=== PATIENT | male | born 1965 | race Hispanic/Latino ===

== ENCOUNTER 2017-02-22 17:46 | Inpatient (IN) | payer MEDICAID ==
[2017-02-22 17:50] VITALS: BMI 29.9
--- NOTE | 2017-02-22 18:35 | RAD ---
HISTORY: dvt right leg COMPARISON: 06/21/2016 FINDINGS: LUNGS: No active pulmonary disease. PLEURA: No significant pleural effusion identified, no pneumothorax apparent. CARDIOVASCULAR: Normal. OSSEOUS STRUCTURES: No significant abnormalities. VISUALIZED UPPER ABDOMEN: Normal. OTHER FINDINGS: None. IMPRESSION: No active disease.
[2017-02-22 18:43] LABS: BASO # 0.03 K/mm3 (0.0-2.0); BASO % 0.3 % (0.0-3.0); EOS # 0.2 (0.0-0.7); EOS % 2.4 % (1.5-5.0); GRAN # 6.37 (1.4-6.5); GRAN % 71.6 % (50.0-68.0); HEMATOCRIT 34.5 % (42.0-52.0); LYMPH # 1.7 (1.2-3.4); LYMPH % 19.3 % (22.0-35.0); MEAN CELL VOLUME 86.9 fl (80.0-105.0); MEAN CORPUSCULAR HEMOGLOBIN 28.5 pg (25.0-35.0); MEAN CORPUSCULAR HGB CONC 32.8 g/dl (31.0-37.0); MEAN PLATELET VOLUME 9.3 fl (7.0-11.0); MONO # 0.6 (0.1-0.6); MONO % 6.4 % (1.0-6.0); RED CELL DISTRIBUTION WIDTH 12.4 % (11.5-14.5); WHITE BLOOD COUNT 8.9 10^3/ul (4.5-11.0)
[2017-02-22 18:59] LABS: ALB/GLOB RATIO 1.3 (1.1-1.8); ALKALINE PHOSPHATASE 91 U/L (38-126); ALT/SGPT 36 U/L (7-56); AST/SGOT 28 U/L (17-59); BILIRUBIN,TOTAL 0.4 mg/dL (0.2-1.3); BLOOD UREA NITROGEN 14 mg/dL (7-21); CARBON DIOXIDE 28 mmol/L (21-33); CHLORIDE 104 mmol/L (98-107); GFR AFRICAN-AMERICAN > 60; GLUCOSE,RANDOM 97 mg/dL (70-110); POTASSIUM 4.1 mmol/L (3.6-5.0); SODIUM 142 mmol/L (132-148)
[2017-02-22 19:08] LABS: INR 1.06 (0.93-1.08); PARTIAL THROMBOPLASTIN TIME 26.7 Seconds (23.7-30.8)
--- NOTE | 2017-02-22 19:30 | ED PDOC ---
Arrival/HPI - General Chief Complaint: Lower Extremity Problem/Injury Time Seen by Provider: 02/22/17 17:52 Historian: Patient - History of Present Illness Narrative History of Present Illness (Text): 02/22/17 19:00 52-year-old male presents today sent in by his doctor for DVT in the right leg. Patient states 2 weeks ago he developed right leg pain and swelling. denies fever/chills. pt states he had right foot surgery on December 30. pt states he was sent to outpatient Ultrasound today and then sent to ER after positive test. pt refusing medications for pain. denies cp or sob. no vomiting/diarrhea. no other complaints. Time/Duration: Other (2 weeks) Symptom Onset: Gradual Symptom Course: Worsening Quality: Aching Past Medical History - Provider Review Nursing Documentation Reviewed: Yes - Travel History Have you recently traveled outside [place] w/in the past 3 mons?: No - Infectious Disease Hx of Infectious Diseases: None - Tetanus Immunization Tetanus Immunization: Unknown - Cardiac Hx Pacemaker: No - Neurological Hx Paralysis: No - Hematological/Oncological Hx Blood Transfusions: No Hx Blood Transfusion Reaction: No - Musculoskeletal/Rheumatological Hx Musculoskeletal Disorders: No - Psychiatric Hx Emotional Abuse: No Hx Physical Abuse: No Hx Substance Use: No - Surgical History Other/Comment: R foot surgery December 2016 - Anesthesia Hx Anesthesia Reactions: No Hx Malignant Hyperthermia: No - Suicidal Assessment Feels Threatened In Home Enviroment: No Family/Social History - Physician Review Nursing Documentation Reviewed: Yes Family/Social History: Unknown Family HX Smoking Status: Never Smoked Hx Alcohol Use: No Hx Substance Use: No Allergies/Home Meds Allergies/Adverse Reactions: Allergies No Known Allergies Allergy (Verified 06/21/16 10:13) Home Medications: Home Meds Medication Instructions Recorded Confirmed Ciprofloxacin [Cipro] 500 mg PO BID 06/29/16 06/29/16 Magnesium Hydroxide [Milk Of 30 ml PO DAILY PRN 06/29/16 06/29/16 Magnesia] oxyCODONE/Acetaminophen [Percocet 1 tab PO QID PRN 06/29/16 06/29/16 5/325 mg Tab] Review of Systems - Review of Systems Constitutional: absent: Fatigue, Fevers Respiratory: absent: SOB, Cough Cardiovascular: absent: Chest Pain, Palpitations Gastrointestinal: absent: Abdominal Pain, Constipation, Diarrhea, Nausea, Vomiting Genitourinary Male: absent: Dysuria, Frequency, Hematuria Musculoskeletal: Arthralgias Neurological: absent: Headache, Dizziness Psychiatric: absent: Anxiety, Depression Physical Exam Vital Signs Reviewed: Yes Vital Signs Temp Pulse Resp BP Pulse Ox 02/22/17 17:47 98.5 F 70 18 146/82 97 Temperature: Afebrile Blood Pressure: Normal Pulse: Regular Respiratory Rate: Normal Appearance: Positive for: Well-Appearing, Non-Toxic, Comfortable Pain Distress: None Mental Status: Positive for: Alert and Oriented X 3 - Systems Exam Head: Present: Atraumatic Mouth: Present: Moist Mucous Membranes Neck: Present: Normal Range of Motion Respiratory/Chest: Present: Clear to Auscultation, Good Air Exchange. No: Respiratory Distress, Accessory Muscle Use Cardiovascular: Present: Regular Rate and Rhythm, Normal S1, S2. No: Murmurs Abdomen: No: Tenderness Upper Extremity: Present: Normal Inspection Lower Extremity: Present: CALF TENDERNESS, Tenderness (right leg; + edema and erythema noted to right foot, lower leg and calf. medial incision noted to right foot;), Swelling, Erythema, Neurovascularly Intact Neurological: Present: GCS=15 Skin: Present: Warm, Dry Psychiatric: Present: Alert, Oriented x 3 Medical Decision Making ED Course and Treatment: 02/22/17 21:27 52yr old male sent in by PMD for DVT right leg. vitals stable; pt in no distress. cbc; wnl cmp; wnl pt/ptt duplex reviewed; pt with right popliteal dvt. lovenox started sq. case discussed with dr. williamson in depth; advised him that patient started on lovenox in er. accepts admission; pt to be admitted to med/surg case discussed with resident; binta. he will add vancomycin impression; dvt right leg admit to med/surg - Lab Interpretations Lab Results: 02/22/17 18:30 02/22/17 18:30 Lab Results 02/22/17 18:30: Iron 34 L, TIBC 275, % Saturation 12 L 02/22/17 18:30: Ferritin Pending, Triglycerides 102, Cholesterol 128 L, LDL Cholesterol Direct 60, HDL Cholesterol 40, Vitamin B12 Pending, Folate Pending 02/22/17 18:30: WBC 8.9 D, RBC 3.97, Hgb 11.3 L, Hct 34.5 L, MCV 86.9, MCH 28.5 , MCHC 32.8, RDW 12.4, Plt Count 385, MPV 9.3, Gran % 71.6 H, Lymph % (Auto) 19.3 L, [place] % (Auto) 6.4 H, Eos % (Auto) 2.4, Baso % (Auto) 0.3, Gran # 6.37, Lymph # 1.7, [place] # 0.6, Eos # 0.2, Baso # 0.03 02/22/17 18:30: Sodium 142, Potassium 4.1, Chloride 104, Carbon Dioxide 28, Anion Gap 14, BUN 14, Creatinine 0.8, Est GFR ( Amer) > 60, Est GFR (Non- Af Amer) > 60, Random Glucose 97, Calcium 9.0, Total Bilirubin 0.4, AST 28, ALT 36, Alkaline Phosphatase 91, Total Protein 7.0, Albumin 3.9, Globulin 3.1, Albumin/Globulin Ratio 1.3 02/22/17 18:30: PT 11.4, INR 1.06, APTT 26.7 - RAD Interpretation Radiology Orders: 02/22/17 18:03 CHEST PORTABLE [RAD] Stat - Medication Orders Current Medication Orders: Famotidine (Pepcid) 20 mg PO 1000,2200 GINNA Vancomycin HCl (Vancomycin 1gm) 1 gm in 250 mls @ 167 mls/hr IVPB DAILY GINNA PRN Reason: Protocol Heparin Sodium/Dextrose (Heparin 25,000 Units/250ml In D5w) 25,000 units in 250 mls @ 17.554 mls/hr IV .[id number] PRN; Protocol; 18 UNITS/KG/HR PRN Reason: ADJUST RATE PER PROTOCOL Discontinued Medications Enoxaparin Sodium (Lovenox) 100 mg SC STAT STA PRN Reason: Protocol Stop: 02/22/17 19:32 Last Admin: 02/22/17 19:46 Dose: 100 mg Subcutaneous Administrations Document 02/22/17 19:46 SS (Rec: 02/22/17 19:46 SS [id number]) Injection Site MAR Injection Site Left Abdomen Charges for Administration # of Subcutaneous Administrations 1 Disposition/Present on Arrival - Present on Arrival Any Indicators Present on Arrival: No History of DVT/PE: No History of Uncontrolled Diabetes: No Urinary Catheter: No History of Decub. Ulcer: No History Surgical Site Infection Following: Orthopedic Procedures, None - Disposition Have Diagnosis and Disposition been Completed?: Yes Diagnosis: DVT (deep venous thrombosis) Disposition: HOSPITALIZED Disposition Time: 20:03 Patient Plan: Admission Patient Problems: Current Active Problems Problem Status Onset DVT (deep venous thrombosis) Acute Condition: FAIR Referrals: Mariana Thorpe MD [Primary Care Provider] - Follow up with primary Forms: [employer] (Hebrew)
[2017-02-22] MEDS ORDERED: Enoxaparin 100 mg Syringe SC STA (19:31)
--- NOTE | 2017-02-22 21:00 | CP.PCM.HP ---
<Irving Covington - Last Filed: 02/22/17 21:15> History of Present Illness - History of Present Illness History of Present Illness: CC: R leg blood clot 52M with no significant pmh presents from his podiatry after an abnormal extremity US showing acute RLE DVT - of popliteal and tibial v. Two weeks ago he started getting pain in his R leg. When he followed up with his Podiatry today she sent him for an US of extremity. 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 pain is non radiating and 6/10 in severity. He denies any long periods of immobility. Denies any hx of clots. Pt also states that his leg started to get erythematous and "hot" which also started 2 weeks ago. No other complaints. 12 point ROS performed and negative otherwise stated above. 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, smoking, or drugs FH: grandfather with DM Present on Admission - Present on Admission Any Indicators Present on Admission: No Review of Systems - Review of Systems All systems: reviewed and no additional remarkable complaints except Past Patient History - Infectious Disease Hx of Infectious Diseases: None - Tetanus Immunizations Tetanus Immunization: Unknown - Past Social History Smoking Status: Never Smoked - CARDIAC Hx Pacemaker: No - NEUROLOGICAL Hx Paralysis: No - HEMATOLOGICAL/ONCOLOGICAL Hx Blood Transfusions: No Hx Blood Transfusion Reaction: No - MUSCULOSKELETAL/RHEUMATOLOGICAL Hx Musculoskeletal Disorders: No - PSYCHIATRIC Hx Emotional Abuse: No Hx Physical Abuse: No Hx Substance Use: No - SURGICAL HISTORY Other/Comment: R foot surgery December 2016 - ANESTHESIA Hx Anesthesia Reactions: No Hx Malignant Hyperthermia: No Meds Allergies/Adverse Reactions: Allergies Allergy/AdvReac Type Severity Reaction Status Date / Time No Known Allergies Allergy Verified 06/21/16 10:13 Physical Exam - Constitutional Appears: No Acute Distress - Head Exam Head Exam: ATRAUMATIC, NORMOCEPHALIC - Eye Exam Eye Exam: EOMI, PERRL - ENT Exam ENT Exam: Mucous Membranes Moist - Respiratory Exam Respiratory Exam: Clear to Auscultation Bilateral. absent: Rales, Rhonchi, Wheezes - Cardiovascular Exam Cardiovascular Exam: RRR, +S1, +S2 - GI/Abdominal Exam GI & Abdominal Exam: Normal Bowel Sounds, Soft - Extremities Exam Extremities exam: Positive for: calf tenderness, pedal edema Additional comments: RLE: erythema and warm to touch, calf tenderness; 2+ pitting edema, Splint placed by podiatry - Back Exam Back exam: absent: paraspinal tenderness, vertebral tenderness - Neurological Exam Neurological exam: Alert, CN II-XII Intact, Oriented x3 - Psychiatric Exam Psychiatric exam: Normal Affect, Normal Mood - Skin Skin Exam: Dry, Erythema, Intact, Warm Additional comments: RLE exam: refer to extermity portion of exam Results - Vital Signs Recent Vital Signs: Last Vital Signs Temp 98.5 F 02/22/17 17:47 Pulse 70 02/22/17 17:47 Resp 18 02/22/17 17:47 BP 146/82 02/22/17 17:47 Pulse Ox 97 02/22/17 17:47 - Labs Result Diagrams: 02/22/17 18:30 02/22/17 18:30 Labs: Laboratory Results - last 24 hr 02/22/17 02/22/17 02/22/17 18:30 18:30 18:30 WBC 8.9 D RBC 3.97 Hgb 11.3 L Hct 34.5 L MCV 86.9 MCH 28.5 MCHC 32.8 RDW 12.4 Plt Count 385 MPV 9.3 Gran % 71.6 H Lymph % (Auto) 19.3 L [place] % (Auto) 6.4 H Eos % (Auto) 2.4 Baso % (Auto) 0.3 Gran # 6.37 Lymph # 1.7 [place] # 0.6 Eos # 0.2 Baso # 0.03 PT 11.4 INR 1.06 APTT 26.7 Sodium 142 Potassium 4.1 Chloride 104 Carbon Dioxide 28 Anion Gap 14 BUN 14 Creatinine 0.8 Est GFR ( Amer) > 60 Est GFR (Non-Af Amer) > 60 Random Glucose 97 Calcium 9.0 Total Bilirubin 0.4 AST 28 ALT 36 Alkaline Phosphatase 91 Total Protein 7.0 Albumin 3.9 Globulin 3.1 Albumin/Globulin Ratio 1.3 Assessment & Plan - Assessment and Plan (Free Text) Assessment: 52M with no significant pmh 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 Pt also found to have cellulites of RLE and anemia to 11.3. 1. Acute DVT - Lovenox 100mg stat in the ED - Started heparin drip - Anticoagulation work up prior to heparin drip 2. Cellulites of RLE - Afebrile and no leukocytosis - Started on vancomycin - Podiatry consult for recs - Cont to monitor 3. Anemia - No active source of bleeding - Hb of 11.3 - f/u anemia work up 4. GI/DVT ppx - Pepcid and heparin Case an plan was reviewed and discussed in detail with Dr Morrow. <Bennie Morrow - Last Filed: 02/23/17 06:52> Results - Vital Signs Recent Vital Signs: Last Vital Signs Temp 98.5 F 02/22/17 17:47 Pulse 70 02/22/17 22:30 Resp 18 02/22/17 17:47 BP 122/84 02/22/17 22:30 Pulse Ox 99 02/22/17 22:30 - Labs Result Diagrams: 02/22/17 18:30 02/22/17 18:30 Attending/Attestation - Attestation I have personally seen and examined this patient.: Yes I have fully participated in the care of the patient.: Yes I have reviewed all pertinent clinical information: Yes Notes (Text): 02/23/17 01:46 Agree with history , physical examination, assessment and plan. Patient was seen when he was in bed # 573-57.
[2017-02-22 21:10] LABS: IRON 34 ug/dL (45-180)
[2017-02-22] MEDS ORDERED: Heparin 25,000units in D5W 25,000 UNITS/250 ML BAG IV PRN (21:14)
[2017-02-23 07:23] LABS: BASO # 0.04 K/mm3 (0.0-2.0); BASO % 0.5 % (0.0-3.0); EOS # 0.3 (0.0-0.7); EOS % 3.9 % (1.5-5.0); GRAN # 4.3 (1.4-6.5); GRAN % 58.6 % (50.0-68.0); HEMATOCRIT 32.9 % (42.0-52.0); LYMPH # 2.2 (1.2-3.4); LYMPH % 29.3 % (22.0-35.0); MEAN CELL VOLUME 86.1 fl (80.0-105.0); MEAN CORPUSCULAR HEMOGLOBIN 28.3 pg (25.0-35.0); MEAN CORPUSCULAR HGB CONC 32.8 g/dl (31.0-37.0); MEAN PLATELET VOLUME 9.4 fl (7.0-11.0); MONO # 0.6 (0.1-0.6); MONO % 7.7 % (1.0-6.0); RED CELL DISTRIBUTION WIDTH 12.6 % (11.5-14.5); WHITE BLOOD COUNT 7.4 10^3/ul (4.5-11.0)
[2017-02-23 07:50] LABS: ALB/GLOB RATIO 1.1 (1.1-1.8); ALKALINE PHOSPHATASE 96 U/L (38-126); ALT/SGPT 27 U/L (7-56); AST/SGOT 27 U/L (17-59); BILIRUBIN,TOTAL 0.5 mg/dL (0.2-1.3); BLOOD UREA NITROGEN 12 mg/dL (7-21); CALCIUM 8.9 mg/dL (8.4-10.5); CARBON DIOXIDE 29 mmol/L (21-33); CHLORIDE 105 mmol/L (98-107); GFR AFRICAN-AMERICAN > 60; GLUCOSE,RANDOM 102 mg/dL (70-110); POTASSIUM 3.9 mmol/L (3.6-5.0); SODIUM 143 mmol/L (132-148); TOTAL PROTEIN 6.6 g/dL (5.8-8.3)
--- NOTE | 2017-02-23 08:31 | CP.PCM.PN ---
<Saman Costello - Last Filed: 02/23/17 15:13> Subjective - Date & Time of Evaluation Date of Evaluation: 02/23/17 Time of Evaluation: 08:26 - Subjective Subjective: Pt seen and examined at bedside. Pt doing well overnight with no acute complaints. Pt states pain in his right leg is minimal at this time. Denies CP, SOB, N/V/D, fever, chills, palpitations. Objective - Vital Signs/Intake and Output Vital Signs (last 24 hours): Temp Pulse Resp BP Pulse Ox 97.5 F L 60 16 132/80 97 02/23/17 07:53 02/23/17 07:53 02/23/17 07:53 02/23/17 07:53 02/23/17 07:53 Intake and Output: 02/23/17 02/23/17 06:59 18:59 Intake Total 120 Balance 120 - Medications Medications: Current Medications Famotidine (Pepcid) 20 mg PO 1000,2200 [facility] Last Admin: 02/22/17 23:10 Dose: 20 mg Vancomycin HCl (Vancomycin 1gm) 1 gm in 250 mls @ 167 mls/hr IVPB DAILY GINNA PRN Reason: Protocol Heparin Sodium/Dextrose (Heparin 25,000 Units/250ml In D5w) 25,000 units in 250 mls @ 17.554 mls/hr IV .[id number] PRN; Protocol; 18 UNITS/KG/HR PRN Reason: ADJUST RATE PER PROTOCOL Last Admin: 02/23/17 00:35 Dose: 18 units/kg/hr, 17.554 mls/hr - Labs Labs: 02/23/17 07:10 02/23/17 07:10 PT 11.4 Seconds (9.9-11.8) 02/22/17 18:30 INR 1.06 (0.93-1.08) 02/22/17 18:30 APTT 54.6 Seconds (23.7-30.8) H 02/23/17 07:10 - Constitutional Appears: Non-toxic, No Acute Distress - Head Exam Head Exam: ATRAUMATIC, NORMAL INSPECTION, NORMOCEPHALIC - ENT Exam ENT Exam: Mucous Membranes Moist, Normal Exam - Respiratory Exam Respiratory Exam: Clear to Ausculation Bilateral, NORMAL BREATHING PATTERN. absent: Rales, Rhonchi, Wheezes - Cardiovascular Exam Cardiovascular Exam: RRR, +S1, +S2 - GI/Abdominal Exam GI & Abdominal Exam: Soft, Normal Bowel Sounds. absent: Tenderness - Extremities Exam Additional comments: RLE warm to touch, erythema improved from outlined marking. 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 Pt has been placed on a heparin drip and has Vancomycin for cellulitis. Will convert heparin drip to therapeutic Lovenox. Pt is also undergoing coagulopathy workup for DVT, however, DVT is likely secondary to immbolization after recent history of right foot surgery. 1. RLE DVT - Therapeutic Lovenox - Coagulopathy workup ordered 2. Cellulites of RLE - Afebrile and no leukocytosis - Continue vancomycin - Podiatry consulted 3. Normocytic Anemia - Hg stable - Consider outpatient workup 4. PPX - Heparin drip - Philip Costello, PGY-2 <Mitch Miller - Last Filed: 02/24/17 14:05> Objective - Vital Signs/Intake and Output Vital Signs (last 24 hours): Temp Pulse Resp BP Pulse Ox 97.7 F 60 18 133/87 97 02/24/17 08:00 02/24/17 08:00 02/24/17 08:00 02/24/17 08:00 02/24/17 08:00 Intake and Output: 02/24/17 02/24/17 06:59 18:59 Intake Total 840 Balance 840 - Medications Medications: Current Medications Enoxaparin Sodium (Lovenox) 100 mg SC Q12H GINNA PRN Reason: Protocol Last Admin: 02/24/17 05:40 Dose: 100 mg Famotidine (Pepcid) 20 mg PO 1000,2200 GINNA Last Admin: 02/24/17 10:52 Dose: 20 mg Vancomycin HCl (Vancomycin 1gm) 1 gm in 250 mls @ 167 mls/hr IVPB DAILY GINNA PRN Reason: Protocol Last Admin: 02/24/17 10:52 Dose: 167 mls/hr - Labs Labs: 02/24/17 06:00 02/24/17 06:00 PT 11.4 Seconds (9.9-11.8) 02/23/17 15:40 INR 1.06 (0.93-1.08) 02/23/17 15:40 APTT 29.1 Seconds (23.7-30.8) 02/24/17 06:00 Attending/Attestation - Attestation I have personally seen and examined this patient.: Yes I have fully participated in the care of the patient.: Yes I have reviewed all pertinent clinical information, including history, physical exam and plan: Yes Notes (Text): 02/24/17 14:05 Patient was seen and examined with ophthalmic medical technologist. Agreed with resident assessment and plan. Management plan was discussed in detail with patient Education was provided.
[2017-02-23] MEDS: Vancomycin 1gm in NS 250ml 1 GM/250 ML BAG IVPB SCH (10:15)
[2017-02-23 16:16] LABS: INR 1.06 (0.93-1.08); PARTIAL THROMBOPLASTIN TIME 48.5 Seconds (23.7-30.8)
[2017-02-23] MEDS: Enoxaparin 100 mg Syringe SC SCH (17:13)
[2017-02-24] MEDS: Enoxaparin 100 mg Syringe SC SCH ×2 (05:40→18:03)
[2017-02-24 06:14] LABS: HOMOCYSTEINE 13.9 umol/L (<11.4)
[2017-02-24 06:29] LABS: BASO # 0.03 K/mm3 (0.0-2.0); BASO % 0.5 % (0.0-3.0); EOS # 0.3 (0.0-0.7); EOS % 4.3 % (1.5-5.0); GRAN # 3.6 (1.4-6.5); GRAN % 57.2 % (50.0-68.0); HEMATOCRIT 33.1 % (42.0-52.0); LYMPH # 1.8 (1.2-3.4); LYMPH % 29.3 % (22.0-35.0); MEAN CELL VOLUME 86.2 fl (80.0-105.0); MEAN CORPUSCULAR HEMOGLOBIN 28.1 pg (25.0-35.0); MEAN CORPUSCULAR HGB CONC 32.6 g/dl (31.0-37.0); MEAN PLATELET VOLUME 9.1 fl (7.0-11.0); MONO # 0.6 (0.1-0.6); MONO % 8.7 % (1.0-6.0); RED CELL DISTRIBUTION WIDTH 12.7 % (11.5-14.5); WHITE BLOOD COUNT 6.3 10^3/ul (4.5-11.0)
[2017-02-24 07:02] LABS: ALB/GLOB RATIO 1.2 (1.1-1.8); ALKALINE PHOSPHATASE 87 U/L (38-126); ALT/SGPT 33 U/L (7-56); AST/SGOT 23 U/L (17-59); BILIRUBIN,TOTAL 0.4 mg/dL (0.2-1.3); BLOOD UREA NITROGEN 11 mg/dL (7-21); CALCIUM 8.8 mg/dL (8.4-10.5); CARBON DIOXIDE 28 mmol/L (21-33); CHLORIDE 104 mmol/L (98-107); GFR AFRICAN-AMERICAN > 60; GLUCOSE,RANDOM 114 mg/dL (70-110); POTASSIUM 3.6 mmol/L (3.6-5.0); SODIUM 142 mmol/L (132-148); TOTAL PROTEIN 6.7 g/dL (5.8-8.3)
--- NOTE | 2017-02-24 10:25 | CARD ---
APPROVED REPORT EKG Measurement Heart [id number] ME [id number] <Conclusion> Normal sinus rhythm Possible Left atrial enlargement Borderline ECG
[2017-02-24] MEDS: Vancomycin 1gm in NS 250ml 1 GM/250 ML BAG IVPB SCH (10:52)
--- NOTE | 2017-02-24 14:21 | CP.PCM.PN ---
<Main Acosta - Last Filed: 02/24/17 14:18> Subjective - Date & Time of Evaluation Date of Evaluation: 02/24/17 Time of Evaluation: 10:00 - Subjective Subjective: Medicine Progress Note Pt S&E at bedside this AM. No acute events overnight. Tolerating current diet. No current pain. Denies F/C CP/SOB N/V/D. Right foot dressing C/D/I. Objective - Vital Signs/Intake and Output Vital Signs (last 24 hours): Temp Pulse Resp BP Pulse Ox 97.7 F 60 18 133/87 97 02/24/17 08:00 02/24/17 08:00 02/24/17 08:00 02/24/17 08:00 02/24/17 08:00 Intake and Output: 02/24/17 02/24/17 06:59 18:59 Intake Total 840 800 Balance 840 800 - Medications Medications: Current Medications Enoxaparin Sodium (Lovenox) 100 mg SC Q12H GINNA PRN Reason: Protocol Last Admin: 02/24/17 05:40 Dose: 100 mg Famotidine (Pepcid) 20 mg PO 1000,2200 GINNA Last Admin: 02/24/17 10:52 Dose: 20 mg Vancomycin HCl (Vancomycin 1gm) 1 gm in 250 mls @ 167 mls/hr IVPB DAILY GINNA PRN Reason: Protocol Last Admin: 02/24/17 10:52 Dose: 167 mls/hr - Labs Labs: 02/24/17 06:00 02/24/17 06:00 PT 11.4 Seconds (9.9-11.8) 02/23/17 15:40 INR 1.06 (0.93-1.08) 02/23/17 15:40 APTT 29.1 Seconds (23.7-30.8) 02/24/17 06:00 - Constitutional Appears: Non-toxic, No Acute Distress - Eye Exam Eye Exam: EOMI. absent: Scleral icterus - ENT Exam ENT Exam: Mucous Membranes Moist - Respiratory Exam Respiratory Exam: NORMAL BREATHING PATTERN. absent: Accessory Muscle Use, Respiratory Distress - Cardiovascular Exam Cardiovascular Exam: +S1, +S2. absent: Bradycardia, Tachycardia - GI/Abdominal Exam GI & Abdominal Exam: Soft. absent: Distended, Firm, Rigid, Tenderness - Extremities Exam Extremities Exam: absent: Calf Tenderness Additional comments: Erythema demarcation decreasing. 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 Pt currently on Lovenox and Vancomyicn for DVT and Cellulitis respectively. DVT 2/2 immobilization after recent history of right foot surgery. RLE DVT Therapeutic Lovenox will telephone exchange operator to [place] upon discharge Cellulites of RLE Afebrile and no leukocytosis Continue vancomycin Plan to D/C on Augmentin Podiatry consulted, wound care per podiatry recs Normocytic Anemia Hg stable Consider outpatient workup PPX Philip Acosta PGY1 <Mitch Miller - Last Filed: 02/25/17 15:46> Objective - Vital Signs/Intake and Output Vital Signs (last 24 hours): Temp Pulse Resp BP Pulse Ox 98.3 F 57 L 18 132/82 96 02/25/17 08:00 02/25/17 08:00 02/25/17 08:00 02/25/17 08:00 02/25/17 08:00 Intake and Output: 02/25/17 02/25/17 06:59 18:59 Intake Total 960 Balance 960 - Labs Labs: 02/25/17 06:50 02/25/17 06:50 PT 11.4 Seconds (9.9-11.8) 02/23/17 15:40 INR 1.06 (0.93-1.08) 02/23/17 15:40 APTT 28.7 Seconds (23.7-30.8) 02/25/17 06:50 Attending/Attestation - Attestation I have personally seen and examined this patient.: Yes I have fully participated in the care of the patient.: Yes I have reviewed all pertinent clinical information, including history, physical exam and plan: Yes Notes (Text): 02/25/17 15:46 Patient was seen and examined with director medical writing. Agreed with resident assessment and plan. Management plan was discussed in detail with patient Education was provided.
[2017-02-24 18:05] VITALS: TEMP 98.3
[2017-02-24] MEDS ORDERED: Enoxaparin 100 mg Syringe SC SCH (20:29)
[2017-02-25 07:09] LABS: BASO # 0.04 K/mm3 (0.0-2.0); BASO % 0.6 % (0.0-3.0); EOS # 0.3 (0.0-0.7); EOS % 4.2 % (1.5-5.0); GRAN # 3.73 (1.4-6.5); GRAN % 56.3 % (50.0-68.0); HEMATOCRIT 33.7 % (42.0-52.0); LYMPH % 30.6 % (22.0-35.0); MEAN CELL VOLUME 86.9 fl (80.0-105.0); MEAN CORPUSCULAR HEMOGLOBIN 28.4 pg (25.0-35.0); MEAN CORPUSCULAR HGB CONC 32.6 g/dl (31.0-37.0); MEAN PLATELET VOLUME 9.4 fl (7.0-11.0); MONO # 0.6 (0.1-0.6); MONO % 8.3 % (1.0-6.0); RED CELL DISTRIBUTION WIDTH 12.9 % (11.5-14.5); WHITE BLOOD COUNT 6.6 10^3/ul (4.5-11.0)
[2017-02-25 07:22] LABS: ALB/GLOB RATIO 1.2 (1.1-1.8); ALKALINE PHOSPHATASE 87 U/L (38-126); ALT/SGPT 47 U/L (7-56); AST/SGOT 65 U/L (17-59); BILIRUBIN,TOTAL 0.4 mg/dL (0.2-1.3); BLOOD UREA NITROGEN 13 mg/dL (7-21); CARBON DIOXIDE 30 mmol/L (21-33); CHLORIDE 106 mmol/L (98-107); GFR AFRICAN-AMERICAN > 60; GLUCOSE,RANDOM 99 mg/dL (70-110); POTASSIUM 4.1 mmol/L (3.6-5.0); SODIUM 144 mmol/L (132-148); TOTAL PROTEIN 6.9 g/dL (5.8-8.3)
[2017-02-25 08:25] VITALS: BP 132/82; PULSE 57; RESP 18; O2SAT 96
[2017-02-25] MEDS: Vancomycin 1gm in NS 250ml 1 GM/250 ML BAG IVPB SCH (09:19)
--- NOTE | 2017-02-25 11:17 | CP.PCM.PN ---
<Nagi Wyatt - Last Filed: 02/25/17 11:03> Subjective - Date & Time of Evaluation Date of Evaluation: 02/25/17 Time of Evaluation: 11:03 - Subjective Subjective: 52 y.o male with R leg DVT consulted for podiatry for right foot cellulites. Patient is resting comfortably in bed, AAOx3, and in NAD with present at bedside. Patient states he recently had foot surgery by Dr. Mendoza on 12/2016 for removal of bone. He does not know the exact name of the procedure but reports the surgery was to relieve his right foot shooting pains. After surgery he was given antibiotic and pain medication. Reports being in a cast for 5 weeks R NWB with crutches and states 2 weeks ago, he transitioned into a CAM boot with WBAT to the right foot. Today he denies any pain, rating the pain 0/10 on the VAS scale. He reports feeling better and denies any calf pain today. He reports his right leg swelling and redness has gone down as well. He denies n/v/sob/cp or f. PSH: hernia surgery in 2016 and right foot surgery on 01/06 PMH: denies PMH SH: denies smoking, drinking, or elicited drug use FH: father with DM ALL: NKDA MEDS: does not recall names: pain medication and antibiotic s/p right foot surgery Objective - Vital Signs/Intake and Output Vital Signs (last 24 hours): Temp Pulse Resp BP Pulse Ox 98.3 F 57 L 18 132/82 96 02/25/17 08:00 02/25/17 08:00 02/25/17 08:00 02/25/17 08:00 02/25/17 08:00 Intake and Output: 02/25/17 02/25/17 06:59 18:59 Intake Total 960 Balance 960 - Medications Medications: Current Medications Enoxaparin Sodium (Lovenox) 100 mg SC 0600,1800 GINNA PRN Reason: Protocol Last Admin: 02/25/17 06:03 Dose: 100 mg Famotidine (Pepcid) 20 mg PO 1000,2200 GINNA Last Admin: 02/25/17 09:19 Dose: 20 mg Vancomycin HCl (Vancomycin 1gm) 1 gm in 250 mls @ 167 mls/hr IVPB DAILY GINNA PRN Reason: Protocol Last Admin: 02/25/17 09:19 Dose: 167 mls/hr - Labs Labs: 02/25/17 06:50 02/25/17 06:50 PT 11.4 Seconds (9.9-11.8) 02/23/17 15:40 INR 1.06 (0.93-1.08) 02/23/17 15:40 APTT 28.7 Seconds (23.7-30.8) 02/25/17 06:50 - Constitutional Appears: Well, Non-toxic, No Acute Distress - Extremities Exam Additional comments: Vasc: DP and PT 2/4 bilaterally, temperature WNL to the LEFT, RIGHT LE increase warmth compared to the LEFT, mild edema noted to the RIGHT LE, digit hair present, CFT < 3 seconds x10 digits Ortho: MM is 5/5 in dorsiflexion, plantarflexion, inversion, and eversion Neuro: protective and gross sensation intact bilaterally Derm: surgical incision noted to the medial aspect of the left foot measuring approximately 5 cm in length, distal and proximal surgical incision is completely healed with scarring noted. Wound dehiscence noted centrally measuring approximately .5 x .2, granular and fibrous in nature, mild serous drainage noted, mild erythema noted, no streaking noted, no increase warm to surgical site, no edema, no tunneling, undermining noted. Severe xerosis noted to the right lower extremity with hyperkeratotic lesions most prominent to plantar foot; there is no opening noted to the hyperkeratotic skin. - Neurological Exam Neurological Exam: Alert, Awake, Oriented x3 - Psychiatric Exam Psychiatric exam: Normal Affect, Normal Mood Assessment and Plan - Assessment and Plan (Free Text) Assessment: 52 y.o male with R leg DVT and right foot surgical site wound dehiscence Plan: Patient examined and evaluated. Discussed plan in detail with attending Dr. Infante Labs, charts, vitals reviewed (afebrile, absent leukocytosis WBC=6.6) Surgical site cleansed with saline, betadine and dressed with adaptic, 4x4, dsd , and kerlix Continue management of DVT treatment per primary team Will apply hydrin lotion with next dressing change. Will continue to follow while in house Thank you for the consult <Lasha Infante - Last Filed: 02/27/17 11:27> Objective - Vital Signs/Intake and Output Vital Signs (last 24 hours): Temp Pulse Resp BP Pulse Ox 98.3 F 57 L 18 132/82 96 02/25/17 08:00 02/25/17 08:00 02/25/17 08:00 02/25/17 08:00 02/25/17 08:00 - Labs Labs: 02/25/17 06:50 02/25/17 06:50 PT 11.4 Seconds (9.9-11.8) 02/23/17 15:40 INR 1.06 (0.93-1.08) 02/23/17 15:40 APTT 28.7 Seconds (23.7-30.8) 02/25/17 06:50 Attending/Attestation - Attestation I have personally seen and examined this patient.: Yes I have fully participated in the care of the patient.: Yes I have reviewed all pertinent clinical information, including history, physical exam and plan: Yes
--- NOTE | 2017-02-25 12:29 | CP.PCM.DIS ---
<Main Acosta - Last Filed: 02/25/17 12:30> Provider - Provider Date of Admission: 02/22/17 22:20 Attending physician: Mitch Miller MD Primary care physician: Mariana Thorpe MD Time Spent in preparation of Discharge (in minutes): 40 Hospital Course - Lab Results Lab Results: Most Recent Lab Values WBC 6.6 10^3/ul (4.5-11.0) 02/25/17 06:50 RBC 3.88 10^6/uL (3.5-6.1) 02/25/17 06:50 Hgb 11.0 g/dL (14.0-18.0) L 02/25/17 06:50 Hct 33.7 % (42.0-52.0) L 02/25/17 06:50 MCV 86.9 fl (80.0-105.0) 02/25/17 06:50 MCH 28.4 pg (25.0-35.0) 02/25/17 06:50 MCHC 32.6 g/dl (31.0-37.0) 02/25/17 06:50 RDW 12.9 % (11.5-14.5) 02/25/17 06:50 Plt Count 366 10^3/uL (120.0-450.0) 02/25/17 06:50 MPV 9.4 fl (7.0-11.0) 02/25/17 06:50 Gran % 56.3 % (50.0-68.0) 02/25/17 06:50 Lymph % (Auto) 30.6 % (22.0-35.0) 02/25/17 06:50 Catron % (Auto) 8.3 % (1.0-6.0) H 02/25/17 06:50 Eos % (Auto) 4.2 % (1.5-5.0) 02/25/17 06:50 Baso % (Auto) 0.6 % (0.0-3.0) 02/25/17 06:50 Gran # 3.73 (1.4-6.5) 02/25/17 06:50 Lymph # 2.0 (1.2-3.4) 02/25/17 06:50 Catron # 0.6 (0.1-0.6) 02/25/17 06:50 Eos # 0.3 (0.0-0.7) 02/25/17 06:50 Baso # 0.04 K/mm3 (0.0-2.0) 02/25/17 06:50 PT 11.4 Seconds (9.9-11.8) 02/23/17 15:40 INR 1.06 (0.93-1.08) 02/23/17 15:40 APTT 28.7 Seconds (23.7-30.8) 02/25/17 06:50 Sodium 144 mmol/L (132-148) 02/25/17 06:50 Potassium 4.1 mmol/L (3.6-5.0) 02/25/17 06:50 Chloride 106 mmol/L (98-107) 02/25/17 06:50 Carbon Dioxide 30 mmol/L (21-33) 02/25/17 06:50 Anion Gap 12 (10-20) 02/25/17 06:50 BUN 13 mg/dL (7-21) 02/25/17 06:50 Creatinine 1.0 mg/dL (0.8-1.5) 02/25/17 06:50 Est GFR ( Amer) > 60 02/25/17 06:50 Est GFR (Non-Af Amer) > 60 02/25/17 06:50 Random Glucose 99 mg/dL (70-110) 02/25/17 06:50 Hemoglobin A1c 6.0 % (4.2-6.5) 02/22/17 18:30 Calcium 9.0 mg/dL (8.4-10.5) 02/25/17 06:50 Iron 34 ug/dL (45-180) L 02/22/17 18:30 TIBC 275 ug/dL (261-462) 02/22/17 18:30 % Saturation 12 % (20-55) L 02/22/17 18:30 Transferrin 202.35 mg/dL (206-381) L 02/22/17 18:30 Ferritin 98.9 ng/mL 02/22/17 18:30 Total Bilirubin 0.4 mg/dL (0.2-1.3) 02/25/17 06:50 AST 65 U/L (17-59) H D 02/25/17 06:50 ALT 47 U/L (7-56) 02/25/17 06:50 Alkaline Phosphatase 87 U/L (38-126) 02/25/17 06:50 Total Protein 6.9 g/dL (5.8-8.3) 02/25/17 06:50 Albumin 3.7 g/dL (3.0-4.8) 02/25/17 06:50 Globulin 3.2 gm/dL 02/25/17 06:50 Albumin/Globulin Ratio 1.2 (1.1-1.8) 02/25/17 06:50 Triglycerides 102 mg/dL (35-160) 02/22/17 18:30 Cholesterol 128 mg/dL (130-200) L 02/22/17 18:30 LDL Cholesterol Direct 60 mg/dL (0-129) 02/22/17 18:30 HDL Cholesterol 40 mg/dL (29-60) 02/22/17 18:30 Vitamin B12 386 pg/mL (239-931) 02/22/17 18:30 Folate 14.0 ng/mL 02/22/17 18:30 Homocysteine 13.9 umol/L ( <11.4) H 02/22/17 22:35 Stool Occult Blood Negative (NEGATIVE) 02/24/17 08:50 - Hospital Course Hospital Course: 52M presented from his podiatry after an abdominal extremity US showing acute RLE DVT of popliteal and tibial vein. At the time he sees his own independent jeweler hand had surgery on his foot in December. Pain was located in his calf and lower extremity. Pt does not have an hx of clots. Podiatry saw the patient for the right leg, clean and redressed the foot hydrin lotion with next dressing change. Patient was started on therapeutic Lovenox and Vacomycin. Patient in good condition and will be discharged on Eliquis and Amoxicillin. Follow up with Podiatry and primary care doctor. Discharge Exam - Head Exam Head Exam: ATRAUMATIC, NORMAL INSPECTION, NORMOCEPHALIC - Eye Exam Eye Exam: EOMI. absent: Scleral icterus - ENT Exam ENT Exam: Mucous Membranes Moist - Respiratory Exam Respiratory Exam: NORMAL BREATHING PATTERN. absent: Accessory Muscle Use, Respiratory Distress - Cardiovascular Exam Cardiovascular Exam: +S1, +S2. absent: Bradycardia, Tachycardia - GI/Abdominal Exam GI & Abdominal Exam: Normal Bowel Sounds, Soft. absent: Distended, Firm, Rigid , Tenderness - Extremities Exam Extremities exam: calf tenderness - Neurological Exam Neurological exam: Alert, Oriented x3 - Skin Skin Exam: Normal Color, Warm Discharge Plan - Discharge Medications Prescriptions: Amoxicillin/Clavulanate [Augmentin 875 MG-125 MG] 1 tab PO BID 7 Days tab Apixaban [Eliquis] 10 mg PO BID 7 Days tablet Apixaban [Eliquis] 5 mg PO BID 90 Days tab - Follow Up Plan Condition: FAIR Disposition: HOME/ ROUTINE Instructions: Pulmonary Embolism (DC), Deep Venous Thrombosis (ED), Leg Edema ( ED) Additional Instructions: Take Eliquis 10mg BID for the first 7 days starting on 02/26/17 ending on . followed by Eliquis 5mg BID for the next 3 months start date 03/05/17. Follow up with your primary care doctor and independent jeweler (Foot doctor) within one to two weeks. We have started on an additional antibiotic Augmentin BID take that for the first 7 days. If symptoms worsen or new additional symptoms come up such and extreme shortness of breath or pain on breathing go to the Emergency Department. Referrals: Mariana Thorpe MD [Primary Care Provider] - <Mitch Miller - Last Filed: 02/26/17 10:16> Provider - Provider Date of Admission: 02/22/17 22:20 Attending physician: Mitch Miller MD Primary care physician: Mariana Thorpe MD Hospital Course - Lab Results Lab Results: Most Recent Lab Values WBC 6.6 10^3/ul (4.5-11.0) 02/25/17 06:50 RBC 3.88 10^6/uL (3.5-6.1) 02/25/17 06:50 Hgb 11.0 g/dL (14.0-18.0) L 02/25/17 06:50 Hct 33.7 % (42.0-52.0) L 02/25/17 06:50 MCV 86.9 fl (80.0-105.0) 02/25/17 06:50 MCH 28.4 pg (25.0-35.0) 02/25/17 06:50 MCHC 32.6 g/dl (31.0-37.0) 02/25/17 06:50 RDW 12.9 % (11.5-14.5) 02/25/17 06:50 Plt Count 366 10^3/uL (120.0-450.0) 02/25/17 06:50 MPV 9.4 fl (7.0-11.0) 02/25/17 06:50 Gran % 56.3 % (50.0-68.0) 02/25/17 06:50 Lymph % (Auto) 30.6 % (22.0-35.0) 02/25/17 06:50 Catron % (Auto) 8.3 % (1.0-6.0) H 02/25/17 06:50 Eos % (Auto) 4.2 % (1.5-5.0) 02/25/17 06:50 Baso % (Auto) 0.6 % (0.0-3.0) 02/25/17 06:50 Gran # 3.73 (1.4-6.5) 02/25/17 06:50 Lymph # 2.0 (1.2-3.4) 02/25/17 06:50 Catron # 0.6 (0.1-0.6) 02/25/17 06:50 Eos # 0.3 (0.0-0.7) 02/25/17 06:50 Baso # 0.04 K/mm3 (0.0-2.0) 02/25/17 06:50 PT 11.4 Seconds (9.9-11.8) 02/23/17 15:40 INR 1.06 (0.93-1.08) 02/23/17 15:40 APTT 28.7 Seconds (23.7-30.8) 02/25/17 06:50 Sodium 144 mmol/L (132-148) 02/25/17 06:50 Potassium 4.1 mmol/L (3.6-5.0) 02/25/17 06:50 Chloride 106 mmol/L (98-107) 02/25/17 06:50 Carbon Dioxide 30 mmol/L (21-33) 02/25/17 06:50 Anion Gap 12 (10-20) 02/25/17 06:50 BUN 13 mg/dL (7-21) 02/25/17 06:50 Creatinine 1.0 mg/dL (0.8-1.5) 02/25/17 06:50 Est GFR ( Amer) > 60 02/25/17 06:50 Est GFR (Non-Af Amer) > 60 02/25/17 06:50 Random Glucose 99 mg/dL (70-110) 02/25/17 06:50 Hemoglobin A1c 6.0 % (4.2-6.5) 02/22/17 18:30 Calcium 9.0 mg/dL (8.4-10.5) 02/25/17 06:50 Iron 34 ug/dL (45-180) L 02/22/17 18:30 TIBC 275 ug/dL (261-462) 02/22/17 18:30 % Saturation 12 % (20-55) L 02/22/17 18:30 Transferrin 202.35 mg/dL (206-381) L 02/22/17 18:30 Ferritin 98.9 ng/mL 02/22/17 18:30 Total Bilirubin 0.4 mg/dL (0.2-1.3) 02/25/17 06:50 AST 65 U/L (17-59) H D 02/25/17 06:50 ALT 47 U/L (7-56) 02/25/17 06:50 Alkaline Phosphatase 87 U/L (38-126) 02/25/17 06:50 Total Protein 6.9 g/dL (5.8-8.3) 02/25/17 06:50 Albumin 3.7 g/dL (3.0-4.8) 02/25/17 06:50 Globulin 3.2 gm/dL 02/25/17 06:50 Albumin/Globulin Ratio 1.2 (1.1-1.8) 02/25/17 06:50 Triglycerides 102 mg/dL (35-160) 02/22/17 18:30 Cholesterol 128 mg/dL (130-200) L 02/22/17 18:30 LDL Cholesterol Direct 60 mg/dL (0-129) 02/22/17 18:30 HDL Cholesterol 40 mg/dL (29-60) 02/22/17 18:30 Vitamin B12 386 pg/mL (239-931) 02/22/17 18:30 Folate 14.0 ng/mL 02/22/17 18:30 Homocysteine 13.9 umol/L ( <11.4) H 02/22/17 22:35 Stool Occult Blood Negative (NEGATIVE) 02/24/17 08:50 [id number] Ab <9 POLLO (<=20) 02/22/17 22:35 Beta-2 GPI IgG Ab <9 SGU (<=20) 02/22/17 22:35 Beta-2 GPI IgM Ab <9 SMU (<=20) 02/22/17 22:35 Anti-Cardiolipin IgG Ab <14 GPL (<=14) 02/22/17 22:35 Anti-Cardiolipin IgA Ab <11 APL (<=11) 02/22/17 22:35 Anti-Cardiolipin IgM Ab <12 MPL (<=12) 02/22/17 22:35 Attending/Attestation - Attestation I have personally seen and examined this patient.: Yes I have fully participated in the care of the patient.: Yes I have reviewed all pertinent clinical information, including history, physical exam and plan: Yes Notes (Text): 02/26/17 10:01 Patient was seen and examined with medical imaging specialist. Agreed with resident assessment and plan. 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 Management plan was discussed in detail with patient Education was provided.
[2017-02-26 00:44] LABS: B2 GLYCOPROTEIN I AB(IGA) <9 SAU (<=20); B2 GLYCOPROTEIN I AB(IGG) <9 SGU (<=20); B2 GLYCOPROTEIN I AB(IGM) <9 SMU (<=20); CARDIOLIPIN AB (IGA) <11 APL (<=11)
== END 2017-02-25 15:03 | disposition home or self-care (01) | DRG 543 ==
LOC: ED 17:46 → ERH 22:20 → 5RSO 02-23 00:14
PROVIDERS: ADMIT Internal Medicine; ATTEND Internal Medicine
DX: I82.431 Acute embolism and thrombosis of right popliteal vein (principal); I82.441 Acute embolism and thrombosis of right tibial vein; L03.115 Cellulitis of right lower limb; T81.31XA Disruption of external operation (surgical) wound, not elsewhere classified, initial encounter; D64.9 Anemia, unspecified; Y83.8 Other surgical procedures as the cause of abnormal reaction of the patient, or of later complication, without mention of misadventure at the time of the procedure

== ENCOUNTER 2017-03-05 13:51 | Inpatient (IN) | payer MEDICAID ==
[2017-03-05] MEDS ORDERED: Piperacillin/Tazobact 3.375 gm 100 ML IVPB STA (15:08)
--- NOTE | 2017-03-05 15:28 | ED PDOC ---
Arrival/HPI - General Chief Complaint: Lower Extremity Problem/Injury Time Seen by Provider: 03/05/17 14:05 Historian: Patient - History of Present Illness Narrative History of Present Illness (Text): 03/05/17 15:20 A 52 year old male whose past medical history includes a right leg/foot wound and was recently diagnosed with R leg DVT, presents to the emergency department for admission to hospital by residential manager because the right foot wound is not improving. The patient complains of persistent swelling and redness despite antibiotic use. The patient was recently admitted to hospital for IV antibiotics and was started on Eliquis for his DVT. The patient was discharged on Augmentin and has been continuing to take Ciprofloxacin and Bactrim. The patient states that he has been compliant also with Eliquis. The patient denies fevers, chills, headache, dizziness, sore throat, cough, chest pain, shortness of breath, dyspnea on exertion, abdominal pain, nausea, vomiting, diarrhea, neck pain, back pain, urinary/bowel changes, or any other complaints. The residential manager saw the patient yesterday and finds that the patient needs to be admitted for iv antibiotics. Time/Duration: Prior to Arrival Symptom Onset: Sudden Symptom Course: Unchanged Activities at Onset: Rest, Light Context: Other ([facility] Specialist's Office) Past Medical History - Provider Review Nursing Documentation Reviewed: Yes - Infectious Disease Hx of Infectious Diseases: None - Tetanus Immunization Tetanus Immunization: Unknown - Cardiac Hx Cardiac Disorders: No Hx Pacemaker: No - Pulmonary Hx Respiratory Disorders: No - Neurological Hx Neurological Disorder: No - HEENT Hx HEENT Disorder: No - Renal Hx Renal Disorder: No - Endocrine/Metabolic Hx Endocrine Disorders: No - Hematological/Oncological Hx Blood Disorders: No - Integumentary Hx Dermatological Disorder: No - Musculoskeletal/Rheumatological Hx Musculoskeletal Disorders: Yes Other/Comment: WOUND TO R FOOT, DVT - Gastrointestinal Hx Gastrointestinal Disorders: No - Genitourinary/Gynecological Hx Genitourinary Disorders: No - Psychiatric Hx Psychophysiologic Disorder: No Hx Emotional Abuse: No Hx Physical Abuse: No Hx Substance Use: No - Surgical History Other/Comment: R foot surgery December 2016 - Anesthesia Hx Anesthesia: Yes - Suicidal Assessment Feels Threatened In Home Enviroment: No Family/Social History - Physician Review Nursing Documentation Reviewed: Yes Family/Social History: No Known Family HX Smoking Status: Never Smoked Hx Alcohol Use: No Hx Substance Use: No Allergies/Home Meds Allergies/Adverse Reactions: Allergies No Known Allergies Allergy (Verified 03/05/17 14:01) Home Medications: Home Meds Medication Instructions Recorded Confirmed Ciprofloxacin [Cipro] 500 mg PO BID 06/29/16 03/05/17 Review of Systems - Physician Review All systems were reviewed & negative as marked: Yes - Review of Systems Constitutional: absent: Fevers, Night Sweats ENT: absent: Sore Throat Respiratory: absent: SOB, Cough Cardiovascular: absent: Chest Pain, BLAND Gastrointestinal: absent: Abdominal Pain, Stool Changes, Diarrhea, Nausea, Vomiting Genitourinary Male: absent: Urinary Output Changes Musculoskeletal: Other (Right leg/foot wound not healing properly.). absent: Back Pain, Neck Pain Neurological: absent: Headache, Dizziness Physical Exam Vital Signs Reviewed: Yes Vital Signs Temp Pulse Resp BP Pulse Ox 03/05/17 16:50 70 18 137/79 100 03/05/17 16:00 70 18 126/76 100 03/05/17 14:15 72 18 129/72 97 03/05/17 14:05 98.2 F 67 16 146/67 97 Temperature: Afebrile Blood Pressure: Normal Pulse: Regular Respiratory Rate: Normal Appearance: Positive for: Well-Appearing, Non-Toxic, Comfortable Pain Distress: None Mental Status: Positive for: Alert and Oriented X 3 - Systems Exam Head: Present: Atraumatic, Normocephalic Pupils: Present: PERRL Conjunctiva: Present: Normal Mouth: Present: Moist Mucous Membranes Pharnyx: Present: Normal. No: ERYTHEMA, EXUDATE Neck: Present: Normal Range of Motion Respiratory/Chest: Present: Clear to Auscultation, Good Air Exchange. No: Respiratory Distress, Accessory Muscle Use Cardiovascular: Present: Regular Rate and Rhythm, Normal S1, S2. No: Murmurs Abdomen: Present: Normal Bowel Sounds. No: Tenderness, Distention, Peritoneal Signs Back: Present: Normal Inspection Upper Extremity: Present: Normal Inspection. No: Cyanosis, Edema Lower Extremity: Present: NORMAL PULSES (dorsalis pedis pulses 2+ bilaterally.) , Swelling (distal to the ankle joint mild drainage with swelling.), Erythema ( Distal to the ankle joint, mild drainage with erythema and swelling.), Other ( non healing wound on the medial side of the r foot.) Neurological: Present: GCS=15, CN II-XII Intact, Speech Normal Skin: Present: Warm, Dry, Normal Color. No: Rashes Psychiatric: Present: Alert, Oriented x 3, Normal Insight, Normal Concentration Medical Decision Making ED Course and Treatment: 03/05/17 15:32 Impression: A 52 year old male presents to the emergency department after being advised by his Excellence Specialist for admission because of a non-healing right leg/foot wound, having failed outpatient antibiotic therapy. Plan: -- Urinalysis -- Blood/ Urine Culture -- Labs -- Right Lower Extremity Vein Ultrasound -- Right Foot X- Ray -- Vancomycin and Zosyn -- Reassess and disposition Prior Visits: Notes and results from previous visits were reviewed. On 02/22/2017, the patient was seen in the emergency department for further evaluation. The patient was sent in by his doctor for DVT in the right leg. The patient was hospitalized. Progress Notes: 03/05/17 17:07 Patient is already on eliquis for his DVT but has also failed outpatient oral antibiotic therapy for cellulitis as wound continues to be erythematous and swollen - will need iv antibiotics and evaluation and workup to r/o osteomyelitis. Case discussed with Dr. Delfina Cisneros for admission. - Lab Interpretations Lab Results: 03/05/17 15:20 03/05/17 15:20 Lab Results 03/05/17 15:20: Sodium 143, Potassium 4.6, Chloride 104, Carbon Dioxide 31, Anion Gap 13, BUN 12, Creatinine 0.8, Est GFR ( Amer) > 60, Est GFR (Non- Af Amer) > 60, Random Glucose 103, Calcium 9.2, Total Bilirubin 0.4, AST 35, ALT 53, Alkaline Phosphatase 90, Total Protein 7.5, Albumin 4.1, Globulin 3.4, Albumin/Globulin Ratio 1.2, Lipase 138 03/05/17 15:20: PT 11.2, INR 1.04, APTT 24.3 03/05/17 15:20: WBC 7.4, RBC 3.96, Hgb 11.3 L, Hct 34.6 L, MCV 87.4, MCH 28.5, MCHC 32.7, RDW 13.0, Plt Count 303, MPV 9.9, Gran % 70.2 H, Lymph % (Auto) 21.4 L, [place] % (Auto) 5.3, Eos % (Auto) 2.6, Baso % (Auto) 0.5, Gran # 5.16, Lymph # 1.6, [place] # 0.4, Eos # 0.2, Baso # 0.04, ESR 32 H I have reviewed the lab results: Yes - RAD Interpretation Radiology Orders: 03/05/17 15:13 FOOT RIGHT 3 VIEWS ROUTINE [RAD] Stat 03/05/17 15:15 DUPLEX LOWER EXTRM VEIN RIGHT [US] Stat - Medication Orders Current Medication Orders: Acetaminophen (Tylenol 325mg Tab) 650 mg PO Q4 PRN PRN Reason: Pain, moderate (4-7) Pantoprazole Sodium (Protonix Ec Tab) 40 mg PO 0600 GINNA Discontinued Medications Vancomycin HCl 1 gm/ Sodium (Chloride) 250 mls @ 133.333 mls/hr IV STAT STA PRN Reason: Protocol Stop: 03/05/17 16:59 Last Admin: 03/05/17 16:55 Dose: 133.333 mls/hr eMAR Start Stop Document 03/05/17 16:55 CNR (Rec: 03/05/17 16:55 CNR [id number]) Intravenous Solution Start Date 03/05/17 Start Time 16:55 Piperacillin Sod/Tazobactam Sod (Zosyn 3.375 In Ns 100ml) 100 mls @ 200 mls/hr IVPB STAT STA PRN Reason: Protocol Stop: 03/05/17 15:37 Last Admin: 03/05/17 15:32 Dose: 200 mls/hr eMAR Start Stop Document 03/05/17 15:32 CNR (Rec: 03/05/17 15:32 CNR [id number]) Intravenous Solution Start Date 03/05/17 Start Time 15:32 - Scribe Statement The provider has reviewed the documentation as recorded by the Aniyah Ayala Provider Scribe Attestation: All medical record entries made by the Scribe were at my direction and personally dictated by me. I have reviewed the chart and agree that the record accurately reflects my personal performance of the history, physical exam, medical decision making, and the department course for this patient. I have also personally directed, reviewed, and agree with the discharge instructions and disposition. Disposition/Present on Arrival - Present on Arrival Any Indicators Present on Arrival: Yes History of DVT/PE: Yes History of Uncontrolled Diabetes: No Urinary Catheter: No History of Decub. Ulcer: No History Surgical Site Infection Following: None - Disposition Have Diagnosis and Disposition been Completed?: Yes Diagnosis: DVT (deep venous thrombosis), Cellulitis, Non-healing wound Disposition: HOSPITALIZED Disposition Time: 16:00 Patient Plan: Admission Condition: FAIR
[2017-03-05 15:37] LABS: BASO # 0.04 K/mm3 (0.0-2.0); BASO % 0.5 % (0.0-3.0); EOS # 0.2 (0.0-0.7); EOS % 2.6 % (1.5-5.0); GRAN # 5.16 (1.4-6.5); GRAN % 70.2 % (50.0-68.0); HEMATOCRIT 34.6 % (42.0-52.0); LYMPH # 1.6 (1.2-3.4); LYMPH % 21.4 % (22.0-35.0); MEAN CELL VOLUME 87.4 fl (80.0-105.0); MEAN CORPUSCULAR HEMOGLOBIN 28.5 pg (25.0-35.0); MEAN CORPUSCULAR HGB CONC 32.7 g/dl (31.0-37.0); MEAN PLATELET VOLUME 9.9 fl (7.0-11.0); MONO # 0.4 (0.1-0.6); MONO % 5.3 % (1.0-6.0); WHITE BLOOD COUNT 7.4 10^3/ul (4.5-11.0)
[2017-03-05 15:45] LABS: ALB/GLOB RATIO 1.2 (1.1-1.8); ALKALINE PHOSPHATASE 90 U/L (38-126); ALT/SGPT 53 U/L (7-56); AST/SGOT 35 U/L (17-59); BILIRUBIN,TOTAL 0.4 mg/dL (0.2-1.3); BLOOD UREA NITROGEN 12 mg/dL (7-21); CALCIUM 9.2 mg/dL (8.4-10.5); CARBON DIOXIDE 31 mmol/L (21-33); CHLORIDE 104 mmol/L (98-107); GFR AFRICAN-AMERICAN > 60; GLUCOSE,RANDOM 103 mg/dL (70-110); LIPASE 138 U/L (23-300); POTASSIUM 4.6 mmol/L (3.6-5.0); SODIUM 143 mmol/L (132-148); TOTAL PROTEIN 7.5 g/dL (5.8-8.3)
[2017-03-05 15:47] LABS: INR 1.04 (0.93-1.08); PARTIAL THROMBOPLASTIN TIME 24.3 Seconds (23.7-30.8)
--- NOTE | 2017-03-05 16:34 | CP.PCM.HP ---
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 The patient states his right foot wound is chronic in nature. He now has swelling and redness tracking up the right lower extremity despite outpatient antibiotic use. The patient was recently discharged from the hospital with outpatient antibiotics ciprofloxacin and elquis for which he has been compliant. Denies pain in the right LE. The patient denies fevers, chills, chest pain, SOB, abdominal pain, N/V, diarrhea, constipation, and urinary symptoms. 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 No: Respiratory Distress, Accessory Muscle Use Cardiovascular: Present: Regular Rate and Rhythm, Normal S1, S2. No: Murmurs Abdomen: Present: Normal Bowel Sounds. No: Tenderness, Distention, Peritoneal Signs Back: Present: Normal Inspection Extremities: Edema present, NORMAL PULSES (dorsalis pedis pulses 2+ bilaterally.), Swelling (distal to the ankle joint mild drainage with swelling.) , Erythema (Distal to the ankle joint, mild drainage with erythema and swelling. ), Other ( non healing wound on the medial side of the r foot.) Neurological: awake, alert, orientated, responds to verbal stimuli, crosses extremities midline Psychiatric: Present: Alert, Oriented x 3, Normal Insight, Normal Concentration Assessment and Plan: Cellulitis; Right leg/foot wound - foot x-ray pending - duplex DVT right LE - right foot MRI w/ w/out contrast - podiatry consult- appreciate recs - infectious disease consult- appreciate recs - blood culture and urine culture - vancomycin and zosyn given in ED, starting patient on vancomycin and cefepime Recent Dx of DVT - continue home eliquis - PT INR in AM Anemia - Hgb 11.3- stable at baseline - monitor closely via CBC in AM Prophylaxis: - protonix - patient on eliquis Patient case discussed with and plan approved by attending physician, Dr. Cisneros. Present on Admission - Present on Admission Any Indicators Present on Admission: Yes History of DVT/PE: Yes Past Patient History - Infectious Disease Hx of Infectious Diseases: None - Tetanus Immunizations Tetanus Immunization: Unknown - Past Social History Smoking Status: Never Smoked - CARDIAC Hx Cardiac Disorders: No Hx Pacemaker: No - PULMONARY Hx Respiratory Disorders: No - NEUROLOGICAL Hx Neurological Disorder: No - HEENT Hx HEENT Problems: No - RENAL Hx Chronic Kidney Disease: No - ENDOCRINE/METABOLIC Hx Endocrine Disorders: No - HEMATOLOGICAL/ONCOLOGICAL Hx Blood Disorders: No - INTEGUMENTARY Hx Dermatological Problems: No - MUSCULOSKELETAL/RHEUMATOLOGICAL Hx Musculoskeletal Disorders: Yes Other/Comment: WOUND TO R FOOT, DVT - GASTROINTESTINAL Hx Gastrointestinal Disorders: No - GENITOURINARY/GYNECOLOGICAL Hx Genitourinary Disorders: No - PSYCHIATRIC Hx Psychophysiologic Disorder: No Hx Emotional Abuse: No Hx Physical Abuse: No Hx Substance Use: No - SURGICAL HISTORY Other/Comment: R foot surgery December 2016 - ANESTHESIA Hx Anesthesia: Yes Meds Allergies/Adverse Reactions: Allergies Allergy/AdvReac Type Severity Reaction Status Date / Time No Known Allergies Allergy Verified 03/05/17 20:13 Results - Vital Signs Recent Vital Signs: Last Vital Signs Temp 98.2 F 03/05/17 14:05 Pulse 70 03/05/17 16:00 Resp 18 03/05/17 16:00 BP 126/76 03/05/17 16:00 Pulse Ox 100 03/05/17 16:00 - Labs Result Diagrams: 03/05/17 15:20 03/05/17 15:20 Labs: Laboratory Results - last 24 hr 03/05/17 03/05/17 03/05/17 15:20 15:20 15:20 WBC 7.4 RBC 3.96 Hgb 11.3 L Hct 34.6 L MCV 87.4 MCH 28.5 MCHC 32.7 RDW 13.0 Plt Count 303 MPV 9.9 Gran % 70.2 H Lymph % (Auto) 21.4 L [place] % (Auto) 5.3 Eos % (Auto) 2.6 Baso % (Auto) 0.5 Gran # 5.16 Lymph # 1.6 [place] # 0.4 Eos # 0.2 Baso # 0.04 PT 11.2 INR 1.04 APTT 24.3 Sodium 143 Potassium 4.6 Chloride 104 Carbon Dioxide 31 Anion Gap 13 BUN 12 Creatinine 0.8 Est GFR ( Amer) > 60 Est GFR (Non-Af Amer) > 60 Random Glucose 103 Calcium 9.2 Total Bilirubin 0.4 AST 35 ALT 53 Alkaline Phosphatase 90 Total Protein 7.5 Albumin 4.1 Globulin 3.4 Albumin/Globulin Ratio 1.2 Lipase 138 <Delfina Cisneros B - Last Filed: 03/06/17 10:13> Results - Vital Signs Recent Vital Signs: Last Vital Signs Temp 97.9 F 03/06/17 07:18 Pulse 58 L 03/06/17 07:18 Resp 20 03/06/17 07:18 BP 112/66 03/06/17 07:18 Pulse Ox 98 03/06/17 07:18 - Labs Result Diagrams: 03/06/17 07:41 03/06/17 07:41 Labs: Laboratory Results - last 24 hr 03/06/17 03/06/17 03/06/17 07:41 07:41 07:41 WBC 5.8 D RBC 3.90 Hgb 10.9 L Hct 34.1 L MCV 87.4 MCH 27.9 MCHC 32.0 RDW 13.3 Plt Count 266 MPV 10.1 Gran % 65.2 Lymph % (Auto) 20.1 L [place] % (Auto) 8.9 H Eos % (Auto) 5.3 H Baso % (Auto) 0.5 Gran # 3.80 Lymph # 1.2 [place] # 0.5 Eos # 0.3 Baso # 0.03 PT 11.6 INR 1.07 Sodium 141 Potassium 4.2 Chloride 103 Carbon Dioxide 29 Anion Gap 13 BUN 12 Creatinine 0.9 Est GFR ( Amer) > 60 Est GFR (Non-Af Amer) > 60 Random Glucose 98 Calcium 8.8 Total Bilirubin 0.6 AST 35 ALT 44 Alkaline Phosphatase 75 Total Protein 6.4 Albumin 3.5 Globulin 2.8 Albumin/Globulin Ratio 1.3 Attending/Attestation - Attestation I have personally seen and examined this patient.: Yes I have fully participated in the care of the patient.: Yes I have reviewed all pertinent clinical information: Yes Notes (Text): I have seen and examined the patient at bedside. Agree with the above note with the following additions/ exception: Briefly this is 52 year old male with history of right foot surgery on 01/[address] Duran for removal of bone which was followed by cast and it was complicated by RLE DVT on eliquis and right foot cellulitis on cipro was sent by manifest clerk for non healing wound of right foot. Patient has mild redness however denies tenderness of right foot. Denies systemic signs of infection. Right foot Xray pending. ID and podiatry consult pending. MRI foot ordered. Will start vancomycin and cefepime. Upon discharge patient will follow up with PMD of choice and Dr Duran. Dr Delfina Cisneros
--- NOTE | 2017-03-05 16:57 | RAD ---
PROCEDURE: Right foot dated 03/05/2017. Three views right foot performed HISTORY: Right foot infection COMPARISON: No prior study available for comparison FINDINGS: BONES: The current study reveals localized demineralization changes along the adjacent lateral and medial margins of the head of the 2nd/3rd metatarsals respectively , the possibility of early cortical destructive changes -osteomyelitis not excluded. Patchy areas of demineralization seen throughout the remaining distal metatarsals and to a lesser degree bases of the proximal phalanges. Diffuse soft tissue swelling with infiltration consistent with cellulitis. No evidence of subcutaneous emphysema. Followup MRI could be performed for further evaluation. Small plantar and tiny posterior calcaneal enthesophytes are present. Mild hallux valgus deformity with overgrowth of the head of the 1st metatarsal and mild DJD 1st MTP joint. Degenerative changes also noted at the DIP joint great toe as well. ORIF hardware attached to the medial margins of the talus as well as 1st and 2nd cuneiforms and possibly the navicular. IMPRESSION: Diffuse soft tissue swelling consistent with cellulitis. . There are areas of localized demineralization involving the metatarsal particularly the heads of the 2nd and 3rd metatarsals which could be due to disuse however the possibility of early cortical destructive changes -osteomyelitis not excluded. Recommend followup MRI for further evaluation if necessary. See above discussion for additional details and findings
[2017-03-05 22:13] VITALS: BMI 31.2
[2017-03-05] MEDS ORDERED: Influenza Vaccine 60 mcg/0.5 mL SYR (4YR UP) IM ONE (22:13)
[2017-03-05] MEDS ORDERED: Pneumococcal 23-Valent Vaccine IM ONE (22:13)
[2017-03-06] MEDS: Vancomycin 1gm in NS 250ml 1 GM/250 ML BAG IVPB SCH ×2 (05:29→17:03)
[2017-03-06] MEDS: Pantoprazole 40 mg EC Tab PO SCH (05:36)
[2017-03-06] MEDS ORDERED: Cefepime IV 2 gm in NS 2 GM/100 ML BAG IVPB SCH (06:00)
[2017-03-06 07:49] LABS: BASO # 0.03 K/mm3 (0.0-2.0); BASO % 0.5 % (0.0-3.0); EOS # 0.3 (0.0-0.7); EOS % 5.3 % (1.5-5.0); GRAN # 3.8 (1.4-6.5); GRAN % 65.2 % (50.0-68.0); HEMATOCRIT 34.1 % (42.0-52.0); LYMPH # 1.2 (1.2-3.4); LYMPH % 20.1 % (22.0-35.0); MEAN CELL VOLUME 87.4 fl (80.0-105.0); MEAN CORPUSCULAR HEMOGLOBIN 27.9 pg (25.0-35.0); MEAN PLATELET VOLUME 10.1 fl (7.0-11.0); MONO # 0.5 (0.1-0.6); MONO % 8.9 % (1.0-6.0); RED CELL DISTRIBUTION WIDTH 13.3 % (11.5-14.5); WHITE BLOOD COUNT 5.8 10^3/ul (4.5-11.0)
[2017-03-06 07:58] LABS: INR 1.07 (0.93-1.08)
[2017-03-06 08:04] LABS: ALB/GLOB RATIO 1.3 (1.1-1.8); ALKALINE PHOSPHATASE 75 U/L (38-126); ALT/SGPT 44 U/L (7-56); AST/SGOT 35 U/L (17-59); BILIRUBIN,TOTAL 0.6 mg/dL (0.2-1.3); BLOOD UREA NITROGEN 12 mg/dL (7-21); CALCIUM 8.8 mg/dL (8.4-10.5); CARBON DIOXIDE 29 mmol/L (21-33); CHLORIDE 103 mmol/L (98-107); GFR AFRICAN-AMERICAN > 60; GLUCOSE,RANDOM 98 mg/dL (70-110); POTASSIUM 4.2 mmol/L (3.6-5.0); SODIUM 141 mmol/L (132-148); TOTAL PROTEIN 6.4 g/dL (5.8-8.3)
--- NOTE | 2017-03-06 11:40 | CP.PCM.PN ---
<Laith Laguerre - Last Filed: 03/06/17 11:37> Subjective - Date & Time of Evaluation Date of Evaluation: 03/06/17 Time of Evaluation: 08:35 - Subjective Subjective: Dr. Cisneros Service Pt was seen and examined at bedside. No acute complaints at this time. Territory Supervisor dressed rt foot ucler with optifoam dressing. Pt still notes swelling of RLE. No acute or adverse events overnight as per nursing staff. Pt is moving bowels and bladder regularly. Pt denied fever, chills, sob, chest pains, abdominal pains, n/v/d/c or urinary symptoms. Objective - Vital Signs/Intake and Output Vital Signs (last 24 hours): Temp Pulse Resp BP Pulse Ox 97.9 F 58 L 20 112/66 98 03/06/17 07:18 03/06/17 07:18 03/06/17 07:18 03/06/17 07:18 03/06/17 07:18 Intake and Output: 03/06/17 03/06/17 06:59 18:59 Intake Total 350 Output Total 0 Balance 350 - Medications Medications: Current Medications Acetaminophen (Tylenol 325mg Tab) 650 mg PO Q4 PRN PRN Reason: Pain, moderate (4-7) Apixaban (Eliquis) 10 mg PO BID [facility] PRN Reason: Protocol Last Admin: 03/06/17 09:12 Dose: 10 mg Vancomycin HCl (Vancomycin 1gm) 1 gm in 250 mls @ 167 mls/hr IVPB Q12H [facility] PRN Reason: Protocol Last Admin: 03/06/17 05:29 Dose: 167 mls/hr Cefepime HCl (Maxipime 1gm) 1 gm in 100 mls @ 100 mls/hr IVPB Q8 [facility] PRN Reason: Protocol Stop: 03/14/17 14:01 Pantoprazole Sodium (Protonix Ec Tab) 40 mg PO 0600 [facility] Last Admin: 03/06/17 05:36 Dose: 40 mg - Labs Labs: 03/06/17 07:41 03/06/17 07:41 PT 11.6 Seconds (9.9-11.8) 03/06/17 07:41 INR 1.07 (0.93-1.08) 03/06/17 07:41 APTT 24.3 Seconds (23.7-30.8) 03/05/17 15:20 - Constitutional Appears: No Acute Distress - Head Exam Head Exam: ATRAUMATIC, NORMAL INSPECTION, NORMOCEPHALIC - Eye Exam Eye Exam: EOMI, Normal appearance, PERRL Pupil Exam: NORMAL ACCOMODATION, PERRL - ENT Exam ENT Exam: Mucous Membranes Moist, Normal Exam - Neck Exam Neck Exam: Full ROM, Normal Inspection. absent: Lymphadenopathy - Respiratory Exam Respiratory Exam: Clear to Ausculation Bilateral, NORMAL BREATHING PATTERN - Cardiovascular Exam Cardiovascular Exam: REGULAR RHYTHM, +S1, +S2. 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 The patient states his right foot wound is chronic in nature. He now has swelling and redness tracking up the right lower extremity despite outpatient antibiotic use. Cellulitis; Right leg/foot wound - foot x-ray: Diffuse soft tissue swelling consistent with cellulitis, OM not excluded, fu MRI - duplex DVT right LE - right foot MRI w/ w/out contrast - podiatry consult- appreciate recs - infectious disease consult- appreciate recs - blood culture and urine culture - IV vancomycin and cefepime Recent Dx of DVT - continue home eliquis Anemia - Hgb stable at baseline, no acitve signs of bleeding - monitor closely Prophylaxis: - protonix - patient on eliquis Seen reviewed and discussed with attending <Delfina Cisneros - Last Filed: 03/06/17 15:38> Objective - Vital Signs/Intake and Output Vital Signs (last 24 hours): Temp Pulse Resp BP Pulse Ox 97.9 F 58 L 20 112/66 98 03/06/17 07:18 03/06/17 07:18 03/06/17 07:18 03/06/17 07:18 03/06/17 07:18 Intake and Output: 03/06/17 03/06/17 06:59 18:59 Intake Total 350 480 Output Total 0 Balance 350 480 - Medications Medications: Current Medications Acetaminophen (Tylenol 325mg Tab) 650 mg PO Q4 PRN PRN Reason: Pain, moderate (4-7) Apixaban (Eliquis) [address] [facility] PRN Reason: Protocol Last Admin: 03/06/17 09:12 Dose: 10 mg Vancomycin HCl (Vancomycin 1gm) 1 gm in 250 mls @ 167 mls/hr IVPB Q12H [facility] PRN Reason: Protocol Last Admin: 03/06/17 05:29 Dose: 167 mls/hr Cefepime HCl (Maxipime 1gm) 1 gm in 100 mls @ 100 mls/hr IVPB Q8 [facility] PRN Reason: Protocol Stop: 03/14/17 14:01 Pantoprazole Sodium (Protonix Ec Tab) [address] [facility] Last Admin: 03/06/17 05:36 Dose: 40 mg - Labs Labs: 03/06/17 07:41 03/06/17 07:41 PT 11.6 Seconds (9.9-11.8) 03/06/17 07:41 INR 1.07 (0.93-1.08) 03/06/17 07:41 APTT 24.3 Seconds (23.7-30.8) 03/05/17 15:20 Attending/Attestation - Attestation I have personally seen and examined this patient.: Yes I have fully participated in the care of the patient.: Yes I have reviewed all pertinent clinical information, including history, physical exam and plan: Yes Notes (Text): I have seen and examined the patient at bedside. Agree with the above note with the following additions/ exception: Briefly this is 52 year old male with history of right foot surgery on 01/[address] Duran for removal of bone which was followed by cast and it was complicated by recently diagnosed RLE DVT on eliquis and right foot cellulitis on cipro was sent by corporate development analyst yesterday for non healing wound of right foot. Patient has mild redness however denies tenderness of right foot. Denies systemic signs of infection. Right foot Xray noted. Podiatry consult appreciated. ID consult pending. MRI foot ordered. Will continue vancomycin and cefepime. Upon discharge patient will follow up with PMD of choice and Dr Duran. Dr Delfina Cisneros
--- NOTE | 2017-03-06 11:56 | US ---
PROCEDURE: Right lower extremity venous US HISTORY: Leg pain and swelling. Evaluate for DVT. PHYSICIAN(S): Tony Arellano M.D. TECHNIQUE: Duplex sonography and color-flow Doppler with graded compression were used to evaluate the deep venous system of the right lower extremity. FINDINGS: There is acute, occlusive, hypoechoic thrombus in the right popliteal vein. The right tibial veins are not visualized due to edema. The right femoral vein and right common femoral vein are patent and compressible. IMPRESSION: 1. Acute occlusive hypoechoic thrombus in the right popliteal vein
--- NOTE | 2017-03-06 12:45 | CP.PCM.CON ---
<Zena Barrientos - Last Filed: 03/06/17 14:06> History of Present Illness - History of Present Illness History of Present Illness: 52 y/o male with no significant PMHx seen and evaluated at bedside this morning for right leg cellulitis. Patient states that he was sent to the hospital by his foot doctor who had done surgery on his right foot. Patient states that he went to go see the doctor who found the right side red and swollen and he was complaining of calf pain at the time. Patient states that he was advised to come to the hospital for this reason. Patient states that he followed up with his doctor on regular basis. Patient states that he had to have a surgery on his right foot because he dropped a heavy object and fractured the bone. Patient denies of any recent F/N/V/C/SOB/chest pain. Patient also denies of any other pedal complains at this time. 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 FH: grandfather with DM Allergies: NDKA Review of Systems - Constitutional Constitutional: As Per HPI Past Patient History - Infectious Disease Hx of Infectious Diseases: None - Tetanus Immunizations Tetanus Immunization: Unknown - Past Social History Smoking Status: Never Smoked - CARDIAC Hx Cardiac Disorders: No Hx Pacemaker: No - PULMONARY Hx Respiratory Disorders: No - NEUROLOGICAL Hx Neurological Disorder: No - HEENT Hx HEENT Problems: No - RENAL Hx Chronic Kidney Disease: No - ENDOCRINE/METABOLIC Hx Endocrine Disorders: No - HEMATOLOGICAL/ONCOLOGICAL Hx Blood Disorders: No - INTEGUMENTARY Hx Dermatological Problems: No - MUSCULOSKELETAL/RHEUMATOLOGICAL Hx Musculoskeletal Disorders: Yes Hx Falls: No Other/Comment: WOUND TO R FOOT, DVT - GASTROINTESTINAL Hx Gastrointestinal Disorders: Yes (VENTRAL HERNIA REPAIR,TONSILLECTOMY) - GENITOURINARY/GYNECOLOGICAL Hx Genitourinary Disorders: No - PSYCHIATRIC Hx Psychophysiologic Disorder: No Hx Emotional Abuse: No Hx Physical Abuse: No Hx Substance Use: No - SURGICAL HISTORY Hx Surgeries: Yes (VENTRAL HERNIORHAPPHY,TONSILLECTOMY,RIGHT KNEE SX WITH HARDWARE) Other/Comment: R foot surgery December 2016 - ANESTHESIA Hx Anesthesia: Yes Meds Allergies/Adverse Reactions: Allergies Allergy/AdvReac Type Severity Reaction Status Date / Time No Known Allergies Allergy Verified 03/05/17 20:13 - Medications Medications: Current Medications Acetaminophen (Tylenol 325mg Tab) 650 mg PO Q4 PRN PRN Reason: Pain, moderate (4-7) Apixaban (Eliquis) 10 mg PO BID [facility] PRN Reason: Protocol Last Admin: 03/06/17 09:12 Dose: 10 mg Vancomycin HCl (Vancomycin 1gm) 1 gm in 250 mls @ 167 mls/hr IVPB Q12H [facility] PRN Reason: Protocol Last Admin: 03/06/17 05:29 Dose: 167 mls/hr Cefepime HCl (Maxipime 1gm) 1 gm in 100 mls @ 100 mls/hr IVPB Q8 [facility] PRN Reason: Protocol Stop: 03/14/17 14:01 Pantoprazole Sodium (Protonix Ec Tab) 40 mg PO 0600 [facility] Last Admin: 03/06/17 05:36 Dose: 40 mg Physical Exam - Constitutional Appears: Well, Non-toxic, No Acute Distress - Extremities Exam Additional comments: Bilateral lower extremity exam: VASC: DP/PT pulses are palpable 2/4 b/l, Cap refill time: < 3 sec to all digits , Temp gradient: warm to cool from proximal to distal, mild non-pitting edema noted on the right lower extremity DERM: superficial wound (pfeiffer grade 1) at the level of right midfoot at naviculo-cunieform joint, wound base is 85% granular with 15% fibrosis, no probe to bone, no tunneling, no undermining, no malodor, periwound erythema noted which is localized and not extending proximally, no active drainage noted , surgical scar noted on the medial aspect of the right foot NEURO: Protective sensation grossly intact ORTHO: no pain on palpation of the open lesion, no pain on palpation of the calf bilaterally, Homman's test negative bilaterally - Neurological Exam Neurological exam: Alert, Normal Gait, Oriented x3 - Psychiatric Exam Psychiatric exam: Normal Affect, Normal Mood Results - Vital Signs Recent Vital Signs: Last Vital Signs Temp 97.9 F 03/06/17 07:18 Pulse 58 L 03/06/17 07:18 Resp 20 03/06/17 07:18 BP 112/66 03/06/17 07:18 Pulse Ox 98 03/06/17 07:18 - Labs Result Diagrams: 03/06/17 07:41 10/15/17 07:41 Labs: Laboratory Results - last 24 hr 03/06/17 03/06/17 03/06/17 07:41 07:41 07:41 WBC 5.8 D RBC 3.90 Hgb 10.9 L Hct 34.1 L MCV 87.4 MCH 27.9 MCHC 32.0 RDW 13.3 Plt Count 266 MPV 10.1 Gran % 65.2 Lymph % (Auto) 20.1 L [place] % (Auto) 8.9 H Eos % (Auto) 5.3 H Baso % (Auto) 0.5 Gran # 3.80 Lymph # 1.2 [place] # 0.5 Eos # 0.3 Baso # 0.03 PT 11.6 INR 1.07 Sodium 141 Potassium 4.2 Chloride 103 Carbon Dioxide 29 Anion Gap 13 BUN 12 Creatinine 0.9 Est GFR ( Amer) > 60 Est GFR (Non-Af Amer) > 60 Random Glucose 98 Calcium 8.8 Total Bilirubin 0.6 AST 35 ALT 44 Alkaline Phosphatase 75 Total Protein 6.4 Albumin 3.5 Globulin 2.8 Albumin/Globulin Ratio 1.3 Assessment & Plan - Assessment and Plan (Free Text) Assessment: 52 y/o male with no significant PMHx seen and evaluated at bedside for right foot wound and cellulitis s/p surgical procedure Plan: Patient seen and evaluated at bedside Patient discussed in details with attending Dr. Infante Vitals and labs reviewed (afebrile, WBC @ 5.8 trending down) Wound cleaned using saline and 4x4 and optifoam applied to the wound Silvadine ordered Continue IV abx as per ID US shows acute thrombus on the popliteal vein on the right leg - patient is currently on Apixaban Foot X-ray: demineralization of 2nd and 3rd metatarsal possibly early cortical destructive changes of OM. follow up with mrI - clinical presentation not consistent with the OM changes on the x-ray Podiatry to continue follow while in-house Thank you for the podiatry consult <Lasha Infante - Last Filed: 03/07/17 10:17> Meds - Medications Medications: Current Medications Acetaminophen (Tylenol 325mg Tab) 650 mg PO Q4 PRN PRN Reason: Pain, moderate (4-7) Apixaban (Eliquis) 10 mg PO BID [facility] PRN Reason: Protocol Last Admin: 10/16/17 09:39 Dose: 10 mg Collagenase (Santyl) 0 gm TOP DAILY [facility] Vancomycin HCl (Vancomycin 1gm) 1 gm in 250 mls @ 167 mls/hr IVPB Q12H [facility] PRN Reason: Protocol Last Admin: 03/07/17 07:40 Dose: 167 mls/hr Cefepime HCl (Maxipime 1gm) 1 gm in 100 mls @ 100 mls/hr IVPB Q8 [facility] PRN Reason: Protocol Stop: 03/14/17 14:01 Last Admin: 03/07/17 05:41 Dose: 100 mls/hr Pantoprazole Sodium (Protonix Ec Tab) 40 mg PO 0600 [facility] Last Admin: 03/07/17 05:42 Dose: 40 mg Silver Sulfadiazine (Silvadene 1% 25 Gm) 25 gm TP DAILY [facility] Results - Vital Signs Recent Vital Signs: Last Vital Signs Temp 97.9 F 03/07/17 08:17 Pulse 53 L 03/07/17 08:17 Resp 18 03/07/17 08:17 BP 101/59 L 03/07/17 08:17 Pulse Ox 98 03/07/17 08:17 - Labs Result Diagrams: 03/07/17 06:51 03/07/17 06:47 Labs: Laboratory Results - last 24 hr 03/06/17 03/07/17 03/07/17 13:50 06:47 06:51 WBC 5.8 RBC 3.81 Hgb 10.6 L Hct 33.3 L MCV 87.4 MCH 27.8 MCHC 31.8 RDW 13.4 Plt Count 267 MPV 10.0 Gran % 59.3 Lymph % (Auto) 24.1 [place] % (Auto) 10.4 H Eos % (Auto) 5.7 H Baso % (Auto) 0.5 Gran # 3.42 Lymph # 1.4 [place] # 0.6 Eos # 0.3 Baso # 0.03 Sodium 142 Potassium 3.8 Chloride 105 Carbon Dioxide 28 Anion Gap 13 BUN 16 Creatinine 1.0 Est GFR ( Amer) > 60 Est GFR (Non-Af Amer) > 60 Random Glucose 100 Calcium 8.8 Total Bilirubin 0.5 AST 28 ALT 46 Alkaline Phosphatase 72 Total Protein 6.4 Albumin 3.6 Globulin 2.9 Albumin/Globulin Ratio 1.2 Urine Color Yellow Urine Appearance Clear Urine pH 7.0 Ur Specific [place] 1.010 Urine Protein Negative Urine Glucose (UA) Negative Urine Ketones Negative Urine Blood Trace-intact H Urine Nitrate Negative Urine Bilirubin Negative Urine Urobilinogen 0.2 Ur Leukocyte Esterase Negative Urine RBC 5 - 10 Urine WBC 1 - 3 Ur Epithelial Cells 3 - 4 Attending/Attestation - Attestation I have personally seen and examined this patient.: Yes I have fully participated in the care of the patient.: Yes I have reviewed all pertinent clinical information: Yes
[2017-03-06 14:00] LABS: URINE BILIRUBIN NEGATIVE (NEGATIVE); URINE BLOOD TRACE-INTACT (NEGATIVE); URINE GLUCOSE (UA) NEGATIVE (NEGATIVE); URINE KETONE NEGATIVE (NEGATIVE); URINE LEUKOCYTE ESTERASE NEGATIVE Leu/uL (NEGATIVE); URINE PROTEIN NEGATIVE mg/dL (<30 mg/dL); URINE UROBILINOGEN 0.2 E.U./dL (<1 E.U./dL)
[2017-03-06 14:01] LABS: URINE APPEARANCE CLEAR (CLEAR); URINE COLOR YELLOW (YELLOW)
[2017-03-06] MEDS ORDERED: Gadodiamide 287 MG/ML VIAL (15ML) IV ONE (15:26)
[2017-03-06] MEDS: Cefepime 1gm in NS 100ml 1 GM/100 ML BAG IVPB SCH ×2 (15:47→22:26)
--- NOTE | 2017-03-06 17:20 | MRI ---
EXAM: MR Right Lower Extremity Without and With Intravenous Contrast, Foot EXAM DATE/TIME: 03/06/2017 2:59 PM CLINICAL HISTORY: The patient age is 52 years old and is male; Signs and symptoms; Swelling, leg or foot; Prior surgery; Surgery date: 1-6 months; Surgery type: Broke a bone in his foot. ; Patient HX: Swelling around toes and top of foot. Since 12/2016. There is also some redness. ; Additional info: Right foot wound culture Facility exam id and description: Mri footwwort foot w/ w/o contrast right TECHNIQUE: Multiplanar magnetic resonance images of the right foot without and with intravenous contrast. CONTRAST: 15 mL of Omniscan administered intravenously. COMPARISON: DX - FOOT RIGHT 3 VIEWS ROUTINE 03/05/2017 4:15:31 PM FINDINGS: LIGAMENTS: Medial collateral: No visible acute tear. Lateral collateral: No visible acute tear. Lisfranc: No visualized acute tear. Edema is identified adjacent to the anterior and posterior talofibular ligaments, consistent with ligament sprain or extension of soft tissue swelling. TENDONS: Flexor: No visualized acute tear. Extensor: No visualized acute tear. Peroneal: No visualized acute tear. Tibialis anterior: No visualized acute tear. Tibialis posterior: No visualized acute tear. Muscles: No acute abnormality. Fluid: No joint effusion. Sinus tarsi: Edema is identified within the sinus tarsi. Plantar fascia: No visualized acute tear. Bones/joints: There is significant edema involving the mid to hindfoot, with involvement of the cuneiform bones, navicular bone, and anterior talus. There is minimal edema at the base of the first metatarsal bone. This is suspicious or osteomyelitis, although postoperative change can contribute to this edema. A calcaneal spur is identified. There is hypertrophic arthropathy of the first MTP joint. Cystic changes identified within the first metatarsal head. Soft tissues: There is significant soft tissue swelling of the foot, most significant dorsally. This is consistent with cellulitis in the appropriate clinical setting. Soft tissue swelling and postoperative changes are identified medial to the mid to hindfoot. Cutaneous erosive or postoperative change is identified medial to the mid foot. Other findings: Multiple foci of magnetic susceptibility are identified within the mid and hindfoot, consistent with postoperative changes when correlated with the prior x-ray. IMPRESSION: 1. There is significant soft tissue swelling of the foot, most significant dorsally. This is consistent with cellulitis in the appropriate clinical setting. 2. Soft tissue swelling and postoperative changes are identified medial to the mid to hindfoot. Cutaneous erosive or postoperative change is identified medial to the mid foot. 3. Multiple foci of magnetic susceptibility are identified within the mid and hindfoot, consistent with postoperative changes when correlated with the prior x-ray. 4. There is significant edema involving the mid to hindfoot, with involvement of the cuneiform bones, navicular bone, and anterior talus. There is minimal edema at the base of the first metatarsal bone. This is suspicious or osteomyelitis, although postoperative change can contribute to this edema. 5. Edema is identified adjacent to the anterior and posterior talofibular ligaments, consistent with ligament sprain or extension of soft tissue swelling. 6. Additional findings described above.
--- NOTE | 2017-03-06 21:18 | CON ---
DATE: 03/06/2017 LOCATION: The patient is in room 565, bed 2. CHIEF COMPLAINT: Infection of his right foot times several days. HISTORY OF PRESENT ILLNESS: This is a 52-year-old male with past medical history of diabetes mellitus, history of DVT, who is admitted through the emergency room because of erythema of his right foot and the patient had surgery done in his right foot in the past and was given antibiotic as outpatient without improvement. The patient states that he was given Augmentin and then earlier he was given Cipro and is also given Bactrim. This time, the patient has no fevers and no chills. No nausea, it is just the right foot erythema. No chest pain, shortness of breath. No nausea and vomiting. PAST MEDICAL HISTORY: Significant for diabetes mellitus and DVT. PAST SURGICAL HISTORY: Significant for right foot surgery in 12/2016. The patient also had a tonsillectomy in the past, ventral hernia repair and a right knee surgery with hardware. ALLERGIES: THE PATIENT HAS NO KNOWN ALLERGIES. MEDICATIONS: At home, Cipro as outpatient. PHYSICAL EXAMINATION: VITAL SIGNS: The patient's temperature is 98, blood pressure is 112/60, respiratory rate 20, heart rate of 70. HEET: Examination is unremarkable. NECK: Supple. LUNGS: Have decreased breath sounds. HEART: Exam normal S1, S2. ABDOMEN: Examination is soft, nontender. EXTREMITIES: Examination of the right foot has erythema. The scar is present. There is no discharge. There is no break in the skin. There is erythema and edema. Pulses are present. LABORATORY EXAMINATION: Reveals a white count of 7.4, hemoglobin of 11 and sed rate is 32, platelets of 303. Coagulation is normal. Chemistries is entirely normal with a normal C-reactive protein of 2.49. An x-ray of the foot is noted, which reveals diffuse soft tissue consistent with cellulitis and osteomyelitis cannot be excluded. MRI is recommended by Dr. Hossein Allison. Ultrasound is pending. Dr. Arrieta's note is reviewed. History and physical examination by Dr. Barrientos is noted. ASSESSMENT/PLAN: A 52-year-old male who he himself states he is diabetic, although it is not documented on his chart. He has not on any diabetic medication, with a history of deep venous thrombosis, history of right foot surgery with questionable hardware in his foot, he does not know, he is a poor historian and with a right foot cellulitis, must rule out underlying osteomyelitis, underlying peripheral vascular disease, currently on vancomycin and cefepime. We will continue the present course pending MRI cultures and we will change the cefepime to 1 g q. 8 hours, continue the vancomycin, follow the response, pending vascular evaluation and podiatric evaluation, arterial workup and imaging or MRI if possible. He is not certain if there is hardware in that foot or not from the surgery. His blood sugar is normal. No evidence of diabetes on laboratory. Right foot cellulitis, we will treat the vancomycin and Maxipime, pending further workup. Anthony Munoz MD
[2017-03-07] MEDS: Cefepime 1gm in NS 100ml 1 GM/100 ML BAG IVPB SCH ×3 (05:41→22:28)
[2017-03-07] MEDS: Pantoprazole 40 mg EC Tab PO SCH (05:42)
[2017-03-07 07:03] LABS: BASO # 0.03 K/mm3 (0.0-2.0); BASO % 0.5 % (0.0-3.0); EOS # 0.3 (0.0-0.7); EOS % 5.7 % (1.5-5.0); GRAN # 3.42 (1.4-6.5); GRAN % 59.3 % (50.0-68.0); HEMATOCRIT 33.3 % (42.0-52.0); LYMPH # 1.4 (1.2-3.4); LYMPH % 24.1 % (22.0-35.0); MEAN CELL VOLUME 87.4 fl (80.0-105.0); MEAN CORPUSCULAR HEMOGLOBIN 27.8 pg (25.0-35.0); MEAN CORPUSCULAR HGB CONC 31.8 g/dl (31.0-37.0); MONO # 0.6 (0.1-0.6); MONO % 10.4 % (1.0-6.0); RED CELL DISTRIBUTION WIDTH 13.4 % (11.5-14.5); WHITE BLOOD COUNT 5.8 10^3/ul (4.5-11.0)
[2017-03-07 07:19] LABS: ALB/GLOB RATIO 1.2 (1.1-1.8); ALKALINE PHOSPHATASE 72 U/L (38-126); ALT/SGPT 46 U/L (7-56); AST/SGOT 28 U/L (17-59); BILIRUBIN,TOTAL 0.5 mg/dL (0.2-1.3); BLOOD UREA NITROGEN 16 mg/dL (7-21); CALCIUM 8.8 mg/dL (8.4-10.5); CARBON DIOXIDE 28 mmol/L (21-33); CHLORIDE 105 mmol/L (98-107); GFR AFRICAN-AMERICAN > 60; GLUCOSE,RANDOM 100 mg/dL (70-110); POTASSIUM 3.8 mmol/L (3.6-5.0); SODIUM 142 mmol/L (132-148); TOTAL PROTEIN 6.4 g/dL (5.8-8.3)
[2017-03-07] MEDS: Vancomycin 1gm in NS 250ml 1 GM/250 ML BAG IVPB SCH ×2 (07:40→17:15)
[2017-03-07 08:18] VITALS: RESP 18
[2017-03-07] MEDS ORDERED: Collagenase 250 Units/gm Ointment(30 gm) TOP SCH (10:00)
[2017-03-07] MEDS ORDERED: Silver Sulfadiazine 1% Cream (25 gm) TP SCH (10:00)
--- NOTE | 2017-03-07 10:19 | CP.PCM.PN ---
<Nagi Wyatt - Last Filed: 03/07/17 11:52> Subjective - Date & Time of Evaluation Date of Evaluation: 03/07/17 Time of Evaluation: 10:15 - Subjective Subjective: Podiatry Progress note for Dr. Infante: 52 y/o male seen at bedside for right foot wound and cellulitis 2 months s/p right foot surgery. Patient reports decreased redness to his right lower extremity since admission. Denies of any pain to his lower extremity and right foot wound. Rates that there is no pain, 0/10 on a VAS. Patient denies of any recent F/N/V/C/SOB/chest pain. Patient also denies of any other pedal complains at this time. Objective - Vital Signs/Intake and Output Vital Signs (last 24 hours): Temp Pulse Resp BP Pulse Ox 97.9 F 53 L 18 101/59 L 98 03/07/17 08:17 03/07/17 08:17 03/07/17 08:17 03/07/17 08:17 03/07/17 08:17 Intake and Output: 03/07/17 03/07/17 06:59 18:59 Intake Total 260 Balance 260 - Medications Medications: Current Medications Acetaminophen (Tylenol 325mg Tab) 650 mg PO Q4 PRN PRN Reason: Pain, moderate (4-7) Apixaban (Eliquis) 10 mg PO BID GINNA PRN Reason: Protocol Last Admin: 03/07/17 09:39 Dose: 10 mg Collagenase (Santyl) 0 gm TOP DAILY GINNA Vancomycin HCl (Vancomycin 1gm) 1 gm in 250 mls @ 167 mls/hr IVPB Q12H GINNA PRN Reason: Protocol Last Admin: 03/07/17 07:40 Dose: 167 mls/hr Cefepime HCl (Maxipime 1gm) 1 gm in 100 mls @ 100 mls/hr IVPB Q8 GINNA PRN Reason: Protocol Stop: 03/14/17 14:01 Last Admin: 03/07/17 05:41 Dose: 100 mls/hr Pantoprazole Sodium (Protonix Ec Tab) 40 mg PO 0600 [facility] Last Admin: 03/07/17 05:42 Dose: 40 mg Silver Sulfadiazine (Silvadene 1% 25 Gm) 25 gm TP DAILY GINNA - Labs Labs: 03/07/17 06:51 03/07/17 06:47 PT 11.6 Seconds (9.9-11.8) 03/06/17 07:41 INR 1.07 (0.93-1.08) 03/06/17 07:41 APTT 24.3 Seconds (23.7-30.8) 03/05/17 15:20 - Constitutional Appears: Well, Non-toxic, No Acute Distress - Extremities Exam Additional comments: Bilateral lower extremity exam: VASC: DP/PT pulses are palpable 2/4 b/l, Cap refill time: < 3 sec to all digits , Temp gradient: warm to cool from proximal to distal, mild non-pitting edema noted on the right lower extremity DERM: Wound dehiscence ulceration noted at the right naviculo-cunieform joint measuring approximately 2 x .5 x .2 cm with surrounding surgical scar noted to the peripheral ends, wound base is 85% fibrotic with 15% granular tissue noted, no probe to bone, no tunneling, no undermining, no malodor, periwound erythema noted which is localized and not extending proximally, no active drainage noted NEURO: Protective sensation grossly intact ORTHO: no pain on palpation of the open lesion, no pain on palpation of the calf bilaterally, Homman's test negative bilaterally - Neurological Exam Neurological Exam: Alert, Awake, Oriented x3 - Psychiatric Exam Psychiatric exam: Normal Affect, Normal Mood Assessment and Plan - Assessment and Plan (Free Text) Assessment: 52 y/o male with no significant PMHx seen and evaluated at bedside for right foot wound and cellulitis s/p surgical procedure Plan: Patient seen and evaluated at bedside Patient discussed in details with attending Dr. Infante Vitals and labs reviewed (afebrile, WBC @ 5.8 ) Wound cleaned using saline , applied w2d saline, 4x4, and kerlix Santyl ordered- will apply with dressing change tomorrow Continue IV abx as per ID US shows acute thrombus on the popliteal vein on the right leg - patient is currently on Apixaban Foot X-ray: demineralization of 2nd and 3rd metatarsal possibly early cortical destructive changes of OM. - clinical presentation not consistent with the OM changes on the x-ray MRI results: "significant edema involving the mid to hindfoot with involvement of cueniform bones, navicular bone, and anterior talus. There is minimal edema at the base of the first metatarsal bone. This is suspicious for osteomyelitis, although postoperative change can contribute to this edema." Please see report. ---CLINICALLY PRESENTATION NOT CORRELATION with OM. Edema and changes most consistent with postoperative changes. Patient has full thickness ulceration, open wound susceptible to infection/cellulitis. 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 <Lasha Infante - Last Filed: 03/07/17 15:05> Objective - Vital Signs/Intake and Output Vital Signs (last 24 hours): Temp Pulse Resp BP Pulse Ox 97.9 F 53 L 18 101/59 L 98 03/07/17 08:17 03/07/17 08:17 03/07/17 08:17 03/07/17 08:17 03/07/17 08:17 Intake and Output: 03/07/17 03/07/17 06:59 18:59 Intake Total 1120 Balance 1120 - Medications Medications: Current Medications Acetaminophen (Tylenol 325mg Tab) 650 mg PO Q4 PRN PRN Reason: Pain, moderate (4-7) Apixaban (Eliquis) 10 mg PO BID GINNA PRN Reason: Protocol Last Admin: 03/07/17 09:39 Dose: 10 mg Collagenase (Santyl) 0 gm TOP DAILY GINNA Vancomycin HCl (Vancomycin 1gm) 1 gm in 250 mls @ 167 mls/hr IVPB Q12H GINNA PRN Reason: Protocol Last Admin: 03/07/17 07:40 Dose: 167 mls/hr Cefepime HCl (Maxipime 1gm) 1 gm in 100 mls @ 100 mls/hr IVPB Q8 GINNA PRN Reason: Protocol Stop: 03/14/17 14:01 Last Admin: 03/07/17 13:53 Dose: 100 mls/hr Pantoprazole Sodium (Protonix Ec Tab) 40 mg PO 0600 [facility] Last Admin: 03/07/17 05:42 Dose: 40 mg Silver Sulfadiazine (Silvadene 1% 25 Gm) 25 gm TP DAILY GINNA - Labs Labs: 03/07/17 06:51 03/07/17 06:47 PT 11.6 Seconds (9.9-11.8) 03/06/17 07:41 INR 1.07 (0.93-1.08) 03/06/17 07:41 APTT 24.3 Seconds (23.7-30.8) 03/05/17 15:20 Attending/Attestation - Attestation I have personally seen and examined this patient.: Yes I have fully participated in the care of the patient.: Yes I have reviewed all pertinent clinical information, including history, physical exam and plan: Yes
--- NOTE | 2017-03-07 14:53 | CP.PCM.PN ---
Subjective - Date & Time of Evaluation Date of Evaluation: 03/07/17 Time of Evaluation: 13:35 - Subjective Subjective: Feeling better but right foot is still swollen but the leg feels better, no fevers overnight. Objective - Vital Signs/Intake and Output Vital Signs (last 24 hours): Temp Pulse Resp BP Pulse Ox 97.9 F 53 L 18 101/59 L 98 03/07/17 08:17 03/07/17 08:17 03/07/17 08:17 03/07/17 08:17 03/07/17 08:17 Intake and Output: 03/07/17 03/07/17 06:59 18:59 Intake Total 260 Balance 260 - Medications Medications: Current Medications Acetaminophen (Tylenol 325mg Tab) 650 mg PO Q4 PRN PRN Reason: Pain, moderate (4-7) Apixaban (Eliquis) 10 mg PO BID GINNA PRN Reason: Protocol Last Admin: 03/07/17 09:39 Dose: 10 mg Collagenase (Santyl) 0 gm TOP DAILY GINNA Vancomycin HCl (Vancomycin 1gm) 1 gm in 250 mls @ 167 mls/hr IVPB Q12H GINNA PRN Reason: Protocol Last Admin: 03/07/17 07:40 Dose: 167 mls/hr Cefepime HCl (Maxipime 1gm) 1 gm in 100 mls @ 100 mls/hr IVPB Q8 GINNA PRN Reason: Protocol Stop: 03/14/17 14:01 Last Admin: 03/07/17 05:41 Dose: 100 mls/hr Pantoprazole Sodium (Protonix Ec Tab) 40 mg PO 0600 [facility] Last Admin: 03/07/17 05:42 Dose: 40 mg Silver Sulfadiazine (Silvadene 1% 25 Gm) 25 gm TP DAILY GINNA - Labs Labs: 03/07/17 06:51 03/07/17 06:47 PT 11.6 Seconds (9.9-11.8) 03/06/17 07:41 INR 1.07 (0.93-1.08) 03/06/17 07:41 APTT 24.3 Seconds (23.7-30.8) 03/05/17 15:20 - Constitutional Appears: Non-toxic, No Acute Distress - Head Exam Head Exam: NORMAL INSPECTION - ENT Exam ENT Exam: Mucous Membranes Moist - Neck Exam Neck Exam: absent: Meningismus - Respiratory Exam Respiratory Exam: Decreased Breath Sounds - Cardiovascular Exam Cardiovascular Exam: +S1, +S2 - GI/Abdominal Exam GI & Abdominal Exam: Soft. absent: Tenderness - Extremities Exam Additional comments: right leg with decreased swelling and erythema, right foot with dressings in place Assessment and Plan - Assessment and Plan (Free Text) Plan: Assessment right foot cellulitis in a patient with a history of right foot surgery history of DVT Plan Continue Vancomycin and Cefepime day 2; reviewed MRI findings as per Podiatry, bone edema findings are more likely post-op changes and not related to osteomyelitis since it does not fit the clinical picture will continue to monitor clinical response; cultures are negative so far
--- NOTE | 2017-03-07 15:31 | CP.PCM.PN ---
<Marcella Steward - Last Filed: 03/07/17 15:48> Subjective - Date & Time of Evaluation Date of Evaluation: 03/07/17 Time of Evaluation: 15:27 - Subjective Subjective: Hospitalist Service Progress Note: Patient seen and examined at bedside. Per nursing no acute events overnight. Patient is doing well, offers no complaints at this time. Denies having any pain and states that R LE swelling has improved. Denies fevers, chills, nausea, vomiting, cp, palpitations, sob, abdominal pain, urinary symptoms, changes in bowel habits. Objective - Vital Signs/Intake and Output Vital Signs (last 24 hours): Temp Pulse Resp BP Pulse Ox 97.9 F 53 L 18 101/59 L 98 03/07/17 08:17 03/07/17 08:17 03/07/17 08:17 03/07/17 08:17 03/07/17 08:17 Intake and Output: 03/07/17 03/07/17 06:59 18:59 Intake Total 1120 Balance 1120 - Medications Medications: Current Medications Acetaminophen (Tylenol 325mg Tab) 650 mg PO Q4 PRN PRN Reason: Pain, moderate (4-7) Apixaban (Eliquis) 10 mg PO BID GINNA PRN Reason: Protocol Last Admin: 03/07/17 09:39 Dose: 10 mg Collagenase (Santyl) 0 gm TOP DAILY GINNA Vancomycin HCl (Vancomycin 1gm) 1 gm in 250 mls @ 167 mls/hr IVPB Q12H GINNA PRN Reason: Protocol Last Admin: 03/07/17 07:40 Dose: 167 mls/hr Cefepime HCl (Maxipime 1gm) 1 gm in 100 mls @ 100 mls/hr IVPB Q8 GINNA PRN Reason: Protocol Stop: 03/14/17 14:01 Last Admin: 03/07/17 13:53 Dose: 100 mls/hr Pantoprazole Sodium (Protonix Ec Tab) 40 mg PO 0600 [facility] Last Admin: 03/07/17 05:42 Dose: 40 mg Silver Sulfadiazine (Silvadene 1% 25 Gm) 25 gm TP DAILY [facility] - Labs Labs: 03/07/17 06:51 03/07/17 06:47 PT 11.6 Seconds (9.9-11.8) 03/06/17 07:41 INR 1.07 (0.93-1.08) 03/06/17 07:41 APTT 24.3 Seconds (23.7-30.8) 03/05/17 15:20 - Constitutional Appears: Well, No Acute Distress - Head Exam Head Exam: ATRAUMATIC, NORMAL INSPECTION - Eye Exam Eye Exam: EOMI, Normal appearance Pupil Exam: NORMAL ACCOMODATION - ENT Exam ENT Exam: Mucous Membranes Moist - Neck Exam Neck Exam: Full ROM - Respiratory Exam Respiratory Exam: Clear to Ausculation Bilateral, NORMAL BREATHING PATTERN. absent: Rales, Rhonchi, Wheezes - Cardiovascular Exam Cardiovascular Exam: REGULAR RHYTHM, +S1, +S2 - GI/Abdominal Exam GI & Abdominal Exam: Soft, Tenderness. absent: Guarding, Rigid - Extremities Exam Extremities Exam: Full ROM. 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 The patient states his right foot wound is chronic in nature. He now has swelling and redness tracking up the right lower extremity despite outpatient antibiotic use. Plan: 1. Cellulitis; Right leg/foot wound - Stable, afebrile - Foot x-ray: Diffuse soft tissue swelling consistent with cellulitis - MRI reviewed, per podiatry bone edema findings are more likely post-op changes and not related to osteomyelitis since it does not fit the clinical picture - Continue IV Cefepime and IV Vancomycin (day 2) - Keep right leg elevated - Anticipate D/C home tomorrow - Podiatry on consult, f/u recommendations - Infectious disease on consult, f/u recommendations 2. Recent Diagnosis of Provoked DVT - s/p Foot surgery 12/2016 - LE US showing acute thrombus on the popliteal vein on the right leg - Continue Eliquis 10mg BID for total 3 months 3. Anemia - Hgb stable at baseline, no active signs of bleeding - Monitor closely GI/DVT Prophylaxis: - Protonix - Eliquis 10 mg BID <Rangasamy,Ajantha - Last Filed: 03/07/17 18:59> Objective - Vital Signs/Intake and Output Vital Signs (last 24 hours): Temp Pulse Resp BP Pulse Ox 98.4 F 61 18 132/79 98 03/07/17 16:02 03/07/17 16:02 03/07/17 16:02 03/07/17 16:02 03/07/17 16:02 Intake and Output: 03/07/17 03/07/17 06:59 18:59 Intake Total 1120 Balance 1120 - Medications Medications: Current Medications Acetaminophen (Tylenol 325mg Tab) 650 mg PO Q4 PRN PRN Reason: Pain, moderate (4-7) Apixaban (Eliquis) 10 mg PO BID GINNA PRN Reason: Protocol Last Admin: 03/07/17 17:15 Dose: 10 mg Collagenase (Santyl) 0 gm TOP DAILY GINNA Vancomycin HCl (Vancomycin 1gm) 1 gm in 250 mls @ 167 mls/hr IVPB Q12H GINNA PRN Reason: Protocol Last Admin: 03/07/17 17:15 Dose: 167 mls/hr Cefepime HCl (Maxipime 1gm) 1 gm in 100 mls @ 100 mls/hr IVPB Q8 GINNA PRN Reason: Protocol Stop: 03/14/17 14:01 Last Admin: 03/07/17 13:53 Dose: 100 mls/hr Pantoprazole Sodium (Protonix Ec Tab) 40 mg PO 0600 [facility] Last Admin: 03/07/17 05:42 Dose: 40 mg Silver Sulfadiazine (Silvadene 1% 25 Gm) 25 gm TP DAILY [facility] Last Admin: 03/07/17 16:54 Dose: Not Given - Labs Labs: 03/07/17 06:51 03/07/17 06:47 PT 11.6 Seconds (9.9-11.8) 03/06/17 07:41 INR 1.07 (0.93-1.08) 03/06/17 07:41 APTT 24.3 Seconds (23.7-30.8) 03/05/17 15:20 Attending/Attestation - Attestation I have personally seen and examined this patient.: Yes I have fully participated in the care of the patient.: Yes I have reviewed all pertinent clinical information, including history, physical exam and plan: Yes Notes (Text): 03/07/17 18:57 Attending note; Patient seen and examined with resident. Patient is a 52 year old male with history of right foot surgery on 01/06 by for removal of bone which was followed by cast and it was complicated by recently diagnosed RLE DVT on eliquis and right foot cellulitis on cipro was sent by entry level receptionist yesterday for non healing wound of right foot. Patient has mild redness however denies tenderness of right foot. Podiatry consult appreciated. MRI showed postoperative changes. ID evaluation appreciated. Monitor for clinical response. Possible discharge home within 24-48 hours. continue vancomycin and cefepime. Upon discharge patient will follow up with PMD Dr. Thorpe and entry level receptionist Dr. parker.
[2017-03-08] MEDS: Pantoprazole 40 mg EC Tab PO SCH (05:01)
[2017-03-08] MEDS: Cefepime 1gm in NS 100ml 1 GM/100 ML BAG IVPB SCH (05:01)
[2017-03-08] MEDS: Vancomycin 1gm in NS 250ml 1 GM/250 ML BAG IVPB SCH (06:13)
[2017-03-08 07:36] LABS: BASO # 0.02 K/mm3 (0.0-2.0); BASO % 0.4 % (0.0-3.0); EOS # 0.3 (0.0-0.7); EOS % 5.6 % (1.5-5.0); GRAN # 3.22 (1.4-6.5); GRAN % 56.8 % (50.0-68.0); HEMATOCRIT 33.4 % (42.0-52.0); LYMPH # 1.6 (1.2-3.4); LYMPH % 28.7 % (22.0-35.0); MEAN CELL VOLUME 87.2 fl (80.0-105.0); MEAN CORPUSCULAR HEMOGLOBIN 27.7 pg (25.0-35.0); MEAN CORPUSCULAR HGB CONC 31.7 g/dl (31.0-37.0); MEAN PLATELET VOLUME 10.1 fl (7.0-11.0); MONO # 0.5 (0.1-0.6); MONO % 8.5 % (1.0-6.0); RED CELL DISTRIBUTION WIDTH 13.3 % (11.5-14.5); WHITE BLOOD COUNT 5.7 10^3/ul (4.5-11.0)
[2017-03-08 07:48] LABS: ALB/GLOB RATIO 1.3 (1.1-1.8); ALKALINE PHOSPHATASE 71 U/L (38-126); ALT/SGPT 58 U/L (7-56); AST/SGOT 28 U/L (17-59); BILIRUBIN,TOTAL 0.6 mg/dL (0.2-1.3); BLOOD UREA NITROGEN 15 mg/dL (7-21); CARBON DIOXIDE 29 mmol/L (21-33); CHLORIDE 105 mmol/L (95-110); GFR AFRICAN-AMERICAN > 60; GLUCOSE,RANDOM 95 mg/dL (70-110); POTASSIUM 3.9 mmol/L (3.6-5.0); SODIUM 141 mmol/L (132-148); TOTAL PROTEIN 6.5 g/dL (5.8-8.3)
[2017-03-08 08:01] VITALS: BP 115/78; PULSE 56; TEMP 97.7; O2SAT 97
--- NOTE | 2017-03-08 11:02 | CP.PCM.PN ---
<Prashant Hutchins - Last Filed: 03/08/17 10:58> Subjective - Date & Time of Evaluation Date of Evaluation: 03/08/17 Time of Evaluation: 10:58 - Subjective Subjective: Podiatry Progress note for Dr. Infante: 52 y/o male seen at bedside for right foot wound and cellulitis 2 months s/p right foot surgery. Patient reports decreased redness to his right lower extremity since admission. Denies any pain to his lower extremity and right foot wound at this time. Rates that there is no pain, 0/10 on a VAS. Patient denies any new erythema, drainage, malodor or other clinical signs of infection at this time. Patient denies of any recent F/N/V/C/SOB/chest pain. Patient also denies of any other pedal complains at this time. Objective - Vital Signs/Intake and Output Vital Signs (last 24 hours): Temp Pulse Resp BP Pulse Ox 97.7 F 56 L 18 115/78 97 03/08/17 08:00 03/08/17 08:00 03/08/17 08:00 03/08/17 08:00 03/08/17 08:00 Intake and Output: 03/08/17 03/08/17 06:59 18:59 Intake Total 900 400 Balance 900 400 - Medications Medications: Current Medications Acetaminophen (Tylenol 325mg Tab) 650 mg PO Q4 PRN PRN Reason: Pain, moderate (4-7) Apixaban (Eliquis) 10 mg PO BID [facility] PRN Reason: Protocol Last Admin: 03/08/17 09:29 Dose: 10 mg Collagenase (Santyl) 0 gm TOP DAILY [facility] Vancomycin HCl (Vancomycin 1gm) 1 gm in 250 mls @ 167 mls/hr IVPB Q12H [facility] PRN Reason: Protocol Last Admin: 03/08/17 06:13 Dose: 167 mls/hr Cefepime HCl (Maxipime 1gm) 1 gm in 100 mls @ 100 mls/hr IVPB Q8 [facility] PRN Reason: Protocol Stop: 03/14/17 14:01 Last Admin: 03/08/17 05:01 Dose: 100 mls/hr Pantoprazole Sodium (Protonix Ec Tab) 40 mg PO 0600 [facility] Last Admin: 03/08/17 05:01 Dose: 40 mg Silver Sulfadiazine (Silvadene 1% 25 Gm) 25 gm TP DAILY [facility] Last Admin: 03/07/17 16:54 Dose: Not Given - Labs Labs: 03/08/17 07:27 03/08/17 07:27 PT 11.6 Seconds (9.9-11.8) 03/06/17 07:41 INR 1.07 (0.93-1.08) 03/06/17 07:41 APTT 24.3 Seconds (23.7-30.8) 03/05/17 15:20 - Constitutional Appears: Well, Non-toxic, No Acute Distress - Extremities Exam Additional comments: Bilateral lower extremity exam: VASC: DP/PT pulses are palpable 2/4 b/l, Cap refill time: < 3 sec to all digits , Temp gradient: warm to cool from proximal to distal, minimal non-pitting edema noted on the right lower extremity DERM: Wound dehiscence ulceration noted at the right naviculo-cunieform joint measuring approximately 2 x .5 x .2 cm with surrounding surgical scar noted to the peripheral ends, wound base is 85% fibrotic with 15% granular tissue noted, no probe to bone, no tunneling, no undermining, no malodor, periwound erythema noted which is localized and not extending proximally and decreased from yesterday, no active drainage noted NEURO: Protective sensation grossly intact ORTHO: no pain on palpation of the open lesion, no pain on palpation of the calf bilaterally, Homman's test negative bilaterally - Neurological Exam Neurological Exam: Alert, Awake, Oriented x3 - Psychiatric Exam Psychiatric exam: Normal Affect, Normal Mood Assessment and Plan - Assessment and Plan (Free Text) Assessment: 52 y/o male with no significant PMHx seen and evaluated at bedside for right foot wound and cellulitis s/p surgical procedure Plan: Patient seen and evaluated at bedside Patient discussed in detail with attending Dr. Infante Vitals and labs reviewed (afebrile, WBC @ 5.7 ) Wound dressed with Santyl, DSD, MARSHA Continue IV abx as per ID US shows acute thrombus on the popliteal vein on the right leg - patient is currently on Apixaban Foot X-ray: demineralization of 2nd and 3rd metatarsal possibly early cortical destructive changes of OM. - clinical presentation not consistent with the OM changes on the x-ray MRI results: "significant edema involving the mid to hindfoot with involvement of cueniform bones, navicular bone, and anterior talus. There is minimal edema at the base of the first metatarsal bone. This is suspicious for osteomyelitis, although postoperative change can contribute to this edema." Please see report. ---CLINICALLY PRESENTATION SHOWS NO CORRELATION WITH OM. Edema and changes most consistent with postoperative changes. Patient has full thickness ulceration, open wound susceptible to infection/cellulitis. Patient to be discharged today Will f/u with his roll tender upon discharge <Lasha Infante - Last Filed: 03/08/17 11:10> Objective - Vital Signs/Intake and Output Vital Signs (last 24 hours): Temp Pulse Resp BP Pulse Ox 97.7 F 56 L 18 115/78 97 03/08/17 08:00 03/08/17 08:00 03/08/17 08:00 03/08/17 08:00 03/08/17 08:00 Intake and Output: 03/08/17 03/08/17 06:59 18:59 Intake Total 900 400 Balance 900 400 - Medications Medications: Current Medications Acetaminophen (Tylenol 325mg Tab) 650 mg PO Q4 PRN PRN Reason: Pain, moderate (4-7) Apixaban (Eliquis) 10 mg PO BID [facility] PRN Reason: Protocol Last Admin: 03/08/17 09:29 Dose: 10 mg Collagenase (Santyl) 0 gm TOP DAILY [facility] Vancomycin HCl (Vancomycin 1gm) 1 gm in 250 mls @ 167 mls/hr IVPB Q12H [facility] PRN Reason: Protocol Last Admin: 03/08/17 06:13 Dose: 167 mls/hr Cefepime HCl (Maxipime 1gm) 1 gm in 100 mls @ 100 mls/hr IVPB Q8 [facility] PRN Reason: Protocol Stop: 03/14/17 14:01 Last Admin: 03/08/17 05:01 Dose: 100 mls/hr Pantoprazole Sodium (Protonix Ec Tab) 40 mg PO 0600 [facility] Last Admin: 03/08/17 05:01 Dose: 40 mg Silver Sulfadiazine (Silvadene 1% 25 Gm) 25 gm TP DAILY [facility] Last Admin: 03/07/17 16:54 Dose: Not Given - Labs Labs: 03/08/17 07:27 03/08/17 07:27 PT 11.6 Seconds (9.9-11.8) 03/06/17 07:41 INR 1.07 (0.93-1.08) 03/06/17 07:41 APTT 24.3 Seconds (23.7-30.8) 03/05/17 15:20 Attending/Attestation - Attestation I have personally seen and examined this patient.: Yes I have fully participated in the care of the patient.: Yes I have reviewed all pertinent clinical information, including history, physical exam and plan: Yes
--- NOTE | 2017-03-08 11:50 | CP.PCM.DIS ---
<Marcella Steward - Last Filed: 03/08/17 12:52> Provider - Provider Date of Admission: 03/05/17 16:13 Attending physician: Karen Smith MD Consults: Podiatry: Naresh ID: Jeri Time Spent in preparation of Discharge (in minutes): 32 Hospital Course - Lab Results Lab Results: Micro Results 03/06/17 13:50 Urine,Clean Catch Urine Culture - Final No Growth (<1,000 CFU/ML) Most Recent Lab Values WBC 5.7 10^3/ul (4.5-11.0) 03/08/17 07:27 RBC 3.83 10^6/uL (3.5-6.1) 03/08/17 07:27 Hgb 10.6 g/dL (14.0-18.0) L 03/08/17 07:27 Hct 33.4 % (42.0-52.0) L 03/08/17 07:27 MCV 87.2 fl (80.0-105.0) 03/08/17 07:27 MCH 27.7 pg (25.0-35.0) 03/08/17 07:27 MCHC 31.7 g/dl (31.0-37.0) 03/08/17 07:27 RDW 13.3 % (11.5-14.5) 03/08/17 07:27 Plt Count 249 10^3/uL (120.0-450.0) 03/08/17 07:27 MPV 10.1 fl (7.0-11.0) 03/08/17 07:27 Gran % 56.8 % (50.0-68.0) 03/08/17 07:27 Lymph % (Auto) 28.7 % (22.0-35.0) 03/08/17 07:27 Porter % (Auto) 8.5 % (1.0-6.0) H 03/08/17 07:27 Eos % (Auto) 5.6 % (1.5-5.0) H 03/08/17 07:27 Baso % (Auto) 0.4 % (0.0-3.0) 03/08/17 07:27 Gran # 3.22 (1.4-6.5) 03/08/17 07:27 Lymph # 1.6 (1.2-3.4) 03/08/17 07:27 Porter # 0.5 (0.1-0.6) 03/08/17 07:27 Eos # 0.3 (0.0-0.7) 03/08/17 07:27 Baso # 0.02 K/mm3 (0.0-2.0) 03/08/17 07:27 ESR 32 mm/hr (0.00-15.0) H 03/05/17 15:20 PT 11.6 Seconds (9.9-11.8) 03/06/17 07:41 INR 1.07 (0.93-1.08) 03/06/17 07:41 APTT 24.3 Seconds (23.7-30.8) 03/05/17 15:20 Sodium 141 mmol/L (132-148) 03/08/17 07:27 Potassium 3.9 mmol/L (3.6-5.0) 03/08/17 07:27 Chloride 105 mmol/L (95-110) 03/08/17 07:27 Carbon Dioxide 29 mmol/L (21-33) 03/08/17 07:27 Anion Gap 11 (10-20) 03/08/17 07:27 BUN 15 mg/dL (7-21) 03/08/17 07:27 Creatinine 0.8 mg/dL (0.8-1.5) 03/08/17 07:27 Est GFR ( Amer) > 60 03/08/17 07:27 Est GFR (Non-Af Amer) > 60 03/08/17 07:27 Random Glucose 95 mg/dL (70-110) 03/08/17 07:27 Calcium 9.0 mg/dL (8.4-10.5) 03/08/17 07:27 Total Bilirubin 0.6 mg/dL (0.2-1.3) 03/08/17 07:27 AST 28 U/L (17-59) 03/08/17 07:27 ALT 58 U/L (7-56) H 03/08/17 07:27 Alkaline Phosphatase 71 U/L (38-126) 03/08/17 07:27 C-React Prot High Sens 2.49 mg/L (1.00-3.00) 03/05/17 15:20 Total Protein 6.5 g/dL (5.8-8.3) 03/08/17 07:27 Albumin 3.8 g/dL (3.0-4.8) 03/08/17 07:27 Globulin 2.8 gm/dL 03/08/17 07:27 Albumin/Globulin Ratio 1.3 (1.1-1.8) 03/08/17 07:27 Lipase 138 U/L (23-300) 03/05/17 15:20 Urine Color Yellow (YELLOW) 03/06/17 13:50 Urine Appearance Clear (CLEAR) 03/06/17 13:50 Urine pH 7.0 (4.7-8.0) 03/06/17 13:50 Ur Specific [place] 1.010 (1.005-1.035) 03/06/17 13:50 Urine Protein Negative mg/dL (<30 mg/dL) 03/06/17 13:50 Urine Glucose (UA) Negative mg/dL (NEGATIVE) 03/06/17 13:50 Urine Ketones Negative mg/dL (NEGATIVE) 03/06/17 13:50 Urine Blood Trace-intact (NEGATIVE) H 03/06/17 13:50 Urine Nitrate Negative (NEGATIVE) 03/06/17 13:50 Urine Bilirubin Negative (NEGATIVE) 03/06/17 13:50 Urine Urobilinogen 0.2 E.U./dL (<1 E.U./dL) 03/06/17 13:50 Ur Leukocyte Esterase Negative Derick/uL (NEGATIVE) 03/06/17 13:50 Urine RBC 5 - 10 /hpf (0-2) 03/06/17 13:50 Urine WBC 1 - 3 /hpf (0-6) 03/06/17 13:50 Ur Epithelial Cells 3 - 4 /hpf (0-5) 03/06/17 13:50 - Hospital Course Hospital Course: Patient is a 52 year old male with history of right foot surgery on 01/[address] Parker for removal of bone which was followed by cast and it was complicated by recently diagnosed RLE DVT on Eliquis and right foot cellulitis on cipro was sent by pta for non healing wound of right foot. On admission, patient has mild redness however denies tenderness of right foot. Denies systemic signs of infection. Patient was started on IV Vancomycin and Cefepime. Right foot Xray showed diffuse soft tissue swelling consistent with cellulitis (please see full report) Podiatry was consulted and on the case. ID was also consulted and on the case. MRI foot showed significant edema involving the mid to hindfoot with involvement of the cuneiform bones, navicular bone, and anterior talus. Minimal edema at the base of the first metatarsal bone, suspicious osteomyeolitis, although post operative changes can contribute to this edema ( please see full report). Imaging reviewed, per podiatry clinical presentation not consistent with osteomyeolitis. R LE US showed Acute occlusive hypoechoic thrombus in the right popliteal vein. Patient was restarted on Eliquis 10mg BID. On day of discharge, patient was doing well. Patient was ambulating and tolerating diet. Denied any foot pain. Dressing was changed by podiatry. Patient was medically stable. Will discharge on Augmentin and Doxycycline x 7 days. Patient will also continue Eliquis 5mg BID x 3 months starting 03/08/17. Upon discharge patient will follow up with PMD matti parra and Dr Parker. All questions and concerns were addressed. Discharge Exam - Head Exam Head Exam: ATRAUMATIC, NORMAL INSPECTION - Eye Exam Eye Exam: EOMI, Normal appearance Pupil Exam: NORMAL ACCOMODATION, PERRL - ENT Exam ENT Exam: Mucous Membranes Moist - Neck Exam Neck exam: Full Rom - Respiratory Exam Respiratory Exam: Clear to PA & Lateral, NORMAL BREATHING PATTERN, UNREMARKABLE. absent: Rales, Rhonchi, Wheezes - Cardiovascular Exam Cardiovascular Exam: REGULAR RHYTHM, +S1, +S2 - GI/Abdominal Exam GI & Abdominal Exam: Soft. absent: Guarding, Normal Bowel Sounds, Rebound, Rigid, Tenderness - Extremities Exam Extremities exam: full ROM, pedal pulses present Additional comments: R LE swelling and erythema improving Dressing to be changed by podiatry Full ROM, pedal pulses intact - Back Exam Back exam: NORMAL INSPECTION - Neurological Exam Neurological exam: Alert, Oriented x3 - Psychiatric Exam Psychiatric exam: Normal Affect, Normal Mood - Skin Skin Exam: Dry, Normal Color, Warm Discharge Plan - Discharge Medications Prescriptions: Amoxicillin/Clavulanate [Augmentin 875 MG-125 MG] 1 tab PO BID #14 tab Apixaban [Eliquis] 10 mg PO BID #60 tablet Doxycycline Hyclate 100 mg PO BID #14 capsule - Follow Up Plan Condition: FAIR Disposition: HOME/ ROUTINE Instructions: Apixaban (By mouth), Pneumococcal Vaccine for Adults (DC), Wound Infection (DC), Cellulitis (DC), Heart Healthy Diet (DC), Deep Venous Thrombosis (DC), Influenza Vaccine (DC) Additional Instructions: 1. Continue antibiotics as prescribed 2. F/U with Podiatry on as scheduled 3. F/U with PMD within 1 week 4. Continue Eliquis 5 mg BID for total 3 months of therapy starting 03/08/17 ( will need to be refilled by PMD) 5. If symptoms worsen or new additional symptoms come up such and extreme shortness of breath or pain on breathing go to the Emergency Department. <Karen Smith - Last Filed: 03/08/17 16:03> Provider - Provider Date of Admission: 03/05/17 16:13 Attending physician: Karen Smith MD Hospital Course - Lab Results Lab Results: Micro Results 03/06/17 13:50 Urine,Clean Catch Urine Culture - Final No Growth (<1,000 CFU/ML) Most Recent Lab Values WBC 5.7 10^3/ul (4.5-11.0) 03/08/17 07:27 RBC 3.83 10^6/uL (3.5-6.1) 03/08/17 07:27 Hgb 10.6 g/dL (14.0-18.0) L 03/08/17 07:27 Hct 33.4 % (42.0-52.0) L 03/08/17 07:27 MCV 87.2 fl (80.0-105.0) 03/08/17 07:27 MCH 27.7 pg (25.0-35.0) 03/08/17 07:27 MCHC 31.7 g/dl (31.0-37.0) 03/08/17 07:27 RDW 13.3 % (11.5-14.5) 03/08/17 07:27 Plt Count 249 10^3/uL (120.0-450.0) 03/08/17 07:27 MPV 10.1 fl (7.0-11.0) 03/08/17 07:27 Gran % 56.8 % (50.0-68.0) 03/08/17 07:27 Lymph % (Auto) 28.7 % (22.0-35.0) 03/08/17 07:27 Porter % (Auto) 8.5 % (1.0-6.0) H 03/08/17 07:27 Eos % (Auto) 5.6 % (1.5-5.0) H 03/08/17 07:27 Baso % (Auto) 0.4 % (0.0-3.0) 03/08/17 07:27 Gran # 3.22 (1.4-6.5) 03/08/17 07:27 Lymph # 1.6 (1.2-3.4) 03/08/17 07:27 Porter # 0.5 (0.1-0.6) 03/08/17 07:27 Eos # 0.3 (0.0-0.7) 03/08/17 07:27 Baso # 0.02 K/mm3 (0.0-2.0) 03/08/17 07:27 ESR 32 mm/hr (0.00-15.0) H 03/05/17 15:20 PT 11.6 Seconds (9.9-11.8) 03/06/17 07:41 INR 1.07 (0.93-1.08) 03/06/17 07:41 APTT 24.3 Seconds (23.7-30.8) 03/05/17 15:20 Sodium 141 mmol/L (132-148) 03/08/17 07:27 Potassium 3.9 mmol/L (3.6-5.0) 03/08/17 07:27 Chloride 105 mmol/L (95-110) 03/08/17 07:27 Carbon Dioxide 29 mmol/L (21-33) 03/08/17 07:27 Anion Gap 11 (10-20) 03/08/17 07:27 BUN 15 mg/dL (7-21) 03/08/17 07:27 Creatinine 0.8 mg/dL (0.8-1.5) 03/08/17 07:27 Est GFR ( Amer) > 60 03/08/17 07:27 Est GFR (Non-Af Amer) > 60 03/08/17 07:27 Random Glucose 95 mg/dL (70-110) 03/08/17 07:27 Calcium 9.0 mg/dL (8.4-10.5) 03/08/17 07:27 Total Bilirubin 0.6 mg/dL (0.2-1.3) 03/08/17 07:27 AST 28 U/L (17-59) 03/08/17 07:27 ALT 58 U/L (7-56) H 03/08/17 07:27 Alkaline Phosphatase 71 U/L (38-126) 03/08/17 07:27 C-React Prot High Sens 2.49 mg/L (1.00-3.00) 03/05/17 15:20 Total Protein 6.5 g/dL (5.8-8.3) 03/08/17 07:27 Albumin 3.8 g/dL (3.0-4.8) 03/08/17 07:27 Globulin 2.8 gm/dL 03/08/17 07:27 Albumin/Globulin Ratio 1.3 (1.1-1.8) 03/08/17 07:27 Lipase 138 U/L (23-300) 03/05/17 15:20 Urine Color Yellow (YELLOW) 03/06/17 13:50 Urine Appearance Clear (CLEAR) 03/06/17 13:50 Urine pH 7.0 (4.7-8.0) 03/06/17 13:50 Ur Specific [place] 1.010 (1.005-1.035) 03/06/17 13:50 Urine Protein Negative mg/dL (<30 mg/dL) 03/06/17 13:50 Urine Glucose (UA) Negative mg/dL (NEGATIVE) 03/06/17 13:50 Urine Ketones Negative mg/dL (NEGATIVE) 03/06/17 13:50 Urine Blood Trace-intact (NEGATIVE) H 03/06/17 13:50 Urine Nitrate Negative (NEGATIVE) 03/06/17 13:50 Urine Bilirubin Negative (NEGATIVE) 03/06/17 13:50 Urine Urobilinogen 0.2 E.U./dL (<1 E.U./dL) 03/06/17 13:50 Ur Leukocyte Esterase Negative Derick/uL (NEGATIVE) 03/06/17 13:50 Urine RBC 5 - 10 /hpf (0-2) 03/06/17 13:50 Urine WBC 1 - 3 /hpf (0-6) 03/06/17 13:50 Ur Epithelial Cells 3 - 4 /hpf (0-5) 03/06/17 13:50 Attending/Attestation - Attestation I have personally seen and examined this patient.: Yes I have fully participated in the care of the patient.: Yes I have reviewed all pertinent clinical information, including history, physical exam and plan: Yes Notes (Text): 03/08/17 16:00 Attending note; Patient seen and examined with resident. Patient is a 52 year old male with history of right foot surgery on 01/06 by for removal of bone which was followed by cast and it was complicated by recently diagnosed RLE DVT on eliquis and right foot cellulitis on cipro was sent by pta yesterday for non healing wound of right foot. patient has provoked DVT first episode. Needs to complete 3 months of po Eliquis. No previous history of DVT. No family history of DVT. cellulitis resolved. Right leg is minimally swollen. Ambulating with special boot. dressing change by podiatry today. MRI showed postoperative changes. MRI reviewed with ID and podiatry. ID evaluation appreciated. patient will be discharged home with by mouth Augmentin and doxycycline. MRI results given. Follow-up with Library Cataloging Technician on . Upon discharge patient will follow up with PMD Dr. Thorpe and pta Dr. parker. Diagnosis; right leg cellulitis Status post Right foot surgery Right leg DVT
--- NOTE | 2017-03-08 13:07 | CP.PCM.PN ---
Subjective - Date & Time of Evaluation Date of Evaluation: 03/08/17 Time of Evaluation: 12:00 - Subjective Subjective: Comfortable, not in distress, afebrile, much improved swelling of the right leg and foot. Objective - Vital Signs/Intake and Output Vital Signs (last 24 hours): Temp Pulse Resp BP Pulse Ox 97.7 F 56 L 18 115/78 97 03/08/17 08:00 03/08/17 08:00 03/08/17 08:00 03/08/17 08:00 03/08/17 08:00 Intake and Output: 03/08/17 03/08/17 06:59 18:59 Intake Total 900 Balance 900 - Medications Medications: Current Medications Acetaminophen (Tylenol 325mg Tab) 650 mg PO Q4 PRN PRN Reason: Pain, moderate (4-7) Apixaban (Eliquis) 10 mg PO BID [facility] PRN Reason: Protocol Last Admin: 03/08/17 09:29 Dose: 10 mg Collagenase (Santyl) 0 gm TOP DAILY [facility] Vancomycin HCl (Vancomycin 1gm) 1 gm in 250 mls @ 167 mls/hr IVPB Q12H [facility] PRN Reason: Protocol Last Admin: 03/08/17 06:13 Dose: 167 mls/hr Cefepime HCl (Maxipime 1gm) 1 gm in 100 mls @ 100 mls/hr IVPB Q8 [facility] PRN Reason: Protocol Stop: 03/14/17 14:01 Last Admin: 03/08/17 05:01 Dose: 100 mls/hr Pantoprazole Sodium (Protonix Ec Tab) 40 mg PO 0600 [facility] Last Admin: 03/08/17 05:01 Dose: 40 mg Silver Sulfadiazine (Silvadene 1% 25 Gm) 25 gm TP DAILY [facility] Last Admin: 03/07/17 16:54 Dose: Not Given - Labs Labs: 03/08/17 07:27 03/08/17 07:27 PT 11.6 Seconds (9.9-11.8) 03/06/17 07:41 INR 1.07 (0.93-1.08) 03/06/17 07:41 APTT 24.3 Seconds (23.7-30.8) 03/05/17 15:20 - Constitutional Appears: Non-toxic, No Acute Distress - Head Exam Head Exam: NORMAL INSPECTION - Neck Exam Neck Exam: absent: Meningismus - Respiratory Exam Respiratory Exam: Decreased Breath Sounds - Cardiovascular Exam Cardiovascular Exam: +S1, +S2 - GI/Abdominal Exam GI & Abdominal Exam: Soft. absent: Tenderness - Extremities Exam Additional comments: right foot with dressings in place; decreased swelling and erythema of the right leg Assessment and Plan - Assessment and Plan (Free Text) Plan: Assessment right foot cellulitis in a patient with a history of right foot surgery history of DVT Plan Continue Vancomycin and Cefepime day 3; reviewed MRI findings as per Podiatry, bone edema findings are more likely post-op changes and not related to osteomyelitis since it does not fit the clinical picture cultures are negative - when ready for discharge, the patient can be switched to PO doxycycline and Augmentin for another 7 days with outpatient follow up with his Saw Filer
== END 2017-03-08 15:58 | disposition home or self-care (01) | DRG 563 ==
LOC: ED 13:51 → ERH 16:13 → 5RNO 17:25
PROVIDERS: ADMIT Hospitalist; ATTEND Internal Medicine
DX: L03.115 Cellulitis of right lower limb (principal); I82.431 Acute embolism and thrombosis of right popliteal vein; D64.9 Anemia, unspecified

== ENCOUNTER 2017-08-12 00:25 | Inpatient (IN) | payer MEDICAID, OTHER ==
[2017-08-12 00:32] VITALS: BMI 31.4
[2017-08-12] MEDS ORDERED: Atrop/Hyosc/Scopal/PB Elixir (120 ml) PO STA (00:44)
[2017-08-12] MEDS ORDERED: Alum-Mag Hydrox-Simethicone Susp (30 mL) PO STA (00:44)
--- NOTE | 2017-08-12 00:47 | ED PDOC ---
Arrival/HPI - General Time Seen by Provider: 08/12/17 00:36 Historian: Patient - History of Present Illness Narrative History of Present Illness (Text): 08/12/17 00:43 A 52 year old male, whose past medical history includes right foot surgery, and an umbilical hernia as a child, presents to the emergency department complaining of 3 day duration epigastric abdominal pain. The patient states that the pain worsened at 1800PM after eating a pepperoni pizza. The patient states that he was trying to vomit, but was not producing any vomitus, and that he has not been able to sleep. He notes that he took Pepto-Bismol with no relief of his symptoms. The patient denies fevers, chills, headache, dizziness, chest pain, shortness of breath, dyspnea on exertion, cough, diarrhea, back pain , neck pain, urinary/bowel changes, or any other complaint. Time/Duration: Other (3 Days) Symptom Onset: Sudden Symptom Course: Unchanged Activities at Onset: Rest, Light Context: Home Past Medical History - Provider Review Nursing Documentation Reviewed: Yes - Infectious Disease Hx of Infectious Diseases: None - Tetanus Immunization Tetanus Immunization: Unknown - Cardiac Hx Cardiac Disorders: No - Pulmonary Hx Respiratory Disorders: No - Neurological Hx Neurological Disorder: No - HEENT Hx HEENT Disorder: No - Renal Hx Renal Disorder: No - Endocrine/Metabolic Hx Endocrine Disorders: No - Hematological/Oncological Hx Blood Disorders: No - Integumentary Hx Dermatological Disorder: No - Musculoskeletal/Rheumatological Hx Musculoskeletal Disorders: No - Gastrointestinal Hx Gastrointestinal Disorders: Yes (VENTRAL HERNIA REPAIR,TONSILLECTOMY) - Genitourinary/Gynecological Hx Genitourinary Disorders: No - Psychiatric Hx Psychophysiologic Disorder: No Hx Substance Use: No - Surgical History Other/Comment: R foot surgery December 2016 - Anesthesia Hx Anesthesia: Yes - Suicidal Assessment Feels Threatened In Home Enviroment: No Family/Social History - Physician Review Nursing Documentation Reviewed: Yes Family/Social History: No Known Family HX Smoking Status: Never Smoked Hx Alcohol Use: No Hx Substance Use: No Allergies/Home Meds Allergies/Adverse Reactions: Allergies No Known Allergies Allergy (Verified 08/12/17 00:32) Review of Systems - Physician Review All systems were reviewed & negative as marked: Yes - Review of Systems Constitutional: absent: Fevers, Night Sweats ENT: absent: Sore Throat Respiratory: absent: SOB, Cough Cardiovascular: absent: Chest Pain, BLAND Gastrointestinal: Abdominal Pain (Epigastric abdominal pain), Vomiting. absent : Stool Changes, Diarrhea Genitourinary Male: absent: Urinary Output Changes Musculoskeletal: absent: Back Pain, Neck Pain Neurological: absent: Headache, Dizziness Physical Exam Vital Signs Reviewed: Yes Vital Signs Temp Pulse Resp BP Pulse Ox 08/12/17 03:05 99.7 F H 65 24 158/95 H 97 08/12/17 00:40 97.7 F 77 17 165/95 H 95 Temperature: Afebrile Blood Pressure: Hypertensive Pulse: Regular Respiratory Rate: Normal Appearance: Positive for: Well-Appearing, Non-Toxic, Comfortable Pain Distress: None Mental Status: Positive for: Alert and Oriented X 3 - Systems Exam Head: Present: Atraumatic, Normocephalic Pupils: Present: PERRL Extroacular Muscles: Present: EOMI Conjunctiva: Present: Normal Mouth: Present: Moist Mucous Membranes Neck: Present: Normal Range of Motion Respiratory/Chest: Present: Clear to Auscultation, Good Air Exchange. No: Respiratory Distress, Accessory Muscle Use Cardiovascular: Present: Regular Rate and Rhythm, Normal S1, S2. No: Murmurs Abdomen: Present: Normal Bowel Sounds. No: Tenderness, Distention, Peritoneal Signs Back: Present: Normal Inspection Upper Extremity: Present: Normal Inspection. No: Cyanosis, Edema Lower Extremity: Present: Normal Inspection. No: Edema Neurological: Present: GCS=15, CN II-XII Intact, Speech Normal Skin: Present: Warm, Dry, Normal Color. No: Rashes Psychiatric: Present: Alert, Oriented x 3, Normal Insight, Normal Concentration Medical Decision Making ED Course and Treatment: 08/12/17 00:48 Impression: A 52 year old male presents to the emergency department complaining of 3 day duration epigastric abdominal pain after eating a pepperoni pizza. Plan: -- EKG -- Chest X-ray -- Maalox, , Pepcid, Protonix, Lidocaine 2% -- Labs -- Reassess and disposition Progress Notes: EKG: Ordered, reviewed, and independently interpreted the EKG. Rate : 73 BPM Rhythm : NSR 08/12/17 02:01: The patient states that the GI medications given to him only took his pain from a 10 to an 8. Patient was sleeping and had to be woken up to determine this. The patient was given Aspirin and Nitroglycerin. Patient will be admitted to Telemetry for observation of chest pain and acute coronary syndrome. - Lab Interpretations Microbiology Results: Microbiology Results 08/12/17 02:50 Blood-Venous Blood Culture - Preliminary NO GROWTH AFTER 48 HOURS 08/12/17 02:35 Blood-Venous Blood Culture - Preliminary NO GROWTH AFTER 48 HOURS 08/12/17 07:57 Urine,Clean Catch Urine Culture - Final No Growth (<1,000 CFU/ML) Lab Results: 08/12/17 05:30 08/12/17 05:30 Lab Results 08/12/17 12:39: Lactate Dehydrogenase 1478 H, Total Creatine Kinase 68, Troponin I < 0.01 08/12/17 08:30: pO2 67 H, VBG pH 7.47 H, VBG pCO2 41.0, VBG HCO3 29.8 H, VBG Total CO2 31.1 H, VBG O2 Sat (Calc) 95.9 H, VBG Base Excess 5.6 H, VBG Potassium 3.4 L, Glucose 145 H, Lactate 1.1, FiO2 21.0, Sodium 138.0, Chloride 102.0, Venous Blood Potassium 3.4 L 08/12/17 08:00: Urine Color Yellow, Urine Appearance Clear, Urine pH 6.0, Ur Specific Robertson 1.020, Urine Protein Negative, Urine Glucose (UA) Negative, Urine Ketones Negative, Urine Blood Trace-lysed H, Urine Nitrate Negative, Urine Bilirubin Negative, Urine Urobilinogen 0.2, Ur Leukocyte Esterase Negative , Urine RBC 1 - 3, Urine WBC 0 - 2, Ur Epithelial Cells None, Amorphous Sediment Trace, Urine Bacteria Many 08/12/17 08:00: Urine Opiates Screen Negative, Urine Methadone Screen Negative, Ur Barbiturates Screen Negative, Ur Phencyclidine Scrn Negative, Ur Amphetamines Screen Negative, U Benzodiazepines Scrn Negative, U Oth Cocaine Metabols Negative, U Cannabinoids Screen Negative 08/12/17 05:30: WBC 8.7 D, RBC 4.52, Hgb 13.0 L, Hct 38.8 L, MCV 85.8, MCH 28.8 , MCHC 33.5, RDW 13.4, Plt Count 250, MPV 11.0 08/12/17 05:30: Sodium 140, Potassium 3.8, Chloride 101, Carbon Dioxide 28, Anion Gap 15, BUN 17, Creatinine 0.8, Est GFR ( Amer) > 60, Est GFR (Non- Af Amer) > 60, Random Glucose 177 H, Calcium 9.4, Total Bilirubin 2.8 H, AST 682 H D, ALT 571 H, Alkaline Phosphatase 277 H, Lactate Dehydrogenase 2228 H, Total Creatine Kinase 83, Troponin I < 0.01, NT-Pro-B Natriuret Pep 103, Total Protein 7.5, Albumin 4.0, Globulin 3.5, Albumin/Globulin Ratio 1.2 08/12/17 02:50: pO2 83 H, VBG pH 7.40, VBG pCO2 44.0, VBG HCO3 27.3, VBG Total CO2 28.7 H, VBG O2 Sat (Calc) 97.5 H, VBG Base Excess 2.0, VBG Potassium 3.7, Glucose 172 H, Lactate 2.2 H, FiO2 21.0, Sodium 136.0, Chloride 103.0, Venous Blood Potassium 3.7 08/12/17 00:45: HIV 1&2 Ag/Ab, 4th Gen Nonreactive 08/12/17 00:45: Alcohol, Quantitative < 10 08/12/17 00:45: Procalcitonin 0.37 08/12/17 00:45: Hepatitis A IgM Ab Negative, Hep Bs Antigen Negative, Hep B Core IgM Ab Negative, Hepatitis C Antibody Negative 08/12/17 00:45: Hemoglobin A1c 5.9 08/12/17 00:45: Direct Bilirubin 1.3 H, Triglycerides 84, Cholesterol 176, LDL Cholesterol Direct 76, HDL Cholesterol 64 H 08/12/17 00:45: Sodium 141, Potassium 4.0, Chloride 100, Carbon Dioxide 29, Anion Gap 16, BUN 20, Creatinine 0.8, Est GFR ( Amer) > 60, Est GFR (Non- Af Amer) > 60, Random Glucose 179 H, Calcium 9.7, Total Bilirubin 2.1 H, AST 440 H D, ALT 270 H, Alkaline Phosphatase 259 H D, Lactate Dehydrogenase 1532 H, Total Creatine Kinase 106, Troponin I < 0.01, Total Protein 8.1, Albumin 4.3, Globulin 3.7, Albumin/Globulin Ratio 1.2, Lipase 97 08/12/17 00:45: PT 13.4 H, INR 1.17 H 08/12/17 00:45: WBC 16.4 H D, RBC 4.79, Hgb 14.0 D, Hct 41.3 L, MCV 86.2, MCH 29.2, MCHC 33.9, RDW 13.3, Plt Count 252, MPV 11.0, Gran % 83.4 H, Lymph % (Auto ) 4.9 L, [place] % (Auto) 11.4 H, Eos % (Auto) 0.2 L, Baso % (Auto) 0.1, Gran # 13.70 H, Lymph # (Auto) 0.8 L, [place] # (Auto) 1.9 H, Eos # (Auto) 0.0, Baso # ( Auto) 0.02, Neutrophils % (Manual) 80 H, Band Neutrophils % 5 H, Lymphocytes % ( Manual) 6 L, Monocytes % (Manual) 9 H, Platelet Evaluation Normal I have reviewed the lab results: Yes - RAD Interpretation Radiology Orders: 08/12/17 00:44 CHEST PORTABLE [RAD] Stat 08/12/17 02:24 ABDOMEN COMPLETE [US] Routine 08/12/17 02:37 CHEST, ABDOMEN W/O CONTRAST [CT] Routine 08/12/17 08:23 MRCP AND ABDOMEN W/O CONTRAST [MRI] Stat 08/12/17 15:15 ERCP [RAD] Urgent - EKG Interpretation Interpreted by ED Physician: Yes Type: 12 lead EKG - Medication Orders Current Medication Orders: Piperacillin Sod/Tazobactam Sod (Zosyn 3.375 In Ns 100ml) 100 mls @ 200 mls/hr IVPB Q6 GINNA PRN Reason: Protocol Stop: 08/19/17 18:01 Last Admin: 08/14/17 11:10 Dose: 200 mls/hr eMAR Start Stop Document 08/14/17 11:10 DSZ (Rec: 08/14/17 11:11 DSZ [id number]) Intravenous Solution Start Date 08/14/17 Start Time 11:11 Potassium Chloride 40 meq/ (Sodium Chloride) 1,020 mls @ 100 mls/hr IV .[id number] GINNA Last Admin: 08/14/17 09:33 Dose: 100 mls/hr eMAR Start Stop Document 08/14/17 09:33 DSZ (Rec: 08/14/17 09:34 DSZ [id number]) Intravenous Solution Start Date 08/14/17 Start Time 09:33 Ondansetron HCl (Zofran Inj) 4 mg IVP Q4H PRN PRN Reason: Nausea/Vomiting Pantoprazole Sodium (Protonix Inj) 40 mg IVP Q12 GINNA Last Admin: 08/14/17 09:32 Dose: 40 mg IVP Administration Document 08/14/17 09:32 DSZ (Rec: 08/14/17 09:32 DSZ [id number]) Charges for Administration # of IVP Administrations 1 Polyethylene Glycol (Miralax) 17 gm PO BID GINNA Last Admin: 08/14/17 09:32 Dose: 17 gm Discontinued Medications Al Hydrox/Mg Hydrox/Simethicone (Maalox Plus 30 Ml) 30 ml PO STAT STA Stop: 08/12/17 00:45 Last Admin: 08/12/17 00:57 Dose: 30 ml Aspirin (Aspirin Chewable) 324 mg PO STAT STA Stop: 08/12/17 01:33 Last Admin: 08/12/17 01:39 Dose: 324 mg Aspirin (Ecotrin) 81 mg PO DAILY GINNA Last Admin: 08/12/17 10:51 Dose: 81 mg Belladonna/Phenobarbital ( Elixir) 10 ml PO STAT STA Stop: 08/12/17 00:45 Last Admin: 08/12/17 00:57 Dose: 10 ml Famotidine (Pepcid) 20 mg IVP STAT STA Stop: 08/12/17 00:45 Last Admin: 08/12/17 00:57 Dose: 20 mg IVP Administration Document 08/12/17 00:57 CNR (Rec: 08/12/17 00:57 CNR [facility] [id number]) Charges for Administration # of IVP Administrations 1 Furosemide (Lasix) 20 mg IVP ONCE ONE Stop: 08/12/17 05:04 Last Admin: 08/12/17 05:40 Dose: 20 mg MAR Blood Pressure Document 08/12/17 05:40 KTR (Rec: 08/12/17 05:40 KTR [id number]) Blood Pressure Blood Pressure (100/60-150/90) 150/85 IVP Administration Document 08/12/17 05:40 KTR (Rec: 08/12/17 05:40 KTR [id number]) Charges for Administration # of IVP Administrations 1 Sodium Chloride (Sodium Chloride 0.9%) 1,000 mls @ 100 mls/hr IV .Q10H [facility] Last Admin: 08/12/17 02:58 Dose: 100 mls/hr eMAR Start Stop Document 08/12/17 02:58 CNR (Rec: 08/12/17 02:59 CNR [facility] [id number]) Intravenous Solution Start Date 08/12/17 Start Time 02:59 Vancomycin HCl (Vancomycin 1gm) 1 gm in 250 mls @ 167 mls/hr IVPB Q12H GINNA PRN Reason: Protocol Last Admin: 08/12/17 03:41 Dose: 167 mls/hr eMAR Start Stop Document 08/12/17 03:41 KTR (Rec: 08/12/17 03:41 KTR [id number]) Intravenous Solution Start Date 08/12/17 Start Time 03:41 Piperacillin Sod/Tazobactam Sod (Zosyn 3.375 In Ns 100ml) 100 mls @ 200 mls/hr IVPB Q6 GINNA PRN Reason: Protocol Stop: 08/12/17 12:29 Last Admin: 08/12/17 05:40 Dose: 200 mls/hr eMAR Start Stop Document 08/12/17 05:40 KTR (Rec: 08/12/17 05:40 KTR [id number]) Intravenous Solution Start Date 08/12/17 Start Time 05:40 Sodium Chloride (Sodium Chloride 0.9%) 1,000 mls @ 150 mls/hr IV .Q6H40M GINNA Sodium Chloride (Sodium Chloride 0.9%) 1,000 mls @ 100 mls/hr IV .Q10H GINNA Last Admin: 08/13/17 01:30 Dose: Metronidazole (Flagyl) 500 mg in 100 mls @ 100 mls/hr IVPB Q8 GINNA PRN Reason: Protocol Last Admin: 08/12/17 14:08 Dose: Ceftriaxone Sodium (Rocephin 1 Gram Ivpb) 1 gm in 100 mls @ 100 mls/hr IVPB DAILY GINNA PRN Reason: Protocol Last Admin: 08/12/17 13:20 Dose: 100 mls/hr eMAR Start Stop Document 08/12/17 13:20 VM (Rec: 08/12/17 13:22 [id number]) Intravenous Solution Start Date 08/12/17 Start Time 13:22 End Date 08/12/17 End time 14:22 Total Infusion Time 60 Vancomycin HCl 2 gm/ Sodium (Chloride) 500 mls @ 170 mls/hr IVPB ONCE ONE PRN Reason: Protocol Stop: 08/12/17 23:45 Last Admin: 08/12/17 21:28 Dose: 170 mls/hr eMAR Start Stop Document 08/12/17 21:28 CO (Rec: 08/12/17 21:28 CO [facility] [id number]) Intravenous Solution Start Date 08/12/17 Start Time 21:28 Potassium Chloride (Potassium Chloride 10 Meq/100 Ml) 10 meq in 100 mls @ 50 mls/hr IVPB ONCE ONE Stop: 08/13/17 09:51 Last Admin: 08/13/17 08:11 Dose: 50 mls/hr eMAR Start Stop Document 08/13/17 08:11 VM (Rec: 08/13/17 08:12 [id number]) Intravenous Solution Start Date 08/13/17 Start Time 08:12 End Date 08/13/17 End time 10:12 Total Infusion Time 120 Lidocaine HCl (Lidocaine 2% Viscous) 15 ml MM STAT STA Stop: 08/12/17 00:45 Last Admin: 08/12/17 00:57 Dose: 15 ml Nitroglycerin (Nitrostat Sl Tab) 0.4 mg SL STAT STA Stop: 08/12/17 01:34 Last Admin: 08/12/17 01:40 Dose: 0.4 mg Ondansetron HCl (Zofran Inj) 4 mg IVP ONCE PRN PRN Reason: Nausea/Vomiting Stop: 08/12/17 18:43 Pantoprazole Sodium (Protonix Inj) 40 mg IVP STAT STA Stop: 08/12/17 00:45 Last Admin: 08/12/17 00:57 Dose: 40 mg IVP Administration Document 08/12/17 00:57 CNR (Rec: 08/12/17 00:58 CNR [facility] [id number]) Charges for Administration # of IVP Administrations 1 - PA / CONSERVATION OR HERITAGE ARCHITECT / Resident Statement MD/DO has reviewed & agrees with the documentation as recorded. - Scribe Statement The provider has reviewed the documentation as recorded by the Aniyah Ayala Provider Scribe Attestation: All medical record entries made by the Devaughnibcarter were at my direction and personally dictated by me. I have reviewed the chart and agree that the record accurately reflects my personal performance of the history, physical exam, medical decision making, and the department course for this patient. I have also personally directed, reviewed, and agree with the discharge instructions and disposition. Disposition/Present on Arrival - Present on Arrival Any Indicators Present on Arrival: No History of DVT/PE: Yes History of Uncontrolled Diabetes: No Urinary Catheter: No History of Decub. Ulcer: No History Surgical Site Infection Following: None - Disposition Have Diagnosis and Disposition been Completed?: Yes Diagnosis: Chest pain, Acute coronary syndrome Disposition: HOSPITALIZED Disposition Time: 02:29 Patient Plan: Observation, Telemetry Patient Problems: Current Active Problems Problem Status Onset Acute coronary syndrome Acute Chest pain Acute Condition: GOOD
[2017-08-12 00:59] LABS: BASO # 0.02 K/mm3 (0.0-2.0); BASO % 0.1 % (0.0-3.0); EOS % 0.2 % (1.5-5.0); GRAN % 83.4 % (50.0-68.0); LYMPH # 0.8 (1.2-3.4); LYMPH % 4.9 % (22.0-35.0); MEAN CELL VOLUME 86.2 fl (80.0-105.0); MEAN CORPUSCULAR HEMOGLOBIN 29.2 pg (25.0-35.0); MEAN CORPUSCULAR HGB CONC 33.9 g/dl (31.0-37.0); MONO # 1.9 (0.1-0.6); MONO % 11.4 % (1.0-6.0); PLATELET COUNT 252 10^3/uL (120.0-450.0); RBC 4.79 10^6/uL (3.5-6.1); RED CELL DISTRIBUTION WIDTH 13.3 % (11.5-14.5); WHITE BLOOD COUNT 16.4 10^3/ul (4.5-11.0)
[2017-08-12 01:07] LABS: ALB/GLOB RATIO 1.2 (1.1-1.8); ALBUMIN 4.3 g/dL (3.0-4.8); ALT/SGPT 270 U/L (7-56); AST/SGOT 440 U/L (17-59); BLOOD UREA NITROGEN 20 mg/dL (7-21); CALCIUM 9.7 mg/dL (8.4-10.5); GFR AFRICAN-AMERICAN > 60; GFR NON-AFRICAN AMERICAN > 60; LIPASE 97 U/L (23-300)
[2017-08-12 01:08] LABS: INR 1.17 (0.93-1.08); PROTHROMBIN TIME 13.4 SECONDS (9.4-12.5)
[2017-08-12 01:18] LABS: TROPONIN I < 0.01 ng/mL
[2017-08-12 01:47] LABS: BAND 5 % (0-2); LYMPHOCYTE 6 % (22.0-35.0); MONOCYTE 9 % (1.0-6.0); NEUTROPHIL 80 % (50.0-70.0); PLATELET ESTIMATE NORMAL (NORMAL)
[2017-08-12] MEDS ORDERED: Sodium Chloride 0.9% 1,000 ML IV SCH ×2 (02:30→03:44)
[2017-08-12 02:55] LABS: BILIRUBIN,DIRECT 1.3 mg/dL (0.0-0.4)
[2017-08-12] MEDS: POLYETHYLENE GLYCOL 3350 17 GM/Dose PACKET PO SCH ×3 (02:59→17:55)
[2017-08-12 03:10] LABS: VENOUS BLOOD GAS PO2 83 mm/Hg (30-55)
[2017-08-12] MEDS ORDERED: Vancomycin 1gm in NS 250ml 1 GM/250 ML BAG IVPB SCH (03:15)
--- NOTE | 2017-08-12 03:18 | CP.PCM.HP ---
Addendum entered and electronically signed by Prashant Carl DO 08/12/17 05:32 : CT abdomen read as suspicious for acute cholecystitis. General surgery was consulted, Dr. Sanchez; recs appreciated Patient remains NPO in case OR in AM; awaiting surgery recommendations. Prashant Carl PGY1 Original Note: <Prashant Carl - Last Filed: 08/12/17 05:02> History of Present Illness - History of Present Illness History of Present Illness: Prashant Carl PGY1 H&P Note for Hospitalist Service cc: epigastric pain x 4 days Mr Khoury is a 52 year old male with a past medical history of right leg/foot occupational wound and a DVT s/p completed Eliquis therapy who presents to ED with epigastric pain, nausea/vomiting and constipation x4 days after eating a pepperoni pizza. The pain has been progressively worsening according to the patient. Of note, the patient is a poor historian and his who is bedside provided most of HPI. The patient states that he had 4 episodes of vomiting, which were non-bilious and non-bloody, and states that he has not had a bowel movement for 4 days as well. He denies any radiation of the pain, and it is not worsened with exertion or breathing, and is made worse by food. He notes that he took Pepto-Bismol with no relief of his symptoms. Patient states that he is no longer taking Eliquis for his DVT. He denies fever/chills, coughs, pain in the right LE (location of DVT), SOB, recent illness or recent travel and urinary symptoms. In ED, patient's pain did not improve significantly after treatments provided for GI relief. 12-pt ROS was reviewed and is otherwise unremarkable. PMD: Dr. 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 ETOH, smoking, or drugs FH: grandfather with DM Medications: states he was given 2 pain medications by his c d stripper but cannot recall the name Allergies: NKDA Present on Admission - Present on Admission Any Indicators Present on Admission: Yes History of DVT/PE: Yes Review of Systems - Review of Systems All systems: reviewed and no additional remarkable complaints except (as per HPI ) Past Patient History - Infectious Disease Hx of Infectious Diseases: None - Tetanus Immunizations Tetanus Immunization: Unknown - Past Social History Smoking Status: Never Smoked Alcohol: None Drugs: Denies Home Situation {Lives}: With Family - CARDIAC Hx Cardiac Disorders: No - PULMONARY Hx Respiratory Disorders: No - NEUROLOGICAL Hx Neurological Disorder: No - HEENT Hx HEENT Problems: No - RENAL Hx Chronic Kidney Disease: No - ENDOCRINE/METABOLIC Hx Endocrine Disorders: No - HEMATOLOGICAL/ONCOLOGICAL Hx Blood Disorders: No Other/Comment: DVT in RLE - INTEGUMENTARY Hx Dermatological Problems: No - MUSCULOSKELETAL/RHEUMATOLOGICAL Hx Musculoskeletal Disorders: No - GASTROINTESTINAL Hx Gastrointestinal Disorders: Yes (VENTRAL HERNIA REPAIR,TONSILLECTOMY) - GENITOURINARY/GYNECOLOGICAL Hx Genitourinary Disorders: No - PSYCHIATRIC Hx Psychophysiologic Disorder: No Hx Substance Use: No - SURGICAL HISTORY Hx Surgeries: Yes Hx Herniorrhaphy: Yes Hx Tonsillectomy: Yes Other/Comment: R foot surgery December 2016 - ANESTHESIA Hx Anesthesia: Yes Meds Allergies/Adverse Reactions: Allergies Allergy/AdvReac Type Severity Reaction Status Date / Time No Known Allergies Allergy Verified 08/12/17 00:32 Physical Exam - Constitutional Appears: Well, Non-toxic, No Acute Distress - Head Exam Head Exam: ATRAUMATIC, NORMAL INSPECTION - Eye Exam Eye Exam: EOMI, Normal appearance, PERRL - ENT Exam ENT Exam: Mucous Membranes Moist - Neck Exam Neck exam: Positive for: Normal Inspection - Respiratory Exam Respiratory Exam: Decreased Breath Sounds, Clear to Auscultation Bilateral, NORMAL BREATHING PATTERN. absent: Rales, Rhonchi, Wheezes Additional comments: no pleuritic chest pain - Cardiovascular Exam Cardiovascular Exam: RRR, +S1, +S2. absent: Systolic Murmur - GI/Abdominal Exam GI & Abdominal Exam: Normal Bowel Sounds, Soft. absent: Distended, Guarding, Hernia, Rebound Additional comments: obese body habitus no peritoneal signs antonella-umbilical scar s/p surgery - Extremities Exam Extremities exam: Positive for: normal inspection, pedal edema (1+ RLE), pedal pulses present (2+ b/l). Negative for: calf tenderness, tenderness Additional comments: RLE mild erythema after removing boot - Back Exam Back exam: NORMAL INSPECTION - Neurological Exam Neurological exam: Alert, Oriented x3 - Psychiatric Exam Psychiatric exam: Normal Affect, Normal Mood - Skin Skin Exam: Normal Color, Warm Results - Vital Signs Recent Vital Signs: Last Vital Signs Temp 99.7 F H 08/12/17 03:05 Pulse 65 08/12/17 03:05 Resp 24 08/12/17 03:05 BP 158/95 H 08/12/17 03:05 Pulse Ox 97 08/12/17 03:05 - Labs Result Diagrams: 08/12/17 00:45 08/12/17 00:45 Assessment & Plan - Assessment and Plan (Free Text) Assessment: 52 year old male with a past medical history of RLE DVT s/o occupational injury who presents to ED with epigastric pain, nausea/vomiting and constipation x4 days after eating a pepperoni pizza. The patient presents w/ bandemia and leukocytosis but no other SIRS criteria are met. LFT's, Tbili, Dbili and LDH are elevated. Plan: 1. epigastric pain - given his risk factors, patient will be admitted to r/o ACS as cause of nonspecific pain - CXR done in ED and shows mild vascular congestion as read by me - CT chest, abdomen and pelvis ordered to r/o causes of bandemia and elevation in lactate, LFTs and LDH - VBG shock panel ordered, lactate elevated - ASA daily - Trend Troponin I and EKG q6 - EKG reviewed in ED as NSR @73bpm, w/ L atrial enlargement - blood and urine cultures ordered - procal ordered - miralax ordered - cont PTX q12 - started empirically on Vanc and Zosyn - no consults placed as of now, pending official CT read - NS @ 150, no boluses given 2. Transaminitis - abd US ordered - CT chest,abdomen and pelvis ordered - NPO for bowel rest - PTX IV Q12 - hepatitis panel ordered - HIV ordered - alcohol level ordered 3. Hx DVT - no longer on Eliquis per patient - Lovenox 40mg IVP daily and SCDs for DVT ppx PTX/Lovenox & SCDs NPO Patient was seen, examined and discussed with attending, Dr. Marlena Carl PGY1 <Marlena AVINA,Mauricio - Last Filed: 08/12/17 06:53> Results - Vital Signs Recent Vital Signs: Last Vital Signs Temp 98.5 F 08/12/17 06:00 Pulse 68 08/12/17 06:00 Resp 20 08/12/17 06:00 BP 144/79 08/12/17 06:00 Pulse Ox 96 08/12/17 06:00 - Labs Result Diagrams: 08/12/17 05:30 08/12/17 00:45 Labs: Laboratory Results - last 24 hr 08/12/17 08/12/17 02:50 05:30 WBC 8.7 D RBC 4.52 Hgb 13.0 L Hct 38.8 L MCV 85.8 MCH 28.8 MCHC 33.5 RDW 13.4 Plt Count 250 MPV 11.0 pO2 83 H VBG pH 7.40 VBG pCO2 44.0 VBG HCO3 27.3 VBG Total CO2 28.7 H VBG O2 Sat (Calc) 97.5 H VBG Base Excess 2.0 VBG Potassium 3.7 Sodium 136.0 Chloride 103.0 Glucose 172 H Lactate 2.2 H FiO2 21.0 Venous Blood Potassium 3.7 Attending/Attestation - Attestation I have personally seen and examined this patient.: Yes I have fully participated in the care of the patient.: Yes I have reviewed all pertinent clinical information: Yes Notes (Text): -I agree with the above H&P completed by the resident physician with the following additions and/or changes: -The patient is a 52 year old with a history of RLE DVT (s/p completion of treatment with anticoagulation course in 02/2017) being admitted for chest pain (r/o ACS) and likely acute cholecystitis. Of note, the patients chest pain is atypical and therefore only serial EKGs and trops were ordered (but no formal cards consult). General surgery has been consulted for the acute cholecystitis and empiric IV Zosyn started. He will be kept NPO and on IVFs. An abdominal U/ S is also pending.
--- NOTE | 2017-08-12 05:13 | CT ---
EXAM: CT Chest Without Intravenous Contrast CLINICAL HISTORY: 52 years old, male; Signs and symptoms; Nausea; Shortness of breath; Additional info: Epigastric pain w/ elevated lfts and short breath TECHNIQUE: Axial computed tomography images of the chest without intravenous contrast. All CT scans at this facility use one or more dose reduction techniques, viz.: automated exposure control; ma/kV adjustment per patient size (including targeted exams where dose is matched to indication; i.e. head); or iterative reconstruction technique. Coronal and sagittal reformatted images were created and reviewed. COMPARISON: No relevant prior studies available. FINDINGS: Lungs: Scattered foci of atelectasis or fibrosis in the mid and lower lungs. No mass. No consolidation. Pleural space: Unremarkable. No pneumothorax. No significant effusion. Heart: Unremarkable. No cardiomegaly. No significant pericardial effusion. Bones/joints: Degenerative changes in the thoracic spine. No acute fracture. No dislocation. Soft tissues: Unremarkable. Vasculature: Unremarkable. No thoracic aortic aneurysm. Lymph nodes: Unremarkable. No enlarged lymph nodes. IMPRESSION: No focal consolidation. Scattered foci of atelectasis or fibrosis. EXAM: CT Abdomen Without Intravenous Contrast CLINICAL HISTORY: 52 years old, male; Signs and symptoms; Nausea; Shortness of breath; Additional info: Epigastric pain w/ elevated lfts and short breath TECHNIQUE: Axial computed tomography images of the abdomen without intravenous contrast. All CT scans at this facility use one or more dose reduction techniques, viz.: automated exposure control; ma/kV adjustment per patient size (including targeted exams where dose is matched to indication; i.e. head); or iterative reconstruction technique. Coronal and sagittal reformatted images were created and reviewed. COMPARISON: - CHEST PORTABLE 2017-08-12 01:12 FINDINGS: Artifacts: Motion artifact does limit the sensitivity of this examination. Lower thorax: No acute findings. Liver: Unremarkable. Gallbladder and bile ducts: The gallbladder thickwalled with adjacent inflammatory stranding suspicious for acute cholecystitis. Calcified gallstone. No significant ductal dilation. Pancreas: Unremarkable. No ductal dilation. Spleen: Unremarkable. No splenomegaly. Adrenals: Unremarkable. No mass. Kidneys and ureters: Unremarkable. No obstructing stones. No hydronephrosis. Stomach and bowel: Mild diverticulosis is present in the partially visualized colon. The stomach is distended with fluid and air. No mucosal thickening. Intraperitoneal space: Unremarkable. No free air. No significant fluid collection. Bones/joints: No acute fracture. No dislocation. Soft tissues: Unremarkable. Vasculature: Unremarkable. No abdominal aortic aneurysm. Lymph nodes: Unremarkable. No enlarged lymph nodes. IMPRESSION: Findings suspicious for acute cholecystitis. Diverticulosis.
[2017-08-12] MEDS: Sodium Chloride 0.9% 1,000 ML IV SCH ×2 (05:43→18:06)
[2017-08-12] MEDS ORDERED: Piperacillin/Tazobact 3.375 gm 100 ML IVPB SCH (06:00)
[2017-08-12 06:23] LABS: MEAN CELL VOLUME 85.8 fl (80.0-105.0); MEAN CORPUSCULAR HEMOGLOBIN 28.8 pg (25.0-35.0); MEAN CORPUSCULAR HGB CONC 33.5 g/dl (31.0-37.0); RBC 4.52 10^6/uL (3.5-6.1); RED CELL DISTRIBUTION WIDTH 13.4 % (11.5-14.5); WHITE BLOOD COUNT 8.7 10^3/ul (4.5-11.0)
[2017-08-12 07:25] LABS: ALB/GLOB RATIO 1.2 (1.1-1.8); ALT/SGPT 571 U/L (7-56); AST/SGOT 682 U/L (17-59); BLOOD UREA NITROGEN 17 mg/dL (7-21); CALCIUM 9.4 mg/dL (8.4-10.5); GFR AFRICAN-AMERICAN > 60; GFR NON-AFRICAN AMERICAN > 60
[2017-08-12 07:30] LABS: TROPONIN I < 0.01 ng/mL
[2017-08-12 08:00] LABS: B-TYPE NATRIURETIC PEPTIDE 103 pg/mL (0-450)
--- NOTE | 2017-08-12 08:13 | CP.PCM.CON ---
History of Present Illness - History of Present Illness History of Present Illness: Surgery: Dr. Sanchez Reason for consult: possible cholecystitis CC: epigastric pain, n/v after pizza ingestion HPI: Patient is a 52 y/o male w/ PMHX of DVT LL treated with Elliquis (d/c'd months ago) presents complaining of epigastric abdominal pain that started Tuesday. He reports the pain is sharp, stabbing in nature. The pain does not radiate. The pain is worse after eating pizza but eventually subsides. The pain progressively became more frequent and strong which prompted ER visit. He reports 4 episodes of nonbloody nonbilious vomiting. He denies f/c. He reports normal bowel function. PMH: DVT, umbilical hernia PSH: open umbilical hernia repair Social: lives at home with , denies ETOH, tobacco or drug abuse Fam HX: noncontributory Review of Systems - Constitutional Constitutional: absent: Anorexia, Chills, Fever - EENT Eyes: absent: Blurred Vision, Change in Vision Nose/Mouth/Throat: absent: Nasal Congestion, Nasal Obstruction - Cardiovascular Cardiovascular: absent: Chest Pain, Dyspnea - Respiratory Respiratory: absent: Cough, Wheezing - Gastrointestinal Gastrointestinal: Abdominal Pain, Nausea, Vomiting. absent: Bloating, Constipation, Cramping, Diarrhea, Loose Stools - Genitourinary Genitourinary: absent: Hematuria, Pyuria - Musculoskeletal Musculoskeletal: absent: Abnormal Gait, Arthralgias - Integumentary Integumentary: absent: Bleeding Lesions, Skin Pain - Neurological Neurological: absent: Dizziness, Numbness - Psychiatric Psychiatric: absent: Anxiety, Depression - Endocrine Endocrine: absent: Polydipsia, Polyphagia - Hematologic/Lymphatic Hematologic: absent: Easy Bleeding, Easy Bruising Past Patient History - Infectious Disease Hx of Infectious Diseases: None - Tetanus Immunizations Tetanus Immunization: Unknown - Past Social History Smoking Status: Never Smoked Alcohol: None Drugs: Denies Home Situation {Lives}: With Family - CARDIAC Hx Cardiac Disorders: No - PULMONARY Hx Respiratory Disorders: No - NEUROLOGICAL Hx Neurological Disorder: No - HEENT Hx HEENT Problems: No - RENAL Hx Chronic Kidney Disease: No - ENDOCRINE/METABOLIC Hx Endocrine Disorders: No - HEMATOLOGICAL/ONCOLOGICAL Hx Blood Disorders: No Other/Comment: DVT in RLE - INTEGUMENTARY Hx Dermatological Problems: No - MUSCULOSKELETAL/RHEUMATOLOGICAL Hx Musculoskeletal Disorders: No - GASTROINTESTINAL Hx Gastrointestinal Disorders: Yes (VENTRAL HERNIA REPAIR,TONSILLECTOMY) - GENITOURINARY/GYNECOLOGICAL Hx Genitourinary Disorders: No - PSYCHIATRIC Hx Psychophysiologic Disorder: No Hx Substance Use: No - SURGICAL HISTORY Hx Surgeries: Yes Hx Herniorrhaphy: Yes Hx Tonsillectomy: Yes Other/Comment: R foot surgery December 2016 - ANESTHESIA Hx Anesthesia: Yes Meds Allergies/Adverse Reactions: Allergies Allergy/AdvReac Type Severity Reaction Status Date / Time No Known Allergies Allergy Verified 08/12/17 00:32 - Medications Medications: Current Medications Aspirin (Ecotrin) 81 mg PO DAILY [facility] [place] Piperacillin Sod/Tazobactam Sod (Zosyn 3.375 In Ns 100ml) 100 mls @ 200 mls/hr IVPB Q6 [facility] [place] PRN Reason: Protocol Stop: 08/12/17 12:29 Last Admin: 08/12/17 05:40 Dose: 200 mls/hr Sodium Chloride (Sodium Chloride 0.9%) 1,000 mls @ 100 mls/hr IV .Q10H [facility] [place] Last Admin: 08/12/17 05:43 Dose: 100 mls/hr Ibuprofen (Motrin Tab) 400 mg PO Q6H PRN PRN Reason: Pain, Mild (1-3) Ondansetron HCl (Zofran Inj) 4 mg IVP Q4H PRN PRN Reason: Nausea/Vomiting Pantoprazole Sodium (Protonix Inj) 40 mg IVP Q12 [facility] [place] Polyethylene Glycol (Miralax) 17 gm PO BID [facility] Last Admin: 08/12/17 02:59 Dose: 17 gm Physical Exam - Constitutional Appears: Non-toxic, No Acute Distress - Head Exam Head Exam: ATRAUMATIC, NORMOCEPHALIC - Eye Exam Eye Exam: EOMI, Normal appearance - ENT Exam ENT Exam: Mucous Membranes Moist - Respiratory Exam Respiratory Exam: NORMAL BREATHING PATTERN. absent: Respiratory Distress - Cardiovascular Exam Cardiovascular Exam: REGULAR RHYTHM. absent: Tachycardia - GI/Abdominal Exam GI & Abdominal Exam: Distended, Soft, Tenderness (epigastric, negative mcfadden's sign). absent: Guarding, Hernia, Rebound, Rigid - Extremities Exam Extremities exam: Positive for: normal inspection. Negative for: calf tenderness - Neurological Exam Neurological exam: Alert, Oriented x3 - Psychiatric Exam Psychiatric exam: Normal Affect, Normal Mood - Skin Skin Exam: Dry, Normal Color, Warm Results - Vital Signs Recent Vital Signs: Last Vital Signs Temp 98.5 F 08/12/17 06:00 Pulse 68 08/12/17 06:00 Resp 20 08/12/17 06:00 BP 144/79 08/12/17 06:00 Pulse Ox 96 08/12/17 06:00 - Labs Result Diagrams: 08/12/17 05:30 08/12/17 05:30 Labs: Laboratory Results - last 24 hr 08/12/17 08/12/17 08/12/17 02:50 05:30 05:30 WBC 8.7 D RBC 4.52 Hgb 13.0 L Hct 38.8 L MCV 85.8 MCH 28.8 MCHC 33.5 RDW 13.4 Plt Count 250 MPV 11.0 pO2 83 H VBG pH 7.40 VBG pCO2 44.0 VBG HCO3 27.3 VBG Total CO2 28.7 H VBG O2 Sat (Calc) 97.5 H VBG Base Excess 2.0 VBG Potassium 3.7 Sodium 136.0 140 Chloride 103.0 101 Glucose 172 H Lactate 2.2 H FiO2 21.0 Potassium 3.8 Carbon Dioxide 28 Anion Gap 15 BUN 17 Creatinine 0.8 Est GFR ( Amer) > 60 Est GFR (Non-Af Amer) > 60 Random Glucose 177 H Calcium 9.4 Total Bilirubin 2.8 H AST 682 H D ALT 571 H Alkaline Phosphatase 277 H Lactate Dehydrogenase 2228 H Total Creatine Kinase 83 Troponin I < 0.01 NT-Pro-B Natriuret Pep 103 Total Protein 7.5 Albumin 4.0 Globulin 3.5 Albumin/Globulin Ratio 1.2 Venous Blood Potassium 3.7 Assessment & Plan - Assessment and Plan (Free Text) Assessment: 52 y/o male with transaminitis and epigastric abdominal pain Plan: -f/u abdominal u/s, if CBD dilated may need MRCP considering transaminitis to r/ o choledocholithiasis -maintain NPO for now -IVFs -IV abx -rec GI consult -pending u/s results determine surgical intervention -daily labs -d/w Dr. Denisha Barton PGY3 - Date & Time Date: 08/12/17 Time: 08:20
[2017-08-12 08:35] LABS: URINE BILIRUBIN NEGATIVE (NEGATIVE); URINE BLOOD TRACE-LYSED (NEGATIVE); URINE GLUCOSE (UA) NEGATIVE (NEGATIVE); URINE LEUKOCYTE ESTERASE NEGATIVE Leu/uL (NEGATIVE); URINE PROTEIN NEGATIVE mg/dL (<30 mg/dL); URINE UROBILINOGEN 0.2 E.U./dL (<1 E.U./dL)
[2017-08-12 08:38] LABS: URINE APPEARANCE CLEAR (CLEAR); URINE COLOR YELLOW (YELLOW)
[2017-08-12 08:49] LABS: URINE WBC 0 - 2 /hpf (0-6)
[2017-08-12 08:50] LABS: URINE AMORPHOUS SEDIMENT TRACE; URINE BACTERIA MANY (NEG)
[2017-08-12 08:54] LABS: BARBITURATES, UR NEGATIVE (NEGATIVE)
[2017-08-12 08:56] LABS: BENZODIAZEPINES, UR NEGATIVE (NEGATIVE); OPIATES, UR NEGATIVE (NEGATIVE); PHENCYCLIDINE, UR NEGATIVE (NEGATIVE)
--- NOTE | 2017-08-12 09:05 | US ---
HISTORY: LFT's elevated COMPARISON: August 12, 2017. abdomen and pelvis TECHNIQUE: Sonographic evaluation of the abdomen. FINDINGS: LIVER: Measures 20.8 cm. Hepatopedal blood flow. Fatty infiltration manifest ultrasonographically as increased echogenicity of the liver parenchyma. No mass. No intrahepatic bile duct dilatation. GALLBLADDER: Solitary gallstone in the fundus. Gallbladder wall thickening. No evidence of sludge or sonographic Kuo's sign. COMMON BILE DUCT: Measures 5.9 mm. No stones. No dilatation. PANCREAS: Obscured by overlying bowel gas. Non diagnostic assessment of the pancreas RIGHT KIDNEY: Measures 4.5 x 10.2cm. Normal echogenicity. No calculus, mass, or hydronephrosis. LEFT KIDNEY: Measures 5.7 x 11.3cm. Normal echogenicity. No calculus, mass, or hydronephrosis. SPLEEN: Mildly enlarged 4 x 6.3 x 13 AORTA: No aneurysmal dilatation. IVC: Unremarkable. OTHER FINDINGS: None. IMPRESSION: Cholelithiasis, gallbladder wall thickening without sonographic Kuo's sign. Hepatomegaly, hepatic steatosis. Mildly enlarged spleen.
--- NOTE | 2017-08-12 09:09 | RAD ---
HISTORY: Chest Pain COMPARISON: 02/22/2017 FINDINGS: LUNGS: No active pulmonary disease. PLEURA: No significant pleural effusion identified, no pneumothorax apparent. CARDIOVASCULAR: No radiographic findings to suggest acute or significant cardiovascular disease. OSSEOUS STRUCTURES: No significant abnormalities. VISUALIZED UPPER ABDOMEN: Normal. OTHER FINDINGS: None. IMPRESSION: No active disease. No significant interval change compared to the prior examination(s).
[2017-08-12 09:13] LABS: VENOUS BLOOD GAS BASE EXCESS 5.6 mmol/L (0.0-2.0); VENOUS BLOOD GAS PO2 67 mm/Hg (30-55); VENOUS BLOOD PH 7.47 (7.32-7.43)
[2017-08-12] MEDS ORDERED: Enoxaparin 40 mg Syringe SC SCH (10:00)
[2017-08-12] MEDS ORDERED: cefTRIAXone 1 gm 1 GM/100 ML BAG IVPB SCH (10:00)
--- NOTE | 2017-08-12 11:03 | MRI ---
PROCEDURE: Magnetic Resonance Cholangiopancreatography HISTORY: Rule out choledocholithiasis COMPARISON: None available. TECHNIQUE: Multiplanar, multisequence MR images of the abdomen were obtained, including heavily T2 weighted MRCP images of the biliary system. Rotating maximum intensity projection images of the biliary system were generated. FINDINGS: MRCP: There is a 7 mm stone in the distal common duct at the level of the ampulla. There is dilatation of the common duct with a diameter of 11 mm. These findings are best seen on image 17 of series 4. LIVER: Unremarkable. GALLBLADDER: The gallbladder wall is thickened. There are no visible stones SPLEEN: Unremarkable. PANCREAS: Unremarkable. ADRENALS: Unremarkable. KIDNEYS: Unremarkable. AORTA: No aneurysm. ASCITES: None. OTHER FINDINGS: None. IMPRESSION: There is a 7 mm stone in the distal common duct at the level of the ampulla. There is dilatation of the common duct with a diameter of 11 mm.
[2017-08-12] MEDS: metroNIDAZOLE IV 500 mg/100 ml 500 MG/100 ML BAG IVPB SCH ×2 (11:23→14:08)
[2017-08-12 12:28] LABS: HEPATITIS B SURFACE AG Negative (NEGATIVE)
[2017-08-12 12:33] LABS: HEPATITIS A IGM NEGATIVE (NEGATIVE); HEPATITIS B CORE AB NEGATIVE (NEGATIVE)
[2017-08-12 12:46] LABS: HEPATITIS C ANTIBODY NEGATIVE (NEGATIVE)
[2017-08-12 13:06] LABS: TROPONIN I < 0.01 ng/mL
[2017-08-12] MEDS ORDERED: Iohexol 240 (50 ml) ONE (13:34)
[2017-08-12] MEDS ORDERED: Indomethacin 50 MG Suppository PR ONE ×2 (13:35→15:30)
[2017-08-12] MEDS ORDERED: Propofol 10 mg/ml Inj (20 ML) ONE (15:01)
[2017-08-12] MEDS ORDERED: Midazolam 2 MG/2 ML VIAL ONE (15:01)
[2017-08-12] MEDS ORDERED: Rocuronium 10 mg/ml (5 ml) ONE (15:03)
[2017-08-12] MEDS ORDERED: Succinylcholine 200 mg/10 ml Inj IV ONE (15:03)
--- NOTE | 2017-08-12 15:40 | CARD ---
APPROVED REPORT EKG Measurement Heart [id number] 128P42 [id number] <Conclusion> Normal sinus rhythm Possible Left atrial enlargement Q in 3, Small Q in AVF. High Voltage-LVH?
[2017-08-12] MEDS ORDERED: Desflurane Inhalation Anesthetic Liq (240 ml) ONE (15:42)
[2017-08-12] MEDS ORDERED: Glucagon Recombinant 1 mg Inj ONE (15:53)
--- NOTE | 2017-08-12 15:59 | CARD ---
APPROVED REPORT EKG Measurement Heart [id number] NE 126P46 [id number] <Conclusion> Normal sinus rhythm Possible Left atrial enlargement Inferior infarct, age probbaly Old.
[2017-08-12] MEDS ORDERED: Neostigmine Methylsulfate 3mg/3ml Syringe IV ONE (16:22)
[2017-08-12] MEDS ORDERED: Lactated Ringer's 1,000 ML IV SCH (16:45)
[2017-08-12] MEDS: Piperacillin/Tazobact 3.375 gm 100 ML IVPB SCH (18:12)
[2017-08-12] MEDS ORDERED: Vancomycin 2 GM in Sodium Chloride 0.9% 500 ML IVPB ONE (20:49)
[2017-08-13] MEDS: Piperacillin/Tazobact 3.375 gm 100 ML IVPB SCH ×4 (00:47→17:22)
[2017-08-13] MEDS: Sodium Chloride 0.9% 1,000 ML IV SCH (01:30)
--- NOTE | 2017-08-13 07:12 | CP.PCM.PN ---
Subjective - Date & Time of Evaluation Date of Evaluation: 08/13/17 Time of Evaluation: 07:09 - Subjective Subjective: Surgery Pt s&e. Pt underwent ERCP yesterday but unable to remove stone. Stent placed and sphincterotomy done. Denies F/C/N/V/D/CP/SOB. Pain controlled. Objective - Vital Signs/Intake and Output Vital Signs (last 24 hours): Temp Pulse Resp BP Pulse Ox 98.6 F 75 19 118/70 95 08/13/17 06:00 08/13/17 06:00 08/13/17 06:00 08/13/17 06:00 08/13/17 06:00 Intake and Output: 08/13/17 08/13/17 06:59 18:59 Intake Total 1900 Balance 1900 - Medications Medications: Current Medications Sodium Chloride (Sodium Chloride 0.9%) 1,000 mls @ 100 mls/hr IV .Q10H [facility] Last Admin: 08/13/17 01:30 Dose: Not Given Piperacillin Sod/Tazobactam Sod (Zosyn 3.375 In Ns 100ml) 100 mls @ 200 mls/hr IVPB Q6 [facility] PRN Reason: Protocol Stop: 08/19/17 18:01 Last Admin: 08/13/17 05:18 Dose: 200 mls/hr Ondansetron HCl (Zofran Inj) 4 mg IVP Q4H PRN PRN Reason: Nausea/Vomiting Pantoprazole Sodium (Protonix Inj) 40 mg IVP Q12 [facility] Last Admin: 08/12/17 21:29 Dose: 40 mg Polyethylene Glycol (Miralax) 17 gm PO BID [facility] Last Admin: 08/12/17 17:55 Dose: Not Given - Labs Labs: PT 13.4 SECONDS (9.4-12.5) H 08/12/17 00:45 INR 1.17 (0.93-1.08) H 08/12/17 00:45 - Constitutional Appears: No Acute Distress - Head Exam Head Exam: ATRAUMATIC, NORMAL INSPECTION, NORMOCEPHALIC - Eye Exam Eye Exam: EOMI, Normal appearance, PERRL, Scleral icterus Pupil Exam: NORMAL ACCOMODATION, PERRL - ENT Exam ENT Exam: Mucous Membranes Moist, Normal Exam - Neck Exam Neck Exam: Full ROM, Normal Inspection. absent: Lymphadenopathy - Respiratory Exam Respiratory Exam: Clear to Ausculation Bilateral, NORMAL BREATHING PATTERN - Cardiovascular Exam Cardiovascular Exam: REGULAR RHYTHM, +S1, +S2. absent: Murmur - GI/Abdominal Exam GI & Abdominal Exam: Soft, Normal Bowel Sounds. absent: Distended, Tenderness - Extremities Exam Extremities Exam: Full ROM, Normal Inspection - Back Exam Back Exam: NORMAL INSPECTION - Neurological Exam Neurological Exam: Alert, Awake, CN II-XII Intact, Normal Gait, Oriented x3 - Psychiatric Exam Psychiatric exam: Normal Affect, Normal Mood - Skin Skin Exam: Dry, Intact, Warm. absent: Erythema, Normal Color Additional comments: ponce Assessment and Plan - Assessment and Plan (Free Text) Assessment: Choledocolithiasis ERCP attempted -trend labs -f/u GI plan -Diet per GI -Medical management -Possible OR during this admission Will CRISTA Sanchez
[2017-08-13 07:18] LABS: HEMOGLOBIN 11.6 g/dL (14.0-18.0); MEAN CELL VOLUME 86.4 fl (80.0-105.0); MEAN CORPUSCULAR HEMOGLOBIN 28.2 pg (25.0-35.0); MEAN CORPUSCULAR HGB CONC 32.7 g/dl (31.0-37.0); MEAN PLATELET VOLUME 10.7 fl (7.0-11.0); RBC 4.11 10^6/uL (3.5-6.1); RED CELL DISTRIBUTION WIDTH 13.4 % (11.5-14.5); WHITE BLOOD COUNT 6.2 10^3/ul (4.5-11.0)
[2017-08-13 07:40] LABS: ALBUMIN 3.3 g/dL (3.0-4.8); ALT/SGPT 441 U/L (7-56); AST/SGOT 247 U/L (17-59); BLOOD UREA NITROGEN 20 mg/dL (7-21); CALCIUM 8.9 mg/dL (8.4-10.5); GFR AFRICAN-AMERICAN > 60; GFR NON-AFRICAN AMERICAN > 60
--- NOTE | 2017-08-13 09:59 | RAD ---
PROCEDURE: Intraoperative Fluoroscopy. HISTORY: ? CBD OBST FINDINGS: Fluoroscopic assistance was provided for performance of an ERCP. The common bile duct and limited intrahepatic biliary tree appears opacified with iodinated contrast material status post endoscopic cannulation through the ampulla and injection of iodinated contrast material. A filling defect is appreciate the mid to distal CBD suspicious for an air bubble though loosing calculus is a possibility. Please see the further detail from operative report. Please refer to the operative report from DARREN De La Rosa. 178 seconds of fluoroscopy time was utilized with a cumulative radiation dose of 46.68 mGy.
[2017-08-13 10:13] LABS: BILIRUBIN,DIRECT 4.1 mg/dL (0.0-0.4)
[2017-08-13] MEDS: POLYETHYLENE GLYCOL 3350 17 GM/Dose PACKET PO SCH ×3 (10:43→17:28)
--- NOTE | 2017-08-13 12:30 | CP.PCM.PN ---
<Shar Sanchez - Last Filed: 08/13/17 12:18> Subjective - Date & Time of Evaluation Date of Evaluation: 08/13/17 Time of Evaluation: 12:18 - Subjective Subjective: Medicine Progress Note: Patient seen and assessed at bedside. No acute events overnight noted by patient or nursing staff. He denies any fevers, chills, headache, chest pain, SOB, abdominal pain, N/V/D/C, urinary changes, skin changes or any numbness/ tingling/weakness of any extremity. Objective - Vital Signs/Intake and Output Vital Signs (last 24 hours): Temp Pulse Resp BP Pulse Ox 98.6 F 75 19 118/70 95 08/13/17 06:00 08/13/17 06:00 08/13/17 06:00 08/13/17 06:00 08/13/17 06:00 Intake and Output: 08/13/17 08/13/17 06:59 18:59 Intake Total 1900 Balance 1900 - Medications Medications: Current Medications Piperacillin Sod/Tazobactam Sod (Zosyn 3.375 In Ns 100ml) 100 mls @ 200 mls/hr IVPB Q6 [facility] PRN Reason: Protocol Stop: 08/19/17 18:01 Last Admin: 08/13/17 05:18 Dose: 200 mls/hr Potassium Chloride 40 meq/ (Sodium Chloride) 1,020 mls @ 100 mls/hr IV .[id number] [facility] Last Admin: 08/13/17 10:28 Dose: 100 mls/hr Ondansetron HCl (Zofran Inj) 4 mg IVP Q4H PRN PRN Reason: Nausea/Vomiting Pantoprazole Sodium (Protonix Inj) 40 mg IVP Q12 [facility] Last Admin: 08/13/17 10:38 Dose: 40 mg Polyethylene Glycol (Miralax) 17 gm PO BID [facility] Last Admin: 08/13/17 10:43 Dose: 17 gm - Labs Labs: 08/13/17 06:45 08/13/17 06:45 PT 13.4 SECONDS (9.4-12.5) H 08/12/17 00:45 INR 1.17 (0.93-1.08) H 08/12/17 00:45 - Constitutional Appears: Non-toxic, No Acute Distress - Head Exam Head Exam: ATRAUMATIC, NORMOCEPHALIC - Eye Exam Eye Exam: EOMI, Normal appearance Pupil Exam: NORMAL ACCOMODATION, PERRL - ENT Exam ENT Exam: Mucous Membranes Moist - Neck Exam Neck Exam: Full ROM. absent: Lymphadenopathy, Tenderness - Respiratory Exam Respiratory Exam: Clear to Ausculation Bilateral, NORMAL BREATHING PATTERN. absent: Rales, Rhonchi, Wheezes - Cardiovascular Exam Cardiovascular Exam: REGULAR RHYTHM, +S1, +S2. absent: Murmur - GI/Abdominal Exam GI & Abdominal Exam: Soft, Normal Bowel Sounds. absent: Distended, Firm, Guarding, Rigid, Tenderness, Rebound - Extremities Exam Extremities Exam: Full ROM, Normal Capillary Refill, Normal Inspection. absent : Calf Tenderness, Joint Swelling, Pedal Edema, Tenderness - Back Exam Back Exam: NORMAL INSPECTION - Neurological Exam Neurological Exam: Alert, Awake, CN II-XII Intact, Normal Gait, Oriented x3 - Psychiatric Exam Psychiatric exam: Normal Affect, Normal Mood - Skin Skin Exam: Dry, Intact, Normal Color, Warm Assessment and Plan - Assessment and Plan (Free Text) Assessment: 52 year old male with a past medical history significant for RLE DVT s/o occupational injury who presented with epigastric pain, nausea/vomiting and constipation. Patient was found to have and is currently being treated for choledocolithiasis with possible cholangitis. Plan: 1. Choledocolithiasis with possible Cholangitis -ERCP performed with sphincterotomy, biliary stent placement, unsuccessful stone removal and purulent drainage sent for C/S (pending) -MRCP showed 7mm stone in distal CBD at the level of the ampulla with CBD dilatation to 11mm -CT Abdomen/Pelvis showed findings suspicious for acute cholecystitis -Blood cultures negative for 24 hours -Currently afebrile and without leukocytosis, tachycardia, tachypnea, or lactic acidosis -LFT's elevated but trending down -Zosyn 3.375 IVPB Q6H (Day 2) -Normal Saline at 100mls/hr -Zofran 4mg IVP Q4H PRN for N/V -Clear liquid diet -Surgery, GI and ID consulted, all recommendations appreciated 2. Constipation -Miralax 17mg PO BID GI Prophylaxis: Protonix DVT Prophylaxis: SCD's Patient seen and case discussed with attending, Dr. Smith. <Karen Smith - Last Filed: 08/13/17 16:32> Objective - Vital Signs/Intake and Output Vital Signs (last 24 hours): Temp Pulse Resp BP Pulse Ox 98.1 F 62 20 116/74 95 08/13/17 12:00 08/13/17 12:00 08/13/17 12:00 08/13/17 12:00 08/13/17 10:00 Intake and Output: 08/13/17 08/13/17 06:59 18:59 Intake Total 1900 Balance 1900 - Medications Medications: Current Medications Piperacillin Sod/Tazobactam Sod (Zosyn 3.375 In Ns 100ml) 100 mls @ 200 mls/hr IVPB Q6 [facility] PRN Reason: Protocol Stop: 08/19/17 18:01 Last Admin: 08/13/17 13:23 Dose: 200 mls/hr Potassium Chloride 40 meq/ (Sodium Chloride) 1,020 mls @ 100 mls/hr IV .[id number] [facility] Last Admin: 08/13/17 10:28 Dose: 100 mls/hr Ondansetron HCl (Zofran Inj) 4 mg IVP Q4H PRN PRN Reason: Nausea/Vomiting Pantoprazole Sodium (Protonix Inj) 40 mg IVP Q12 [facility] Last Admin: 08/13/17 10:38 Dose: 40 mg Polyethylene Glycol (Miralax) 17 gm PO BID [facility] Last Admin: 08/13/17 10:43 Dose: 17 gm - Labs Labs: 08/13/17 06:45 08/13/17 06:45 PT 13.4 SECONDS (9.4-12.5) H 08/12/17 00:45 INR 1.17 (0.93-1.08) H 08/12/17 00:45 Attending/Attestation - Attestation I have personally seen and examined this patient.: Yes I have fully participated in the care of the patient.: Yes I have reviewed all pertinent clinical information, including history, physical exam and plan: Yes Notes (Text): 08/13/17 16:27 Attending note; Patient seen and examined with resident. Patient is a 52 year old male with a past medical history significant for RLE DVT provoked after Right ankle surgery, completed anticoagulation treatment is admitted with epigastric pain. CT and abdominal CAT scan showed thickening of the gallbladder wall. MRCP showed a 7 mm stone in the distal common bile duct. The patient had ERCP yesterday with sphincterotomy and stent placement. Patient had acute cholangitis. Currently on IV Zosyn. Patient is afebrile and nontoxic. CBC count is normal. ID evaluation appreciated. Blood culture is negative. Elevated LFTs; obstructive pattern. Increased bilirubin with high conjugated bilirubin number. LDH is normalized. Liver function test is improving. Abdominal pain is resolving. Patient did not have chest pain. Cardiac enzymes x 3 negative. Continue IV fluids. Started on clear liquid diet. Monitor closely. Surgery evaluation appreciated. Patient needs elective surgery after cholangitis is resolved. Upon discharge the patient will follow-up with PMD Dr. Thorpe.
[2017-08-13] MEDS ORDERED: Influenza Vaccine 60 mcg/0.5 mL SYR (4YR UP) IM ONE (14:35)
--- NOTE | 2017-08-13 23:34 | CARD ---
APPROVED REPORT EKG Measurement Heart [id number] [place] 128P5 [id number] <Conclusion> Normal sinus rhythm Possible Inferior infarct, age undetermined Abnormal ECG
--- NOTE | 2017-08-14 00:04 | PN ---
DATE: 08/13/2017 SUBJECTIVE: This patient was seen and evaluated earlier today. The patient feels comfortable. No complaints of any abdominal pain. The patient has been started on a clear liquid diet. PHYSICAL EXAMINATION: VITAL SIGNS: Temperature is 98, blood pressure 116/72, pulse 62, O2 sat is 95%, and respirations 20. HEENT: Jaundiced, atraumatic. NECK: Supple. HEART: S1 and S2 heard. LUNGS: Bilateral air entry present. ABDOMEN: Soft. There is no mass palpable. No tenderness. EXTREMITIES: No edema. No cyanosis. LABORATORY DATA: Hemoglobin 11.6, hematocrit 35.5, WBC 6.2. Chemistry shows total bilirubin has gone up to 5.4 with direct bilirubin 4.1. AST 241, ALT 441, alkaline phosphatase 233, and LDH has come down to 665. IMPRESSION: This is a 52-year-old patient admitted with abdominal pain, elevated liver function tests. MRCP showed stone in the common bile duct. CT showed some thickening of the gallbladder, suggestive of cholecystitis. The patient underwent an ERCP yesterday. The patient was found to have like 7 mm stone and small stones and sludge in the distal common bile duct and a sphincterotomy wasdone. Dick pus was draining from the bile duct and there were small stones, removed. In view of the cholangitis, more manipulation was avoided. A 7 cm 7F stent was placed in the common bile duct. The patient also had a large amount of gastric bezoar present, both in the stomach and also in the duodenal area. Other comorbidities include history of deep venous thrombosis in the past, foot surgery RECOMMENDATION: 1. I agree with increasing the diet to clear liquid diet. We will not contemplate increasing further. The patient has a large amount of bezoar. 2. LDH is now trending downwards. The reason for the significantly elevated LFTs is unclear. Rule out hemolytic process. The patient does have direct bilirubin elevated now. The patient has a stent placement with good drainage of the pus noticed post ERCP and the patient is also on Zosyn. Reasonable consideration is to closely follow up the LFTs. The patient would need a repeat ERCP for the removal of the stone and the stent.The timing will be based on the clinical course. We will discuss with at length. We will also discuss with the surgical team. If the LFTs continue to show an upward trend, we will do an early ERCP for removal of the stent and stone. 3. On miralax for constipation Thank you very much for allowing us to participate in the care of the patient. Ean Cassidy MD [facility]
[2017-08-14] MEDS: Piperacillin/Tazobact 3.375 gm 100 ML IVPB SCH ×4 (00:37→17:14)
--- NOTE | 2017-08-14 01:08 | CON ---
DATE: LOCATION: The patient was seen early this morning in room 269, bed 2. CHIEF COMPLAINT: Weakness and chest pain of several days. HISTORY OF PRESENT ILLNESS: This is a 52-year-old male with past medical history significant for diabetes mellitus, DVT, history of right foot surgery in 12/2016, tonsillectomy, and ventral hernia repair. He was admitted to the emergency room yesterday. In the emergency room, patient was seen by and states the patient had epigastric and abdominal pain for 3 days after having a pepperoni pizza. Did not vomit. There is no shortness of breath. No chest pain. As per the emergency room, patient states that the pain is improved. No headaches. No blurred vision. No neck pain. No sore throat. At the time in the emergency room, has given the diagnoses of chest pain secondary to acute coronary syndrome, and patient had a CAT scan of the chest and abdomen and these were found suspicious for acute cholecystitis. Patient had an ERCP and a sphincterotomy was done and biliary stent placement, and an unsuccessful stone removal. Infectious Disease consult was requested. The patient on the MRCP was shown to have a 7 mm stone in the distal common bile duct, the level of the ampulla of the common bile duct dilation to 11 mm. This morning, patient states he is feeling better. There is no fevers and no chills. No headache or blurred vision. PAST MEDICAL HISTORY: Significant for diabetes mellitus and DVT. PAST SURGICAL HISTORY: Significant for right foot surgery, tonsillectomy and ventral hernia repair. ALLERGIES: THE PATIENT HAS NO KNOWN ALLERGIES. PHYSICAL EXAMINATION: VITAL SIGNS: Temperature is 98, T max of 99.7, heart rate of 75, respiratory rate of 18, it was up to 24 on admission yesterday; blood pressure 116/70. HEENT: Unremarkable. NECK: Supple. LUNGS: Have decreased breath sounds. HEART: Normal S1 and S2. ABDOMEN: Soft, nontender. No rebound or guarding. LABORATORY DATA: Reveals the patient's white count was , hemoglobin of 11. BUN of 20, creatinine of 1. LFTs are noted. Alkaline phosphatase was elevated with a normal procalcitonin. Urinalysis is noted. HIV is negative. Hepatitis serology is negative. Microbiology reveals the blood cultures are negative. Dr. Mami Sanchez's note is appreciated. Dr. Ybarra's note was also reviewed and appreciated. ASSESSMENT AND PLAN: A 52-year-old male with diabetes, history of deep venous thrombosis, obesity. He was admitted with sepsis with acute cholecystis status post endoscopic retrograde cholangiopancreatography in the ER, status post sphincterotomy and biliary stent, and an unsuccessful stone removal. We will treat the patient with Zosyn and we will follow closely with you. Anthony Munoz MD
[2017-08-14 07:33] LABS: HEMOGLOBIN 11.6 g/dL (14.0-18.0); MEAN CELL VOLUME 87.1 fl (80.0-105.0); MEAN CORPUSCULAR HEMOGLOBIN 28.2 pg (25.0-35.0); MEAN CORPUSCULAR HGB CONC 32.4 g/dl (31.0-37.0); MEAN PLATELET VOLUME 10.9 fl (7.0-11.0); RBC 4.11 10^6/uL (3.5-6.1); RED CELL DISTRIBUTION WIDTH 13.5 % (11.5-14.5); WHITE BLOOD COUNT 5.6 10^3/ul (4.5-11.0)
[2017-08-14 07:54] LABS: ALB/GLOB RATIO 1.1 (1.1-1.8); ALBUMIN 3.5 g/dL (3.0-4.8); ALT/SGPT 328 U/L (7-56); AST/SGOT 116 U/L (17-59); BLOOD UREA NITROGEN 17 mg/dL (7-21); CALCIUM 9.1 mg/dL (8.4-10.5); GFR AFRICAN-AMERICAN > 60; GFR NON-AFRICAN AMERICAN > 60
--- NOTE | 2017-08-14 08:13 | CP.PCM.PN ---
<David Ybarra - Last Filed: 08/14/17 08:09> Subjective - Date & Time of Evaluation Date of Evaluation: 08/14/17 Time of Evaluation: 08:09 - Subjective Subjective: Surgery Pt s&e. LUCIGeovanyBRYN. Denies F/C/N/V/D/CP/SOB/abd pain. Tolerating CLD. Objective - Vital Signs/Intake and Output Vital Signs (last 24 hours): Temp Pulse Resp BP Pulse Ox 98.1 F 54 L 16 151/88 H 98 08/13/17 22:04 08/13/17 22:04 08/13/17 22:04 08/13/17 22:04 08/13/17 22:04 Intake and Output: 08/14/17 08/14/17 06:59 18:59 Intake Total 900 Balance 900 - Medications Medications: Current Medications Piperacillin Sod/Tazobactam Sod (Zosyn 3.375 In Ns 100ml) 100 mls @ 200 mls/hr IVPB Q6 [facility] PRN Reason: Protocol Stop: 08/19/17 18:01 Last Admin: 08/14/17 05:44 Dose: 200 mls/hr Potassium Chloride 40 meq/ (Sodium Chloride) 1,020 mls @ 100 mls/hr IV .[id number] [facility] Last Admin: 08/13/17 21:49 Dose: 100 mls/hr Ondansetron HCl (Zofran Inj) 4 mg IVP Q4H PRN PRN Reason: Nausea/Vomiting Pantoprazole Sodium (Protonix Inj) 40 mg IVP Q12 [facility] Last Admin: 08/13/17 21:43 Dose: 40 mg Polyethylene Glycol (Miralax) 17 gm PO BID [facility] Last Admin: 08/13/17 17:28 Dose: Not Given - Labs Labs: 08/14/17 06:30 08/14/17 06:30 PT 13.4 SECONDS (9.4-12.5) H 08/12/17 00:45 INR 1.17 (0.93-1.08) H 08/12/17 00:45 - Constitutional Appears: No Acute Distress - Head Exam Head Exam: ATRAUMATIC, NORMAL INSPECTION, NORMOCEPHALIC - Eye Exam Eye Exam: EOMI, Normal appearance, PERRL, Scleral icterus Pupil Exam: NORMAL ACCOMODATION, PERRL - ENT Exam ENT Exam: Mucous Membranes Moist, Normal Exam - Neck Exam Neck Exam: Full ROM, Normal Inspection. absent: Lymphadenopathy - Respiratory Exam Respiratory Exam: Clear to Ausculation Bilateral, NORMAL BREATHING PATTERN - Cardiovascular Exam Cardiovascular Exam: REGULAR RHYTHM, +S1, +S2. absent: Murmur - GI/Abdominal Exam GI & Abdominal Exam: Soft, Normal Bowel Sounds. absent: Distended, Firm, Guarding, Rigid, Tenderness - Extremities Exam Extremities Exam: Full ROM, Normal Capillary Refill, Normal Inspection. absent : Joint Swelling, Pedal Edema - Back Exam Back Exam: NORMAL INSPECTION - Neurological Exam Neurological Exam: Alert, Awake, CN II-XII Intact, Normal Gait, Oriented x3 - Psychiatric Exam Psychiatric exam: Normal Affect, Normal Mood - Skin Skin Exam: Dry, Intact, Warm Additional comments: slight juandice Assessment and Plan - Assessment and Plan (Free Text) Assessment: Choledocolithiasis s/p ERCP stent placed, sphincterotomy: clinically improved. LFT down today Tbili 2 -Possible OR mon with intraoperative cholangiogram -Trend LFT Will DW Dr. Sanchez <John Sanchez - Last Filed: 08/14/17 15:15> Objective - Vital Signs/Intake and Output Vital Signs (last 24 hours): Temp Pulse Resp BP Pulse Ox 98.2 F 63 20 153/92 H 99 08/14/17 06:00 08/14/17 06:00 08/14/17 06:00 08/14/17 06:00 08/14/17 06:00 Intake and Output: 08/14/17 08/14/17 06:59 18:59 Intake Total 900 680 Balance 900 680 - Medications Medications: Current Medications Piperacillin Sod/Tazobactam Sod (Zosyn 3.375 In Ns 100ml) 100 mls @ 200 mls/hr IVPB Q6 [facility] PRN Reason: Protocol Stop: 08/19/17 18:01 Last Admin: 08/14/17 11:10 Dose: 200 mls/hr Potassium Chloride 40 meq/ (Sodium Chloride) 1,020 mls @ 100 mls/hr IV .[id number] [facility] Last Admin: 08/14/17 09:33 Dose: 100 mls/hr Ondansetron HCl (Zofran Inj) 4 mg IVP Q4H PRN PRN Reason: Nausea/Vomiting Pantoprazole Sodium (Protonix Inj) 40 mg IVP Q12 [facility] Last Admin: 08/14/17 09:32 Dose: 40 mg Polyethylene Glycol (Miralax) 17 gm PO BID [facility] Last Admin: 08/14/17 09:32 Dose: 17 gm - Labs Labs: 08/14/17 06:30 08/14/17 06:30 PT 13.4 SECONDS (9.4-12.5) H 08/12/17 00:45 INR 1.17 (0.93-1.08) H 08/12/17 00:45 Attending/Attestation - Attestation I have personally seen and examined this patient.: Yes I have fully participated in the care of the patient.: Yes I have reviewed all pertinent clinical information, including history, physical exam and plan: Yes Notes (Text): 08/14/17 15:14 CBD stone, not removed with initial ERCP. Await GI for possible repeat ERCP or lithotripsy
[2017-08-14] MEDS: POLYETHYLENE GLYCOL 3350 17 GM/Dose PACKET PO SCH ×2 (09:32→17:14)
--- NOTE | 2017-08-14 10:07 | PN ---
DATE: 08/14/2017 SUBJECTIVE: I saw Mr. Khoury this morning. This is a 52-year-old white male who had complaints of nausea, vomiting and abdominal pain. He was found to have a distal common bile duct stone; underwent an ERCP performed by Dr. Cassidy. At bedside this morning, the patient is asymptomatic. No nausea or vomiting. No abdominal pain. No fevers. PHYSICAL EXAMINATION VITAL SIGNS: Reviewed this patient's vital signs. HEENT: Noncontributory. LUNGS: Clear to auscultation. HEART: Regular rhythm. ABDOMEN: Soft. No tenderness elicited. LABORATORY DATA: Reviewed this patient's laboratory data. As of yesterday morning, the white count decreased to 6.2 relative to the day of admission. Also, he had a decrease in transaminases as well as alk phos and lactate dehydrogenase. The AST/ALT ratio relative to the day of admission 247/441. Alk phos decreased from 277 to 233. LDH, last reading on the , was 665. Hepatitis serology noncontributory. Cultures negative. Blood, bile stain pending, no growth after 24 hours. I reviewed the consultation of Dr. Munoz from last night as well as the progress note of Dr. Cassidy from 8 o'clock last night. I reviewed the issue of the bilirubin. The patient's urine is noncontributory as well. Toxicology negative. OVERALL ASSESSMENT: A 52-year-old white male admitted with cholangitis. Currently, he has stents in the bile duct for drainage. Further recommendations on a followup ERCP as per Dr. Cassidy. The patient was advised to review with Surgery the timing for a possible cholecystectomy. Also, the other issue to be discussed is length of antibiotics and how long the stent will have to be left in place. Jude Barbosa DO, PhD [facility]
--- NOTE | 2017-08-14 10:27 | CP.PCM.PN ---
<Shar Sanchez - Last Filed: 08/14/17 10:23> Subjective - Date & Time of Evaluation Date of Evaluation: 08/14/17 Time of Evaluation: 10:23 - Subjective Subjective: Medicine Progress Note: Patient seen and assessed at bedside. No acute events overnight reported by patient or nursing staff. Patient tolerating diet well without complaints. He denies any fevers, chills, headache, chest pain, SOB, abdominal pain, N/V/D/C, urinary changes, skin changes or any numbness/tingling/weakness of any extremity. Objective - Vital Signs/Intake and Output Vital Signs (last 24 hours): Temp Pulse Resp BP Pulse Ox 98.2 F 63 20 153/92 H 99 08/14/17 06:00 08/14/17 06:00 08/14/17 06:00 08/14/17 06:00 08/14/17 06:00 Intake and Output: 08/14/17 08/14/17 06:59 18:59 Intake Total 900 Balance 900 - Medications Medications: Current Medications Piperacillin Sod/Tazobactam Sod (Zosyn 3.375 In Ns 100ml) 100 mls @ 200 mls/hr IVPB Q6 [facility] PRN Reason: Protocol Stop: 08/19/17 18:01 Last Admin: 08/14/17 05:44 Dose: 200 mls/hr Potassium Chloride 40 meq/ (Sodium Chloride) 1,020 mls @ 100 mls/hr IV .[id number] [facility] Last Admin: 08/14/17 09:33 Dose: 100 mls/hr Ondansetron HCl (Zofran Inj) 4 mg IVP Q4H PRN PRN Reason: Nausea/Vomiting Pantoprazole Sodium (Protonix Inj) 40 mg IVP Q12 [facility] Last Admin: 08/14/17 09:32 Dose: 40 mg Polyethylene Glycol (Miralax) 17 gm PO BID [facility] Last Admin: 08/14/17 09:32 Dose: 17 gm - Labs Labs: 08/14/17 06:30 08/14/17 06:30 PT 13.4 SECONDS (9.4-12.5) H 08/12/17 00:45 INR 1.17 (0.93-1.08) H 08/12/17 00:45 - Constitutional Appears: Non-toxic, No Acute Distress - Head Exam Head Exam: ATRAUMATIC, NORMOCEPHALIC - Eye Exam Eye Exam: EOMI, Normal appearance Pupil Exam: NORMAL ACCOMODATION, PERRL - ENT Exam ENT Exam: Mucous Membranes Moist, Normal Exam - Neck Exam Neck Exam: Full ROM, Normal Inspection. absent: Lymphadenopathy, Tenderness - Respiratory Exam Respiratory Exam: Clear to Ausculation Bilateral, NORMAL BREATHING PATTERN - Cardiovascular Exam Cardiovascular Exam: REGULAR RHYTHM, +S1, +S2. absent: Murmur - GI/Abdominal Exam GI & Abdominal Exam: Soft, Normal Bowel Sounds. absent: Distended, Firm, Guarding, Rigid, Tenderness, Organomegaly, Rebound - Extremities Exam Extremities Exam: Full ROM, Normal Capillary Refill, Normal Inspection. absent : Calf Tenderness, Joint Swelling, Pedal Edema, Tenderness - Back Exam Back Exam: NORMAL INSPECTION - Neurological Exam Neurological Exam: Alert, Awake, CN II-XII Intact, Normal Gait, Oriented x3 - Psychiatric Exam Psychiatric exam: Normal Affect, Normal Mood - Skin Skin Exam: Dry, Intact, Normal Color, Warm Assessment and Plan - Assessment and Plan (Free Text) Assessment: 52 year old male with a past medical history significant for RLE DVT s/o occupational injury who presented with epigastric pain, nausea/vomiting and constipation. Patient was found to have and is currently being treated for choledocolithiasis with suspected cholangitis. Plan: 1. Choledocolithiasis with suspected Cholangitis -ERCP performed with sphincterotomy, biliary stent placement, unsuccessful stone removal and purulent drainage sent for C/S -MRCP showed 7mm stone in distal CBD at the level of the ampulla with CBD dilatation to 11mm -CT Abdomen/Pelvis showed findings suspicious for acute cholecystitis -Blood cultures negative for 48 hours -Bile cultures negative for 24 hours -Currently afebrile and without leukocytosis, tachycardia, tachypnea, or lactic acidosis -LFT's, Total Bilirubin and Direct Bilirubin elevated but continue to trend downwards -Zosyn 3.375 IVPB Q6H (Day 3) -Normal Saline at 100mls/hr -Zofran 4mg IVP Q4H PRN for N/V -Clear liquid diet -Surgery, GI and ID consulted, all recommendations appreciated 2. Constipation -Miralax 17mg PO BID GI Prophylaxis: Protonix DVT Prophylaxis: SCD's Patient seen and case discussed with attending, Dr. Smith. <Karen Smith - Last Filed: 08/14/17 13:37> Objective - Vital Signs/Intake and Output Vital Signs (last 24 hours): Temp Pulse Resp BP Pulse Ox 98.2 F 63 20 153/92 H 99 08/14/17 06:00 08/14/17 06:00 08/14/17 06:00 08/14/17 06:00 08/14/17 06:00 Intake and Output: 08/14/17 08/14/17 06:59 18:59 Intake Total 900 Balance 900 - Medications Medications: Current Medications Piperacillin Sod/Tazobactam Sod (Zosyn 3.375 In Ns 100ml) 100 mls @ 200 mls/hr IVPB Q6 [facility] PRN Reason: Protocol Stop: 08/19/17 18:01 Last Admin: 08/14/17 11:10 Dose: 200 mls/hr Potassium Chloride 40 meq/ (Sodium Chloride) 1,020 mls @ 100 mls/hr IV .[id number] [facility] Last Admin: 08/14/17 09:33 Dose: 100 mls/hr Ondansetron HCl (Zofran Inj) 4 mg IVP Q4H PRN PRN Reason: Nausea/Vomiting Pantoprazole Sodium (Protonix Inj) 40 mg IVP Q12 [facility] Last Admin: 08/14/17 09:32 Dose: 40 mg Polyethylene Glycol (Miralax) 17 gm PO BID [facility] Last Admin: 08/14/17 09:32 Dose: 17 gm - Labs Labs: 08/14/17 06:30 08/14/17 06:30 PT 13.4 SECONDS (9.4-12.5) H 08/12/17 00:45 INR 1.17 (0.93-1.08) H 08/12/17 00:45 Attending/Attestation - Attestation I have personally seen and examined this patient.: Yes I have fully participated in the care of the patient.: Yes I have reviewed all pertinent clinical information, including history, physical exam and plan: Yes Notes (Text): 08/14/17 13:35 Attending note; Patient seen and examined with resident. Patient is a 52 year old male with a past medical history significant for RLE DVT provoked after Right ankle surgery, completed anticoagulation treatment is admitted with epigastric pain. CT and abdominal CAT scan showed thickening of the gallbladder wall. MRCP showed a 7 mm stone in the distal common bile duct. The patient had ERCP with sphincterotomy and stent placement. Patient had acute cholangitis. Currently on IV Zosyn. Patient is afebrile and nontoxic. CBC count is normal. ID evaluation appreciated. Blood culture is negative. Elevated LFTs; obstructive pattern. Liver function test is improving after stent placement. Possible ERCP tomorrow for stone removal. Continue IV fluids. Started on clear liquid diet. Monitor closely. Surgery evaluation appreciated. Patient needs elective surgery after cholangitis is resolved. Upon discharge the patient will follow-up with PMD Dr. Thorpe.
--- NOTE | 2017-08-14 23:27 | PN ---
DATE: SUBJECTIVE: This patient was seen and evaluated earlier today. Patient is feeling much better now, on clear liquid diet. PHYSICAL EXAMINATION: VITAL SIGNS: He is afebrile, pulse 63, blood pressure 153/92. HEENT: Atraumatic, jaundiced mildly. NECK: Supple. HEART: S1 and S2 heard. LUNGS: Bilateral air entry present. ABDOMEN: Soft. There is no mass palpable. No tenderness. EXTREMITIES: No edema. No cyanosis. LABORATORY DATA: Hemoglobin 11.6, hematocrit 35.8, WBC 5.3, platelets 240. Chemistry shows significant improvement of the LFTs. Total bilirubin have come down to 2.0, AST 116, ALT 328, and alkaline phosphatase 197. IMPRESSION AND PLAN: 1. Status post endoscopic retrograde cholangiopancreatography. This 52-year-old patient admitted with an abdominal pain, found to have some pericholecystic inflammatory changes noticed in the CAT scan suggestive of cholecystitis with a calculi stone. Patient had magnetic retrograde cholangiopancreatography which showed stone in the common bile duct, subsequently underwent endoscopic retrograde cholangiopancreatography, had a sphincterotomy, found to have pus suggestive of cholangitis. Patient had small stones and sludge removed, had a 7-[place] 7 cm stent placed. Patient's liver function tests now showing a downward trend. 2. Continue the antibiotics. 3. Followup of the cultures. 4. Followup of the liver function tests. 5. Repeat endoscopic retrograde cholangiopancreatography for removal of the stone and the stent prior to the surgery. Thank you very much for allowing us to participate in the care of the patient. Ean Cassidy MD
[2017-08-15] MEDS: Piperacillin/Tazobact 3.375 gm 100 ML IVPB SCH ×4 (00:22→18:55)
--- NOTE | 2017-08-15 01:15 | PN ---
DATE: 08/14/2017 SUBJECTIVE: Patient is in bed, in no acute distress, nontoxic. PHYSICAL EXAMINATION: VITAL SIGNS: Temperature is 98, blood pressure is 150/80, respiratory rate of 20, heart rate of 52. HEENT: Unremarkable. NECK: Supple. LUNGS: Have decreased breath sounds. HEART: Normal S1, S2. ABDOMEN: Soft, nontender. LABORATORY EXAMINATION: Reveals a white count of 5.6, hemoglobin of 11, platelets of 240. Chemistries reveal a BUN of 17, creatinine of 1.0. Microbiology is reviewed. Urinalysis is noted. Serology is noted. Patient's HIV is negative. ASSESSMENT AND PLAN: This is a 52-year-old male who was seen earlier this morning in 571, bed 1, with a history of diabetes, history of deep venous thrombosis, obesity, admitted with sepsis, acute cholecystitis, status post endoscopic retrograde cholangiopancreatography, and patient is status post sphincterotomy and biliary stent and unsuccessful stone removal. Currently on Zosyn. Possible surgery this week. Blood cultures, there are no growth; waiting for final culture results. Anthony Munoz MD
--- NOTE | 2017-08-15 07:41 | CON ---
DATE: 08/12/2017 HISTORY OF PRESENT ILLNESS: I was asked to see Mr. Khoury, who is a 52-year-old white male, admitted with complaints of severe epigastric pain, nausea and vomiting, which has been going on for the past 2 days. The patient denies hematemesis or rectal bleeding. Apparently, episode started after eating a pizza at home and it is now resolved. Therefore, advised to come to the emergency room. PAST MEDICAL HISTORY: Significant for hernia surgery. Medical problems include foot surgery as well as a DVT, tonsillectomy. The patient has no known history of any kind of lung disorder, neurological disorder, musculoskeletal, gallstones, or any kind of gastrointestinal problem. PHYSICAL EXAMINATION: VITAL SIGNS: I reviewed this patient's vital signs. HEENT: Noncontributory. LUNGS: Clear to auscultation. HEART: Regular rate and rhythm. ABDOMEN: Soft, mildly protuberant. Tender in the epigastric area and right upper quadrant. LABORATORY DATA: Review of laboratory data indicated white count of 16,000 on admission. Today, at 6:00 in the morning, white count decreased to 8.7. H and H 13/38, platelets 250. INR within normal limits. Chemistry significant for total bilirubin of 2.8, direct bili 1.3. AST and ALT ratio elevated, alk phos 277. LDH 2228 as of 5:30, on admission 1532. I reviewed this patient's abdominal ultrasound. The ultrasound revealed gallstone in the gallbladder fundus. There is gallbladder wall thickening, no sludge. Common bile duct by ultrasound criteria 5.[address] scan indicates thickened gallbladder wall with adjacent inflammatory stranding, calcified gallstone, diverticulosis. CT of the chest showed scattered foci of atelectasis. MRCP is significant for 7 mm stone at distal common bile duct. Dilatation of the common bile duct with diameter of 11 mm. ASSESSMENT: This is a 52-year-old white male here with complaints of epigastric pain for about 3 days. There was also a change in urine, which currently he relates as [employer] color. MRCP is significant for a distal common bile duct stone. The appropriate radiology studies were discussed with Dr. Smith, that the patient needs ERCP. This will be performed by one of my associates in the department. I reviewed this patient's EKG. I reviewed this patient's orders. Orders include metronidazole as well as ceftriaxone for treatment of cholecystitis and cholangitis. The patient is also on pantoprazole. The patient is currently n.p.o. At bedside, the patient pain is moderate. Jude Barbosa DO, PhD [facility]
[2017-08-15 08:33] LABS: BASO # 0.03 K/mm3 (0.0-2.0); BASO % 0.4 % (0.0-3.0); EOS # 0.3 (0.0-0.7); EOS % 3.2 % (1.5-5.0); GRAN # 5.5 (1.4-6.5); GRAN % 70.3 % (50.0-68.0); HEMOGLOBIN 12.2 g/dL (14.0-18.0); LYMPH # 1.5 (1.2-3.4); LYMPH % 18.6 % (22.0-35.0); MEAN CELL VOLUME 86.4 fl (80.0-105.0); MEAN CORPUSCULAR HEMOGLOBIN 28.6 pg (25.0-35.0); MEAN CORPUSCULAR HGB CONC 33.1 g/dl (31.0-37.0); MEAN PLATELET VOLUME 10.8 fl (7.0-11.0); MONO # 0.6 (0.1-0.6); MONO % 7.5 % (1.0-6.0); RBC 4.27 10^6/uL (3.5-6.1); RED CELL DISTRIBUTION WIDTH 13.3 % (11.5-14.5); WHITE BLOOD COUNT 7.8 10^3/ul (4.5-11.0)
--- NOTE | 2017-08-15 08:45 | PN ---
DATE: SUBJECTIVE: I saw Mr. Khoury this morning. He is a 52-year-old white male who complains of severe epigastric right upper quadrant pain, nausea and vomiting for three days. The patient was found to have a stone in the distal common bile duct. MRCP was performed for final diagnosis. ERCP was performed by Dr. Cassidy yesterday with success. At the bedside this morning, the patient has minimal discomfort in the epigastric area. Urine has also changed from a coca-cola color to a straw color. He has no nausea or vomiting issues. PHYSICAL EXAMINATION VITAL SIGNS: I reviewed this patient's vital signs. HEENT: Noncontributory. LUNGS: Clear to auscultation. HEART: Regular rhythm. ABDOMEN: Soft, diminutive tenderness in the epigastric area and right upper quadrant. LABORATORY DATA: Pending for this morning. Again, the ERCP was performed yesterday by Dr. Cassidy. The patient had an ERCP, which was significant for a sphincterotomy. There was a balloon sweep, and subsequent removal of the stone. Procedure apparently was performed without incident. OVERALL ASSESSMENT AND PLAN: This is a 52-year-old white male with no significant gastrointestinal history and with complaints related to severe epigastric pain and nausea and vomiting. The patient was found to have the gallbladder with gallstones in the distal common bile duct. After the endoscopic retrograde cholangiopancreatography yesterday, the patient is relatively symptom free. He will be followed up by the hospitalist as well as the surgical staff later on this morning regarding timing for cholecystectomy. Jude Barbosa DO, PhD IOANA
[2017-08-15 08:57] LABS: ALB/GLOB RATIO 1.2 (1.1-1.8); ALBUMIN 3.8 g/dL (3.0-4.8); ALT/SGPT 252 U/L (7-56); AST/SGOT 76 U/L (17-59); BLOOD UREA NITROGEN 10 mg/dL (7-21); CALCIUM 9.2 mg/dL (8.4-10.5); GFR AFRICAN-AMERICAN > 60; GFR NON-AFRICAN AMERICAN > 60
[2017-08-15] MEDS: POLYETHYLENE GLYCOL 3350 17 GM/Dose PACKET PO SCH ×2 (09:41→20:02)
--- NOTE | 2017-08-15 10:22 | CP.PCM.PN ---
<Otis Kilpatrick - Last Filed: 08/15/17 10:43> Subjective - Date & Time of Evaluation Date of Evaluation: 08/15/17 Time of Evaluation: 07:15 - Subjective Subjective: Patient seen and examined. No acute events over night. Patient states he feels better. Objective - Vital Signs/Intake and Output Vital Signs (last 24 hours): Temp Pulse Resp BP Pulse Ox 98.4 F 52 L 16 158/88 H 97 08/15/17 07:33 08/15/17 07:33 08/15/17 07:33 08/15/17 07:33 08/15/17 07:33 Intake and Output: 08/15/17 08/15/17 06:59 18:59 Intake Total 480 Balance 480 - Medications Medications: Current Medications Piperacillin Sod/Tazobactam Sod (Zosyn 3.375 In Ns 100ml) 100 mls @ 200 mls/hr IVPB Q6 [facility] PRN Reason: Protocol Stop: 08/19/17 18:01 Last Admin: 08/15/17 05:29 Dose: 200 mls/hr Potassium Chloride 40 meq/ (Sodium Chloride) 1,020 mls @ 100 mls/hr IV .[id number] [facility] Last Admin: 08/14/17 21:28 Dose: 100 mls/hr Ondansetron HCl (Zofran Inj) 4 mg IVP Q4H PRN PRN Reason: Nausea/Vomiting Pantoprazole Sodium (Protonix Inj) 40 mg IVP Q12 [facility] Last Admin: 08/15/17 09:40 Dose: 40 mg Polyethylene Glycol (Miralax) 17 gm PO BID [facility] Last Admin: 08/15/17 09:41 Dose: 17 gm - Labs Labs: 08/15/17 08:15 08/15/17 08:15 PT 13.4 SECONDS (9.4-12.5) H 08/12/17 00:45 INR 1.17 (0.93-1.08) H 08/12/17 00:45 - Constitutional Appears: No Acute Distress - Head Exam Head Exam: NORMOCEPHALIC - Eye Exam Eye Exam: Normal appearance - ENT Exam ENT Exam: Mucous Membranes Moist - Respiratory Exam Respiratory Exam: NORMAL BREATHING PATTERN - Cardiovascular Exam Cardiovascular Exam: +S1, +S2 - GI/Abdominal Exam GI & Abdominal Exam: Soft - Neurological Exam Neurological Exam: Alert, Awake, Oriented x3 - Psychiatric Exam Psychiatric exam: Normal Mood - Skin Skin Exam: Dry, Intact, Normal Color, Warm Assessment and Plan - Assessment and Plan (Free Text) Assessment: 52M w/ choledocholithiasis Plan: -NPO -IVF -ABx -Anti-emetics/Analgesics -F/u ERCP -Plan for OR tomorrow -D/w Dr. Daniel Cook PGY2 <John Sanchez - Last Filed: 08/15/17 13:31> Objective - Vital Signs/Intake and Output Vital Signs (last 24 hours): Temp Pulse Resp BP Pulse Ox 98.4 F 52 L 16 158/88 H 98 08/15/17 07:33 08/15/17 07:33 08/15/17 07:33 08/15/17 07:33 08/15/17 13:19 Intake and Output: 08/15/17 08/15/17 06:59 18:59 Intake Total 480 Balance 480 - Medications Medications: Current Medications Piperacillin Sod/Tazobactam Sod (Zosyn 3.375 In Ns 100ml) 100 mls @ 200 mls/hr IVPB Q6 [facility] PRN Reason: Protocol Stop: 08/19/17 18:01 Last Admin: 08/15/17 11:23 Dose: 200 mls/hr Potassium Chloride 40 meq/ (Sodium Chloride) 1,020 mls @ 100 mls/hr IV .[id number] [facility] Last Admin: 08/14/17 21:28 Dose: 100 mls/hr Ondansetron HCl (Zofran Inj) 4 mg IVP Q4H PRN PRN Reason: Nausea/Vomiting Pantoprazole Sodium (Protonix Inj) 40 mg IVP Q12 [facility] Last Admin: 08/15/17 09:40 Dose: 40 mg Polyethylene Glycol (Miralax) 17 gm PO BID [facility] Last Admin: 08/15/17 09:41 Dose: 17 gm - Labs Labs: 08/15/17 08:15 08/15/17 08:15 PT 13.4 SECONDS (9.4-12.5) H 08/12/17 00:45 INR 1.17 (0.93-1.08) H 08/12/17 00:45 Attending/Attestation - Attestation I have personally seen and examined this patient.: Yes I have fully participated in the care of the patient.: Yes I have reviewed all pertinent clinical information, including history, physical exam and plan: Yes Notes (Text): 08/15/17 13:30 LFT's improving, patient denies pain at this time. For repeat ERCP today. If successful in removing stone, will plan on lap jai tomorrow.
[2017-08-15] MEDS ORDERED: Iohexol 240 (50 ml) ONE (12:57)
[2017-08-15] MEDS ORDERED: Glucagon Recombinant 1 mg Inj ONE (12:57)
[2017-08-15] MEDS ORDERED: Indomethacin 50 MG Suppository PR ONE ×2 (12:58→16:04)
--- NOTE | 2017-08-15 13:27 | CP.PCM.PN ---
<Shar Sanchez - Last Filed: 08/15/17 13:21> Subjective - Date & Time of Evaluation Date of Evaluation: 08/15/17 Time of Evaluation: 13:22 - Subjective Subjective: Medicine Progress Note: Patient seen and assessed at bedside. No acute events overnight reported by patient or nursing staff. Patient to have repeat ERCP later today with GI and is aware of the plan for stent and stone retrieval. He denies any fevers, chills , headache, chest pain, SOB, abdominal pain, N/V/D/C, urinary changes, skin changes or any numbness/tingling/weakness of any extremity. Objective - Vital Signs/Intake and Output Vital Signs (last 24 hours): Temp Pulse Resp BP Pulse Ox 98.4 F 52 L 16 158/88 H 97 08/15/17 07:33 08/15/17 07:33 08/15/17 07:33 08/15/17 07:33 08/15/17 07:33 Intake and Output: 08/15/17 08/15/17 06:59 18:59 Intake Total 480 Balance 480 - Medications Medications: Current Medications Piperacillin Sod/Tazobactam Sod (Zosyn 3.375 In Ns 100ml) 100 mls @ 200 mls/hr IVPB Q6 [facility] PRN Reason: Protocol Stop: 08/19/17 18:01 Last Admin: 08/15/17 11:23 Dose: 200 mls/hr Potassium Chloride 40 meq/ (Sodium Chloride) 1,020 mls @ 100 mls/hr IV .[id number] [facility] Last Admin: 08/14/17 21:28 Dose: 100 mls/hr Ondansetron HCl (Zofran Inj) 4 mg IVP Q4H PRN PRN Reason: Nausea/Vomiting Pantoprazole Sodium (Protonix Inj) 40 mg IVP Q12 [facility] Last Admin: 08/15/17 09:40 Dose: 40 mg Polyethylene Glycol (Miralax) 17 gm PO BID [facility] Last Admin: 08/15/17 09:41 Dose: 17 gm - Labs Labs: 08/15/17 08:15 08/15/17 08:15 PT 13.4 SECONDS (9.4-12.5) H 08/12/17 00:45 INR 1.17 (0.93-1.08) H 08/12/17 00:45 - Constitutional Appears: Non-toxic, No Acute Distress - Head Exam Head Exam: ATRAUMATIC, NORMOCEPHALIC - Eye Exam Eye Exam: EOMI, Normal appearance Pupil Exam: NORMAL ACCOMODATION, PERRL - ENT Exam ENT Exam: Mucous Membranes Moist, Normal Exam - Neck Exam Neck Exam: Full ROM, Normal Inspection. absent: Lymphadenopathy, Tenderness - Respiratory Exam Respiratory Exam: Clear to Ausculation Bilateral, NORMAL BREATHING PATTERN. absent: Rales, Rhonchi, Wheezes - Cardiovascular Exam Cardiovascular Exam: REGULAR RHYTHM, RRR, +S1, +S2. absent: Murmur - GI/Abdominal Exam GI & Abdominal Exam: Soft, Normal Bowel Sounds. absent: Distended, Firm, Guarding, Rigid, Tenderness, Rebound - Extremities Exam Extremities Exam: Full ROM, Normal Capillary Refill, Normal Inspection. absent : Calf Tenderness, Joint Swelling, Pedal Edema, Tenderness - Back Exam Back Exam: NORMAL INSPECTION - Neurological Exam Neurological Exam: Alert, Awake, CN II-XII Intact, Normal Gait, Oriented x3 - Psychiatric Exam Psychiatric exam: Normal Affect, Normal Mood - Skin Skin Exam: Dry, Intact, Normal Color, Warm Assessment and Plan - Assessment and Plan (Free Text) Assessment: 52 year old male with a past medical history significant for RLE DVT s/o occupational injury who presented with epigastric pain, nausea/vomiting and constipation. Patient was found to have and is currently being treated for choledocolithiasis with suspected cholangitis. Plan: 1. Choledocolithiasis with suspected Cholangitis -ERCP performed with sphincterotomy, biliary stent placement, unsuccessful stone removal and purulent drainage sent for C/S -MRCP showed 7mm stone in distal CBD at the level of the ampulla with CBD dilatation to 11mm -CT Abdomen/Pelvis showed findings suspicious for acute cholecystitis -Blood cultures negative for 48 hours -Bile cultures negative for 24 hours -Patient for repeat ERCP for stent retrieval and possible stone extraction with Dr. Cassidy today -Currently afebrile and without leukocytosis, tachycardia, tachypnea, or lactic acidosis -LFT's elevated but continue to trend downwards -Zosyn 3.375 IVPB Q6H (Day 4) -Normal Saline at 100mls/hr -Zofran 4mg IVP Q4H PRN for N/V -Clear liquid diet -Surgery, GI and ID consulted, all recommendations appreciated 2. Constipation -Miralax 17mg PO BID GI Prophylaxis: Protonix DVT Prophylaxis: SCD's Patient seen and case discussed with attending, Dr. Delfina Cisneros. <Delfina Cisneros B - Last Filed: 08/15/17 17:33> Objective - Vital Signs/Intake and Output Vital Signs (last 24 hours): Temp Pulse Resp BP Pulse Ox 98.2 F 62 17 164/90 H 98 08/15/17 16:35 08/15/17 16:35 08/15/17 16:35 08/15/17 16:35 08/15/17 16:35 Intake and Output: 08/15/17 08/15/17 06:59 18:59 Intake Total 480 75 Balance 480 75 - Medications Medications: Current Medications Piperacillin Sod/Tazobactam Sod (Zosyn 3.375 In Ns 100ml) 100 mls @ 200 mls/hr IVPB Q6 [facility] PRN Reason: Protocol Stop: 08/19/17 18:01 Last Admin: 08/15/17 11:23 Dose: 200 mls/hr Potassium Chloride 40 meq/ (Sodium Chloride) 1,020 mls @ 100 mls/hr IV .[id number] [facility] Last Admin: 08/14/17 21:28 Dose: 100 mls/hr Sodium Chloride (Sodium Chloride 0.9%) 1,000 mls @ 100 mls/hr IV .Q10H [facility] Ondansetron HCl (Zofran Inj) 4 mg IVP Q4H PRN PRN Reason: Nausea/Vomiting Pantoprazole Sodium (Protonix Inj) 40 mg IVP Q12 [facility] Last Admin: 08/15/17 09:40 Dose: 40 mg Polyethylene Glycol (Miralax) 17 gm PO BID [facility] Last Admin: 08/15/17 09:41 Dose: 17 gm - Labs Labs: 08/15/17 08:15 08/15/17 08:15 PT 13.4 SECONDS (9.4-12.5) H 08/12/17 00:45 INR 1.17 (0.93-1.08) H 08/12/17 00:45 Attending/Attestation - Attestation I have personally seen and examined this patient.: Yes I have fully participated in the care of the patient.: Yes I have reviewed all pertinent clinical information, including history, physical exam and plan: Yes Notes (Text): I have seen and examined the patient. Agree with the above note with the following additions/ exceptions: Briefly this is 52 year old male with history of RLE DVT provoked after Right ankle surgery and completed anticoagulation treatment is admitted with epigastric pain. Abdominal CT scan showed thickening of the gallbladder wall. MRCP showed a 7 mm stone in the distal common bile duct. The patient had ERCP with sphincterotomy and stent placement. Patient had acute cholangitis. Currently on IV Zosyn. Patient is afebrile and nontoxic. CBC count is normal. ID evaluation appreciated. Blood culture is negative. Elevated LFTs; obstructive pattern. Liver function test is improving after stent placement. ERCP with stone removal and sphincterotomy was done today. Noticed to have leg swelling. Will order LE duplex and start vanco. Will discuss with ID. Surgery evaluation appreciated. Patient is scheduled for possible surgery tomorrow. Upon discharge the patient will follow-up with PMD Dr. Thorpe. Dr Delfina Cisneros
--- NOTE | 2017-08-15 13:30 | PN ---
DATE: 08/15/2017 SUBJECTIVE: I saw Mr. Khoury this morning. He is a 52-year-old white male who complains of nausea, vomiting and abdominal pain. He also has cholangitis and also distal bile duct treated with ERCP with stent placement. This is currently asymptomatic. Prior to stent, the patient is scheduled for a procedure later on today. PHYSICAL EXAMINATION: VITAL SIGNS: I reviewed this patient's vital signs. HEENT: Noncontributory. LUNGS: Clear to auscultation. HEART: Regular rhythm. ABDOMEN: Soft. No tenderness elicited. LABORATORY DATA: Laboratory data reviewed. There is a decrease in transaminases since day of admission. Bilirubin reached a maximum of 5.4 yesterday, currently 2.0 as of 6:30 yesterday morning. ASSESSMENT: This is a 52-year-old white male here with cholangitis, scheduled for stent removal, by Dr. Cassidy. surgical service will perform his cholecystectomy tomorrow?? Jude Barbosa DO, PhD IOANA
[2017-08-15] MEDS ORDERED: Midazolam 2 MG/2 ML VIAL ONE (15:11)
[2017-08-15] MEDS ORDERED: Propofol 10 mg/ml Inj (20 ML) ONE (15:11)
[2017-08-15] MEDS ORDERED: Succinylcholine 200 mg/10 ml Inj IV ONE (15:50)
[2017-08-15] MEDS ORDERED: Atropine 0.4 mg/ml Inj (1 mL) ONE (15:55)
[2017-08-15] MEDS ORDERED: Sodium Chloride 0.9% 1,000 ML IV SCH (16:00)
--- NOTE | 2017-08-15 18:31 | CP.PCM.PN ---
Subjective - Date & Time of Evaluation Date of Evaluation: 08/15/17 Time of Evaluation: 12:00 - Subjective Subjective: Comfortable in bed, no abdominal pain currently, no fevers, no nausea or vomiting. For surgery tomorrow. Objective - Vital Signs/Intake and Output Vital Signs (last 24 hours): Temp Pulse Resp BP Pulse Ox 98.4 F 52 L 16 158/88 H 97 08/15/17 07:33 08/15/17 07:33 08/15/17 07:33 08/15/17 07:33 08/15/17 07:33 Intake and Output: 08/15/17 08/15/17 06:59 18:59 Intake Total 480 Balance 480 - Medications Medications: Current Medications Piperacillin Sod/Tazobactam Sod (Zosyn 3.375 In Ns 100ml) 100 mls @ 200 mls/hr IVPB Q6 [facility] PRN Reason: Protocol Stop: 08/19/17 18:01 Last Admin: 08/15/17 05:29 Dose: 200 mls/hr Potassium Chloride 40 meq/ (Sodium Chloride) 1,020 mls @ 100 mls/hr IV .[id number] [facility] Last Admin: 08/14/17 21:28 Dose: 100 mls/hr Ondansetron HCl (Zofran Inj) 4 mg IVP Q4H PRN PRN Reason: Nausea/Vomiting Pantoprazole Sodium (Protonix Inj) 40 mg IVP Q12 [facility] Last Admin: 08/15/17 09:40 Dose: 40 mg Polyethylene Glycol (Miralax) 17 gm PO BID [facility] Last Admin: 08/15/17 09:41 Dose: 17 gm - Labs Labs: 08/15/17 08:15 08/15/17 08:15 PT 13.4 SECONDS (9.4-12.5) H 08/12/17 00:45 INR 1.17 (0.93-1.08) H 08/12/17 00:45 - Constitutional Appears: Chronically Ill - Head Exam Head Exam: NORMAL INSPECTION - ENT Exam ENT Exam: Mucous Membranes Moist - Neck Exam Neck Exam: absent: Meningismus - Respiratory Exam Respiratory Exam: Decreased Breath Sounds - Cardiovascular Exam Cardiovascular Exam: +S1, +S2 - GI/Abdominal Exam GI & Abdominal Exam: Soft. absent: Tenderness Assessment and Plan - Assessment and Plan (Free Text) Plan: Assessment Acute cholecystitis with probable acute cholangitis S/P ERCP but failure to extract stone history of right foot cellulitis in a patient with a history of right foot surgery history of DVT obesity with BMI 31 Plan Continue Zosyn and will follow up results of the surgery to be done tomorrow will monitor clinically
[2017-08-15] MEDS ORDERED: Heparin25000 units/250ml 1/2NS 25,000 UNITS/250 ML BAG IV PRN (19:06)
--- NOTE | 2017-08-15 19:08 | US ---
PROCEDURE: Right lower extremity venous US HISTORY: Leg pain and swelling. Evaluate for DVT. PHYSICIAN(S): Tony Arellano M.D. TECHNIQUE: Duplex sonography and color-flow Doppler with graded compression were used to evaluate the deep venous system of the right lower extremity. FINDINGS: There is partially recannulized thrombus noted in the right popliteal vein. Thrombus is also seen in portions of the visualized right tibial veins The right femoral vein and right common femoral vein are patent and compressible. IMPRESSION: 1. Partially recannulized thrombus in the right popliteal and visualized tibial veins
[2017-08-15] MEDS: Heparin25000 units/250ml 1/2NS 25,000 UNITS/250 ML BAG IV PRN (21:19)
[2017-08-16 02:20] LABS: BASO # 0.02 K/mm3 (0.0-2.0); BASO % 0.3 % (0.0-3.0); EOS # 0.2 (0.0-0.7); EOS % 3.5 % (1.5-5.0); GRAN # 3.9 (1.4-6.5); GRAN % 56.9 % (50.0-68.0); HEMOGLOBIN 12.2 g/dL (14.0-18.0); LYMPH # 2.2 (1.2-3.4); LYMPH % 32.6 % (22.0-35.0); MEAN CELL VOLUME 84.5 fl (80.0-105.0); MEAN CORPUSCULAR HEMOGLOBIN 28.7 pg (25.0-35.0); MEAN PLATELET VOLUME 10.4 fl (7.0-11.0); MONO # 0.5 (0.1-0.6); MONO % 6.7 % (1.0-6.0); RBC 4.25 10^6/uL (3.5-6.1); RED CELL DISTRIBUTION WIDTH 12.9 % (11.5-14.5); WHITE BLOOD COUNT 6.9 10^3/ul (4.5-11.0)
[2017-08-16] MEDS: Piperacillin/Tazobact 3.375 gm 100 ML IVPB SCH ×3 (03:58→17:26)
[2017-08-16 07:23] LABS: BASO # 0.03 K/mm3 (0.0-2.0); BASO % 0.4 % (0.0-3.0); EOS # 0.2 (0.0-0.7); EOS % 2.4 % (1.5-5.0); GRAN # 4.76 (1.4-6.5); GRAN % 68.2 % (50.0-68.0); HEMOGLOBIN 12.3 g/dL (14.0-18.0); LYMPH # 1.6 (1.2-3.4); MEAN CELL VOLUME 85.1 fl (80.0-105.0); MEAN CORPUSCULAR HEMOGLOBIN 28.3 pg (25.0-35.0); MEAN CORPUSCULAR HGB CONC 33.2 g/dl (31.0-37.0); MEAN PLATELET VOLUME 10.7 fl (7.0-11.0); MONO # 0.4 (0.1-0.6); RBC 4.35 10^6/uL (3.5-6.1)
[2017-08-16 07:47] LABS: ALB/GLOB RATIO 1.2 (1.1-1.8); ALBUMIN 3.8 g/dL (3.0-4.8); ALT/SGPT 254 U/L (7-56); AST/SGOT 115 U/L (17-59); BLOOD UREA NITROGEN 10 mg/dL (7-21); CALCIUM 9.3 mg/dL (8.4-10.5); GFR AFRICAN-AMERICAN > 60; GFR NON-AFRICAN AMERICAN > 60
--- NOTE | 2017-08-16 08:51 | RAD ---
PROCEDURE: ERCP HISTORY: CBD OBST COMPARISON: TECHNIQUE: Fluoroscopy was provided in the endoscopy suite. 296 seconds of fluoro time. 6 images were submitted FINDINGS: The study shows partial opacification of the common duct with passage of a wire. There is no visualized stent IMPRESSION: As above
--- NOTE | 2017-08-16 09:01 | PN ---
DATE: 08/16/2017 SUBJECTIVE: Mr. Khoury is a 52-year-old white male with nausea, vomiting, epigastric pain, found to have cholangitis associated with stone at distal common bile duct. Stone was treated initially with stent insertion by Dr. Cassidy. The patient went to the Endoscopy Suite yesterday for removal of the stent after sphincterotomy was performed and balloon retrieval of the stone was successful. At bedside this morning, the patient feels comfortable. No complaints. PHYSICAL EXAMINATION VITAL SIGNS: I reviewed this patient's vital signs. HEENT: Noncontributory. LUNGS: Clear to auscultation. HEART: Regular rhythm. ABDOMEN: Soft. No tenderness elicited. LABORATORY DATA: Laboratory reviewed. Noted as of yesterday morning, his bilirubin is 1.4. AST:ALT ratio of 76/252, is significantly decreased. Also, a decrease in alkaline phosphatase noted. OVERALL ASSESSMENT: A 52-year-old white male has had cholangitis associated with distal common bile duct stone, was treated successfully by endoscopic retrograde cholangio-pancreatography. The patient is scheduled for laparoscopic cholecystectomy for cholecystitis at this point by Surgery Service. We will continue on current therapy, we will sign off the case as of today. Jude Barbosa DO, PhD MTDErvin
[2017-08-16] MEDS: Heparin25000 units/250ml 1/2NS 25,000 UNITS/250 ML BAG IV PRN ×2 (09:39→23:05)
[2017-08-16] MEDS: POLYETHYLENE GLYCOL 3350 17 GM/Dose PACKET PO SCH ×2 (09:41→17:25)
--- NOTE | 2017-08-16 10:31 | CP.PCM.PN ---
<Elizabeth Copeland - Last Filed: 08/16/17 10:10> Subjective - Date & Time of Evaluation Date of Evaluation: 08/16/17 Time of Evaluation: 10:10 - Subjective Subjective: Surgery Progress Note: Patient seen and examined at bedside. No acute events overnight. Pt had a BM last night. Denies fever, chills, passing flatus, nausea, vomiting. Objective - Vital Signs/Intake and Output Vital Signs (last 24 hours): Temp Pulse Resp BP Pulse Ox 97.8 F 63 18 163/95 H 97 08/16/17 07:30 08/16/17 07:30 08/16/17 07:30 08/16/17 07:30 08/16/17 07:30 Intake and Output: 08/16/17 08/16/17 06:59 18:59 Intake Total 240 250 Output Total 0 Balance 240 250 - Medications Medications: Current Medications Hydralazine HCl (Apresoline) 10 mg IVP Q6 PRN PRN Reason: Systolic Blood Pressure Heparin Sodium/Sodium Chloride (Heparin 97717 Units/250ml 1/2 Normal Saline) 25 ,000 units in 250 mls @ 18.068 mls/hr IV .[id number] PRN; Protocol; 18 UNITS/KG/HR PRN Reason: ADJUST RATE PER PROTOCOL Last Admin: 08/16/17 09:39 Dose: 18 units/kg/hr, 18.068 mls/hr Piperacillin Sod/Tazobactam Sod (Zosyn 3.375 In Ns 100ml) 100 mls @ 200 mls/hr IVPB Q6 [facility] PRN Reason: Protocol Stop: 08/23/17 00:01 Last Admin: 08/16/17 03:58 Dose: Not Given Ondansetron HCl (Zofran Inj) 4 mg IVP Q4H PRN PRN Reason: Nausea/Vomiting Pantoprazole Sodium (Protonix Inj) 40 mg IVP Q12 [facility] Last Admin: 08/16/17 09:42 Dose: 40 mg Polyethylene Glycol (Miralax) 17 gm PO BID [facility] Last Admin: 08/16/17 09:41 Dose: Not Given - Labs Labs: 08/16/17 07:00 08/16/17 07:00 PT 13.4 SECONDS (9.4-12.5) H 08/12/17 00:45 INR 1.17 (0.93-1.08) H 08/12/17 00:45 APTT 76.7 Seconds (25.1-36.5) H 08/16/17 09:00 - Constitutional Appears: Non-toxic, No Acute Distress - Head Exam Head Exam: ATRAUMATIC, NORMOCEPHALIC - Eye Exam Eye Exam: EOMI, PERRL. absent: Conjunctival injection, Nystagmus, Scleral icterus Pupil Exam: NORMAL ACCOMODATION, PERRL. absent: Irregular, Unequal - ENT Exam ENT Exam: Mucous Membranes Moist - Neck Exam Neck Exam: Full ROM - Respiratory Exam Respiratory Exam: Clear to Ausculation Bilateral, NORMAL BREATHING PATTERN. absent: Rhonchi, Wheezes, Stridor - Cardiovascular Exam Cardiovascular Exam: RRR, +S1, +S2. absent: Murmur - GI/Abdominal Exam GI & Abdominal Exam: Soft, Normal Bowel Sounds - Extremities Exam Extremities Exam: Calf Tenderness (RLE), Normal Inspection - Neurological Exam Neurological Exam: Alert, Awake, Oriented x3 - Psychiatric Exam Psychiatric exam: Normal Affect, Normal Mood - Skin Skin Exam: Dry, Normal Color, Warm Assessment and Plan - Assessment and Plan (Free Text) Assessment: 52M with choledocholithiasis s/p ERCP with removal of stone/sphincterotomy: -Liquid diet -Cont with antibiotics -Anti-emetics/Analgesics -elective lap jai outpatient -will discuss with Dr. Sanchez <John Sanchez - Last Filed: 08/16/17 12:46> Objective - Vital Signs/Intake and Output Vital Signs (last 24 hours): Temp Pulse Resp BP Pulse Ox 97.8 F 63 18 163/95 H 97 08/16/17 07:30 08/16/17 07:30 08/16/17 07:30 08/16/17 07:30 08/16/17 07:30 Intake and Output: 08/16/17 08/16/17 06:59 18:59 Intake Total 240 250 Output Total 0 Balance 240 250 - Medications Medications: Current Medications Hydralazine HCl (Apresoline) 10 mg IVP Q6 PRN PRN Reason: Systolic Blood Pressure Heparin Sodium/Sodium Chloride (Heparin 51635 Units/250ml 1/2 Normal Saline) 25 ,000 units in 250 mls @ 18.068 mls/hr IV .[id number] PRN; Protocol; 18 UNITS/KG/HR PRN Reason: ADJUST RATE PER PROTOCOL Last Admin: 08/16/17 09:39 Dose: 18 units/kg/hr, 18.068 mls/hr Piperacillin Sod/Tazobactam Sod (Zosyn 3.375 In Ns 100ml) 100 mls @ 200 mls/hr IVPB Q6 [facility] PRN Reason: Protocol Stop: 08/23/17 00:01 Last Admin: 08/16/17 11:53 Dose: 200 mls/hr Ondansetron HCl (Zofran Inj) 4 mg IVP Q4H PRN PRN Reason: Nausea/Vomiting Pantoprazole Sodium (Protonix Inj) 40 mg IVP Q12 [facility] Last Admin: 08/16/17 09:42 Dose: 40 mg Polyethylene Glycol (Miralax) 17 gm PO BID [facility] Last Admin: 08/16/17 09:41 Dose: Not Given - Labs Labs: 08/16/17 07:00 08/16/17 07:00 PT 13.4 SECONDS (9.4-12.5) H 08/12/17 00:45 INR 1.17 (0.93-1.08) H 08/12/17 00:45 APTT 76.7 Seconds (25.1-36.5) H 08/16/17 09:00 Attending/Attestation - Attestation I have personally seen and examined this patient.: Yes I have fully participated in the care of the patient.: Yes I have reviewed all pertinent clinical information, including history, physical exam and plan: Yes Notes (Text): 08/16/17 12:43 patient denies abdominal pain s/p repeat ERCP and removal of CBD stone. Duplex scan of R leg shows popliteal DVT with recanalization, but per Dr Arellano also has appearance of fresh DVT as well. Patient has been therapeutically anticoagulated with heparin; will defer lap jai for now, follow up electively. Dr Arellano recommends repeat doppler in 2-4 weeks
--- NOTE | 2017-08-16 11:40 | CP.PCM.PN ---
<Nilda Loomis - Last Filed: 08/16/17 11:39> Subjective - Date & Time of Evaluation Date of Evaluation: 08/16/17 Time of Evaluation: 09:45 - Subjective Subjective: S&E at bedside, chart reviewed. S/P ERCP w/ ballooon sweep/ampuler dilation/ sphicterotomy, w/ occlusion cholangitis, and stent removal. No N/V or abdominal pain. Found to have DVT on Heparin drip, sx cancelled. No reports of overt GI bleeding. No c/o SOB or CP. Plans for lap jai discontinued patient found to have DVT and on heparin. Objective - Vital Signs/Intake and Output Vital Signs (last 24 hours): Temp Pulse Resp BP Pulse Ox 97.8 F 63 18 163/95 H 97 08/16/17 07:30 08/16/17 07:30 08/16/17 07:30 08/16/17 07:30 08/16/17 07:30 Intake and Output: 08/16/17 08/16/17 06:59 18:59 Intake Total 240 250 Output Total 0 Balance 240 250 - Medications Medications: Current Medications Hydralazine HCl (Apresoline) 10 mg IVP Q6 PRN PRN Reason: Systolic Blood Pressure Heparin Sodium/Sodium Chloride (Heparin 14789 Units/250ml 1/2 Normal Saline) 25 ,000 units in 250 mls @ 18.068 mls/hr IV .[id number] PRN; Protocol; 18 UNITS/KG/HR PRN Reason: ADJUST RATE PER PROTOCOL Last Admin: 08/16/17 09:39 Dose: 18 units/kg/hr, 18.068 mls/hr Piperacillin Sod/Tazobactam Sod (Zosyn 3.375 In Ns 100ml) 100 mls @ 200 mls/hr IVPB Q6 [facility] PRN Reason: Protocol Stop: 08/23/17 00:01 Last Admin: 08/16/17 03:58 Dose: Not Given Ondansetron HCl (Zofran Inj) 4 mg IVP Q4H PRN PRN Reason: Nausea/Vomiting Pantoprazole Sodium (Protonix Inj) 40 mg IVP Q12 [facility] Last Admin: 08/16/17 09:42 Dose: 40 mg Polyethylene Glycol (Miralax) 17 gm PO BID [facility] Last Admin: 08/16/17 09:41 Dose: Not Given - Labs Labs: 08/16/17 07:00 08/16/17 07:00 PT 13.4 SECONDS (9.4-12.5) H 08/12/17 00:45 INR 1.17 (0.93-1.08) H 08/12/17 00:45 APTT 76.7 Seconds (25.1-36.5) H 08/16/17 09:00 - Constitutional Appears: No Acute Distress - Head Exam Head Exam: absent: NORMOCEPHALIC - Eye Exam Eye Exam: Normal appearance. absent: Scleral icterus Pupil Exam: NORMAL ACCOMODATION - ENT Exam ENT Exam: Mucous Membranes Moist - Neck Exam Neck Exam: Normal Inspection - Respiratory Exam Respiratory Exam: Clear to Ausculation Bilateral, NORMAL BREATHING PATTERN. absent: Respiratory Distress - Cardiovascular Exam Cardiovascular Exam: +S1, +S2 - GI/Abdominal Exam GI & Abdominal Exam: Soft, Normal Bowel Sounds. absent: Guarding, Tenderness, Organomegaly, Rebound - Extremities Exam Extremities Exam: Pedal Edema (right foot pedal edema and appear slight erythema ). absent: Calf Tenderness - Neurological Exam Neurological Exam: Alert, Awake, Oriented x3 - Skin Skin Exam: Dry, Warm Assessment and Plan - Assessment and Plan (Free Text) Assessment: Assessment: Choledocholelithiasis with cholangitis Status post repeat ERCP w/ balloon sweep/ampuler dilation/sphicterotomy, w/ occlusion cholangitis, and stent removal Constipation Right leg DVT PLAN: continue clear liquid today on Heparin drip per protocol monitor LFT/CBc and for overt GI bleeding on GI prophylaxsis continue Miralax, hold for stools > 2/day continue IV antibiotics as per surgery surgery recommend elective outpatient sx. <Ange,Kovil V - Last Filed: 08/16/17 23:34> Objective - Vital Signs/Intake and Output Vital Signs (last 24 hours): Temp Pulse Resp BP Pulse Ox 98.4 F 76 18 117/70 100 08/16/17 14:00 08/16/17 14:00 08/16/17 14:00 08/16/17 14:00 08/16/17 14:00 Intake and Output: 08/16/17 08/17/17 18:59 06:59 Intake Total 2049 Output Total 2 Balance 2049 548 - Medications Medications: Current Medications Hydralazine HCl (Apresoline) 10 mg IVP Q6 PRN PRN Reason: Systolic Blood Pressure Heparin Sodium/Sodium Chloride (Heparin 59401 Units/250ml 1/2 Normal Saline) 25 ,000 units in 250 mls @ 18.068 mls/hr IV .[id number] PRN; Protocol; 18 UNITS/KG/HR PRN Reason: ADJUST RATE PER PROTOCOL Last Admin: 08/16/17 23:05 Dose: 18 units/kg/hr, 18.068 mls/hr Piperacillin Sod/Tazobactam Sod (Zosyn 3.375 In Ns 100ml) 100 mls @ 200 mls/hr IVPB Q6 [facility] PRN Reason: Protocol Stop: 08/23/17 00:01 Last Admin: 08/16/17 17:26 Dose: 200 mls/hr Ondansetron HCl (Zofran Inj) 4 mg IVP Q4H PRN PRN Reason: Nausea/Vomiting Oxycodone/Acetaminophen (Percocet 5/325 Mg Tab) 1 tab PO Q4H PRN PRN Reason: Pain, moderate (4-7) Stop: 08/19/17 17:10 Last Admin: 08/16/17 17:25 Dose: 1 tab Pantoprazole Sodium (Protonix Inj) 40 mg IVP Q12 [facility] Last Admin: 08/16/17 21:20 Dose: 40 mg Polyethylene Glycol (Miralax) 17 gm PO BID [facility] Last Admin: 08/16/17 17:25 Dose: 17 gm - Labs Labs: 08/16/17 07:00 08/16/17 07:00 PT 13.4 SECONDS (9.4-12.5) H 08/12/17 00:45 INR 1.17 (0.93-1.08) H 08/12/17 00:45 APTT 76.7 Seconds (25.1-36.5) H 08/16/17 09:00 Attending/Attestation - Attestation I have personally seen and examined this patient.: Yes I have fully participated in the care of the patient.: Yes I have reviewed all pertinent clinical information, including history, physical exam and plan: Yes Notes (Text): This is an addendum to GI progress report dictated by Nilda Loomis APN.The patient was seen and examined earlier. Medical records, lab studies, imagings were reviewed. Last 24 hours events reviewed. Agreed with the above treatment plan as outlined in Nilda Loomis APN's notes the with the addition of the following 08/16/17 23:33
--- NOTE | 2017-08-16 14:50 | CP.PCM.PN ---
<Sahr Sanchez - Last Filed: 08/16/17 14:46> Subjective - Date & Time of Evaluation Date of Evaluation: 08/16/17 Time of Evaluation: 14:46 - Subjective Subjective: Medicine Progress Note: Patient seen and assessed at bedside. Patient found to have acute on chronic DVT in RLE overnight. Currently on heparin drip (DVT protocol) and lap cholecystectomy deferred to be completed as outpatient. He denies any fevers, chills, headache, chest pain, SOB, abdominal pain, N/V/D/C, urinary changes or any numbness/tingling/weakness of any extremity. Objective - Vital Signs/Intake and Output Vital Signs (last 24 hours): Temp Pulse Resp BP Pulse Ox 97.8 F 63 18 163/95 H 97 08/16/17 07:30 08/16/17 07:30 08/16/17 07:30 08/16/17 07:30 08/16/17 07:30 Intake and Output: 08/16/17 08/16/17 06:59 18:59 Intake Total 240 250 Output Total 0 Balance 240 250 - Medications Medications: Current Medications Hydralazine HCl (Apresoline) 10 mg IVP Q6 PRN PRN Reason: Systolic Blood Pressure Heparin Sodium/Sodium Chloride (Heparin 68376 Units/250ml 1/2 Normal Saline) 25 ,000 units in 250 mls @ 18.068 mls/hr IV .[id number] PRN; Protocol; 18 UNITS/KG/HR PRN Reason: ADJUST RATE PER PROTOCOL Last Admin: 08/16/17 09:39 Dose: 18 units/kg/hr, 18.068 mls/hr Piperacillin Sod/Tazobactam Sod (Zosyn 3.375 In Ns 100ml) 100 mls @ 200 mls/hr IVPB Q6 [facility] PRN Reason: Protocol Stop: 08/23/17 00:01 Last Admin: 08/16/17 11:53 Dose: 200 mls/hr Ondansetron HCl (Zofran Inj) 4 mg IVP Q4H PRN PRN Reason: Nausea/Vomiting Pantoprazole Sodium (Protonix Inj) 40 mg IVP Q12 [facility] Last Admin: 08/16/17 09:42 Dose: 40 mg Polyethylene Glycol (Miralax) 17 gm PO BID [facility] Last Admin: 08/16/17 09:41 Dose: Not Given - Labs Labs: 08/16/17 07:00 08/16/17 07:00 PT 13.4 SECONDS (9.4-12.5) H 08/12/17 00:45 INR 1.17 (0.93-1.08) H 08/12/17 00:45 APTT 76.7 Seconds (25.1-36.5) H 08/16/17 09:00 - Constitutional Appears: Non-toxic, No Acute Distress - Head Exam Head Exam: ATRAUMATIC, NORMOCEPHALIC - Eye Exam Eye Exam: EOMI, Normal appearance Pupil Exam: NORMAL ACCOMODATION, PERRL - ENT Exam ENT Exam: Mucous Membranes Moist, Normal Exam - Neck Exam Neck Exam: Full ROM, Normal Inspection. absent: Lymphadenopathy, Thyromegaly - Respiratory Exam Respiratory Exam: Clear to Ausculation Bilateral, NORMAL BREATHING PATTERN. absent: Accessory Muscle Use, Chest Wall Tenderness, Decreased Breath Sounds, Prolonged Expiratory Phase, Rales, Rhonchi, Wheezes, Respiratory Distress, Stridor - Cardiovascular Exam Cardiovascular Exam: REGULAR RHYTHM, RRR, +S1, +S2. absent: Bradycardia, Tachycardia, Clicks, Diastolic murmur, Gallop, Irregular Rhythm, JVD, Rubs, +S4 , Murmur - GI/Abdominal Exam GI & Abdominal Exam: Soft, Normal Bowel Sounds. absent: Distended, Firm, Guarding, Rigid, Tenderness, Rebound - Extremities Exam Extremities Exam: Calf Tenderness (RLE), Full ROM, Normal Capillary Refill. absent: Joint Swelling, Normal Inspection (RLE edematous to knee with scattered erythema) - Back Exam Back Exam: NORMAL INSPECTION - Neurological Exam Neurological Exam: Alert, Awake, CN II-XII Intact, Normal Gait, Oriented x3 - Psychiatric Exam Psychiatric exam: Normal Affect, Normal Mood - Skin Skin Exam: Dry, Warm Assessment and Plan - Assessment and Plan (Free Text) Assessment: 52 year old male with a past medical history significant for RLE DVT s/o occupational injury who presented with epigastric pain, nausea/vomiting and constipation. Patient was found to have and is currently being treated for choledocolithiasis with suspected cholangitis. Plan: 1. Choledocolithiasis with suspected Cholangitis -Repeat ERCP done with successful stone extraction and retrieval of biliary stent -MRCP showed 7mm stone in distal CBD at the level of the ampulla with CBD dilatation to 11mm -CT Abdomen/Pelvis showed findings suspicious for acute cholecystitis -Blood cultures negative for 96 hours -Bile cultures grew Lactobacillus Species -Lap Cholecystectomy deferred and will be completed as outpatient -Currently afebrile and without leukocytosis, tachycardia, tachypnea, or lactic acidosis -LFT's elevated but continue to trend downwards -Zosyn 3.375 IVPB Q6H (Day 5) -Zofran 4mg IVP Q4H PRN for N/V -Clear liquid diet -Surgery, GI and ID consulted, all recommendations appreciated 2. Acute on Chronic DVT of Right Popliteal and Tibial Veins -RLE Duplex U/S showed partially recannulized thrombus in the right popliteal and visualized tibial veins -Heparin Drip (DVT Protocol) -Previous hyper coagulable work up reviewed -Plans to discharge home on AC with repeat Duplex U/S in 2-4 weeks 3. HTN -Hydralazine PRN -Discontinued IVF -Continue to monitor before starting standing medication 4. Constipation -Miralax 17mg PO BID GI Prophylaxis: Protonix DVT Prophylaxis: Heparin Drip (DVT Protocol) Patient seen and case discussed with attending, Dr. Delfina Cisneros. <Delfina Cisneros - Last Filed: 08/17/17 14:46> Objective - Vital Signs/Intake and Output Vital Signs (last 24 hours): Temp Pulse Resp BP Pulse Ox 98.1 F 70 20 160/90 H 96 08/17/17 08:00 08/17/17 08:00 08/17/17 08:00 08/17/17 08:00 08/17/17 08:00 Intake and Output: 08/17/17 08/17/17 06:59 18:59 Intake Total 1018 Output Total 2 Balance 1016 - Medications Medications: Current Medications Hydralazine HCl (Apresoline) 10 mg IVP Q6 PRN PRN Reason: Systolic Blood Pressure Heparin Sodium/Sodium Chloride (Heparin 60181 Units/250ml 1/2 Normal Saline) 25 ,000 units in 250 mls @ 18.068 mls/hr IV .[id number] PRN; Protocol; 18 UNITS/KG/HR PRN Reason: ADJUST RATE PER PROTOCOL Last Admin: 08/16/17 23:05 Dose: 18 units/kg/hr, 18.068 mls/hr Piperacillin Sod/Tazobactam Sod (Zosyn 3.375 In Ns 100ml) 100 mls @ 200 mls/hr IVPB Q6 [facility] PRN Reason: Protocol Stop: 08/23/17 00:01 Last Admin: 08/17/17 06:02 Dose: 200 mls/hr Ondansetron HCl (Zofran Inj) 4 mg IVP Q4H PRN PRN Reason: Nausea/Vomiting Oxycodone/Acetaminophen (Percocet 5/325 Mg Tab) 1 tab PO Q4H PRN PRN Reason: Pain, moderate (4-7) Stop: 08/19/17 17:10 Last Admin: 08/16/17 17:25 Dose: 1 tab Pantoprazole Sodium (Protonix Inj) 40 mg IVP Q12 [facility] Last Admin: 08/17/17 10:27 Dose: 40 mg Polyethylene Glycol (Miralax) 17 gm PO BID [facility] Last Admin: 08/17/17 10:27 Dose: 17 gm Ursodiol (Actigall) 300 mg PO BID [facility] - Labs Labs: 08/17/17 06:35 08/17/17 06:35 PT 13.4 SECONDS (9.4-12.5) H 08/12/17 00:45 INR 1.17 (0.93-1.08) H 08/12/17 00:45 APTT 91.2 Seconds (25.1-36.5) H 08/17/17 06:35 Attending/Attestation - Attestation I have personally seen and examined this patient.: Yes I have fully participated in the care of the patient.: Yes I have reviewed all pertinent clinical information, including history, physical exam and plan: Yes Notes (Text): I have seen and examined the patient. Agree with the above note with the following additions/ exceptions: Briefly this is 52 year old male with history of RLE DVT provoked after Right ankle surgery and completed anticoagulation treatment is admitted with epigastric pain. Abdominal CT scan showed thickening of the gallbladder wall. MRCP showed a 7 mm stone in the distal common bile duct. The patient had ERCP with sphincterotomy. Patient had acute cholangitis. Currently on IV Zosyn. Patient is afebrile and nontoxic. There is no leukocytosis. Blood and urine culture is negative. Patient has elevated LFTs. He was also found to have acute LLE DVT. Lap cholecystectomy was deferred due to this new finding. Will continue IV heparin for now. Upon discharge the patient will follow-up with PMD Dr. Thorpe. Dr Delfina Cisneros
[2017-08-16] MEDS ORDERED: Oxycodone/Acetaminophen 5/325 mg Tab PO PRN (17:09)
[2017-08-17] MEDS: Piperacillin/Tazobact 3.375 gm 100 ML IVPB SCH ×4 (00:02→18:30)
--- NOTE | 2017-08-17 03:58 | PN ---
DATE: 08/16/2017 SUBJECTIVE: Patient is in bed, in no acute distress, nontoxic. No fevers. Patient was seen early this morning in room 571, bed 1. PHYSICAL EXAMINATION: VITAL SIGNS: Temperature is 98, blood pressure is 117/70, respiratory rate of 16. HEENT: Unremarkable. NECK: Supple. LUNGS: Have decreased breath sounds. HEART: Normal S1, S2. ABDOMEN: Soft, nontender. LABORATORY EXAMINATION: Reveals a white count of 7,000, hemoglobin of 12.3. Chemistries reveals a BUN of 10, creatinine of 0.9. Urinalysis is noted. Toxicology is noted. Serology is noted. Microbiology revels the bile culture is lactobacillus. ASSESSMENT AND PLAN: This is a 52-year-old male with acute cholecystitis and cholangitis, status post endoscopic retrograde cholangiopancreatography and failure to extract stone and was currently on Zosyn. The patient for OR today for an endoscopic retrograde cholangiopancreatography and ampullary dilatation and endoscopic retrograde cholangiopancreatography with sphincterotomy and balloon sweep, which was by Dr. Cassidy. Dr. Sanchez's surgical note is reviewed. Anthony Munoz MD
[2017-08-17 07:09] LABS: BASO # 0.04 K/mm3 (0.0-2.0); BASO % 0.5 % (0.0-3.0); EOS # 0.1 (0.0-0.7); GRAN # 6.41 (1.4-6.5); HEMOGLOBIN 12.7 g/dL (14.0-18.0); LYMPH # 0.8 (1.2-3.4); LYMPH % 10.1 % (22.0-35.0); MEAN CELL VOLUME 84.6 fl (80.0-105.0); MEAN CORPUSCULAR HEMOGLOBIN 28.3 pg (25.0-35.0); MEAN CORPUSCULAR HGB CONC 33.4 g/dl (31.0-37.0); MEAN PLATELET VOLUME 10.7 fl (7.0-11.0); MONO # 0.6 (0.1-0.6); MONO % 7.4 % (1.0-6.0); RBC 4.49 10^6/uL (3.5-6.1); RED CELL DISTRIBUTION WIDTH 13.3 % (11.5-14.5); WHITE BLOOD COUNT 7.9 10^3/ul (4.5-11.0)
[2017-08-17 07:34] LABS: ALB/GLOB RATIO 1.2 (1.1-1.8); ALT/SGPT 379 U/L (7-56); AST/SGOT 240 U/L (17-59); BLOOD UREA NITROGEN 6 mg/dL (7-21); CALCIUM 9.5 mg/dL (8.4-10.5); GFR AFRICAN-AMERICAN > 60; GFR NON-AFRICAN AMERICAN > 60
[2017-08-17] MEDS: POLYETHYLENE GLYCOL 3350 17 GM/Dose PACKET PO SCH ×2 (10:27→21:13)
--- NOTE | 2017-08-17 12:40 | CP.PCM.PN ---
<Nilda Loomis - Last Filed: 08/17/17 12:40> Subjective - Date & Time of Evaluation Date of Evaluation: 08/17/17 Time of Evaluation: 10:10 - Subjective Subjective: Seen and examined at the bedside earlier today, chart review. Patient denies any right lower leg pain, had some RUQ discomfort this a.m., no pain now. Tolerating oral intake denies nausea, vomiting, fever or chills. Remains on heparin drip no reports of any bleeding. No BM yet today. Patient is noted to have elevated LFTs. Objective - Vital Signs/Intake and Output Vital Signs (last 24 hours): Temp Pulse Resp BP Pulse Ox 98.1 F 70 20 160/90 H 96 08/17/17 08:00 08/17/17 08:00 08/17/17 08:00 08/17/17 08:00 08/17/17 08:00 Intake and Output: 08/17/17 08/17/17 06:59 18:59 Intake Total 1018 Output Total 2 Balance 1016 - Medications Medications: Current Medications Hydralazine HCl (Apresoline) 10 mg IVP Q6 PRN PRN Reason: Systolic Blood Pressure Heparin Sodium/Sodium Chloride (Heparin 90051 Units/250ml 1/2 Normal Saline) 25 ,000 units in 250 mls @ 18.068 mls/hr IV .[id number] PRN; Protocol; 18 UNITS/KG/HR PRN Reason: ADJUST RATE PER PROTOCOL Last Admin: 08/16/17 23:05 Dose: 18 units/kg/hr, 18.068 mls/hr Piperacillin Sod/Tazobactam Sod (Zosyn 3.375 In Ns 100ml) 100 mls @ 200 mls/hr IVPB Q6 [facility] PRN Reason: Protocol Stop: 08/23/17 00:01 Last Admin: 08/17/17 06:02 Dose: 200 mls/hr Ondansetron HCl (Zofran Inj) 4 mg IVP Q4H PRN PRN Reason: Nausea/Vomiting Oxycodone/Acetaminophen (Percocet 5/325 Mg Tab) 1 tab PO Q4H PRN PRN Reason: Pain, moderate (4-7) Stop: 08/19/17 17:10 Last Admin: 08/16/17 17:25 Dose: 1 tab Pantoprazole Sodium (Protonix Inj) 40 mg IVP Q12 [facility] Last Admin: 08/17/17 10:27 Dose: 40 mg Polyethylene Glycol (Miralax) 17 gm PO BID [facility] Last Admin: 08/17/17 10:27 Dose: 17 gm Ursodiol (Actigall) 300 mg PO BID [facility] - Labs Labs: 08/17/17 06:35 08/17/17 06:35 PT 13.4 SECONDS (9.4-12.5) H 08/12/17 00:45 INR 1.17 (0.93-1.08) H 08/12/17 00:45 APTT 91.2 Seconds (25.1-36.5) H 08/17/17 06:35 - Constitutional Appears: No Acute Distress - Head Exam Head Exam: NORMOCEPHALIC - Eye Exam Eye Exam: Normal appearance. absent: Scleral icterus - ENT Exam ENT Exam: Mucous Membranes Moist - Neck Exam Neck Exam: Normal Inspection - Respiratory Exam Respiratory Exam: NORMAL BREATHING PATTERN. absent: Respiratory Distress - Cardiovascular Exam Cardiovascular Exam: +S1, +S2 - GI/Abdominal Exam GI & Abdominal Exam: Soft, Normal Bowel Sounds. absent: Guarding, Tenderness, Organomegaly, Rebound - Extremities Exam Extremities Exam: absent: Calf Tenderness, Pedal Edema - Neurological Exam Neurological Exam: Alert, Awake, Oriented x3 Assessment and Plan - Assessment and Plan (Free Text) Assessment: Assessment: Elevating LFTs, differentials to consider is CBD stone, medication-induced Choledocholelithiasis with cholangitis Status post repeat ERCP w/ balloon sweep/ampulery dilation/sphicterotomy, w/ occlusion cholangitis, and stent removal Constipation Right leg DVT PLAN: request for LDH Originally requested for MRCP but patient is on heparin drip, cannot be discontinued, we will request for abdominal ultrasound to rule out for CBD stone on Heparin drip per protocol monitor LFT/CBc and for overt GI bleeding on GI prophylaxsis continue Miralax, hold for stools > 2/day continue IV antibiotics as per surgery surgery recommend elective outpatient sx. Plan discussed with patient and nursing. Will discussed with medical team. Seen and examined with Dr. Cassidy <Ean Cassidy V - Last Filed: 08/18/17 08:56> Objective - Vital Signs/Intake and Output Vital Signs (last 24 hours): Temp Pulse Resp BP Pulse Ox 98.9 F 63 18 158/85 H 97 08/17/17 14:00 08/17/17 14:00 08/17/17 14:00 08/17/17 14:00 08/17/17 14:00 Intake and Output: 08/17/17 08/18/17 18:59 06:59 Intake Total 250 0 Balance 250 0 - Medications Medications: Current Medications Hydralazine HCl (Apresoline) 10 mg IVP Q6 PRN PRN Reason: Systolic Blood Pressure Heparin Sodium/Sodium Chloride (Heparin 59939 Units/250ml 1/2 Normal Saline) 25 ,000 units in 250 mls @ 18.068 mls/hr IV .[id number] PRN; Protocol; 18 UNITS/KG/HR PRN Reason: ADJUST RATE PER PROTOCOL Last Admin: 08/17/17 15:48 Dose: 18 units/kg/hr, 18.068 mls/hr Piperacillin Sod/Tazobactam Sod (Zosyn 3.375 In Ns 100ml) 100 mls @ 200 mls/hr IVPB Q6 [facility] PRN Reason: Protocol Stop: 08/23/17 00:01 Last Admin: 08/17/17 18:30 Dose: 200 mls/hr Lisinopril (Zestril) 5 mg PO DAILY [facility] Last Admin: 08/17/17 21:11 Dose: 5 mg Ondansetron HCl (Zofran Inj) 4 mg IVP Q4H PRN PRN Reason: Nausea/Vomiting Oxycodone HCl (Oxycodone Immediate Release Tab) 5 mg PO Q6H PRN PRN Reason: Pain, moderate (4-7) Last Admin: 08/17/17 15:47 Dose: 5 mg Pantoprazole Sodium (Protonix Inj) 40 mg IVP Q12 [facility] Last Admin: 08/17/17 22:00 Dose: 40 mg Polyethylene Glycol (Miralax) 17 gm PO BID [facility] Last Admin: 08/17/17 21:13 Dose: 17 gm Ursodiol (Actigall) 300 mg PO BID [facility] Last Admin: 08/17/17 21:12 Dose: Not Given - Labs Labs: 08/17/17 06:35 08/17/17 06:35 PT 13.4 SECONDS (9.4-12.5) H 08/12/17 00:45 INR 1.17 (0.93-1.08) H 08/12/17 00:45 APTT 79.0 Seconds (25.1-36.5) H 08/17/17 20:15 Attending/Attestation - Attestation I have personally seen and examined this patient.: Yes I have fully participated in the care of the patient.: Yes I have reviewed all pertinent clinical information, including history, physical exam and plan: Yes Notes (Text): This is an addendum to GI progress report dictated by Nilda Loomis APN.The patient was seen and examined earlier. Medical records, lab studies, imagings were reviewed. Last 24 hours events reviewed. Agreed with the above treatment plan as outlined in Nilda Loomis APN's notes the with the addition of the following patient had an episode of epigastric discomfort Significant jump in LFTs On examination abdomen soft no tenderness On IV heparin for DVT Patient is on Zosyn Status post repeat ERCP on 08/15/2017. Patient had extension of the sphincterotomy and balloon sweep and removal of the large stone occlusion cholangiogram done after ballon sweep was clear Reason for elevated LFT this time is unclear possible another stone in CBD slipped from GB has to be considered however in view of the white sphincterotomy it is reasonable to wait If the patient continues to have elevated LFTs are increasing plan would need a repeat ERCP and possible spyglass 08/17/17 23:11
--- NOTE | 2017-08-17 13:43 | CP.PCM.PN ---
Subjective - Date & Time of Evaluation Date of Evaluation: 08/17/17 Time of Evaluation: 11:30 - Subjective Subjective: Patient seen and examined. T bili went up to 4.3 from 1.2. No complaints. Objective - Vital Signs/Intake and Output Vital Signs (last 24 hours): Temp Pulse Resp BP Pulse Ox 98.1 F 70 20 160/90 H 96 08/17/17 08:00 08/17/17 08:00 08/17/17 08:00 08/17/17 08:00 08/17/17 08:00 Intake and Output: 08/17/17 08/17/17 06:59 18:59 Intake Total 1018 Output Total 2 Balance 1016 - Medications Medications: Current Medications Hydralazine HCl (Apresoline) 10 mg IVP Q6 PRN PRN Reason: Systolic Blood Pressure Heparin Sodium/Sodium Chloride (Heparin 32947 Units/250ml 1/2 Normal Saline) 25 ,000 units in 250 mls @ 18.068 mls/hr IV .[id number] PRN; Protocol; 18 UNITS/KG/HR PRN Reason: ADJUST RATE PER PROTOCOL Last Admin: 08/16/17 23:05 Dose: 18 units/kg/hr, 18.068 mls/hr Piperacillin Sod/Tazobactam Sod (Zosyn 3.375 In Ns 100ml) 100 mls @ 200 mls/hr IVPB Q6 [facility] PRN Reason: Protocol Stop: 08/23/17 00:01 Last Admin: 08/17/17 06:02 Dose: 200 mls/hr Ondansetron HCl (Zofran Inj) 4 mg IVP Q4H PRN PRN Reason: Nausea/Vomiting Oxycodone/Acetaminophen (Percocet 5/325 Mg Tab) 1 tab PO Q4H PRN PRN Reason: Pain, moderate (4-7) Stop: 08/19/17 17:10 Last Admin: 08/16/17 17:25 Dose: 1 tab Pantoprazole Sodium (Protonix Inj) 40 mg IVP Q12 [facility] Last Admin: 08/17/17 10:27 Dose: 40 mg Polyethylene Glycol (Miralax) 17 gm PO BID [facility] Last Admin: 08/17/17 10:27 Dose: 17 gm Ursodiol (Actigall) 300 mg PO BID [facility] - Labs Labs: 08/17/17 06:35 08/17/17 06:35 PT 13.4 SECONDS (9.4-12.5) H 08/12/17 00:45 INR 1.17 (0.93-1.08) H 08/12/17 00:45 APTT 91.2 Seconds (25.1-36.5) H 08/17/17 06:35 - Constitutional Appears: No Acute Distress - Head Exam Head Exam: NORMOCEPHALIC - Eye Exam Eye Exam: Normal appearance - ENT Exam ENT Exam: Mucous Membranes Moist - Neck Exam Neck Exam: Normal Inspection - Respiratory Exam Respiratory Exam: NORMAL BREATHING PATTERN - Cardiovascular Exam Cardiovascular Exam: +S1, +S2 - GI/Abdominal Exam GI & Abdominal Exam: Soft - Neurological Exam Neurological Exam: Alert, Awake, Oriented x3 - Psychiatric Exam Psychiatric exam: Normal Mood - Skin Skin Exam: Normal Color, Warm Assessment and Plan - Assessment and Plan (Free Text) Assessment: 52M with choledocholithiasis s/p ERCP with removal of stone/sphincterotomy: -F/u Abd U/S -F/u AM lab -Cont with antibiotics -Anti-emetics/Analgesics -further recs per Dr. Daniel Hatch PGY2
--- NOTE | 2017-08-17 14:48 | CP.PCM.PN ---
<Shar Sanchez - Last Filed: 08/17/17 14:15> Subjective - Date & Time of Evaluation Date of Evaluation: 08/17/17 Time of Evaluation: 14:15 - Subjective Subjective: Medicine Progress Note: Patient seen and assessed at bedside. No acute events overnight. Patient reports that he has been having an intermittent sharp RUQ that he does not associate with PO intake or deep breathing. He denies any fevers, chills, headache, chest pain, SOB, N/V/D/C, urinary changes or any numbness/tingling/ weakness of any extremity. Objective - Vital Signs/Intake and Output Vital Signs (last 24 hours): Temp Pulse Resp BP Pulse Ox 98.1 F 70 20 160/90 H 96 08/17/17 08:00 08/17/17 08:00 08/17/17 08:00 08/17/17 08:00 08/17/17 08:00 Intake and Output: 08/17/17 08/17/17 06:59 18:59 Intake Total 1018 Output Total 2 Balance 1016 - Medications Medications: Current Medications Hydralazine HCl (Apresoline) 10 mg IVP Q6 PRN PRN Reason: Systolic Blood Pressure Heparin Sodium/Sodium Chloride (Heparin 78174 Units/250ml 1/2 Normal Saline) 25 ,000 units in 250 mls @ 18.068 mls/hr IV .[id number] PRN; Protocol; 18 UNITS/KG/HR PRN Reason: ADJUST RATE PER PROTOCOL Last Admin: 08/16/17 23:05 Dose: 18 units/kg/hr, 18.068 mls/hr Piperacillin Sod/Tazobactam Sod (Zosyn 3.375 In Ns 100ml) 100 mls @ 200 mls/hr IVPB Q6 GINNA PRN Reason: Protocol Stop: 08/23/17 00:01 Last Admin: 08/17/17 06:02 Dose: 200 mls/hr Ondansetron HCl (Zofran Inj) 4 mg IVP Q4H PRN PRN Reason: Nausea/Vomiting Oxycodone/Acetaminophen (Percocet 5/325 Mg Tab) 1 tab PO Q4H PRN PRN Reason: Pain, moderate (4-7) Stop: 08/19/17 17:10 Last Admin: 03/27/18 17:25 Dose: 1 tab Pantoprazole Sodium (Protonix Inj) 40 mg IVP Q12 [facility] Last Admin: 08/17/17 10:27 Dose: 40 mg Polyethylene Glycol (Miralax) 17 gm PO BID [facility] Last Admin: 08/17/17 10:27 Dose: 17 gm Ursodiol (Actigall) 300 mg PO BID [facility] - Labs Labs: 08/17/17 06:35 08/17/17 06:35 PT 13.4 SECONDS (9.4-12.5) H 08/12/17 00:45 INR 1.17 (0.93-1.08) H 08/12/17 00:45 APTT 91.2 Seconds (25.1-36.5) H 08/17/17 06:35 - Constitutional Appears: Non-toxic, No Acute Distress - Head Exam Head Exam: ATRAUMATIC, NORMOCEPHALIC - Eye Exam Eye Exam: EOMI, Normal appearance Pupil Exam: NORMAL ACCOMODATION, PERRL - ENT Exam ENT Exam: Mucous Membranes Moist, Normal Exam - Neck Exam Neck Exam: Full ROM, Normal Inspection. absent: Lymphadenopathy, Tenderness - Respiratory Exam Respiratory Exam: Clear to Ausculation Bilateral, NORMAL BREATHING PATTERN. absent: Accessory Muscle Use, Decreased Breath Sounds, Rales, Rhonchi, Wheezes, Respiratory Distress - Cardiovascular Exam Cardiovascular Exam: REGULAR RHYTHM, RRR, +S1, +S2. absent: Bradycardia, Tachycardia, Murmur - GI/Abdominal Exam GI & Abdominal Exam: Soft, Tenderness (RUQ TTP and positive murphys sign), Normal Bowel Sounds. absent: Distended, Firm, Guarding, Rigid, Diminished Bowel Sounds, Rebound - Extremities Exam Extremities Exam: Full ROM, Normal Capillary Refill, Pedal Edema (RLE with trace edema compared to LLE). absent: Calf Tenderness, Joint Swelling, Normal Inspection, Tenderness - Back Exam Back Exam: NORMAL INSPECTION - Neurological Exam Neurological Exam: Alert, Awake, CN II-XII Intact, Normal Gait, Oriented x3 - Psychiatric Exam Psychiatric exam: Normal Affect, Normal Mood - Skin Skin Exam: Dry, Warm Assessment and Plan - Assessment and Plan (Free Text) Assessment: 52 year old male with a past medical history significant for RLE DVT s/o occupational injury who presented with epigastric pain, nausea/vomiting and constipation. Patient was found to have and is currently being treated for choledocolithiasis with suspected cholangitis. Plan: 1. Choledocolithiasis with suspected Cholangitis -Blood cultures negative for five days and bile cultures grew Lactobacillus Species -LFT's and Total Bilirubin acutely elevated -Abdominal U/S pending -Started Ursodiol 300mg PO BID -Continue Zosyn 3.375 IVPB Q6H (Day 6) -Continue Zofran 4mg IVP Q4H PRN for N/V -Discontinued Percocet and started Oxycodone for pain control -Altered GI/Hepatic Diet -Surgery, GI and ID consulted, all recommendations appreciated 2. Acute on Chronic DVT of Right Popliteal and Tibial Veins -RLE Duplex U/S showed partially recannulized thrombus in the right popliteal and visualized tibial veins -Heparin Drip (DVT Protocol) -Previous hyper coagulable work up reviewed -Plans to discharge home on AC with repeat LE Duplex U/S in 2-4 weeks 3. HTN -Started Lisinopril 5mg PO daily -Hydralazine PRN -Continue to monitor before starting standing medication 4. Constipation -Miralax 17mg PO BID GI Prophylaxis: Protonix DVT Prophylaxis: Heparin Drip (DVT Protocol) Patient seen and case discussed with attending, Dr. Delfina Cisneros. <Delfina Cisneros - Last Filed: 08/19/17 17:12> Objective - Vital Signs/Intake and Output Vital Signs (last 24 hours): Temp Pulse Resp BP Pulse Ox 98.9 F 63 18 158/85 H 97 08/17/17 14:00 08/17/17 14:00 08/17/17 14:00 08/17/17 14:00 08/17/17 14:00 Intake and Output: 08/17/17 08/17/17 06:59 18:59 Intake Total 1018 250 Output Total 2 Balance 1016 250 - Medications Medications: Current Medications Hydralazine HCl (Apresoline) 10 mg IVP Q6 PRN PRN Reason: Systolic Blood Pressure Heparin Sodium/Sodium Chloride (Heparin 68306 Units/250ml 1/2 Normal Saline) 25 ,000 units in 250 mls @ 18.068 mls/hr IV .[id number] PRN; Protocol; 18 UNITS/KG/HR PRN Reason: ADJUST RATE PER PROTOCOL Last Admin: 08/17/17 15:48 Dose: 18 units/kg/hr, 18.068 mls/hr Piperacillin Sod/Tazobactam Sod (Zosyn 3.375 In Ns 100ml) 100 mls @ 200 mls/hr IVPB Q6 GINNA PRN Reason: Protocol Stop: 08/23/17 00:01 Last Admin: 08/17/17 12:10 Dose: 200 mls/hr Lisinopril (Zestril) 5 mg PO DAILY [facility] Ondansetron HCl (Zofran Inj) 4 mg IVP Q4H PRN PRN Reason: Nausea/Vomiting Oxycodone HCl (Oxycodone Immediate Release Tab) 5 mg PO Q6H PRN PRN Reason: Pain, moderate (4-7) Last Admin: 08/17/17 15:47 Dose: 5 mg Pantoprazole Sodium (Protonix Inj) 40 mg IVP Q12 [facility] Last Admin: 08/17/17 10:27 Dose: 40 mg Polyethylene Glycol (Miralax) 17 gm PO BID [facility] Last Admin: 08/17/17 10:27 Dose: 17 gm Ursodiol (Actigall) 300 mg PO BID [facility] - Labs Labs: 08/17/17 06:35 08/17/17 06:35 PT 13.4 SECONDS (9.4-12.5) H 08/12/17 00:45 INR 1.17 (0.93-1.08) H 08/12/17 00:45 APTT 91.2 Seconds (25.1-36.5) H 08/17/17 06:35 Attending/Attestation - Attestation I have personally seen and examined this patient.: Yes I have fully participated in the care of the patient.: Yes I have reviewed all pertinent clinical information, including history, physical exam and plan: Yes Notes (Text): I have seen and examined the patient. Agree with the above note with the following additions/ exceptions: Briefly this is 52 year old male with history of RLE DVT provoked after Right ankle surgery and completed anticoagulation treatment is admitted with epigastric pain. Abdominal CT scan showed thickening of the gallbladder wall. MRCP showed a 7 mm stone in the distal common bile duct. The patient had ERCP with sphincterotomy. Patient had acute cholangitis. Currently on IV Zosyn. Patient is afebrile and nontoxic. There is no leukocytosis. Blood and urine culture is negative. Patient has a sudden rise in LFTs. Percocet stopped. MRCP will be planned. He was also found to have acute LLE DVT. Lap cholecystectomy was deferred due to this new finding. Continue ursodiol for now. Will continue IV heparin for now. Start lisinopril for HTN. Upon discharge the patient will follow-up with PMD Dr. Thorpe. Dr Delfina Cisneros
[2017-08-17] MEDS ORDERED: oxyCODONE 5 mg Immediate Release Tab PO PRN (14:57)
--- NOTE | 2017-08-17 15:37 | US ---
HISTORY: elevating lft, r/o cbd stone COMPARISON: 08/12/2017 abdominal ultrasound. 08/12/2017 MRCP. Summary of findings on the comparison examination: There is a 7 mm stone in the distal common duct at the level of the ampulla. There is dilatation the common duct with a diameter 11 mm. TECHNIQUE: Sonographic evaluation of the abdomen. FINDINGS: LIVER: Measures 11. Cm. Hepatopedal blood flow. Fatty infiltration manifest ultrasonographically as increased echogenicity of the liver parenchyma. No mass. No intrahepatic bile duct dilatation. GALLBLADDER: Cholelithiasis. Negative study for gallbladder wall thickening, pericholecystic fluid, sonographic Kuo's sign. COMMON BILE DUCT: Measures 0.8 mm. No stones. No dilatation. Distal common bile duct obscured by overlying bowel gas PANCREAS: Obscured by overlying bowel gas. Non diagnostic assessment of the pancreas RIGHT KIDNEY: Measures 4.8 x 11.5cm. Normal echogenicity. No calculus, mass, or hydronephrosis. LEFT KIDNEY: Measures 7.2 x 11.9cm. Normal echogenicity. No calculus, mass, or hydronephrosis. SPLEEN: Normal in size and contour. No mass. AORTA: No aneurysmal dilatation. IVC: Obscured by overlying bowel gas. Non diagnostic assessment of inferior vena cava OTHER FINDINGS: None. IMPRESSION: Maximum diameter of the visualized common bile duct 8 mm without intrahepatic bile duct dilatation. Cholelithiasis. No sonographic evidence of acute cholecystitis. Limitations of the current examination: Nonvisualization distal common bile duct. Nonvisualization pancreas and IVC.
[2017-08-17] MEDS: Heparin25000 units/250ml 1/2NS 25,000 UNITS/250 ML BAG IV PRN (15:48)
--- NOTE | 2017-08-17 20:33 | PN ---
DATE: 08/17/2017 SUBJECTIVE: Patient is in bed, in no acute distress, nontoxic, was seen earlier this morning in 571, bed 1. PHYSICAL EXAMINATION: VITAL SIGNS: Temperature is 98, blood pressure is 150/80, respiratory rate of 18, heart rate of 70. HEENT: Unremarkable. NECK: Supple. LUNGS: Have decreased breath sounds. HEART: Normal S1, S2. ABDOMEN: Soft, nontender. LABORATORY DATA: Reveals a white count of 7.9, hemoglobin of 12.7, platelets of 295. Chemistry reveals the BUN of 6, creatinine of 0.8. The LFTs are mildly elevated and alk phos also went up to 374. Urinalysis is noted. Microbiology reveals the bile has lactobacillus species and blood cultures and urine cultures are negative and lactobacillus reported to be light growth. Review of orders revealed the patient to be on Zosyn, Protonix, lisinopril. Patient has abdominal ultrasound, which shows a 7-mm stone in the distal common duct at the level of ampulla, dilatation of the common bile duct at a diameter of [address] Mami Sanchez's note is reviewed. ASSESSMENT AND PLAN: This is a 52-year-old male with acute cholecystitis and cholangitis, status post endoscopic retrograde cholangiopancreatography, failure to extract stone, currently on Zosyn and for ampullary dilatation and endoscopic retrograde cholangiopancreatography and sphincterotomy and balloon sweep. Today's liver function tests are acutely elevated again with an ultrasound consistent with a stone and ductal dilatation. Awaiting for Surgical and GI input. We will continue the Zosyn. Anthony Munoz MD
[2017-08-18 07:33] LABS: ALB/GLOB RATIO 1.1 (1.1-1.8); ALBUMIN 4.3 g/dL (3.0-4.8); BILIRUBIN,DIRECT 6.4 mg/dL (0.0-0.4)
[2017-08-18] MEDS: Heparin25000 units/250ml 1/2NS 25,000 UNITS/250 ML BAG IV PRN (07:51)
[2017-08-18 09:22] LABS: BASO # 0.03 K/mm3 (0.0-2.0); BASO % 0.3 % (0.0-3.0); EOS # 0.1 (0.0-0.7); EOS % 1.1 % (1.5-5.0); GRAN # 9.32 (1.4-6.5); GRAN % 80.4 % (50.0-68.0); HEMOGLOBIN 13.7 g/dL (14.0-18.0); LYMPH % 8.2 % (22.0-35.0); MEAN CELL VOLUME 85.4 fl (80.0-105.0); MEAN CORPUSCULAR HEMOGLOBIN 29.5 pg (25.0-35.0); MEAN CORPUSCULAR HGB CONC 34.5 g/dl (31.0-37.0); MEAN PLATELET VOLUME 11.4 fl (7.0-11.0); MONO # 1.2 (0.1-0.6); RBC 4.65 10^6/uL (3.5-6.1); RED CELL DISTRIBUTION WIDTH 13.6 % (11.5-14.5); WHITE BLOOD COUNT 11.6 10^3/ul (4.5-11.0)
[2017-08-18 09:29] LABS: BLOOD UREA NITROGEN 9 mg/dL (7-21); GFR AFRICAN-AMERICAN > 60; GFR NON-AFRICAN AMERICAN > 60
[2017-08-18] MEDS: POLYETHYLENE GLYCOL 3350 17 GM/Dose PACKET PO SCH ×2 (10:12→17:19)
[2017-08-18] MEDS: Piperacillin/Tazobact 3.375 gm 100 ML IVPB SCH ×3 (14:00→23:22)
--- NOTE | 2017-08-18 14:24 | MRI ---
PROCEDURE: Magnetic Resonance Cholangiopancreatography HISTORY: Acutely elevated bilirubin COMPARISON: 08/12/2017 MRI. TECHNIQUE: Multiplanar, multisequence MR images of the abdomen were obtained, including heavily T2 weighted MRCP images of the biliary system. Rotating maximum intensity projection images of the biliary system were generated. FINDINGS: MRCP: The previous study showed a 7 mm stone in the distal common bile duct at the level of the ampulla. On the current study the common duct appears to be obstructed more proximally just beyond the junction with the cystic duct. The etiology of this obstruction is uncertain. The common duct distal to this obstruction is not visualized. This could be due to sludge and stones or blood filling the common duct. The patient has undergone recent ERCP. The intrahepatic ducts appear slightly more dilated. Clinical correlation is suggested LIVER: Unremarkable. GALLBLADDER: There is gallbladder sludge. There is a decrease in the gallbladder wall thickening seen previously. SPLEEN: Unremarkable. PANCREAS: Unremarkable. ADRENALS: Unremarkable. KIDNEYS: Unremarkable. AORTA: No aneurysm. ASCITES: None. OTHER FINDINGS: None. IMPRESSION: Obstruction of common duct just below the level of the cystic duct. See comments
--- NOTE | 2017-08-18 16:03 | CP.PCM.PN ---
<Nilda Loomis - Last Filed: 08/18/17 16:08> Subjective - Date & Time of Evaluation Date of Evaluation: 08/18/17 Time of Evaluation: 10:15 - Subjective Subjective: Seen and examined at the bedside earlier today, chart reviewed. Patient denies nausea, vomiting, or abdominal pain. Last BM was a few days ago, patient is on MiraLAX. Tolerating oral intake. No complaints of shortness of breath or chest pain. Remains on heparin drip. Patient had abdominal ultrasound yesterday which does show gallstones, no wall thickening or pericholecystic fluid, CBD measured 0.8 mm, no dilatation or CBD stone. Patient with no new complaints. Objective - Vital Signs/Intake and Output Vital Signs (last 24 hours): Temp Pulse Resp BP Pulse Ox 98.8 F 64 20 162/98 H 96 08/18/17 07:30 08/18/17 10:13 08/18/17 07:30 08/18/17 10:13 08/18/17 07:30 Intake and Output: 08/18/17 08/18/17 06:59 18:59 Intake Total 240 Balance 240 - Medications Medications: Current Medications Hydralazine HCl (Apresoline) 10 mg IVP Q6 PRN PRN Reason: Systolic Blood Pressure Piperacillin Sod/Tazobactam Sod (Zosyn 3.375 In Ns 100ml) 100 mls @ 200 mls/hr IVPB Q6 GINNA PRN Reason: Protocol Stop: 08/23/17 00:01 Last Admin: 08/18/17 14:00 Dose: 200 mls/hr Heparin Sodium/Sodium Chloride (Heparin 62893 Units/250ml 1/2 Normal Saline) 25 ,000 units in 250 mls @ 16.161 mls/hr IV .[id number] PRN; Protocol; 16.1 UNITS/KG/ HR PRN Reason: ADJUST RATE PER PROTOCOL Last Admin: 08/18/17 07:51 Dose: 16.1 units/kg/hr, 16.161 mls/hr Lisinopril (Zestril) 5 mg PO DAILY [facility] Last Admin: 08/18/17 10:13 Dose: 5 mg Ondansetron HCl (Zofran Inj) 4 mg IVP Q4H PRN PRN Reason: Nausea/Vomiting Oxycodone HCl (Oxycodone Immediate Release Tab) 5 mg PO Q6H PRN PRN Reason: Pain, moderate (4-7) Last Admin: 08/17/17 15:47 Dose: 5 mg Pantoprazole Sodium (Protonix Ec Tab) 40 mg PO Q12 [facility] Polyethylene Glycol (Miralax) 17 gm PO BID [facility] Last Admin: 08/18/17 10:12 Dose: 17 gm Ursodiol (Actigall) 300 mg PO BID [facility] Last Admin: 08/18/17 10:13 Dose: 300 mg - Labs Labs: 08/18/17 08:30 08/18/17 08:30 PT 13.4 SECONDS (9.4-12.5) H 08/12/17 00:45 INR 1.17 (0.93-1.08) H 08/12/17 00:45 APTT 77.6 Seconds (25.1-36.5) H 08/18/17 08:00 - Constitutional Appears: No Acute Distress - Head Exam Head Exam: NORMOCEPHALIC - Eye Exam Eye Exam: Normal appearance. absent: Scleral icterus - ENT Exam ENT Exam: Mucous Membranes Moist - Respiratory Exam Respiratory Exam: NORMAL BREATHING PATTERN. absent: Respiratory Distress - Cardiovascular Exam Cardiovascular Exam: +S1, +S2 - GI/Abdominal Exam GI & Abdominal Exam: Soft, Normal Bowel Sounds. absent: Guarding, Tenderness, Rebound - Extremities Exam Extremities Exam: Normal Capillary Refill. absent: Calf Tenderness, Pedal Edema - Neurological Exam Neurological Exam: Alert, Awake, Oriented x3 - Skin Skin Exam: Dry, Warm Assessment and Plan - Assessment and Plan (Free Text) Assessment: Assessment: Elevating LFTs, differentials to consider is CBD stone, medication-induced Choledocholelithiasis with cholangitis Status post repeat ERCP w/ balloon sweep/ampulery dilation/sphicterotomy, w/ occlusion cholangitis, and stent removal Constipation Right leg DVT PLAN: request for MRCP rule out for CBD stone, patient liver enzymes continue to elevate, discussed with medical team will request heparin to be on hold during this test. on Heparin drip per protocol monitor LFT/CBc and for overt GI bleeding on GI prophylaxsis continue Miralax, hold for stools > 2/day, if no BM, will give a dose of Lactulose continue IV antibiotics surgery recommend elective outpatient sx. Plan discussed with medical team. Seen and examined with Dr. Cassidy <Ean Cassidy V - Last Filed: 08/18/17 22:29> Objective - Vital Signs/Intake and Output Vital Signs (last 24 hours): Temp Pulse Resp BP Pulse Ox 98.8 F 64 20 162/98 H 96 08/18/17 07:30 08/18/17 10:13 08/18/17 07:30 08/18/17 10:13 08/18/17 07:30 Intake and Output: 08/18/17 08/19/17 18:59 06:59 Intake Total 600 Balance 600 - Medications Medications: Current Medications Hydralazine HCl (Apresoline) 10 mg IVP Q6 PRN PRN Reason: Systolic Blood Pressure Piperacillin Sod/Tazobactam Sod (Zosyn 3.375 In Ns 100ml) 100 mls @ 200 mls/hr IVPB Q6 GINNA PRN Reason: Protocol Stop: 08/23/17 00:01 Last Admin: 08/18/17 17:22 Dose: 200 mls/hr Heparin Sodium/Sodium Chloride (Heparin 47316 Units/250ml 1/2 Normal Saline) 25 ,000 units in 250 mls @ 16.161 mls/hr IV .[id number] PRN; Protocol; 16.1 UNITS/KG/ HR PRN Reason: ADJUST RATE PER PROTOCOL Last Admin: 08/18/17 07:51 Dose: 16.1 units/kg/hr, 16.161 mls/hr Lisinopril (Zestril) 5 mg PO DAILY [facility] Last Admin: 08/18/17 10:13 Dose: 5 mg Ondansetron HCl (Zofran Inj) 4 mg IVP Q4H PRN PRN Reason: Nausea/Vomiting Oxycodone HCl (Oxycodone Immediate Release Tab) 5 mg PO Q6H PRN PRN Reason: Pain, moderate (4-7) Last Admin: 08/17/17 15:47 Dose: 5 mg Pantoprazole Sodium (Protonix Ec Tab) 40 mg PO Q12 [facility] Polyethylene Glycol (Miralax) 17 gm PO BID [facility] Last Admin: 08/18/17 17:19 Dose: Not Given Ursodiol (Actigall) 300 mg PO BID [facility] Last Admin: 08/18/17 17:15 Dose: 300 mg - Labs Labs: 08/18/17 08:30 08/18/17 08:30 PT 13.4 SECONDS (9.4-12.5) H 08/12/17 00:45 INR 1.17 (0.93-1.08) H 08/12/17 00:45 APTT 64.4 Seconds (25.1-36.5) H 08/18/17 20:14 Attending/Attestation - Attestation I have personally seen and examined this patient.: Yes I have fully participated in the care of the patient.: Yes I have reviewed all pertinent clinical information, including history, physical exam and plan: Yes Notes (Text): This is an addendum to GI progress report dictated by Nilda Loomis APN.The patient was seen and examined earlier. Medical records, lab studies, imagings were reviewed. Last 24 hours events reviewed. Agreed with the above treatment plan as outlined in Nilda Loomis APN's notes the with the addition of the following 08/18/17 22:28
--- NOTE | 2017-08-18 16:41 | CP.PCM.PN ---
<Shar Sanchez - Last Filed: 08/18/17 16:35> Subjective - Date & Time of Evaluation Date of Evaluation: 08/18/17 Time of Evaluation: 16:35 - Subjective Subjective: Medicine Progress Note: Patient seen and assessed at bedside. No acute events overnight. Patient reports that his previously mentioned abdominal pain has improved since yesterday and that he slept well overnight. He denies any fevers, chills, headache, chest pain, SOB, N/V/D/C, urinary changes or any numbness/tingling/ weakness of any extremity. Objective - Vital Signs/Intake and Output Vital Signs (last 24 hours): Temp Pulse Resp BP Pulse Ox 98.8 F 64 20 162/98 H 96 08/18/17 07:30 08/18/17 10:13 08/18/17 07:30 08/18/17 10:13 08/18/17 07:30 Intake and Output: 08/18/17 08/18/17 06:59 18:59 Intake Total 240 Balance 240 - Medications Medications: Current Medications Hydralazine HCl (Apresoline) 10 mg IVP Q6 PRN PRN Reason: Systolic Blood Pressure Piperacillin Sod/Tazobactam Sod (Zosyn 3.375 In Ns 100ml) 100 mls @ 200 mls/hr IVPB Q6 [facility] PRN Reason: Protocol Stop: 08/23/17 00:01 Last Admin: 08/18/17 14:00 Dose: 200 mls/hr Heparin Sodium/Sodium Chloride (Heparin 39191 Units/250ml 1/2 Normal Saline) 25 ,000 units in 250 mls @ 16.161 mls/hr IV .[id number] PRN; Protocol; 16.1 UNITS/KG/ HR PRN Reason: ADJUST RATE PER PROTOCOL Last Admin: 08/18/17 07:51 Dose: 16.1 units/kg/hr, 16.161 mls/hr Lisinopril (Zestril) 5 mg PO DAILY [facility] Last Admin: 08/18/17 10:13 Dose: 5 mg Ondansetron HCl (Zofran Inj) 4 mg IVP Q4H PRN PRN Reason: Nausea/Vomiting Oxycodone HCl (Oxycodone Immediate Release Tab) 5 mg PO Q6H PRN PRN Reason: Pain, moderate (4-7) Last Admin: 08/17/17 15:47 Dose: 5 mg Pantoprazole Sodium (Protonix Ec Tab) 40 mg PO Q12 [facility] Polyethylene Glycol (Miralax) 17 gm PO BID [facility] Last Admin: 08/18/17 10:12 Dose: 17 gm Ursodiol (Actigall) 300 mg PO BID [facility] Last Admin: 08/18/17 10:13 Dose: 300 mg - Labs Labs: 08/18/17 08:30 08/18/17 08:30 PT 13.4 SECONDS (9.4-12.5) H 08/12/17 00:45 INR 1.17 (0.93-1.08) H 08/12/17 00:45 APTT 77.6 Seconds (25.1-36.5) H 08/18/17 08:00 - Constitutional Appears: Non-toxic, No Acute Distress - Head Exam Head Exam: ATRAUMATIC, NORMOCEPHALIC - Eye Exam Eye Exam: EOMI, Normal appearance Pupil Exam: NORMAL ACCOMODATION, PERRL - ENT Exam ENT Exam: Mucous Membranes Moist, Normal Exam - Neck Exam Neck Exam: Full ROM, Normal Inspection. absent: Lymphadenopathy, Tenderness - Respiratory Exam Respiratory Exam: Clear to Ausculation Bilateral, NORMAL BREATHING PATTERN. absent: Accessory Muscle Use, Decreased Breath Sounds, Rales, Rhonchi, Wheezes, Respiratory Distress - Cardiovascular Exam Cardiovascular Exam: REGULAR RHYTHM, RRR, +S1, +S2. absent: Bradycardia, Tachycardia, Clicks, Diastolic murmur, Gallop, Irregular Rhythm, JVD, Rubs, +S4 , Murmur - GI/Abdominal Exam GI & Abdominal Exam: Soft, Tenderness (RUQ with interval improvement noted), Normal Bowel Sounds. absent: Distended, Firm, Guarding, Rigid, Rebound - Extremities Exam Extremities Exam: Full ROM, Normal Capillary Refill, Pedal Edema (RLE with trace edema to mid-tibia). absent: Calf Tenderness, Joint Swelling, Normal Inspection, Tenderness - Back Exam Back Exam: NORMAL INSPECTION - Neurological Exam Neurological Exam: Alert, Awake, CN II-XII Intact, Normal Gait, Oriented x3 - Psychiatric Exam Psychiatric exam: Normal Affect, Normal Mood - Skin Skin Exam: Dry, Intact, Normal Color, Warm Assessment and Plan - Assessment and Plan (Free Text) Assessment: 52 year old male with a past medical history significant for RLE DVT s/o occupational injury who presented with epigastric pain, nausea/vomiting and constipation. Patient was found to have and is currently being treated for choledocolithiasis with suspected cholangitis. Plan: 1. Choledocolithiasis with suspected Cholangitis -MRCP showed obstruction of the CBD just below the level of the cystic duct -Abdominal U/S was limited due to bowel gas but showed no acute biliary obstruction in the visualized segments of the biliary tree -LFT's and Total Bilirubin acutely elevated and continue to increase -Continue Ursodiol 300mg PO BID -Continue Zosyn 3.375 IVPB Q6H (Day 7) -Continue Zofran 4mg IVP Q4H PRN for N/V -Continue Oxycodone for pain control -Altered GI/Hepatic Diet -Cholecystectomy to be done as an outpatient unless emergent surgical intervention is required -Surgery, GI and ID consulted, all recommendations appreciated 2. Acute on Chronic DVT of Right Popliteal and Tibial Veins -RLE Duplex U/S showed partially recannulized thrombus in the right popliteal and visualized tibial veins -Heparin Drip (DVT Protocol) -Previous hyper coagulable work up reviewed -Plans to discharge home on AC (Eliquis) with repeat LE Duplex U/S in 2-4 weeks 3. HTN -Continue Lisinopril 5mg PO daily and Hydralazine PRN 4. Constipation -Miralax 17mg PO BID GI Prophylaxis: Protonix DVT Prophylaxis: Heparin Drip (DVT Protocol) Patient seen and case discussed with attending, Dr. Delfina Cisneros. <Delfina Cisneros - Last Filed: 08/20/17 14:48> Objective - Vital Signs/Intake and Output Vital Signs (last 24 hours): Temp Pulse Resp BP Pulse Ox 98 F 64 14 148/88 99 08/19/17 16:54 08/19/17 16:54 08/19/17 16:54 08/19/17 16:54 08/19/17 16:54 Intake and Output: 08/19/17 08/19/17 06:59 18:59 Intake Total 3034 0 Balance 3034 0 - Medications Medications: Current Medications Hydralazine HCl (Apresoline) 10 mg IVP Q6 PRN PRN Reason: Systolic Blood Pressure Piperacillin Sod/Tazobactam Sod (Zosyn 3.375 In Ns 100ml) 100 mls @ 200 mls/hr IVPB Q6 [facility] PRN Reason: Protocol Stop: 08/23/17 00:01 Last Admin: 08/19/17 12:06 Dose: 200 mls/hr Heparin Sodium/Sodium Chloride (Heparin 54658 Units/250ml 1/2 Normal Saline) 25 ,000 units in 250 mls @ 16.161 mls/hr IV .[id number] PRN; Protocol; 16.1 UNITS/KG/ HR PRN Reason: ADJUST RATE PER PROTOCOL Last Admin: 08/19/17 00:17 Dose: 16.1 units/kg/hr, 16.161 mls/hr Sodium Chloride (Sodium Chloride 0.9%) 1,000 mls @ 75 mls/hr IV .[id number] [facility] Stop: 08/19/17 18:16 Lisinopril (Zestril) 5 mg PO DAILY [facility] Last Admin: 08/19/17 09:30 Dose: 5 mg Ondansetron HCl (Zofran Inj) 4 mg IVP Q4H PRN PRN Reason: Nausea/Vomiting Oxycodone HCl (Oxycodone Immediate Release Tab) 5 mg PO Q6H PRN PRN Reason: Pain, moderate (4-7) Last Admin: 08/17/17 15:47 Dose: 5 mg Pantoprazole Sodium (Protonix Ec Tab) 40 mg PO Q12 [facility] Last Admin: 08/19/17 09:30 Dose: 40 mg Polyethylene Glycol (Miralax) 17 gm PO BID [facility] Last Admin: 08/19/17 09:30 Dose: Not Given Ursodiol (Actigall) 300 mg PO BID [facility] Last Admin: 08/19/17 09:30 Dose: 300 mg - Labs Labs: 08/19/17 07:30 08/19/17 07:30 PT 13.4 SECONDS (9.4-12.5) H 08/12/17 00:45 INR 1.17 (0.93-1.08) H 08/12/17 00:45 APTT 78.8 Seconds (25.1-36.5) H 08/19/17 07:00 Attending/Attestation - Attestation I have personally seen and examined this patient.: Yes I have fully participated in the care of the patient.: Yes I have reviewed all pertinent clinical information, including history, physical exam and plan: Yes Notes (Text): I have seen and examined the patient. Agree with the above note with the following additions/ exceptions: Briefly this is 52 year old male with history of RLE DVT provoked after Right ankle surgery and completed anticoagulation treatment is admitted with epigastric pain. Abdominal CT scan showed thickening of the gallbladder wall. MRCP showed a 7 mm stone in the distal common bile duct. The patient had ERCP with sphincterotomy. Patient had acute cholangitis. Currently on IV Zosyn. Patient is afebrile and nontoxic. There is no leukocytosis. Blood and urine culture is negative. Patient had a sudden rise in LFTs. Percocet stopped. MRCP was done which revealed obstruction of CBD below level of cystic duct. He was also found to have acute LLE DVT. Lap cholecystectomy was deferred due to this new finding. Recommend to repeat US in 3-4 weeks. Continue ursodiol for now. Will continue IV heparin for now. Continue lisinopril for HTN. Upon discharge the patient will follow-up with PMD Dr. Thorpe. Dr Delfina Cisneros
[2017-08-18] MEDS: Pantoprazole 40 mg EC Tab PO SCH (22:32)
[2017-08-19] MEDS: Heparin25000 units/250ml 1/2NS 25,000 UNITS/250 ML BAG IV PRN ×2 (00:17→21:43)
--- NOTE | 2017-08-19 01:08 | PN ---
DATE: 08/18/2017 SUBJECTIVE: The patient is seen in bed, in no acute distress, nontoxic, no fevers, no chills. PHYSICAL EXAMINATION: VITAL SIGNS: Temperature is 98, blood pressure is 165/90, respiratory rate of 20. HEENT: Unremarkable. NECK: Supple. LUNGS: Have decreased breath sounds. HEART: Normal S1 and S2. ABDOMEN: Soft, nontender. LABORATORY DATA: Reveals a white count of 11,600, hemoglobin of 13, BUN of 9, creatinine of 0.8. LFTs are noted to be elevated. Urinalysis is noted. Toxicology is noted and serology is noted. Microbiology is reviewed. The patient's bile has grown lactobacillus. The review of orders revealed the patient to be on Zosyn. The patient had MRCP, which shows obstruction of the common bile duct just at the level of the cystic duct. ASSESSMENT AND PLAN: A 52-year-old male with acute cholecystitis, cholangitis, status post endoscopic retrograde cholangiopancreatography, failure to extract the stone, currently on Zosyn with leukocytosis, endoscopic retrograde cholangiopancreatography with sphincterotomy and balloon sweep, now with magnetic resonance cholangiopancreatography positive for extraction. The patient has still not had any bowel movements, is now moving air. Dr. Barbara Sanchez's note is reviewed. The patient is also with [id number] deep venous thrombosis of the right popliteal and tibial veins. We are awaiting for gastrointestinal and surgical intervention input. Anthony Munoz MD
[2017-08-19] MEDS: Piperacillin/Tazobact 3.375 gm 100 ML IVPB SCH ×3 (06:06→17:20)
[2017-08-19 08:12] LABS: ALB/GLOB RATIO 1.1 (1.1-1.8); ALBUMIN 3.8 g/dL (3.0-4.8); BILIRUBIN,DIRECT 3.7 mg/dL (0.0-0.4)
--- NOTE | 2017-08-19 08:43 | CP.PCM.PN ---
Subjective - Date & Time of Evaluation Date of Evaluation: 08/19/17 Time of Evaluation: 08:40 - Subjective Subjective: Surgery: Dr. Sanchez Patient reports feeling well today. Denies abdominal pain f/c. He is NPO for ERCP today. Objective - Vital Signs/Intake and Output Vital Signs (last 24 hours): Temp Pulse Resp BP Pulse Ox 98.9 F 65 18 130/84 95 08/19/17 08:12 08/19/17 08:12 08/19/17 08:12 08/19/17 08:12 08/19/17 08:12 Intake and Output: 08/19/17 08/19/17 06:59 18:59 Intake Total 3034 Balance 3034 - Medications Medications: Current Medications Hydralazine HCl (Apresoline) 10 mg IVP Q6 PRN PRN Reason: Systolic Blood Pressure Piperacillin Sod/Tazobactam Sod (Zosyn 3.375 In Ns 100ml) 100 mls @ 200 mls/hr IVPB Q6 [facility] PRN Reason: Protocol Stop: 08/23/17 00:01 Last Admin: 08/19/17 06:06 Dose: 200 mls/hr Heparin Sodium/Sodium Chloride (Heparin 57351 Units/250ml 1/2 Normal Saline) 25 ,000 units in 250 mls @ 16.161 mls/hr IV .[id number] PRN; Protocol; 16.1 UNITS/KG/ HR PRN Reason: ADJUST RATE PER PROTOCOL Last Admin: 08/19/17 00:17 Dose: 16.1 units/kg/hr, 16.161 mls/hr Lisinopril (Zestril) 5 mg PO DAILY [facility] Last Admin: 08/18/17 10:13 Dose: 5 mg Ondansetron HCl (Zofran Inj) 4 mg IVP Q4H PRN PRN Reason: Nausea/Vomiting Oxycodone HCl (Oxycodone Immediate Release Tab) 5 mg PO Q6H PRN PRN Reason: Pain, moderate (4-7) Last Admin: 08/17/17 15:47 Dose: 5 mg Pantoprazole Sodium (Protonix Ec Tab) 40 mg PO Q12 [facility] Last Admin: 08/18/17 22:32 Dose: 40 mg Polyethylene Glycol (Miralax) 17 gm PO BID [facility] Last Admin: 08/18/17 17:19 Dose: Not Given Ursodiol (Actigall) 300 mg PO BID [facility] Last Admin: 08/18/17 17:15 Dose: 300 mg - Labs Labs: 08/18/17 08:30 08/18/17 08:30 PT 13.4 SECONDS (9.4-12.5) H 08/12/17 00:45 INR 1.17 (0.93-1.08) H 08/12/17 00:45 APTT 78.8 Seconds (25.1-36.5) H 08/19/17 07:00 - Constitutional Appears: Non-toxic, No Acute Distress - Head Exam Head Exam: ATRAUMATIC, NORMOCEPHALIC - Eye Exam Eye Exam: EOMI, Normal appearance - ENT Exam ENT Exam: Mucous Membranes Moist - Respiratory Exam Respiratory Exam: NORMAL BREATHING PATTERN. absent: Respiratory Distress - Cardiovascular Exam Cardiovascular Exam: REGULAR RHYTHM. absent: Tachycardia - GI/Abdominal Exam GI & Abdominal Exam: Soft. absent: Distended, Tenderness - Neurological Exam Neurological Exam: Alert, Awake - Psychiatric Exam Psychiatric exam: Normal Affect, Normal Mood - Skin Skin Exam: Normal Color, Warm Assessment and Plan - Assessment and Plan (Free Text) Assessment: 52 y/o male with choledocholithiasis Plan: patient for ERCP today no need to surgical intervention at this time -elective outpatient jai, f/u Dr. Sanchez in 1-2 weeks post d/c -will d/w Dr. Sanchez [facility] PGY3
[2017-08-19 09:15] LABS: BASO # 0.07 K/mm3 (0.0-2.0); BASO % 0.8 % (0.0-3.0); EOS # 0.4 (0.0-0.7); EOS % 4.2 % (1.5-5.0); GRAN # 6.24 (1.4-6.5); GRAN % 67.3 % (50.0-68.0); HEMOGLOBIN 12.8 g/dL (14.0-18.0); LYMPH # 1.6 (1.2-3.4); MEAN CORPUSCULAR HEMOGLOBIN 28.6 pg (25.0-35.0); MEAN CORPUSCULAR HGB CONC 33.7 g/dl (31.0-37.0); MEAN PLATELET VOLUME 10.9 fl (7.0-11.0); MONO % 10.7 % (1.0-6.0); RBC 4.47 10^6/uL (3.5-6.1); RED CELL DISTRIBUTION WIDTH 13.9 % (11.5-14.5); WHITE BLOOD COUNT 9.3 10^3/ul (4.5-11.0)
[2017-08-19 09:25] LABS: BLOOD UREA NITROGEN 16 mg/dL (7-21); CALCIUM 9.5 mg/dL (8.4-10.5); GFR AFRICAN-AMERICAN > 60; GFR NON-AFRICAN AMERICAN > 60
[2017-08-19] MEDS: Pantoprazole 40 mg EC Tab PO SCH ×2 (09:30→21:46)
[2017-08-19] MEDS: POLYETHYLENE GLYCOL 3350 17 GM/Dose PACKET PO SCH ×2 (09:30→17:34)
[2017-08-19] MEDS ORDERED: Indomethacin 50 MG Suppository PR ONE (14:14)
[2017-08-19] MEDS ORDERED: Iohexol 240 (50 ml) ONE (14:15)
--- NOTE | 2017-08-19 14:59 | CP.PCM.PN ---
<Shar Sanchez - Last Filed: 08/19/17 14:55> Subjective - Date & Time of Evaluation Date of Evaluation: 08/19/17 Time of Evaluation: 14:55 - Subjective Subjective: Medicine Progress Note: Patient seen and assessed at bedside. No acute events overnight. Patient will go for ERCP today with Dr. Cassidy. Patient denies any complaints including fevers, chills, headache, chest pain, SOB, N/V/D/C, urinary changes or any numbness/tingling/weakness of any extremity. Objective - Vital Signs/Intake and Output Vital Signs (last 24 hours): Temp Pulse Resp BP Pulse Ox 98.9 F 61 18 131/76 96 08/19/17 14:27 08/19/17 14:27 08/19/17 14:27 08/19/17 14:27 08/19/17 14:27 Intake and Output: 08/19/17 08/19/17 06:59 18:59 Intake Total 3034 0 Balance 3034 0 - Medications Medications: Current Medications Hydralazine HCl (Apresoline) 10 mg IVP Q6 PRN PRN Reason: Systolic Blood Pressure Piperacillin Sod/Tazobactam Sod (Zosyn 3.375 In Ns 100ml) 100 mls @ 200 mls/hr IVPB Q6 [facility] PRN Reason: Protocol Stop: 08/23/17 00:01 Last Admin: 08/19/17 12:06 Dose: 200 mls/hr Heparin Sodium/Sodium Chloride (Heparin 37436 Units/250ml 1/2 Normal Saline) 25 ,000 units in 250 mls @ 16.161 mls/hr IV .[id number] PRN; Protocol; 16.1 UNITS/KG/ HR PRN Reason: ADJUST RATE PER PROTOCOL Last Admin: 08/19/17 00:17 Dose: 16.1 units/kg/hr, 16.161 mls/hr Lisinopril (Zestril) 5 mg PO DAILY [facility] Last Admin: 08/19/17 09:30 Dose: 5 mg Ondansetron HCl (Zofran Inj) 4 mg IVP Q4H PRN PRN Reason: Nausea/Vomiting Oxycodone HCl (Oxycodone Immediate Release Tab) 5 mg PO Q6H PRN PRN Reason: Pain, moderate (4-7) Last Admin: 08/17/17 15:47 Dose: 5 mg Pantoprazole Sodium (Protonix Ec Tab) 40 mg PO Q12 [facility] Last Admin: 08/19/17 09:30 Dose: 40 mg Polyethylene Glycol (Miralax) 17 gm PO BID [facility] Last Admin: 08/19/17 09:30 Dose: Not Given Ursodiol (Actigall) 300 mg PO BID [facility] Last Admin: 08/19/17 09:30 Dose: 300 mg - Labs Labs: 08/19/17 07:30 08/19/17 07:30 PT 13.4 SECONDS (9.4-12.5) H 08/12/17 00:45 INR 1.17 (0.93-1.08) H 08/12/17 00:45 APTT 78.8 Seconds (25.1-36.5) H 08/19/17 07:00 - Constitutional Appears: Non-toxic, No Acute Distress - Head Exam Head Exam: ATRAUMATIC, NORMOCEPHALIC - Eye Exam Eye Exam: EOMI, Normal appearance Pupil Exam: NORMAL ACCOMODATION, PERRL - ENT Exam ENT Exam: Mucous Membranes Moist, Normal Exam - Neck Exam Neck Exam: Full ROM, Normal Inspection. absent: Lymphadenopathy, Tenderness - Respiratory Exam Respiratory Exam: Clear to Ausculation Bilateral, NORMAL BREATHING PATTERN. absent: Accessory Muscle Use, Decreased Breath Sounds, Rales, Rhonchi, Wheezes - Cardiovascular Exam Cardiovascular Exam: REGULAR RHYTHM, RRR, +S1, +S2. absent: Bradycardia, Tachycardia, Murmur - GI/Abdominal Exam GI & Abdominal Exam: Soft, Tenderness (RUQ to deep palpation), Normal Bowel Sounds. absent: Distended, Firm, Guarding, Rigid, Rebound - Extremities Exam Extremities Exam: Full ROM, Normal Capillary Refill, Normal Inspection. absent : Calf Tenderness, Joint Swelling, Pedal Edema, Tenderness - Back Exam Back Exam: NORMAL INSPECTION - Neurological Exam Neurological Exam: Alert, Awake, CN II-XII Intact, Normal Gait, Oriented x3 - Psychiatric Exam Psychiatric exam: Normal Affect, Normal Mood - Skin Skin Exam: Dry, Intact, Normal Color, Warm Assessment and Plan - Assessment and Plan (Free Text) Assessment: 52 year old male with a past medical history significant for RLE DVT s/o occupational injury who presented with epigastric pain, nausea/vomiting and constipation. Patient was found to have and is currently being treated for choledocolithiasis with suspected cholangitis. Plan: 1. Choledocolithiasis with suspected Cholangitis -ERCP pending -MRCP showed obstruction of the CBD just below the level of the cystic duct -Abdominal U/S was limited due to bowel gas but showed no acute biliary obstruction in the visualized segments of the biliary tree -LFT's and Total Bilirubin acutely elevated but currently downtrending -Continue Ursodiol 300mg PO BID -Continue Zosyn 3.375 IVPB Q6H (Day 8) -Continue Zofran 4mg IVP Q4H PRN for N/V -Continue Oxycodone for pain control -NPO for ERCP -Cholecystectomy to be done as an outpatient unless emergent surgical intervention is required -Surgery, GI and ID consulted, all recommendations appreciated 2. Acute on Chronic DVT of Right Popliteal and Tibial Veins -RLE Duplex U/S showed partially recannulized thrombus in the right popliteal and visualized tibial veins -Heparin Drip (DVT Protocol) -Previous hyper coagulable work up reviewed -Plans to discharge home on AC (Eliquis) with repeat LE Duplex U/S in 2-4 weeks 3. HTN -Continue Lisinopril 5mg PO daily and Hydralazine PRN 4. Constipation -Miralax 17mg PO BID GI Prophylaxis: Protonix DVT Prophylaxis: Heparin Drip (DVT Protocol) Patient seen and case discussed with attending, Dr. Delfina Cisneros. <Delfina Cisneros B - Last Filed: 08/20/17 14:50> Objective - Vital Signs/Intake and Output Vital Signs (last 24 hours): Temp Pulse Resp BP Pulse Ox 98.8 F 66 18 100/60 99 08/20/17 08:00 08/20/17 08:00 08/20/17 08:00 08/20/17 08:00 08/20/17 08:00 Intake and Output: 08/20/17 08/20/17 06:59 18:59 Intake Total 960 Balance 960 - Medications Medications: Current Medications Hydralazine HCl (Apresoline) 10 mg IVP Q6 PRN PRN Reason: Systolic Blood Pressure Piperacillin Sod/Tazobactam Sod (Zosyn 3.375 In Ns 100ml) 100 mls @ 200 mls/hr IVPB Q6 [facility] PRN Reason: Protocol Stop: 04/03/18 00:01 Last Admin: 08/20/17 12:45 Dose: 200 mls/hr Heparin Sodium/Sodium Chloride (Heparin 77997 Units/250ml 1/2 Normal Saline) 25 ,000 units in 250 mls @ 16.061 mls/hr IV .[id number] PRN; Protocol; 16 UNITS/KG/HR PRN Reason: ADJUST RATE PER PROTOCOL Lisinopril (Zestril) 5 mg PO DAILY [facility] Last Admin: 08/20/17 10:25 Dose: 5 mg Ondansetron HCl (Zofran Inj) 4 mg IVP Q4H PRN PRN Reason: Nausea/Vomiting Oxycodone HCl (Oxycodone Immediate Release Tab) 5 mg PO Q6H PRN PRN Reason: Pain, moderate (4-7) Last Admin: 08/17/17 15:47 Dose: 5 mg Pantoprazole Sodium (Protonix Ec Tab) 40 mg PO Q12 [facility] Last Admin: 08/20/17 10:25 Dose: 40 mg Polyethylene Glycol (Miralax) 17 gm PO BID [facility] Last Admin: 08/20/17 10:25 Dose: 17 gm Ursodiol (Actigall) 300 mg PO BID [facility] Last Admin: 08/20/17 10:25 Dose: 300 mg - Labs Labs: 08/20/17 04:10 08/20/17 04:10 PT 13.4 SECONDS (9.4-12.5) H 08/12/17 00:45 INR 1.17 (0.93-1.08) H 08/12/17 00:45 APTT 92.5 Seconds (25.1-36.5) H 08/20/17 11:00 Attending/Attestation - Attestation I have personally seen and examined this patient.: Yes I have fully participated in the care of the patient.: Yes I have reviewed all pertinent clinical information, including history, physical exam and plan: Yes Notes (Text): I have seen and examined the patient. Agree with the above note with the following additions/ exceptions: Briefly this is 52 year old male with history of RLE DVT provoked after Right ankle surgery and completed anticoagulation treatment is admitted with epigastric pain. Abdominal CT scan showed thickening of the gallbladder wall. MRCP showed a 7 mm stone in the distal common bile duct. The patient had ERCP with sphincterotomy. Patient had acute cholangitis. Currently on IV Zosyn. Patient is afebrile and nontoxic. There is no leukocytosis. Blood and urine culture is negative. Patient had a sudden rise in LFTs. Percocet stopped. MRCP was done which revealed obstruction of CBD below level of cystic duct. Patient is scheduled for ERCP today. He was also found to have acute LLE DVT. Lap cholecystectomy was deferred due to this new finding. Recommend to repeat US in 3-4 weeks. Continue ursodiol for now. Will continue IV heparin for now. Continue lisinopril for HTN. Upon discharge the patient will follow-up with PMD Dr. Thorpe. Dr Delfina Cisneros
[2017-08-19] MEDS ORDERED: Midazolam 2 MG/2 ML VIAL ONE (15:09)
--- NOTE | 2017-08-19 15:17 | CP.PCM.PN ---
Subjective - Date & Time of Evaluation Date of Evaluation: 08/19/17 Time of Evaluation: 08:30 - Subjective Subjective: Patient is for ERCP today, no fevers, no diarrhea. Objective - Vital Signs/Intake and Output Vital Signs (last 24 hours): Temp Pulse Resp BP Pulse Ox 98.9 F 61 18 131/76 96 08/19/17 14:27 08/19/17 14:27 08/19/17 14:27 08/19/17 14:27 08/19/17 15:00 Intake and Output: 08/19/17 08/19/17 06:59 18:59 Intake Total 3034 0 Balance 3034 0 - Medications Medications: Current Medications Hydralazine HCl (Apresoline) 10 mg IVP Q6 PRN PRN Reason: Systolic Blood Pressure Piperacillin Sod/Tazobactam Sod (Zosyn 3.375 In Ns 100ml) 100 mls @ 200 mls/hr IVPB Q6 [facility] PRN Reason: Protocol Stop: 08/23/17 00:01 Last Admin: 08/19/17 12:06 Dose: 200 mls/hr Heparin Sodium/Sodium Chloride (Heparin 22920 Units/250ml 1/2 Normal Saline) 25 ,000 units in 250 mls @ 16.161 mls/hr IV .[id number] PRN; Protocol; 16.1 UNITS/KG/ HR PRN Reason: ADJUST RATE PER PROTOCOL Last Admin: 08/19/17 00:17 Dose: 16.1 units/kg/hr, 16.161 mls/hr Lisinopril (Zestril) 5 mg PO DAILY [facility] Last Admin: 08/19/17 09:30 Dose: 5 mg Ondansetron HCl (Zofran Inj) 4 mg IVP Q4H PRN PRN Reason: Nausea/Vomiting Oxycodone HCl (Oxycodone Immediate Release Tab) 5 mg PO Q6H PRN PRN Reason: Pain, moderate (4-7) Last Admin: 08/17/17 15:47 Dose: 5 mg Pantoprazole Sodium (Protonix Ec Tab) 40 mg PO Q12 [facility] Last Admin: 08/19/17 09:30 Dose: 40 mg Polyethylene Glycol (Miralax) 17 gm PO BID [facility] Last Admin: 08/19/17 09:30 Dose: Not Given Ursodiol (Actigall) 300 mg PO BID [facility] Last Admin: 08/19/17 09:30 Dose: 300 mg - Labs Labs: 08/19/17 07:30 08/19/17 07:30 PT 13.4 SECONDS (9.4-12.5) H 08/12/17 00:45 INR 1.17 (0.93-1.08) H 08/12/17 00:45 APTT 78.8 Seconds (25.1-36.5) H 08/19/17 07:00 - Constitutional Appears: Chronically Ill - Head Exam Head Exam: NORMAL INSPECTION - Respiratory Exam Respiratory Exam: Decreased Breath Sounds - Cardiovascular Exam Cardiovascular Exam: +S1, +S2 - GI/Abdominal Exam GI & Abdominal Exam: Soft. absent: Tenderness Assessment and Plan - Assessment and Plan (Free Text) Plan: Assessment Acute cholecystitis with probable acute cholangitis S/P ERCP but failure to extract stone - for repeat ERCP today since there is more proximal stone obstruction with the most recent MRCP history of right foot cellulitis in a patient with a history of right foot surgery history of DVT obesity with BMI 31 Plan Continue Zosyn and will follow up results of the ERCP done today will continue to monitor clinically
[2017-08-19] MEDS ORDERED: Rocuronium 10 mg/ml (5 ml) ONE (15:25)
[2017-08-19] MEDS ORDERED: Propofol 10 mg/ml Inj (20 ML) ONE (15:31)
[2017-08-19] MEDS ORDERED: Sodium Chloride 0.9% 1,000 ML IV SCH (16:15)
[2017-08-20] MEDS: Piperacillin/Tazobact 3.375 gm 100 ML IVPB SCH ×5 (00:15→23:12)
[2017-08-20 04:47] LABS: BASO # 0.06 K/mm3 (0.0-2.0); BASO % 0.6 % (0.0-3.0); EOS # 0.3 (0.0-0.7); EOS % 3.1 % (1.5-5.0); GRAN # 6.14 (1.4-6.5); GRAN % 60.9 % (50.0-68.0); HEMOGLOBIN 12.7 g/dL (14.0-18.0); LYMPH # 2.7 (1.2-3.4); LYMPH % 26.8 % (22.0-35.0); MEAN CELL VOLUME 86.1 fl (80.0-105.0); MEAN CORPUSCULAR HEMOGLOBIN 28.5 pg (25.0-35.0); MEAN CORPUSCULAR HGB CONC 33.1 g/dl (31.0-37.0); MEAN PLATELET VOLUME 10.8 fl (7.0-11.0); MONO # 0.9 (0.1-0.6); MONO % 8.6 % (1.0-6.0); RBC 4.46 10^6/uL (3.5-6.1); RED CELL DISTRIBUTION WIDTH 14.2 % (11.5-14.5); WHITE BLOOD COUNT 10.1 10^3/ul (4.5-11.0)
[2017-08-20 04:48] LABS: ALB/GLOB RATIO 1.2 (1.1-1.8); ALT/SGPT 397 U/L (7-56); AST/SGOT 173 U/L (17-59); BILIRUBIN,DIRECT 1.6 mg/dL (0.0-0.4); BLOOD UREA NITROGEN 21 mg/dL (7-21); CALCIUM 9.7 mg/dL (8.4-10.5); GFR AFRICAN-AMERICAN > 60; GFR NON-AFRICAN AMERICAN > 60
[2017-08-20] MEDS: POLYETHYLENE GLYCOL 3350 17 GM/Dose PACKET PO SCH ×2 (10:25→18:40)
[2017-08-20] MEDS: Pantoprazole 40 mg EC Tab PO SCH ×2 (10:25→21:21)
--- NOTE | 2017-08-20 10:38 | RAD ---
PROCEDURE: ERCP HISTORY: CBD OBST COMPARISON: None TECHNIQUE: Standard protocol for this study/examination. FINDINGS: Total fluoroscopic time (continuous mode) utilized during the procedure: 341.6 seconds. Total exam DLP: (mGy) 76.58 IMPRESSION: Less than 1 hr fluoroscopic time utilized during performance of the procedure.
[2017-08-20] MEDS ORDERED: Heparin25000 units/250ml 1/2NS 25,000 UNITS/250 ML BAG IV PRN (13:06)
--- NOTE | 2017-08-20 13:52 | CP.PCM.PN ---
<Ky Villeda Loretta - Last Filed: 08/20/17 13:52> Subjective - Date & Time of Evaluation Date of Evaluation: 08/20/17 Time of Evaluation: 13:48 - Subjective Subjective: Medicine progress note: Dr. Suzan Cisneros Patient seen and examined at bedside. No acute events overnight, patient has no complaints. Objective - Vital Signs/Intake and Output Vital Signs (last 24 hours): Temp Pulse Resp BP Pulse Ox 98.8 F 66 18 100/60 99 08/20/17 08:00 08/20/17 08:00 08/20/17 08:00 08/20/17 08:00 08/20/17 08:00 Intake and Output: 08/20/17 08/20/17 06:59 18:59 Intake Total 960 Balance 960 - Medications Medications: Current Medications Hydralazine HCl (Apresoline) 10 mg IVP Q6 PRN PRN Reason: Systolic Blood Pressure Piperacillin Sod/Tazobactam Sod (Zosyn 3.375 In Ns 100ml) 100 mls @ 200 mls/hr IVPB Q6 [facility] PRN Reason: Protocol Stop: 08/23/17 00:01 Last Admin: 08/20/17 05:36 Dose: 200 mls/hr Heparin Sodium/Sodium Chloride (Heparin 44982 Units/250ml 1/2 Normal Saline) 25 ,000 units in 250 mls @ 16.061 mls/hr IV .[id number] PRN; Protocol; 16 UNITS/KG/HR PRN Reason: ADJUST RATE PER PROTOCOL Lisinopril (Zestril) 5 mg PO DAILY [facility] Last Admin: 08/20/17 10:25 Dose: 5 mg Ondansetron HCl (Zofran Inj) 4 mg IVP Q4H PRN PRN Reason: Nausea/Vomiting Oxycodone HCl (Oxycodone Immediate Release Tab) 5 mg PO Q6H PRN PRN Reason: Pain, moderate (4-7) Last Admin: 08/17/17 15:47 Dose: 5 mg Pantoprazole Sodium (Protonix Ec Tab) 40 mg PO Q12 [facility] Last Admin: 08/20/17 10:25 Dose: 40 mg Polyethylene Glycol (Miralax) 17 gm PO BID [facility] Last Admin: 08/20/17 10:25 Dose: 17 gm Ursodiol (Actigall) 300 mg PO BID [facility] Last Admin: 08/20/17 10:25 Dose: 300 mg - Labs Labs: 08/20/17 04:10 08/20/17 04:10 PT 13.4 SECONDS (9.4-12.5) H 08/12/17 00:45 INR 1.17 (0.93-1.08) H 08/12/17 00:45 APTT 92.5 Seconds (25.1-36.5) H 08/20/17 11:00 - Constitutional Appears: Well - Head Exam Head Exam: ATRAUMATIC, NORMAL INSPECTION, NORMOCEPHALIC - Eye Exam Eye Exam: EOMI, Normal appearance, PERRL Pupil Exam: NORMAL ACCOMODATION, PERRL - ENT Exam ENT Exam: Mucous Membranes Moist, Normal Exam - Neck Exam Neck Exam: Full ROM, Normal Inspection. absent: Lymphadenopathy - Respiratory Exam Respiratory Exam: Clear to Ausculation Bilateral, NORMAL BREATHING PATTERN - Cardiovascular Exam Cardiovascular Exam: REGULAR RHYTHM, +S1, +S2. absent: Murmur - GI/Abdominal Exam GI & Abdominal Exam: Soft, Normal Bowel Sounds. absent: Tenderness - Extremities Exam Extremities Exam: Full ROM, Normal Capillary Refill, Normal Inspection. absent : Joint Swelling, Pedal Edema - Back Exam Back Exam: NORMAL INSPECTION - Neurological Exam Neurological Exam: Alert, Awake, CN II-XII Intact, Normal Gait, Oriented x3 - Psychiatric Exam Psychiatric exam: Normal Affect, Normal Mood - Skin Skin Exam: Dry, Intact, Normal Color, Warm Assessment and Plan - Assessment and Plan (Free Text) Assessment: Assessment and Plan 52 year old male with a past medical history significant for RLE DVT s/o occupational injury who presented with epigastric pain, nausea/vomiting and constipation. Patient was found to have and is currently being treated for choledocolithiasis with suspected cholangitis. Choledocolithiasis with suspected Cholangitis -ERCP recommendations: Restart heparin - spoke to Dr. Cassidy, he states that a physician should be titrating the dose, not the nurses, and that aptt should be drawn every 6 hours Clear liquid diet -MRCP showed obstruction of the CBD just below the level of the cystic duct -Abdominal U/S was limited due to bowel gas but showed no acute biliary obstruction in the visualized segments of the biliary tree -LFT's and Total Bilirubin acutely elevated but currently downtrending -Continue Ursodiol 300mg PO BID -Continue Zosyn 3.375 IVPB Q6H (Day 8) -Continue Zofran 4mg IVP Q4H PRN for N/V -Continue Oxycodone for pain control -Cholecystectomy to be done as an outpatient unless emergent surgical intervention is required -Surgery, GI and ID consulted, all recommendations appreciated Acute on Chronic DVT of Right Popliteal and Tibial Veins -RLE Duplex U/S showed partially recannulized thrombus in the right popliteal and visualized tibial veins -Heparin Drip (DVT Protocol) -Previous hyper coagulable work up reviewed -Plans to discharge home on AC (Eliquis) with repeat LE Duplex U/S in 2-4 weeks HTN -Continue Lisinopril 5mg PO daily and Hydralazine PRN Constipation -Miralax 17mg PO BID GI Prophylaxis: Protonix DVT Prophylaxis: Heparin Drip (DVT Protocol) <Delfina Cisneros - Last Filed: 08/20/17 14:53> Objective - Vital Signs/Intake and Output Vital Signs (last 24 hours): Temp Pulse Resp BP Pulse Ox 98.8 F 66 18 100/60 99 08/20/17 08:00 08/20/17 08:00 08/20/17 08:00 08/20/17 08:00 08/20/17 08:00 Intake and Output: 08/20/17 08/20/17 06:59 18:59 Intake Total 960 Balance 960 - Medications Medications: Current Medications Hydralazine HCl (Apresoline) 10 mg IVP Q6 PRN PRN Reason: Systolic Blood Pressure Piperacillin Sod/Tazobactam Sod (Zosyn 3.375 In Ns 100ml) 100 mls @ 200 mls/hr IVPB Q6 [facility] PRN Reason: Protocol Stop: 08/23/17 00:01 Last Admin: 08/20/17 12:45 Dose: 200 mls/hr Heparin Sodium/Sodium Chloride (Heparin 54171 Units/250ml 1/2 Normal Saline) 25 ,000 units in 250 mls @ 16.061 mls/hr IV .[id number] PRN; Protocol; 16 UNITS/KG/HR PRN Reason: ADJUST RATE PER PROTOCOL Lisinopril (Zestril) 5 mg PO DAILY [facility] Last Admin: 08/20/17 10:25 Dose: 5 mg Ondansetron HCl (Zofran Inj) 4 mg IVP Q4H PRN PRN Reason: Nausea/Vomiting Oxycodone HCl (Oxycodone Immediate Release Tab) 5 mg PO Q6H PRN PRN Reason: Pain, moderate (4-7) Last Admin: 08/17/17 15:47 Dose: 5 mg Pantoprazole Sodium (Protonix Ec Tab) 40 mg PO Q12 [facility] Last Admin: 08/20/17 10:25 Dose: 40 mg Polyethylene Glycol (Miralax) 17 gm PO BID [facility] Last Admin: 08/20/17 10:25 Dose: 17 gm Ursodiol (Actigall) 300 mg PO BID [facility] Last Admin: 08/20/17 10:25 Dose: 300 mg - Labs Labs: 08/20/17 04:10 08/20/17 04:10 PT 13.4 SECONDS (9.4-12.5) H 08/12/17 00:45 INR 1.17 (0.93-1.08) H 08/12/17 00:45 APTT 92.5 Seconds (25.1-36.5) H 08/20/17 11:00 Attending/Attestation - Attestation I have personally seen and examined this patient.: Yes I have fully participated in the care of the patient.: Yes I have reviewed all pertinent clinical information, including history, physical exam and plan: Yes Notes (Text): I have seen and examined the patient. Agree with the above note with the following additions/ exceptions: Briefly this is 52 year old male with history of RLE DVT provoked after Right ankle surgery and completed anticoagulation treatment is admitted with epigastric pain. Abdominal CT scan showed thickening of the gallbladder wall. MRCP showed a 7 mm stone in the distal common bile duct. The patient had ERCP with sphincterotomy. Patient had acute cholangitis. Currently on IV Zosyn. Patient is afebrile and nontoxic. There is no leukocytosis. Blood and urine culture is negative. Patient had a sudden rise in LFTs 3 days ago. Percocet stopped. MRCP was done which revealed obstruction of CBD below level of cystic duct. Patient underwent ERCP which revealed blood clots. Hb is stable. Patient does not have any pain. LFTs are trending down now. Heparin low dose protocol started last night. Plan to start couamdin in 1- 2 days. He was also found to have acute LLE DVT. Lap cholecystectomy was deferred due to this new finding. Recommend to repeat US in 3-4 weeks. Continue ursodiol for now. Will continue IV heparin for now. Continue lisinopril for HTN. Upon discharge the patient will follow-up with PMD Dr. Thorpe. Dr Delfina Cisneros
--- NOTE | 2017-08-20 14:05 | CP.PCM.PN ---
Subjective - Date & Time of Evaluation Date of Evaluation: 08/20/17 Time of Evaluation: 09:00 - Subjective Subjective: Surgery PT seen and examined. On heparin drip. Underwent ERCP yesterday trolerated it well. Denies fever, chills, nausea, abd pain. + void, + ambulating Objective - Vital Signs/Intake and Output Vital Signs (last 24 hours): Temp Pulse Resp BP Pulse Ox 98.8 F 66 18 100/60 99 08/20/17 08:00 08/20/17 08:00 08/20/17 08:00 08/20/17 08:00 08/20/17 08:00 Intake and Output: 08/20/17 08/20/17 06:59 18:59 Intake Total 960 Balance 960 - Medications Medications: Current Medications Hydralazine HCl (Apresoline) 10 mg IVP Q6 PRN PRN Reason: Systolic Blood Pressure Piperacillin Sod/Tazobactam Sod (Zosyn 3.375 In Ns 100ml) 100 mls @ 200 mls/hr IVPB Q6 [facility] PRN Reason: Protocol Stop: 08/23/17 00:01 Last Admin: 08/20/17 12:45 Dose: 200 mls/hr Heparin Sodium/Sodium Chloride (Heparin 14400 Units/250ml 1/2 Normal Saline) 25 ,000 units in 250 mls @ 16.061 mls/hr IV .[id number] PRN; Protocol; 16 UNITS/KG/HR PRN Reason: ADJUST RATE PER PROTOCOL Lisinopril (Zestril) 5 mg PO DAILY [facility] Last Admin: 08/20/17 10:25 Dose: 5 mg Ondansetron HCl (Zofran Inj) 4 mg IVP Q4H PRN PRN Reason: Nausea/Vomiting Oxycodone HCl (Oxycodone Immediate Release Tab) 5 mg PO Q6H PRN PRN Reason: Pain, moderate (4-7) Last Admin: 08/17/17 15:47 Dose: 5 mg Pantoprazole Sodium (Protonix Ec Tab) 40 mg PO Q12 [facility] Last Admin: 08/20/17 10:25 Dose: 40 mg Polyethylene Glycol (Miralax) 17 gm PO BID [facility] Last Admin: 08/20/17 10:25 Dose: 17 gm Ursodiol (Actigall) 300 mg PO BID [facility] Last Admin: 08/20/17 10:25 Dose: 300 mg - Labs Labs: 08/20/17 04:10 08/20/17 04:10 PT 13.4 SECONDS (9.4-12.5) H 08/12/17 00:45 INR 1.17 (0.93-1.08) H 08/12/17 00:45 APTT 92.5 Seconds (25.1-36.5) H 08/20/17 11:00 - Constitutional Appears: No Acute Distress - Head Exam Head Exam: ATRAUMATIC, NORMAL INSPECTION, NORMOCEPHALIC - Eye Exam Eye Exam: EOMI, Normal appearance, PERRL Pupil Exam: NORMAL ACCOMODATION, PERRL - ENT Exam ENT Exam: Mucous Membranes Moist, Normal Exam - Neck Exam Neck Exam: Full ROM, Normal Inspection. absent: Lymphadenopathy - Respiratory Exam Respiratory Exam: Clear to Ausculation Bilateral, NORMAL BREATHING PATTERN - Cardiovascular Exam Cardiovascular Exam: REGULAR RHYTHM, +S1, +S2. absent: Murmur - GI/Abdominal Exam GI & Abdominal Exam: Soft, Normal Bowel Sounds. absent: Distended, Tenderness - Extremities Exam Extremities Exam: Full ROM, Normal Capillary Refill, Normal Inspection. absent : Joint Swelling, Pedal Edema - Back Exam Back Exam: NORMAL INSPECTION - Neurological Exam Neurological Exam: Alert, Awake, CN II-XII Intact, Normal Gait, Oriented x3 - Psychiatric Exam Psychiatric exam: Normal Affect, Normal Mood - Skin Skin Exam: Dry, Intact, Normal Color, Warm Assessment and Plan - Assessment and Plan (Free Text) Assessment: choledocolithiasis w DVT MOnitor LFT -Medical management -Elective surgery CRISTA Sanchez
[2017-08-20] MEDS: Heparin25000 units/250ml 1/2NS 25,000 UNITS/250 ML BAG IV PRN (19:30)
--- NOTE | 2017-08-20 23:59 | PN ---
DATE: 08/20/2017 SUBJECTIVE: This patient was seen and evaluated earlier. PHYSICAL EXAMINATION: VITAL SIGNS: Patient is afebrile, temperature is 97.9, pulse is 59, blood pressure 131/87. HEENT: Atraumatic, jaundiced. NECK: Supple. HEART: S1, S2 heard. LUNGS: Bilateral air entry present. ABDOMEN: Soft. There is no mass palpable. No tenderness. EXTREMITIES: In the right lower extremity, the swelling has significantly improved. LABORATORY DATA: Hemoglobin 12.7, hematocrit 38.4, WBC 10.1, platelets 318. BUN 21, creatinine 1.2. LFTs showed a significant improvement. Total bilirubin has come down to 2.3, direct bilirubin 1.6, AST 133, ALT 397, and alkaline phosphatase 314. IMPRESSION: This is a 52-year-old patient, had underwent endoscopic retrograde cholangiopancreatography again and at this time found to have the bile duct filled with clots, which was removed and there was small amount of sludge only noticed. So, the significant biliary obstruction is probably due to the clots. His sphincterotomy post cleaning, the bile duct is completely cleared out, the opening was very adequate. The 12-mm balloon easily passed through the sphincterotomy area. The complete drainage of the contrast was noticed post sweep with no filling defects. Patient has history of cholangitis, status post endoscopic retrograde cholangiopancreatography, removal of the stones and the patient did have an [id number] deep venous thrombosis on anticoagulation, had acute elevation of the liver enzymes, subsequently had an endoscopic retrograde cholangiopancreatography done yesterday showed that the bile duct is filled with clots, which were removed. LFTs showing downward trend. The patient has been back on heparin; however, the heparin was found to be super therapeutic with PTT over 120. I did discuss with the hospitalist and also with the resident and advised the patient strictly to follow the low therapeutic dose protocol, not to overshoot the PTT level. Patient had high risk of developing another clots in the bile duct. The likely etiology for this could be due to cholangitis and stone impaction causing the biliary erosions. We will continue to closely follow up care and suggest further management. The plan is that if the LFTs showed continuous downward trend, patient can be started on Coumadin. Thank you very much for allowing us to participate in the care of the patient. Ean Cassidy MD [facility] # [id number]
--- NOTE | 2017-08-21 01:42 | PN ---
DATE: SUBJECTIVE: Patient is in bed, seen earlier this morning in 576, bed 1. No fevers. No chills. Comfortable. PHYSICAL EXAMINATION VITAL SIGNS: Temperature of 97, blood pressure is 130/80, respiratory rate of 18. HEENT: Unremarkable. NECK: Supple. LUNGS: Decreased breath sounds. HEART: Normal S1 and S2. ABDOMEN: Soft, nontender. LABORATORY DATA: Reveals a white count of 10,000, hemoglobin of 12, platelets of 318. Chemistry reveals a BUN of 21, creatinine of 1.2. LFTs are noted. Microbiology is noted. Bile culture lactobacillus. Review of orders reveals the patient to be on Zosyn, which requires renewal which we will do so. ASSESSMENT AND PLAN: This is a 52-year-old male, who was seen earlier this morning, with acute cholecystitis and probable acute cholangitis, status post endoscopic retrograde cholangiopancreatography, failure to extract the stone, with proximal stone obstruction on magnetic resonance cholangiopancreatography, currently on Zosyn. Dr. Ybarra's progress note is reviewed and appreciated. We will follow closely with you. Anthony Munoz MD
[2017-08-21] MEDS: Piperacillin/Tazobact 3.375 gm 100 ML IVPB SCH (05:40)
[2017-08-21 08:11] LABS: BASO # 0.08 K/mm3 (0.0-2.0); BASO % 0.9 % (0.0-3.0); EOS # 0.3 (0.0-0.7); GRAN # 5.3 (1.4-6.5); GRAN % 60.9 % (50.0-68.0); HEMOGLOBIN 12.1 g/dL (14.0-18.0); LYMPH # 2.2 (1.2-3.4); LYMPH % 25.6 % (22.0-35.0); MEAN CELL VOLUME 86.7 fl (80.0-105.0); MEAN CORPUSCULAR HEMOGLOBIN 28.7 pg (25.0-35.0); MEAN CORPUSCULAR HGB CONC 33.2 g/dl (31.0-37.0); MEAN PLATELET VOLUME 10.9 fl (7.0-11.0); MONO # 0.8 (0.1-0.6); MONO % 9.6 % (1.0-6.0); RBC 4.21 10^6/uL (3.5-6.1); RED CELL DISTRIBUTION WIDTH 14.3 % (11.5-14.5); WHITE BLOOD COUNT 8.7 10^3/ul (4.5-11.0)
--- NOTE | 2017-08-21 08:16 | CP.PCM.PN ---
Subjective - Date & Time of Evaluation Date of Evaluation: 08/21/17 Time of Evaluation: 06:35 - Subjective Subjective: General Surgery- Dr. Sanchez Pt S&E at bedside this AM. On Heparin Drip for Acute on chronic DVT. Denies current abd pain. + Flatus & BM. Denies fevers, chills, chest pain, shortness of breath, nausea, vomiting Objective - Vital Signs/Intake and Output Vital Signs (last 24 hours): Temp Pulse Resp BP Pulse Ox 98.2 F 67 18 113/67 99 08/20/17 22:00 08/20/17 22:00 08/20/17 22:00 08/20/17 22:00 08/20/17 22:00 Intake and Output: 08/21/17 08/21/17 06:59 18:59 Intake Total 1529 Balance 1529 - Medications Medications: Current Medications Hydralazine HCl (Apresoline) 10 mg IVP Q6 PRN PRN Reason: Systolic Blood Pressure Piperacillin Sod/Tazobactam Sod (Zosyn 3.375 In Ns 100ml) 100 mls @ 200 mls/hr IVPB Q6 [facility] PRN Reason: Protocol Stop: 08/23/17 00:01 Last Admin: 08/21/17 05:40 Dose: 200 mls/hr Heparin Sodium/Sodium Chloride (Heparin 02643 Units/250ml 1/2 Normal Saline) 25 ,000 units in 250 mls @ 16.061 mls/hr IV .[id number] PRN; Protocol; 16 UNITS/KG/HR PRN Reason: ADJUST RATE PER PROTOCOL Last Admin: 08/20/17 19:30 Dose: 14 units/kg/hr, 14.053 mls/hr Lisinopril (Zestril) 5 mg PO DAILY [facility] Last Admin: 08/20/17 10:25 Dose: 5 mg Ondansetron HCl (Zofran Inj) 4 mg IVP Q4H PRN PRN Reason: Nausea/Vomiting Oxycodone HCl (Oxycodone Immediate Release Tab) 5 mg PO Q6H PRN PRN Reason: Pain, moderate (4-7) Last Admin: 08/17/17 15:47 Dose: 5 mg Pantoprazole Sodium (Protonix Ec Tab) 40 mg PO Q12 [facility] Last Admin: 08/20/17 21:21 Dose: 40 mg Polyethylene Glycol (Miralax) 17 gm PO BID [facility] Last Admin: 08/20/17 18:40 Dose: 17 gm Ursodiol (Actigall) 300 mg PO BID [facility] Last Admin: 08/20/17 18:41 Dose: 300 mg - Labs Labs: 08/20/17 04:10 08/20/17 04:10 PT 13.4 SECONDS (9.4-12.5) H 08/12/17 00:45 INR 1.17 (0.93-1.08) H 08/12/17 00:45 APTT 52.5 Seconds (25.1-36.5) H 08/21/17 00:25 - Constitutional Appears: Non-toxic, No Acute Distress - Head Exam Head Exam: ATRAUMATIC - Eye Exam Eye Exam: EOMI. absent: Scleral icterus - ENT Exam ENT Exam: Mucous Membranes Moist - Respiratory Exam Respiratory Exam: NORMAL BREATHING PATTERN. absent: Accessory Muscle Use, Respiratory Distress - Cardiovascular Exam Cardiovascular Exam: +S1, +S2. absent: Bradycardia, Tachycardia - GI/Abdominal Exam GI & Abdominal Exam: Soft. absent: Distended, Firm, Guarding, Rigid, Tenderness - Extremities Exam Extremities Exam: Normal Inspection - Neurological Exam Neurological Exam: Alert, Awake, Oriented x3 Assessment and Plan - Assessment and Plan (Free Text) Assessment: 52M s/p ERCP choledocolithiasis w Acute on Chronic DVT Plan: Trend LFT continue treatment for DVT will perform Elective surgery as outpatient discussed w/ Dr. Sanchez surgical attending PGY1
[2017-08-21 08:22] LABS: ALB/GLOB RATIO 1.2 (1.1-1.8); ALBUMIN 3.8 g/dL (3.0-4.8); ALT/SGPT 327 U/L (7-56); AST/SGOT 103 U/L (17-59); BILIRUBIN,DIRECT 1.2 mg/dL (0.0-0.4); BLOOD UREA NITROGEN 16 mg/dL (7-21); CALCIUM 9.4 mg/dL (8.4-10.5); GFR AFRICAN-AMERICAN > 60; GFR NON-AFRICAN AMERICAN > 60
[2017-08-21] MEDS: Heparin25000 units/250ml 1/2NS 25,000 UNITS/250 ML BAG IV PRN (10:23)
[2017-08-21] MEDS: POLYETHYLENE GLYCOL 3350 17 GM/Dose PACKET PO SCH ×2 (10:26→18:28)
[2017-08-21] MEDS: Pantoprazole 40 mg EC Tab PO SCH ×2 (10:27→21:30)
[2017-08-21 12:54] LABS: INR 0.99 (0.93-1.08); PROTHROMBIN TIME 11.4 SECONDS (9.4-12.5)
--- NOTE | 2017-08-21 16:27 | PN ---
DATE: SUBJECTIVE: Patient is in bed, in no acute distress, nontoxic. PHYSICAL EXAMINATION VITAL SIGNS: Temperature is 97, blood pressure is 118/80, respiratory rate of 18. HEENT: Examination is unremarkable. NECK: Supple. LUNGS: Decreased breath sounds. HEART: Normal S1 and S2. ABDOMEN: Soft, nontender. LABORATORY DATA: Reveals a white count of 8.7, hemoglobin of 12, platelets of 308,000. Chemistry reveals a BUN of 16, creatinine of 1. LFTs are improving and urinalysis is noted and serology is noted. Microbiology is reviewed. progress note is reviewed. Dr. Cassidy's note from yesterday is reviewed. Review of medications reveals the patient to be on heparin. ASSESSMENT AND PLAN: This is a 52-year-old male who was seen earlier this morning. Patient with acute cholecystitis and probable acute cholangitis, status post endoscopic retrograde cholangiopancreatography, failure to extract the stone, proximal stone obstruction, MRI and Dr. Cassidy reports that the stone now is removed and we will discontinue his with p.o. Augmentin 875 mg b.i.d. x7 days. Patient has also been anticoagulated for his deep venous thrombosis. Anthony Munoz MD
--- NOTE | 2017-08-21 18:29 | CP.PCM.PN ---
Subjective - Date & Time of Evaluation Date of Evaluation: 08/21/17 Time of Evaluation: 18:27 - Subjective Subjective: Medicine progress note: Dr. Suzan Cisneros Patient seen and examined at bedside. No acute events overnight, patient has no complaints. Objective - Vital Signs/Intake and Output Vital Signs (last 24 hours): Temp Pulse Resp BP Pulse Ox 97.8 F 70 18 134/82 98 08/21/17 14:00 08/21/17 14:00 08/21/17 14:00 08/21/17 14:00 08/21/17 14:00 Intake and Output: 08/21/17 08/21/17 06:59 18:59 Intake Total 1529 1690 Balance 1529 1690 - Medications Medications: Current Medications Amoxicillin/Clavulanate Potassium (Augmentin 875 Mg-125 Mg Tab) 1 tab PO Q12 [facility] PRN Reason: Protocol Stop: 08/28/17 22:01 Hydralazine HCl (Apresoline) 10 mg IVP Q6 PRN PRN Reason: Systolic Blood Pressure Heparin Sodium/Sodium Chloride (Heparin 83025 Units/250ml 1/2 Normal Saline) 25 ,000 units in 250 mls @ 16.061 mls/hr IV .[id number] PRN; Protocol; 16 UNITS/KG/HR PRN Reason: ADJUST RATE PER PROTOCOL Last Admin: 08/21/17 10:23 Dose: 10 units/kg/hr, 10.038 mls/hr Lisinopril (Zestril) 5 mg PO DAILY [facility] Last Admin: 08/21/17 10:27 Dose: 5 mg Ondansetron HCl (Zofran Inj) 4 mg IVP Q4H PRN PRN Reason: Nausea/Vomiting Pantoprazole Sodium (Protonix Ec Tab) 40 mg PO Q12 [facility] Last Admin: 08/21/17 10:27 Dose: 40 mg Polyethylene Glycol (Miralax) 17 gm PO BID [facility] Last Admin: 08/21/17 10:26 Dose: 17 gm Ursodiol (Actigall) 300 mg PO BID [facility] Last Admin: 08/21/17 10:26 Dose: 300 mg - Labs Labs: 08/21/17 07:00 08/21/17 07:00 PT 11.4 SECONDS (9.4-12.5) 08/21/17 12:20 INR 0.99 (0.93-1.08) 08/21/17 12:20 APTT 45.4 Seconds (25.1-36.5) H 08/21/17 18:00 - Constitutional Appears: Well - Head Exam Head Exam: ATRAUMATIC, NORMAL INSPECTION, NORMOCEPHALIC - Eye Exam Eye Exam: EOMI, Normal appearance, PERRL Pupil Exam: NORMAL ACCOMODATION, PERRL - ENT Exam ENT Exam: Mucous Membranes Moist, Normal Exam - Neck Exam Neck Exam: Full ROM, Normal Inspection. absent: Lymphadenopathy - Respiratory Exam Respiratory Exam: Clear to Ausculation Bilateral, NORMAL BREATHING PATTERN - Cardiovascular Exam Cardiovascular Exam: REGULAR RHYTHM, +S1, +S2. absent: Murmur - GI/Abdominal Exam GI & Abdominal Exam: Soft, Normal Bowel Sounds. absent: Tenderness - Extremities Exam Extremities Exam: Full ROM, Normal Capillary Refill, Normal Inspection. absent : Joint Swelling, Pedal Edema - Back Exam Back Exam: NORMAL INSPECTION - Neurological Exam Neurological Exam: Alert, Awake, CN II-XII Intact, Normal Gait, Oriented x3 - Psychiatric Exam Psychiatric exam: Normal Affect, Normal Mood - Skin Skin Exam: Dry, Intact, Normal Color, Warm Assessment and Plan - Assessment and Plan (Free Text) Assessment: Assessment and Plan 52 year old male with a past medical history significant for RLE DVT s/o occupational injury who presented with epigastric pain, nausea/vomiting and constipation. Patient was found to have and is currently being treated for choledocolithiasis with suspected cholangitis. Choledocolithiasis with suspected Cholangitis -ERCP recommendations: Restart heparin - spoke to Dr. Cassidy, he states that a physician should be titrating the dose, not the nurses, and that aptt should be drawn every 6 hours Clear liquid diet -MRCP showed obstruction of the CBD just below the level of the cystic duct -Abdominal U/S was limited due to bowel gas but showed no acute biliary obstruction in the visualized segments of the biliary tree -LFT's and Total Bilirubin acutely elevated but currently downtrending -Continue Ursodiol 300mg PO BID -Continue Zosyn 3.375 IVPB Q6H (Day 8) -Continue Zofran 4mg IVP Q4H PRN for N/V -Continue Oxycodone for pain control -Cholecystectomy to be done as an outpatient unless emergent surgical intervention is required -Surgery, GI and ID consulted, all recommendations appreciated Acute on Chronic DVT of Right Popliteal and Tibial Veins -RLE Duplex U/S showed partially recannulized thrombus in the right popliteal and visualized tibial veins -Heparin Drip (DVT Protocol) -Previous hyper coagulable work up reviewed -Patient was started on Coumadin 10 today - INR was .99 -Plans to discharge home on AC (Eliquis) with repeat LE Duplex U/S in 2-4 weeks HTN -Continue Lisinopril 5mg PO daily and Hydralazine PRN Constipation -Miralax 17mg PO BID GI Prophylaxis: Protonix DVT Prophylaxis: Heparin Drip (DVT Protocol) Note: Resident should manually titrate the Heparin drip at 50-60 aPTT
[2017-08-21] MEDS: Amoxicillin-Clav 875-125 mg Tab PO SCH (21:30)
--- NOTE | 2017-08-22 05:49 | PN ---
DATE: SUBJECTIVE: This patient was seen and evaluated earlier today. The patient denies any abdominal complaints. PHYSICAL EXAMINATION: VITAL SIGNS: Temperature is 98, pulse 57, blood pressure is 133/84. HEENT: Atraumatic and anicteric. NECK: Supple. HEART: S1 and S2 heard. LUNGS: Bilateral air entry present. ABDOMEN: Soft. No tenderness. EXTREMITIES: Right leg swelling has significantly improved on examination. LABORATORY DATA: Hemoglobin 12.1, hematocrit 36.5, WBC is 8.7, platelets 308. Chemistry shows significant improvement, the total bilirubin has gone down to 1.5, direct bilirubin 1.2, AST 103, ALT 327, alkaline phosphatase is 249. The PTT is still showing fluctuating levels, on heparin. IMPRESSION: This is a 52-year-old patient with cholangitis, status post endoscopic retrograde cholangiopancreatography, removal of the common bile duct stone, had a repeat endoscopic retrograde cholangiopancreatography done and removal of the multiple clots, the patient did have bleeding in the bile duct. Probably secondary to the inflammation plus anticoagulation therapy. The patient has acute deep venous thrombosis, on IV heparin, improving. RECOMMENDATIONS: 1. Continue the antibiotics as per ID. 2. Close followup of the PTT, to keep the low therapeutic range for the PTT. If further episodes of bleeding into the bile duct with clot, then we may have to consider placing the feeding tube. Hopefully with good control of the PTT, no further episodes of bleeding occurs. LFTs showing a downward trend. I did discuss with the hospitalist, Dr. Cisneros, and also with the resident. Thank you very much. Ean Cassidy MD
[2017-08-22 07:07] LABS: BASO # 0.03 K/mm3 (0.0-2.0); BASO % 0.4 % (0.0-3.0); EOS # 0.2 (0.0-0.7); EOS % 2.6 % (1.5-5.0); GRAN % 55.5 % (50.0-68.0); HEMOGLOBIN 11.9 g/dL (14.0-18.0); LYMPH # 2.4 (1.2-3.4); LYMPH % 33.5 % (22.0-35.0); MEAN CELL VOLUME 87.1 fl (80.0-105.0); MEAN CORPUSCULAR HEMOGLOBIN 28.4 pg (25.0-35.0); MEAN CORPUSCULAR HGB CONC 32.6 g/dl (31.0-37.0); MEAN PLATELET VOLUME 10.8 fl (7.0-11.0); MONO # 0.6 (0.1-0.6); RBC 4.19 10^6/uL (3.5-6.1); RED CELL DISTRIBUTION WIDTH 14.4 % (11.5-14.5); WHITE BLOOD COUNT 7.2 10^3/ul (4.5-11.0)
[2017-08-22 07:26] LABS: BLOOD UREA NITROGEN 9 mg/dL (7-21); CALCIUM 9.6 mg/dL (8.4-10.5); GFR AFRICAN-AMERICAN > 60; GFR NON-AFRICAN AMERICAN > 60
[2017-08-22 09:30] LABS: INR 1.09 (0.93-1.08); PROTHROMBIN TIME 12.5 SECONDS (9.4-12.5)
[2017-08-22 09:39] LABS: ALB/GLOB RATIO 1.2 (1.1-1.8); ALBUMIN 3.8 g/dL (3.0-4.8)
[2017-08-22] MEDS: Pantoprazole 40 mg EC Tab PO SCH ×2 (10:29→21:08)
[2017-08-22] MEDS: POLYETHYLENE GLYCOL 3350 17 GM/Dose PACKET PO SCH ×2 (10:29→17:35)
[2017-08-22] MEDS: Amoxicillin-Clav 875-125 mg Tab PO SCH ×2 (10:29→21:08)
[2017-08-22] MEDS: Heparin25000 units/250ml 1/2NS 25,000 UNITS/250 ML BAG IV PRN ×2 (13:51→18:48)
--- NOTE | 2017-08-22 16:09 | CP.PCM.PN ---
Subjective - Date & Time of Evaluation Date of Evaluation: 08/22/17 Time of Evaluation: 10:10 - Subjective Subjective: Comfortable in bed, no vomiting, no abdominal pain, no fevers. Objective - Vital Signs/Intake and Output Vital Signs (last 24 hours): Temp Pulse Resp BP Pulse Ox 97.6 F 61 20 136/78 98 08/22/17 08:47 08/22/17 10:29 08/22/17 08:47 08/22/17 10:29 08/22/17 08:47 Intake and Output: 08/22/17 08/22/17 06:59 18:59 Intake Total 612 730 Balance 612 730 - Medications Medications: Current Medications Amoxicillin/Clavulanate Potassium (Augmentin 875 Mg-125 Mg Tab) 1 tab PO Q12 [facility] PRN Reason: Protocol Stop: 08/28/17 22:01 Last Admin: 08/22/17 10:29 Dose: 1 tab Hydralazine HCl (Apresoline) 10 mg IVP Q6 PRN PRN Reason: Systolic Blood Pressure Heparin Sodium/Sodium Chloride (Heparin 60323 Units/250ml 1/2 Normal Saline) 25 ,000 units in 250 mls @ 16.061 mls/hr IV .[id number] PRN; Protocol; 16 UNITS/KG/HR PRN Reason: ADJUST RATE PER PROTOCOL Last Admin: 08/22/17 13:51 Dose: 10 units/kg/hr, 10.038 mls/hr Lisinopril (Zestril) 5 mg PO DAILY [facility] Last Admin: 08/22/17 10:29 Dose: 5 mg Ondansetron HCl (Zofran Inj) 4 mg IVP Q4H PRN PRN Reason: Nausea/Vomiting Pantoprazole Sodium (Protonix Ec Tab) 40 mg PO Q12 [facility] Last Admin: 08/22/17 10:29 Dose: 40 mg Polyethylene Glycol (Miralax) 17 gm PO BID [facility] Last Admin: 08/22/17 10:29 Dose: 17 gm Ursodiol (Actigall) 300 mg PO BID [facility] Last Admin: 08/22/17 10:28 Dose: 300 mg Warfarin Sodium (Coumadin) 10 mg PO 1800 [facility] PRN Reason: Protocol - Labs Labs: 08/22/17 06:30 08/22/17 06:30 PT 12.5 SECONDS (9.4-12.5) 08/22/17 06:30 INR 1.09 (0.93-1.08) H 08/22/17 06:30 APTT 49.0 Seconds (25.1-36.5) H 08/22/17 12:00 - Constitutional Appears: Chronically Ill - Head Exam Head Exam: NORMAL INSPECTION - ENT Exam ENT Exam: Mucous Membranes Moist - Respiratory Exam Respiratory Exam: Decreased Breath Sounds - Cardiovascular Exam Cardiovascular Exam: +S1, +S2 - GI/Abdominal Exam GI & Abdominal Exam: Soft. absent: Tenderness Assessment and Plan - Assessment and Plan (Free Text) Plan: Assessment Acute cholecystitis with probable acute cholangitis S/P ERCP initial failure to extract stone but now with repeat ERCP stone has been removed history of right foot cellulitis in a patient with a history of right foot surgery history of DVT obesity with BMI 31 Plan Continue augmentin to complete 7 days
--- NOTE | 2017-08-22 16:28 | CP.PCM.PN ---
<Shar Sanchez - Last Filed: 08/22/17 16:19> Subjective - Date & Time of Evaluation Date of Evaluation: 08/22/17 Time of Evaluation: 16:19 - Subjective Subjective: Medicine Progress Note: Patient seen and assessed at bedside. No acute events overnight. Patient denies any complaints at this time including fevers, chills, headache, chest pain, SOB , cough, abdominal pain, N/V/D/C, urinary changes, skin changes or any numbness/ tingling/weakness of any extremity. Objective - Vital Signs/Intake and Output Vital Signs (last 24 hours): Temp Pulse Resp BP Pulse Ox 97.6 F 61 20 136/78 98 08/22/17 08:47 08/22/17 10:29 08/22/17 08:47 08/22/17 10:29 08/22/17 08:47 Intake and Output: 08/22/17 08/22/17 06:59 18:59 Intake Total 612 730 Balance 612 730 - Medications Medications: Current Medications Amoxicillin/Clavulanate Potassium (Augmentin 875 Mg-125 Mg Tab) 1 tab PO Q12 [facility] PRN Reason: Protocol Stop: 08/28/17 22:01 Last Admin: 08/22/17 10:29 Dose: 1 tab Hydralazine HCl (Apresoline) 10 mg IVP Q6 PRN PRN Reason: Systolic Blood Pressure Heparin Sodium/Sodium Chloride (Heparin 23700 Units/250ml 1/2 Normal Saline) 25 ,000 units in 250 mls @ 16.061 mls/hr IV .[id number] PRN; Protocol; 16 UNITS/KG/HR PRN Reason: ADJUST RATE PER PROTOCOL Last Admin: 08/22/17 13:51 Dose: 10 units/kg/hr, 10.038 mls/hr Lisinopril (Zestril) 5 mg PO DAILY [facility] Last Admin: 08/22/17 10:29 Dose: 5 mg Ondansetron HCl (Zofran Inj) 4 mg IVP Q4H PRN PRN Reason: Nausea/Vomiting Pantoprazole Sodium (Protonix Ec Tab) 40 mg PO Q12 [facility] Last Admin: 08/22/17 10:29 Dose: 40 mg Polyethylene Glycol (Miralax) 17 gm PO BID [facility] Last Admin: 08/22/17 10:29 Dose: 17 gm Ursodiol (Actigall) 300 mg PO BID [facility] Last Admin: 08/22/17 10:28 Dose: 300 mg Warfarin Sodium (Coumadin) 10 mg PO 1800 [facility] PRN Reason: Protocol - Labs Labs: 08/22/17 06:30 08/22/17 06:30 PT 12.5 SECONDS (9.4-12.5) 08/22/17 06:30 INR 1.09 (0.93-1.08) H 08/22/17 06:30 APTT 49.0 Seconds (25.1-36.5) H 08/22/17 12:00 - Constitutional Appears: Non-toxic, No Acute Distress - Head Exam Head Exam: ATRAUMATIC, NORMOCEPHALIC - Eye Exam Eye Exam: EOMI, Normal appearance Pupil Exam: NORMAL ACCOMODATION, PERRL - ENT Exam ENT Exam: Mucous Membranes Moist, Normal Exam - Neck Exam Neck Exam: Full ROM, Normal Inspection - Respiratory Exam Respiratory Exam: Clear to Ausculation Bilateral, NORMAL BREATHING PATTERN - Cardiovascular Exam Cardiovascular Exam: REGULAR RHYTHM - GI/Abdominal Exam GI & Abdominal Exam: Soft, Normal Bowel Sounds. absent: Tenderness - Extremities Exam Extremities Exam: Full ROM, Normal Capillary Refill. absent: Calf Tenderness, Joint Swelling, Normal Inspection (Venous stasis dermatitis to RLE), Pedal Edema , Tenderness - Back Exam Back Exam: NORMAL INSPECTION - Neurological Exam Neurological Exam: Alert, Awake, CN II-XII Intact, Normal Gait, Oriented x3 - Psychiatric Exam Psychiatric exam: Normal Affect, Normal Mood - Skin Skin Exam: Dry, Intact, Warm Assessment and Plan - Assessment and Plan (Free Text) Assessment: 52 year old male with a past medical history significant for RLE DVT s/o occupational injury who presented with epigastric pain, nausea/vomiting and constipation. Patient was found to have and is currently being treated for choledocolithiasis with suspected cholangitis. Patient developed acute DVT and is currently being bridged from heparin drip to PO Coumadin. Plan: 1. Choledocolithiasis with suspected Cholangitis -ERCP showed large amounts of blood clots and biliary sludge that was cleared with balloon extraction -MRCP showed obstruction of the CBD just below the level of the cystic duct -LFT's and Total Bilirubin acutely elevated but currently downtrending -Continue Augmentin 875-125mg PO Q12 -Continue Ursodiol 300mg PO BID -Continue Zofran 4mg IVP Q4H PRN for N/V -Full liquid diet -Cholecystectomy to be done as an outpatient unless emergent surgical intervention is required -Surgery, GI and ID consulted, all recommendations appreciated 2. Acute on Chronic DVT of Right Popliteal and Tibial Veins -RLE Duplex U/S showed partially recannulized thrombus in the right popliteal and visualized tibial veins -Heparin Drip (DVT Protocol) -Start Coumadin 10mg PO daily -Previous hyper coagulable work up reviewed -Plans to discharge home on AC (Coumadin) with repeat LE Duplex U/S in 2-4 weeks -Hematology consulted, all recommendations appreciated 3. HTN -Continue Lisinopril 5mg PO daily and Hydralazine PRN 4. Constipation -Miralax 17mg PO BID GI Prophylaxis: Protonix DVT Prophylaxis: Heparin Drip (DVT Protocol) Patient seen and case discussed with attending, Dr. Smith. <Karen Smith - Last Filed: 08/22/17 17:27> Objective - Vital Signs/Intake and Output Vital Signs (last 24 hours): Temp Pulse Resp BP Pulse Ox 97.8 F 66 20 130/79 97 08/22/17 14:00 08/22/17 14:00 08/22/17 14:00 08/22/17 14:00 08/22/17 14:00 Intake and Output: 08/22/17 08/22/17 06:59 18:59 Intake Total 612 730 Balance 612 730 - Medications Medications: Current Medications Amoxicillin/Clavulanate Potassium (Augmentin 875 Mg-125 Mg Tab) 1 tab PO Q12 [facility] PRN Reason: Protocol Stop: 08/28/17 22:01 Last Admin: 08/22/17 10:29 Dose: 1 tab Hydralazine HCl (Apresoline) 10 mg IVP Q6 PRN PRN Reason: Systolic Blood Pressure Heparin Sodium/Sodium Chloride (Heparin 26444 Units/250ml 1/2 Normal Saline) 25 ,000 units in 250 mls @ 16.061 mls/hr IV .[id number] PRN; Protocol; 16 UNITS/KG/HR PRN Reason: ADJUST RATE PER PROTOCOL Last Admin: 08/22/17 13:51 Dose: 10 units/kg/hr, 10.038 mls/hr Lisinopril (Zestril) 5 mg PO DAILY [facility] Last Admin: 08/22/17 10:29 Dose: 5 mg Ondansetron HCl (Zofran Inj) 4 mg IVP Q4H PRN PRN Reason: Nausea/Vomiting Pantoprazole Sodium (Protonix Ec Tab) 40 mg PO Q12 [facility] Last Admin: 08/22/17 10:29 Dose: 40 mg Polyethylene Glycol (Miralax) 17 gm PO BID [facility] Last Admin: 08/22/17 10:29 Dose: 17 gm Ursodiol (Actigall) 300 mg PO BID [facility] Last Admin: 08/22/17 10:28 Dose: 300 mg Warfarin Sodium (Coumadin) 10 mg PO 1800 [facility] PRN Reason: Protocol - Labs Labs: 08/22/17 06:30 08/22/17 06:30 PT 12.5 SECONDS (9.4-12.5) 08/22/17 06:30 INR 1.09 (0.93-1.08) H 08/22/17 06:30 APTT 49.0 Seconds (25.1-36.5) H 08/22/17 12:00 Attending/Attestation - Attestation I have personally seen and examined this patient.: Yes I have fully participated in the care of the patient.: Yes I have reviewed all pertinent clinical information, including history, physical exam and plan: Yes Notes (Text): 08/22/17 17:19 Attending note; Patient seen and examined with resident. Patient is a 52 year old male with history of right lower extremity DVT provoked after Right ankle surgery and completed anticoagulation treatment is admitted with epigastric pain. Abdominal CT scan showed thickening of the gallbladder wall. MRCP showed a 7 mm stone in the distal common bile duct. The patient had ERCP with sphincterotomy. Patient had acute cholangitis. Currently on Augmentin. Patient is afebrile and nontoxic. There is no leukocytosis. Blood and urine culture is negative. Patient had a sudden rise in LFTs. which is improving after ERCP which revealed blood clots. acute RLE DVT. Currently on heparin drip .started on Coumadin. Hematology evaluation requested. This episode of unprovoked. Might need longer duration of anticoagulation. Lap cholecystectomy was deferred due to this new finding. Recommend to repeat US in 3-4 weeks. Continue ursodiol for now. Continue lisinopril for HTN. Upon discharge the patient will follow-up with [facility] clinic.
--- NOTE | 2017-08-22 19:44 | CP.PCM.CON ---
History of Present Illness - History of Present Illness History of Present Illness: 52 year old male with a history of provoked right popliteal DVT in 02/2017 s/p anticoagulation, admitted with abdominal pain, found to have choledocholilithiasis s/p ERCP and sphincterotomy, cholangitis, found to have acute on chronic RLE DVT. Review of the patients ultrasound shows new tibial vein thrombosis as well as cannulization of his popliteal DVT. He is unsure which blood thinner he took and reports he may have taken it for weeks to months. He denies chest pain. He denies trauma or increased immobility but notes he doesnt walk normal on that side after a lg fracture 5 years ago while on his job. Past medical history: DVT Past surgical history: Foot surgery, hernia repair Family history: Denies hematologic and oncologic problems Social history: Denies tobacco, alcohol, and illicit drug use. Allergies: NKA Review of systems: All remaining review of systems including HEENT, cardiovascular, respiratory, gastrointestinal, genitourinary, musculoskeletal, dermatologic, neurologic, and psychiatric are negative unless mentioned in the HPI. Past Patient History - Infectious Disease Hx of Infectious Diseases: None - Tetanus Immunizations Tetanus Immunization: Unknown - Past Social History Smoking Status: Never Smoked - CARDIAC Hx Pacemaker: No - PULMONARY Hx Respiratory Disorders: No - NEUROLOGICAL Hx Paralysis: No - HEENT Hx HEENT Problems: No - RENAL Hx Chronic Kidney Disease: No - ENDOCRINE/METABOLIC Hx Endocrine Disorders: No - HEMATOLOGICAL/ONCOLOGICAL Hx Blood Transfusions: No Hx Blood Transfusion Reaction: No - INTEGUMENTARY Hx Dermatological Problems: No - MUSCULOSKELETAL/RHEUMATOLOGICAL Hx Musculoskeletal Disorders: No - GASTROINTESTINAL Hx Gastrointestinal Disorders: Yes (VENTRAL HERNIA REPAIR,TONSILLECTOMY) - GENITOURINARY/GYNECOLOGICAL Hx Genitourinary Disorders: No - PSYCHIATRIC Hx Emotional Abuse: No Hx Physical Abuse: No Hx Substance Use: No - SURGICAL HISTORY Hx Surgeries: Yes - ANESTHESIA Hx Anesthesia Reactions: No Hx Malignant Hyperthermia: No Meds Allergies/Adverse Reactions: Allergies Allergy/AdvReac Type Severity Reaction Status Date / Time No Known Allergies Allergy Verified 08/12/17 00:32 - Medications Medications: Current Medications Amoxicillin/Clavulanate Potassium (Augmentin 875 Mg-125 Mg Tab) 1 tab PO Q12 [facility] PRN Reason: Protocol Stop: 08/28/17 22:01 Last Admin: 08/22/17 10:29 Dose: 1 tab Hydralazine HCl (Apresoline) 10 mg IVP Q6 PRN PRN Reason: Systolic Blood Pressure Heparin Sodium/Sodium Chloride (Heparin 26397 Units/250ml 1/2 Normal Saline) 25 ,000 units in 250 mls @ 16.061 mls/hr IV .[id number] PRN; Protocol; 16 UNITS/KG/HR PRN Reason: ADJUST RATE PER PROTOCOL Last Admin: 08/22/17 18:48 Dose: 11 units/kg/hr, 11.042 mls/hr Lisinopril (Zestril) 5 mg PO DAILY [facility] Last Admin: 08/22/17 10:29 Dose: 5 mg Ondansetron HCl (Zofran Inj) 4 mg IVP Q4H PRN PRN Reason: Nausea/Vomiting Pantoprazole Sodium (Protonix Ec Tab) 40 mg PO Q12 [facility] Last Admin: 08/22/17 10:29 Dose: 40 mg Polyethylene Glycol (Miralax) 17 gm PO BID [facility] Last Admin: 08/22/17 17:35 Dose: 17 gm Ursodiol (Actigall) 300 mg PO BID [facility] Last Admin: 08/22/17 17:35 Dose: 300 mg Warfarin Sodium (Coumadin) 10 mg PO 1800 [facility] PRN Reason: Protocol Last Admin: 08/22/17 18:27 Dose: 10 mg Physical Exam - Head Exam Head Exam: ATRAUMATIC - Eye Exam Eye Exam: Normal appearance - ENT Exam ENT Exam: Mucous Membranes Dry - Respiratory Exam Respiratory Exam: NORMAL BREATHING PATTERN - Cardiovascular Exam Cardiovascular Exam: +S1, +S2 - GI/Abdominal Exam GI & Abdominal Exam: Normal Bowel Sounds - Extremities Exam Extremities exam: Positive for: pedal edema Results - Vital Signs Recent Vital Signs: Last Vital Signs Temp 97.8 F 08/22/17 14:00 Pulse 66 08/22/17 14:00 Resp 20 08/22/17 14:00 BP 130/79 08/22/17 14:00 Pulse Ox 97 08/22/17 14:00 - Labs Result Diagrams: 08/22/17 06:30 08/22/17 06:30 Labs: Laboratory Results - last 24 hr 08/22/17 08/22/17 08/22/17 00:35 06:30 06:30 WBC 7.2 RBC 4.19 Hgb 11.9 L Hct 36.5 L MCV 87.1 MCH 28.4 MCHC 32.6 RDW 14.4 Plt Count 278 MPV 10.8 Gran % 55.5 Lymph % (Auto) 33.5 [place] % (Auto) 8.0 H Eos % (Auto) 2.6 Baso % (Auto) 0.4 Gran # 4.00 Lymph # (Auto) 2.4 [place] # (Auto) 0.6 Eos # (Auto) 0.2 Baso # (Auto) 0.03 PT INR APTT 45.6 H Sodium 142 Potassium 3.9 Chloride 105 Carbon Dioxide 29 Anion Gap 12 BUN 9 Creatinine 0.8 Est GFR ( Amer) > 60 Est GFR (Non-Af Amer) > 60 Random Glucose 99 Calcium 9.6 Total Bilirubin Direct Bilirubin AST ALT Alkaline Phosphatase Total Protein Albumin Globulin Albumin/Globulin Ratio 08/22/17 08/22/17 08/22/17 06:30 06:30 06:30 WBC RBC Hgb Hct MCV MCH MCHC RDW Plt Count MPV Gran % Lymph % (Auto) [place] % (Auto) Eos % (Auto) Baso % (Auto) Gran # Lymph # (Auto) [place] # (Auto) Eos # (Auto) Baso # (Auto) PT 12.5 INR 1.09 H APTT 45.0 H Sodium Potassium Chloride Carbon Dioxide Anion Gap BUN Creatinine Est GFR ( Amer) Est GFR (Non-Af Amer) Random Glucose Calcium Total Bilirubin 1.4 H Direct Bilirubin 1.0 H AST 84 H ALT 274 H Alkaline Phosphatase 211 H Total Protein 7.2 Albumin 3.8 Globulin 3.3 Albumin/Globulin Ratio 1.2 08/22/17 08/22/17 12:00 18:15 WBC RBC Hgb Hct MCV MCH MCHC RDW Plt Count MPV Gran % Lymph % (Auto) [place] % (Auto) Eos % (Auto) Baso % (Auto) Gran # Lymph # (Auto) [place] # (Auto) Eos # (Auto) Baso # (Auto) PT INR APTT 49.0 H 46.4 H Sodium Potassium Chloride Carbon Dioxide Anion Gap BUN Creatinine Est GFR ( Amer) Est GFR (Non-Af Amer) Random Glucose Calcium Total Bilirubin Direct Bilirubin AST ALT Alkaline Phosphatase Total Protein Albumin Globulin Albumin/Globulin Ratio Assessment & Plan (1) DVT (deep venous thrombosis) Assessment and Plan: reccurent; past DVT appears provoked unprovoked 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 Status: Acute
[2017-08-23] MEDS: Heparin25000 units/250ml 1/2NS 25,000 UNITS/250 ML BAG IV PRN ×3 (01:49→16:34)
--- NOTE | 2017-08-23 05:38 | PN ---
DATE: SUBJECTIVE: This patient was seen and evaluated earlier. Patient is comfortable, tolerating the diet. PHYSICAL EXAMINATION: VITAL SIGNS: Afebrile. Temperature is 97.7, blood pressure 135/82, pulse 62. HEENT: Atraumatic, anicteric. NECK: Supple. HEART: S1 and S2 heard. LUNGS: Bilateral air entry present. ABDOMEN: Soft. There is no tenderness. EXTREMITIES: The right leg swelling has significantly improved. LABORATORY DATA: Hemoglobin 11.9, hematocrit 36.5, WBC 7.2, platelets 278. Total bilirubin has come down to 1.4, direct bilirubin 1.0. AST 84, ALT 274, alkaline phosphatase 211. PTT 46.4. IMPRESSION AND PLAN: This is a 52-year-old patient with cholangitis, status post endoscopic retrograde cholangiopancreatography, removal of the stone, had a repeat endoscopic retrograde cholangiopancreatography done on Tuesday and removed large amount of clots and removed only small amount of sludge. Patient wants heparin for deep vein thrombosis now. The LFTs are showing downward trend. Would recommend to consider starting the patient on Coumadin. Would avoid newer anticoagulation. Patient is presently on Augmentin. Also on Actigall, continue that. Patient has gastroparesis. Advised soft food, chew the food well. Other comorbidities include deep vein thrombosis, on heparin. Started on Coumadin. Continue to closely follow up his care. Would benefit from elective cholecystectomy. Ean Cassidy MD
[2017-08-23 07:43] LABS: BASO # 0.03 K/mm3 (0.0-2.0); BASO % 0.5 % (0.0-3.0); EOS # 0.2 (0.0-0.7); EOS % 2.3 % (1.5-5.0); GRAN # 3.53 (1.4-6.5); GRAN % 53.6 % (50.0-68.0); HEMOGLOBIN 12.6 g/dL (14.0-18.0); LYMPH # 2.3 (1.2-3.4); LYMPH % 34.8 % (22.0-35.0); MEAN CELL VOLUME 87.2 fl (80.0-105.0); MEAN CORPUSCULAR HEMOGLOBIN 28.4 pg (25.0-35.0); MEAN CORPUSCULAR HGB CONC 32.6 g/dl (31.0-37.0); MEAN PLATELET VOLUME 10.6 fl (7.0-11.0); MONO # 0.6 (0.1-0.6); MONO % 8.8 % (1.0-6.0); PLATELET COUNT 288 10^3/uL (120.0-450.0); RBC 4.44 10^6/uL (3.5-6.1); RED CELL DISTRIBUTION WIDTH 13.9 % (11.5-14.5); WHITE BLOOD COUNT 6.6 10^3/ul (4.5-11.0)
[2017-08-23 07:52] LABS: ALB/GLOB RATIO 1.2 (1.1-1.8); ALBUMIN 4.1 g/dL (3.0-4.8); ALT/SGPT 234 U/L (7-56); AST/SGOT 68 U/L (17-59); BLOOD UREA NITROGEN 9 mg/dL (7-21); CALCIUM 9.9 mg/dL (8.4-10.5); GFR AFRICAN-AMERICAN > 60; GFR NON-AFRICAN AMERICAN > 60
[2017-08-23 07:54] LABS: INR 1.27 (0.93-1.08); PROTHROMBIN TIME 14.7 SECONDS (9.4-12.5)
[2017-08-23 08:04] LABS: PARTIAL THROMBOPLASTIN TIME 158.1 Seconds (25.1-36.5)
[2017-08-23] MEDS: Pantoprazole 40 mg EC Tab PO SCH ×2 (10:00→21:17)
[2017-08-23] MEDS: POLYETHYLENE GLYCOL 3350 17 GM/Dose PACKET PO SCH ×2 (10:00→17:37)
[2017-08-23] MEDS: Amoxicillin-Clav 875-125 mg Tab PO SCH ×2 (10:01→21:16)
--- NOTE | 2017-08-23 12:47 | CP.PCM.PN ---
Subjective - Date & Time of Evaluation Date of Evaluation: 08/23/17 Time of Evaluation: 11:40 - Subjective Subjective: Abdominal pain improved, no fevers, not in distress. Objective - Vital Signs/Intake and Output Vital Signs (last 24 hours): Temp Pulse Resp BP Pulse Ox 97.8 F 71 20 145/85 96 08/23/17 07:57 08/23/17 10:00 08/23/17 07:57 08/23/17 10:00 08/23/17 07:57 Intake and Output: 08/23/17 08/23/17 06:59 18:59 Intake Total 714 225 Balance 714 225 - Medications Medications: Current Medications Amoxicillin/Clavulanate Potassium (Augmentin 875 Mg-125 Mg Tab) 1 tab PO Q12 [facility] PRN Reason: Protocol Stop: 08/28/17 22:01 Last Admin: 08/23/17 10:01 Dose: 1 tab Hydralazine HCl (Apresoline) 10 mg IVP Q6 PRN PRN Reason: Systolic Blood Pressure Heparin Sodium/Sodium Chloride (Heparin 47102 Units/250ml 1/2 Normal Saline) 25 ,000 units in 250 mls @ 18.068 mls/hr IV .[id number] PRN; Protocol; 18 UNITS/KG/HR PRN Reason: ADJUST RATE PER PROTOCOL Last Admin: 08/23/17 09:58 Dose: 15 units/kg/hr, 15.057 mls/hr Lisinopril (Zestril) 5 mg PO DAILY [facility] Last Admin: 08/23/17 10:00 Dose: 5 mg Ondansetron HCl (Zofran Inj) 4 mg IVP Q4H PRN PRN Reason: Nausea/Vomiting Pantoprazole Sodium (Protonix Ec Tab) 40 mg PO Q12 [facility] Last Admin: 08/23/17 10:00 Dose: 40 mg Polyethylene Glycol (Miralax) 17 gm PO BID [facility] Last Admin: 08/23/17 10:00 Dose: 17 gm Ursodiol (Actigall) 300 mg PO BID [facility] Last Admin: 08/23/17 10:01 Dose: 300 mg Warfarin Sodium (Coumadin) 10 mg PO 1800 [facility] PRN Reason: Protocol Last Admin: 08/22/17 18:27 Dose: 10 mg - Labs Labs: 08/23/17 07:35 08/23/17 07:35 PT 14.7 SECONDS (9.4-12.5) H 08/23/17 07:35 INR 1.27 (0.93-1.08) H 08/23/17 07:35 APTT 74.9 Seconds (25.1-36.5) H 08/23/17 09:00 - Constitutional Appears: Non-toxic, Chronically Ill - Head Exam Head Exam: NORMAL INSPECTION - ENT Exam ENT Exam: Mucous Membranes Moist - Neck Exam Neck Exam: absent: Meningismus - Respiratory Exam Respiratory Exam: Decreased Breath Sounds - Cardiovascular Exam Cardiovascular Exam: +S1, +S2 - GI/Abdominal Exam GI & Abdominal Exam: Soft. absent: Tenderness Assessment and Plan - Assessment and Plan (Free Text) Plan: Assessment Acute cholecystitis with probable acute cholangitis S/P ERCP initial failure to extract stone but now with repeat ERCP stone has been removed history of right foot cellulitis in a patient with a history of right foot surgery history of DVT obesity with BMI 31 Plan Continue augmentin to complete another 6 days
[2017-08-23 12:50] LABS: FERRITIN 85.6 ng/mL
[2017-08-23 13:21] LABS: FOLATE 11.3 ng/mL
--- NOTE | 2017-08-23 14:33 | CP.PCM.PN ---
<Shar Sanchez - Last Filed: 08/23/17 14:27> Subjective - Date & Time of Evaluation Date of Evaluation: 08/23/17 Time of Evaluation: 14:27 - Subjective Subjective: Medicine Progress Note: Patient seen and assessed at bedside. No acute events overnight. Patient reports that he does not have any difficulty tolerating his diet and endorses no abdominal pain at this time. Patient denies any complaints at this time including fevers, chills, headache, chest pain, SOB, cough, abdominal pain, N/V/ D/C, urinary changes, skin changes or any numbness/tingling/weakness of any extremity. Objective - Vital Signs/Intake and Output Vital Signs (last 24 hours): Temp Pulse Resp BP Pulse Ox 97.8 F 71 20 145/85 96 08/23/17 07:57 08/23/17 10:00 08/23/17 07:57 08/23/17 10:00 08/23/17 07:57 Intake and Output: 08/23/17 08/23/17 06:59 18:59 Intake Total 714 1305 Balance 714 1305 - Medications Medications: Current Medications Amoxicillin/Clavulanate Potassium (Augmentin 875 Mg-125 Mg Tab) 1 tab PO Q12 [facility] PRN Reason: Protocol Stop: 08/28/17 22:01 Last Admin: 08/23/17 10:01 Dose: 1 tab Hydralazine HCl (Apresoline) 10 mg IVP Q6 PRN PRN Reason: Systolic Blood Pressure Heparin Sodium/Sodium Chloride (Heparin 07503 Units/250ml 1/2 Normal Saline) 25 ,000 units in 250 mls @ 18.068 mls/hr IV .[id number] PRN; Protocol; 18 UNITS/KG/HR PRN Reason: ADJUST RATE PER PROTOCOL Last Admin: 08/23/17 09:58 Dose: 15 units/kg/hr, 15.057 mls/hr Lisinopril (Zestril) 5 mg PO DAILY [facility] Last Admin: 08/23/17 10:00 Dose: 5 mg Ondansetron HCl (Zofran Inj) 4 mg IVP Q4H PRN PRN Reason: Nausea/Vomiting Pantoprazole Sodium (Protonix Ec Tab) 40 mg PO Q12 [facility] Last Admin: 08/23/17 10:00 Dose: 40 mg Polyethylene Glycol (Miralax) 17 gm PO BID [facility] Last Admin: 08/23/17 10:00 Dose: 17 gm Ursodiol (Actigall) 300 mg PO BID [facility] Last Admin: 08/23/17 10:01 Dose: 300 mg Warfarin Sodium (Coumadin) 10 mg PO 1800 [facility] PRN Reason: Protocol Last Admin: 08/22/17 18:27 Dose: 10 mg - Labs Labs: 08/23/17 07:35 08/23/17 07:35 PT 14.7 SECONDS (9.4-12.5) H 08/23/17 07:35 INR 1.27 (0.93-1.08) H 08/23/17 07:35 APTT 74.9 Seconds (25.1-36.5) H 08/23/17 09:00 - Constitutional Appears: Non-toxic, No Acute Distress - Head Exam Head Exam: ATRAUMATIC, NORMOCEPHALIC - Eye Exam Eye Exam: EOMI, Normal appearance Pupil Exam: NORMAL ACCOMODATION, PERRL - ENT Exam ENT Exam: Mucous Membranes Moist, Normal Exam - Neck Exam Neck Exam: Full ROM, Normal Inspection. absent: Lymphadenopathy, Tenderness - Respiratory Exam Respiratory Exam: Clear to Ausculation Bilateral, NORMAL BREATHING PATTERN - Cardiovascular Exam Cardiovascular Exam: REGULAR RHYTHM - GI/Abdominal Exam GI & Abdominal Exam: Soft, Normal Bowel Sounds. absent: Distended, Firm, Guarding, Rigid, Tenderness, Rebound - Extremities Exam Extremities Exam: Full ROM, Normal Capillary Refill, Normal Inspection. absent : Calf Tenderness, Joint Swelling, Pedal Edema, Tenderness - Back Exam Back Exam: NORMAL INSPECTION - Neurological Exam Neurological Exam: Alert, Awake, CN II-XII Intact, Normal Gait, Oriented x3 - Psychiatric Exam Psychiatric exam: Normal Affect, Normal Mood - Skin Skin Exam: Dry, Intact, Normal Color, Warm Assessment and Plan - Assessment and Plan (Free Text) Assessment: 52 year old male with a past medical history significant for RLE DVT s/o occupational injury who presented with epigastric pain, nausea/vomiting and constipation. Patient was found to have and is currently being treated for choledocolithiasis with suspected cholangitis. Patient developed acute DVT and is currently being bridged from heparin drip to PO Coumadin. Plan: 1. Choledocolithiasis with suspected Cholangitis -ERCP showed large amounts of blood clots and biliary sludge that was cleared with balloon extraction -MRCP showed obstruction of the CBD just below the level of the cystic duct -LFT's and Total Bilirubin acutely elevated but currently downtrending -Continue Augmentin 875-125mg PO Q12 (Day 2/6) -Continue Ursodiol 300mg PO BID -Continue Zofran 4mg IVP Q4H PRN for N/V -Full liquid diet -Cholecystectomy to be done as an outpatient unless emergent surgical intervention is required -Surgery, GI and ID consulted, all recommendations appreciated 2. Unprovoked DVT of Right Popliteal and Tibial Veins -RLE Duplex U/S showed partially recannulized thrombus in the right popliteal and visualized tibial veins -Heparin Drip (DVT Protocol) -Coumadin 10mg PO daily -Prothrombin gene mutation pending -Previous inherited thrombophilia work up reviewed -Plans to discharge home on AC (Coumadin) for total of three months with repeat LE Duplex U/S in two to four weeks -[employer] referral for specific recommendations regarding diet while on Coumadin therapy -Hematology consulted, all recommendations appreciated 3. HTN -Continue Lisinopril 5mg PO daily and Hydralazine PRN 4. Constipation -Miralax 17mg PO BID GI Prophylaxis: Protonix DVT Prophylaxis: Heparin Drip (DVT Protocol) Disposition: Patient to follow up at [facility] upon discharge. Patient seen and case discussed with attending, Dr. Smith. <Karen Smith - Last Filed: 08/23/17 18:47> Objective - Vital Signs/Intake and Output Vital Signs (last 24 hours): Temp Pulse Resp BP Pulse Ox 98 F 66 20 127/84 99 08/23/17 14:00 08/23/17 14:00 08/23/17 14:00 08/23/17 14:00 08/23/17 14:00 Intake and Output: 08/23/17 08/23/17 06:59 18:59 Intake Total 714 1305 Balance 714 1305 - Medications Medications: Current Medications Amoxicillin/Clavulanate Potassium (Augmentin 875 Mg-125 Mg Tab) 1 tab PO Q12 [facility] PRN Reason: Protocol Stop: 08/28/17 22:01 Last Admin: 08/23/17 10:01 Dose: 1 tab Hydralazine HCl (Apresoline) 10 mg IVP Q6 PRN PRN Reason: Systolic Blood Pressure Heparin Sodium/Sodium Chloride (Heparin 82857 Units/250ml 1/2 Normal Saline) 25 ,000 units in 250 mls @ 18.068 mls/hr IV .[id number] PRN; Protocol; 18 UNITS/KG/HR PRN Reason: ADJUST RATE PER PROTOCOL Last Admin: 08/23/17 16:34 Dose: 13 units/kg/hr, 13.049 mls/hr Lisinopril (Zestril) 5 mg PO DAILY [facility] Last Admin: 08/23/17 10:00 Dose: 5 mg Ondansetron HCl (Zofran Inj) 4 mg IVP Q4H PRN PRN Reason: Nausea/Vomiting Pantoprazole Sodium (Protonix Ec Tab) 40 mg PO Q12 [facility] Last Admin: 08/23/17 10:00 Dose: 40 mg Polyethylene Glycol (Miralax) 17 gm PO BID [facility] Last Admin: 08/23/17 17:37 Dose: 17 gm Ursodiol (Actigall) 300 mg PO BID [facility] Last Admin: 08/23/17 17:36 Dose: 300 mg Warfarin Sodium (Coumadin) 10 mg PO 1800 [facility] PRN Reason: Protocol Last Admin: 08/23/17 17:39 Dose: 10 mg - Labs Labs: 08/23/17 07:35 08/23/17 07:35 PT 14.7 SECONDS (9.4-12.5) H 08/23/17 07:35 INR 1.27 (0.93-1.08) H 08/23/17 07:35 APTT 89.2 Seconds (25.1-36.5) H 08/23/17 16:00 Attending/Attestation - Attestation I have personally seen and examined this patient.: Yes I have fully participated in the care of the patient.: Yes I have reviewed all pertinent clinical information, including history, physical exam and plan: Yes Notes (Text): 08/23/17 18:45 Attending note; Patient seen and examined with resident. Patient is a 52 year old male with history of right lower extremity DVT provoked after Right ankle surgery and completed anticoagulation treatment is admitted with epigastric pain. Abdominal CT scan showed thickening of the gallbladder wall. MRCP showed a 7 mm stone in the distal common bile duct. The patient had ERCP with sphincterotomy. Patient had acute cholangitis. Currently on Augmentin. Patient is afebrile and nontoxic. There is no leukocytosis. Blood and urine culture is negative. Patient had rise in LFTs. which is improving after ERCP which revealed blood clots. LFT is improving. acute RLE DVT. Currently on heparin drip .started on Coumadin. INR is 1.27. Continue Coumadin 10 mg. Dietary education ordered. Hematology evaluation appreciated. we need 3 months of anticoagulation. anemia; stable. B12 and folate is normal. previous hypercoagulable workup is negative. Prothrombin gene mutation is pending. Lap cholecystectomy was deferred due to this new finding. Recommend to repeat US in 3-4 weeks. Continue ursodiol for now. Continue lisinopril for HTN. Upon discharge the patient will follow-up with [facility].
--- NOTE | 2017-08-23 18:30 | CP.PCM.PN ---
Subjective - Date & Time of Evaluation Date of Evaluation: 08/23/17 Time of Evaluation: 17:45 - Subjective Subjective: No complaints. Objective - Vital Signs/Intake and Output Vital Signs (last 24 hours): Temp Pulse Resp BP Pulse Ox 98 F 66 20 127/84 99 08/23/17 14:00 08/23/17 14:00 08/23/17 14:00 08/23/17 14:00 08/23/17 14:00 Intake and Output: 08/23/17 08/23/17 06:59 18:59 Intake Total 714 1305 Balance 714 1305 - Medications Medications: Current Medications Amoxicillin/Clavulanate Potassium (Augmentin 875 Mg-125 Mg Tab) 1 tab PO Q12 [facility] PRN Reason: Protocol Stop: 08/28/17 22:01 Last Admin: 08/23/17 10:01 Dose: 1 tab Hydralazine HCl (Apresoline) 10 mg IVP Q6 PRN PRN Reason: Systolic Blood Pressure Heparin Sodium/Sodium Chloride (Heparin 23636 Units/250ml 1/2 Normal Saline) 25 ,000 units in 250 mls @ 18.068 mls/hr IV .[id number] PRN; Protocol; 18 UNITS/KG/HR PRN Reason: ADJUST RATE PER PROTOCOL Last Admin: 08/23/17 16:34 Dose: 13 units/kg/hr, 13.049 mls/hr Lisinopril (Zestril) 5 mg PO DAILY [facility] Last Admin: 08/23/17 10:00 Dose: 5 mg Ondansetron HCl (Zofran Inj) 4 mg IVP Q4H PRN PRN Reason: Nausea/Vomiting Pantoprazole Sodium (Protonix Ec Tab) 40 mg PO Q12 [facility] Last Admin: 08/23/17 10:00 Dose: 40 mg Polyethylene Glycol (Miralax) 17 gm PO BID [facility] Last Admin: 08/23/17 17:37 Dose: 17 gm Ursodiol (Actigall) 300 mg PO BID [facility] Last Admin: 08/23/17 17:36 Dose: 300 mg Warfarin Sodium (Coumadin) 10 mg PO 1800 [facility] PRN Reason: Protocol Last Admin: 08/23/17 17:39 Dose: 10 mg - Labs Labs: 08/23/17 07:35 08/23/17 07:35 PT 14.7 SECONDS (9.4-12.5) H 08/23/17 07:35 INR 1.27 (0.93-1.08) H 08/23/17 07:35 APTT 89.2 Seconds (25.1-36.5) H 08/23/17 16:00 - Head Exam Head Exam: ATRAUMATIC - Eye Exam Eye Exam: Normal appearance - ENT Exam ENT Exam: Mucous Membranes Dry - Respiratory Exam Respiratory Exam: NORMAL BREATHING PATTERN - Cardiovascular Exam Cardiovascular Exam: +S1, +S2 - GI/Abdominal Exam GI & Abdominal Exam: Normal Bowel Sounds - Extremities Exam Extremities Exam: Pedal Edema Assessment and Plan (1) DVT (deep venous thrombosis) Assessment & Plan: reccurent; past DVT appears provoked unprovoked this time inherited thrombophilia w/u in past negative but prothrombin gene mutation not checked; has been added agree with therapeutic anticoagulation for duration of 3 months; will need lifelong anticoagulation if future unprovoked DVT outpatient cancer surveillance; colonoscopy and PSA Status: Acute (2) Anemia Assessment & Plan: check ferritin, retic count, b12, folate to further characterize Status: Acute (3) Coagulopathy Assessment & Plan: secondary to anticoagulation Status: Acute
[2017-08-24] MEDS: Heparin25000 units/250ml 1/2NS 25,000 UNITS/250 ML BAG IV PRN (06:45)
[2017-08-24 07:11] LABS: BASO # 0.02 K/mm3 (0.0-2.0); BASO % 0.3 % (0.0-3.0); EOS # 0.1 (0.0-0.7); EOS % 2.1 % (1.5-5.0); GRAN # 3.25 (1.4-6.5); GRAN % 51.5 % (50.0-68.0); HEMOGLOBIN 12.3 g/dL (14.0-18.0); LYMPH # 2.4 (1.2-3.4); LYMPH % 37.2 % (22.0-35.0); MEAN CELL VOLUME 87.1 fl (80.0-105.0); MEAN CORPUSCULAR HEMOGLOBIN 28.4 pg (25.0-35.0); MEAN CORPUSCULAR HGB CONC 32.6 g/dl (31.0-37.0); MEAN PLATELET VOLUME 10.8 fl (7.0-11.0); MONO # 0.6 (0.1-0.6); MONO % 8.9 % (1.0-6.0); RBC 4.33 10^6/uL (3.5-6.1); RED CELL DISTRIBUTION WIDTH 13.6 % (11.5-14.5); WHITE BLOOD COUNT 6.3 10^3/ul (4.5-11.0)
[2017-08-24 07:26] LABS: ALB/GLOB RATIO 1.2 (1.1-1.8); ALT/SGPT 186 U/L (7-56); AST/SGOT 49 U/L (17-59); BLOOD UREA NITROGEN 10 mg/dL (7-21); CALCIUM 9.8 mg/dL (8.4-10.5); GFR AFRICAN-AMERICAN > 60; GFR NON-AFRICAN AMERICAN > 60
[2017-08-24 07:32] LABS: INR 2.52 (0.93-1.08); PARTIAL THROMBOPLASTIN TIME 71.8 Seconds (25.1-36.5); PROTHROMBIN TIME 29.5 SECONDS (9.4-12.5)
[2017-08-24 08:01] VITALS: BP 115/72; PULSE 62; RESP 20; TEMP 98.4; O2SAT 96
[2017-08-24] MEDS: Pantoprazole 40 mg EC Tab PO SCH (11:09)
[2017-08-24] MEDS: POLYETHYLENE GLYCOL 3350 17 GM/Dose PACKET PO SCH (11:09)
[2017-08-24] MEDS: Amoxicillin-Clav 875-125 mg Tab PO SCH (11:09)
--- NOTE | 2017-08-24 12:57 | CP.PCM.PN ---
Subjective - Date & Time of Evaluation Date of Evaluation: 08/24/17 Time of Evaluation: 10:50 - Subjective Subjective: S&E at bedside,, chart reviewed, No new complaints had formed BM today, no reports of overt GI, Denies nausea, vomiting, or abdominal pain. On heparin drip. Objective - Vital Signs/Intake and Output Vital Signs (last 24 hours): Temp Pulse Resp BP Pulse Ox 98.4 F 62 20 115/72 96 08/24/17 07:54 08/24/17 07:54 08/24/17 07:54 08/24/17 07:54 08/24/17 07:54 Intake and Output: 08/24/17 08/24/17 06:59 18:59 Intake Total 1592 Balance 1592 - Medications Medications: Current Medications Amoxicillin/Clavulanate Potassium (Augmentin 875 Mg-125 Mg Tab) 1 tab PO Q12 [facility] PRN Reason: Protocol Stop: 08/28/17 22:01 Last Admin: 08/24/17 11:09 Dose: 1 tab Hydralazine HCl (Apresoline) 10 mg IVP Q6 PRN PRN Reason: Systolic Blood Pressure Heparin Sodium/Sodium Chloride (Heparin 54353 Units/250ml 1/2 Normal Saline) 25 ,000 units in 250 mls @ 18.068 mls/hr IV .[id number] PRN; Protocol; 18 UNITS/KG/HR PRN Reason: ADJUST RATE PER PROTOCOL Last Admin: 08/24/17 06:45 Dose: 10 units/kg/hr, 10.038 mls/hr Lisinopril (Zestril) 5 mg PO DAILY [facility] Last Admin: 08/24/17 11:09 Dose: 5 mg Ondansetron HCl (Zofran Inj) 4 mg IVP Q4H PRN PRN Reason: Nausea/Vomiting Pantoprazole Sodium (Protonix Ec Tab) 40 mg PO Q12 [facility] Last Admin: 08/24/17 11:09 Dose: 40 mg Polyethylene Glycol (Miralax) 17 gm PO BID [facility] Last Admin: 08/24/17 11:09 Dose: 17 gm Ursodiol (Actigall) 300 mg PO BID [facility] Last Admin: 08/24/17 11:09 Dose: 300 mg Warfarin Sodium (Coumadin) 10 mg PO 1800 [facility] PRN Reason: Protocol Last Admin: 08/23/17 17:39 Dose: 10 mg - Labs Labs: 08/24/17 06:40 08/24/17 06:40 PT 29.5 SECONDS (9.4-12.5) H 08/24/17 06:40 INR 2.52 (0.93-1.08) H 08/24/17 06:40 APTT 69.1 Seconds (25.1-36.5) H 08/24/17 11:45 - Constitutional Appears: No Acute Distress - Head Exam Head Exam: NORMOCEPHALIC - Eye Exam Eye Exam: Normal appearance. absent: Scleral icterus - ENT Exam ENT Exam: Mucous Membranes Moist - Neck Exam Neck Exam: Normal Inspection - Respiratory Exam Respiratory Exam: Clear to Ausculation Bilateral, NORMAL BREATHING PATTERN. absent: Respiratory Distress - Cardiovascular Exam Cardiovascular Exam: +S1, +S2 - GI/Abdominal Exam GI & Abdominal Exam: Soft, Normal Bowel Sounds. absent: Guarding, Tenderness, Rebound - Extremities Exam Extremities Exam: absent: Calf Tenderness, Pedal Edema - Neurological Exam Neurological Exam: Alert, Awake, Oriented x3 - Skin Skin Exam: Dry, Warm Assessment and Plan - Assessment and Plan (Free Text) Assessment: Assessment: Status post repeat ERCP w/ balloon sweep/ampulery dilation/sphicterotomy, w/ occlusion cholangitis, and stent removal, had repeat ERCP on 3: for continued elevating LFTs, found to have sludge and blood clot which was removed. Resolving abnormal LFTs Choledocholelithiasis with cholangitis Constipation Right leg DVT PLAN: on Coumadin on Heparin drip per protocol monitor LFT/CBc and for overt GI bleeding on PPI continue Miralax, hold for stools > 2/day, if no BM, will give a dose of Lactulose continue IV antibiotics /oral antibiotics surgery recommend elective outpatient sx. low fat diet Seen and examined with Dr. Cassidy
--- NOTE | 2017-08-24 15:14 | CP.PCM.DIS ---
<Shar Sanchez - Last Filed: 08/24/17 15:30> Provider - Provider Date of Admission: 08/12/17 15:26 Attending physician: Karen Smith MD Primary care physician: NO PRIMARY CARE PROVIDER Consults: GI: Marlena Surgery: Daniel ID: [email or web address] Hematology: [place] Time Spent in preparation of Discharge (in minutes): 59 Diagnosis - Discharge Diagnosis (1) Cholangitis Status: Acute (2) Cholelithiasis Status: Acute (3) DVT (deep venous thrombosis) Status: Acute Hospital Course - Lab Results Lab Results: Micro Results 08/12/17 17:02 Bile Gram Stain - Final 08/12/17 17:02 Bile Body Fluid Culture - Final Lactobacillus Species Most Recent Lab Values WBC 6.3 10^3/ul (4.5-11.0) 08/24/17 06:40 RBC 4.33 10^6/uL (3.5-6.1) 08/24/17 06:40 Hgb 12.3 g/dL (14.0-18.0) L 08/24/17 06:40 Hct 37.7 % (42.0-52.0) L 08/24/17 06:40 MCV 87.1 fl (80.0-105.0) 08/24/17 06:40 MCH 28.4 pg (25.0-35.0) 08/24/17 06:40 MCHC 32.6 g/dl (31.0-37.0) 08/24/17 06:40 RDW 13.6 % (11.5-14.5) 08/24/17 06:40 Plt Count 296 10^3/uL (120.0-450.0) 08/24/17 06:40 MPV 10.8 fl (7.0-11.0) 08/24/17 06:40 Gran % 51.5 % (50.0-68.0) 08/24/17 06:40 Lymph % (Auto) 37.2 % (22.0-35.0) H 08/24/17 06:40 Mayes % (Auto) 8.9 % (1.0-6.0) H 08/24/17 06:40 Eos % (Auto) 2.1 % (1.5-5.0) 08/24/17 06:40 Baso % (Auto) 0.3 % (0.0-3.0) 08/24/17 06:40 Gran # 3.25 (1.4-6.5) 08/24/17 06:40 Lymph # (Auto) 2.4 (1.2-3.4) 08/24/17 06:40 Mayes # (Auto) 0.6 (0.1-0.6) 08/24/17 06:40 Eos # (Auto) 0.1 (0.0-0.7) 08/24/17 06:40 Baso # (Auto) 0.02 K/mm3 (0.0-2.0) 08/24/17 06:40 Neutrophils % (Manual) 80 % (50.0-70.0) H 08/12/17 00:45 Band Neutrophils % 5 % (0-2) H 08/12/17 00:45 Lymphocytes % (Manual) 6 % (22.0-35.0) L 08/12/17 00:45 Monocytes % (Manual) 9 % (1.0-6.0) H 08/12/17 00:45 Platelet Evaluation Normal (NORMAL) 08/12/17 00:45 Retic Count 1.40 % (0.5-1.5) 08/23/17 07:35 Haptoglobin 189.9 mg/dL (30.0-200.0) 08/15/17 10:30 PT 29.5 SECONDS (9.4-12.5) H 08/24/17 06:40 INR 2.52 (0.93-1.08) H 08/24/17 06:40 APTT 69.1 Seconds (25.1-36.5) H 08/24/17 11:45 pO2 67 mm/Hg (30-55) H 08/12/17 08:30 VBG pH 7.47 (7.32-7.43) H 08/12/17 08:30 VBG pCO2 41.0 (40-60) 08/12/17 08:30 VBG HCO3 29.8 mmol/l (21-28) H 08/12/17 08:30 VBG Total CO2 31.1 mmol.L (22-28) H 08/12/17 08:30 VBG O2 Sat (Calc) 95.9 % (40-65) H 08/12/17 08:30 VBG Base Excess 5.6 mmol/L (0.0-2.0) H 08/12/17 08:30 VBG Potassium 3.4 mmol/L (3.6-5.2) L 08/12/17 08:30 Sodium 138.0 mmol/L (132-148) 08/12/17 08:30 Chloride 102.0 mmol/L (98-107) 08/12/17 08:30 Glucose 145 mg/dl (75-110) H 08/12/17 08:30 Lactate 1.1 mmol/L (0.7-2.1) 08/12/17 08:30 FiO2 21.0 % 08/12/17 08:30 Sodium 142 mmol/L (132-148) 08/24/17 06:40 Potassium 3.6 mmol/L (3.6-5.0) 08/24/17 06:40 Chloride 103 mmol/L (98-107) 08/24/17 06:40 Carbon Dioxide 28 mmol/L (21-33) 08/24/17 06:40 Anion Gap 15 (10-20) 08/24/17 06:40 BUN 10 mg/dL (7-21) 08/24/17 06:40 Creatinine 1.0 mg/dl (0.8-1.5) 08/24/17 06:40 Est GFR ( Amer) > 60 08/24/17 06:40 Est GFR (Non-Af Amer) > 60 08/24/17 06:40 Random Glucose 98 mg/dL (70-110) 08/24/17 06:40 Hemoglobin A1c 5.9 % (4.2-6.5) 08/12/17 00:45 Calcium 9.8 mg/dL (8.4-10.5) 08/24/17 06:40 Ferritin 85.6 ng/mL 08/23/17 07:35 Total Bilirubin 1.2 mg/dL (0.2-1.3) 08/24/17 06:40 Direct Bilirubin 1.0 mg/dL (0.0-0.4) H 08/22/17 06:30 AST 49 U/L (17-59) 08/24/17 06:40 ALT 186 U/L (7-56) H 08/24/17 06:40 Alkaline Phosphatase 184 U/L (38-126) H 08/24/17 06:40 Lactate Dehydrogenase 858 U/L (333-699) H 08/17/17 06:15 Total Creatine Kinase 68 U/L (35-230) 08/12/17 12:39 Troponin I < 0.01 ng/mL 08/12/17 12:39 NT-Pro-B Natriuret Pep 103 pg/mL (0-450) 08/12/17 05:30 Total Protein 7.3 g/dL (5.8-8.3) 08/24/17 06:40 Albumin 4.0 g/dL (3.0-4.8) 08/24/17 06:40 Globulin 3.2 gm/dL 08/24/17 06:40 Albumin/Globulin Ratio 1.2 (1.1-1.8) 08/24/17 06:40 Triglycerides 84 mg/dL (35-160) 08/12/17 00:45 Cholesterol 176 mg/dL (130-200) 08/12/17 00:45 LDL Cholesterol Direct 76 mg/dL (0-129) 08/12/17 00:45 HDL Cholesterol 64 mg/dL (29-60) H 08/12/17 00:45 Lipase 218 U/L (23-300) 08/17/17 10:00 Vitamin B12 649 pg/mL (239-931) 08/23/17 07:35 Folate 11.3 ng/mL 08/23/17 07:35 Procalcitonin 0.37 NG/ML (0.19-0.49) 08/12/17 00:45 Venous Blood Potassium 3.4 mmol/L (3.6-5.2) L 08/12/17 08:30 Urine Color Yellow (YELLOW) 08/12/17 08:00 Urine Appearance Clear (CLEAR) 08/12/17 08:00 Urine pH 6.0 (4.7-8.0) 08/12/17 08:00 Ur Specific Jackson 1.020 (1.005-1.035) 08/12/17 08:00 Urine Protein Negative mg/dL (<30 mg/dL) 08/12/17 08:00 Urine Glucose (UA) Negative mg/dL (NEGATIVE) 08/12/17 08:00 Urine Ketones Negative mg/dL (NEGATIVE) 08/12/17 08:00 Urine Blood Trace-lysed (NEGATIVE) H 08/12/17 08:00 Urine Nitrate Negative (NEGATIVE) 08/12/17 08:00 Urine Bilirubin Negative (NEGATIVE) 08/12/17 08:00 Urine Urobilinogen 0.2 E.U./dL (<1 E.U./dL) 08/12/17 08:00 Ur Leukocyte Esterase Negative Derick/uL (NEGATIVE) 08/12/17 08:00 Urine RBC 1 - 3 /hpf (0-2) 08/12/17 08:00 Urine WBC 0 - 2 /hpf (0-6) 08/12/17 08:00 Ur Epithelial Cells None /hpf (0-5) 08/12/17 08:00 Amorphous Sediment Trace 08/12/17 08:00 Urine Bacteria Many (NEG) 08/12/17 08:00 Urine Opiates Screen Negative (NEGATIVE) 08/12/17 08:00 Urine Methadone Screen Negative (NEGATIVE) 08/12/17 08:00 Ur Barbiturates Screen Negative (NEGATIVE) 08/12/17 08:00 Ur Phencyclidine Scrn Negative (NEGATIVE) 08/12/17 08:00 Ur Amphetamines Screen Negative (NEGATIVE) 08/12/17 08:00 U Benzodiazepines Scrn Negative (NEGATIVE) 08/12/17 08:00 U Oth Cocaine Metabols Negative (NEGATIVE) 08/12/17 08:00 U Cannabinoids Screen Negative (NEGATIVE) 08/12/17 08:00 Alcohol, Quantitative < 10 mg/dL (0-10) 08/12/17 00:45 Hepatitis A IgM Ab Negative (NEGATIVE) 08/12/17 00:45 Hep Bs Antigen Negative (NEGATIVE) 08/12/17 00:45 Hep B Core IgM Ab Negative (NEGATIVE) 08/12/17 00:45 Hepatitis C Antibody Negative (NEGATIVE) 08/12/17 00:45 HIV 1&2 Ag/Ab, 4th Gen Nonreactive (Nonreactive) 08/12/17 00:45 Blood Type B POSITIVE 08/20/17 17:55 Antibody Screen Negative 08/20/17 17:55 BBK History Checked Patient has bt 08/20/17 17:55 - Hospital Course Hospital Course: 52 year old male with a past medical history significant for RLE DVT s/o occupational injury who presented with epigastric pain, nausea/vomiting and constipation. A CT Abdomen/Pelvis showed findings suspicious for acute cholecystitis. An MRCP showed 7mm stone in distal CBD at the level of the ampulla with CBD dilatation to 11mm. An ERCP was performed with sphincterotomy, biliary stent placement, unsuccessful stone removal and purulent drainage removed. Patient was started on IV Zosyn. Surgery, GI and ID were consulted. Repeat ERCP was done with successful stone extraction and retrieval of biliary stent. Patient was scheduled for cholecystectomy the following day but developed acute DVT, despite DVT prophylaxis, after repeat ERCP so this was deferred to be done as an outpatient. RLE Duplex U/S showed partially recannulized thrombus in the right popliteal and visualized tibial veins Patient was started on heparin drip DVT protocol and eventually transitioned to and discharged on Coumadin. During the bridging period, patient developed an acute hyperbilirubinemia. Abdominal U/S was limited due to bowel gas but showed no acute biliary obstruction in the visualized segments of the biliary tree. Repeat MRCP showed obstruction of the CBD just below the level of the cystic duct. Another ERCP was performed and showed large amounts of blood clots and biliary sludge that was cleared with balloon extraction. Patient was then started on Augmentin and Ursodiol. Hematology was consulted for DVT. Patient was discharged on 08/24/2017 with instructions, referrals and prescriptions as written below. - Date & Time of H&P Date of H&P: 08/12/17 Time of H&P: 03:14 Discharge Exam - Head Exam Head Exam: ATRAUMATIC, NORMOCEPHALIC - Eye Exam Eye Exam: EOMI, Normal appearance Pupil Exam: NORMAL ACCOMODATION, PERRL - ENT Exam ENT Exam: Mucous Membranes Moist, Normal Exam - Neck Exam Neck exam: Full Rom, Normal Inspection - Respiratory Exam Respiratory Exam: Clear to PA & Lateral, NORMAL BREATHING PATTERN, UNREMARKABLE - Cardiovascular Exam Cardiovascular Exam: REGULAR RHYTHM - GI/Abdominal Exam GI & Abdominal Exam: Normal Bowel Sounds, Soft, Unremarkable. absent: Distended , Firm, Guarding, Rebound, Rigid, Tenderness - Extremities Exam Extremities exam: full ROM, normal capillary refill, normal inspection, pedal pulses present - Back Exam Back exam: NORMAL INSPECTION - Neurological Exam Neurological exam: Alert, CN II-XII Intact, Normal Gait, Oriented x3, Reflexes Normal - Psychiatric Exam Psychiatric exam: Normal Affect, Normal Mood - Skin Skin Exam: Dry, Intact, Normal Color, Warm Discharge Plan - Discharge Medications Prescriptions: Amoxicillin/Clavulanate [Augmentin 875 MG-125 MG Tab] 1 tab PO Q12 #10 tab Ursodiol [Actigall] 300 mg PO BID #28 cap Warfarin Sodium 5 mg PO DAILY #2 tablet - Follow Up Plan Condition: GOOD Disposition: HOME/ ROUTINE Instructions: Vitamin K Diet, Deep Vein Thrombosis (Blood Clots in the Legs) ( DC), What to Do When Your INR Is Too High , Gallstones (DC), Warfarin, Going Home on Blood Thinners , Chest Pain (ED) Additional Instructions: - Please follow up with your primary care doctor within one week - You will need to follow up with a trimmer and borer machine operator as outpatient due to DVT ( blood clots in the leg), your primary care doctor can give you referrals. - Follow up at Dr. Sanchez surgeon's office to schedule for elective outpatient surgery for gallbladder to prevent future attacks. - Low fat diet - You have an appointment for an INR check at 0930 on Tuesday08/26/17 at the [facility] at [facility]. Please make sure your [place] emergency department paperwork is completed PRIOR to this visit - If your symptoms worsen or persist, please seek emergency medical attention Referrals: [facility] [Provider Group] John Sanchez MD [Staff Provider] - PCPYVONNE [Primary Care Provider] - <Karen Smith - Last Filed: 08/24/17 17:54> Provider - Provider Date of Admission: 08/12/17 15:26 Attending physician: Karen Smith MD Primary care physician: YVONNE PRIMARY CARE PROVIDER Hospital Course - Lab Results Lab Results: Micro Results 08/12/17 17:02 Bile Gram Stain - Final 08/12/17 17:02 Bile Body Fluid Culture - Final Lactobacillus Species Most Recent Lab Values WBC 6.3 10^3/ul (4.5-11.0) 08/24/17 06:40 RBC 4.33 10^6/uL (3.5-6.1) 08/24/17 06:40 Hgb 12.3 g/dL (14.0-18.0) L 08/24/17 06:40 Hct 37.7 % (42.0-52.0) L 08/24/17 06:40 MCV 87.1 fl (80.0-105.0) 08/24/17 06:40 MCH 28.4 pg (25.0-35.0) 08/24/17 06:40 MCHC 32.6 g/dl (31.0-37.0) 08/24/17 06:40 RDW 13.6 % (11.5-14.5) 08/24/17 06:40 Plt Count 296 10^3/uL (120.0-450.0) 08/24/17 06:40 MPV 10.8 fl (7.0-11.0) 08/24/17 06:40 Gran % 51.5 % (50.0-68.0) 08/24/17 06:40 Lymph % (Auto) 37.2 % (22.0-35.0) H 08/24/17 06:40 Mayes % (Auto) 8.9 % (1.0-6.0) H 08/24/17 06:40 Eos % (Auto) 2.1 % (1.5-5.0) 08/24/17 06:40 Baso % (Auto) 0.3 % (0.0-3.0) 08/24/17 06:40 Gran # 3.25 (1.4-6.5) 08/24/17 06:40 Lymph # (Auto) 2.4 (1.2-3.4) 08/24/17 06:40 Mayes # (Auto) 0.6 (0.1-0.6) 08/24/17 06:40 Eos # (Auto) 0.1 (0.0-0.7) 08/24/17 06:40 Baso # (Auto) 0.02 K/mm3 (0.0-2.0) 08/24/17 06:40 Neutrophils % (Manual) 80 % (50.0-70.0) H 08/12/17 00:45 Band Neutrophils % 5 % (0-2) H 08/12/17 00:45 Lymphocytes % (Manual) 6 % (22.0-35.0) L 08/12/17 00:45 Monocytes % (Manual) 9 % (1.0-6.0) H 08/12/17 00:45 Platelet Evaluation Normal (NORMAL) 08/12/17 00:45 Retic Count 1.40 % (0.5-1.5) 08/23/17 07:35 Haptoglobin 189.9 mg/dL (30.0-200.0) 08/15/17 10:30 PT 29.5 SECONDS (9.4-12.5) H 08/24/17 06:40 INR 2.52 (0.93-1.08) H 08/24/17 06:40 APTT 69.1 Seconds (25.1-36.5) H 08/24/17 11:45 pO2 67 mm/Hg (30-55) H 08/12/17 08:30 VBG pH 7.47 (7.32-7.43) H 08/12/17 08:30 VBG pCO2 41.0 (40-60) 08/12/17 08:30 VBG HCO3 29.8 mmol/l (21-28) H 08/12/17 08:30 VBG Total CO2 31.1 mmol.L (22-28) H 08/12/17 08:30 VBG O2 Sat (Calc) 95.9 % (40-65) H 08/12/17 08:30 VBG Base Excess 5.6 mmol/L (0.0-2.0) H 08/12/17 08:30 VBG Potassium 3.4 mmol/L (3.6-5.2) L 08/12/17 08:30 Sodium 138.0 mmol/L (132-148) 08/12/17 08:30 Chloride 102.0 mmol/L (98-107) 08/12/17 08:30 Glucose 145 mg/dl (75-110) H 08/12/17 08:30 Lactate 1.1 mmol/L (0.7-2.1) 08/12/17 08:30 FiO2 21.0 % 08/12/17 08:30 Sodium 142 mmol/L (132-148) 08/24/17 06:40 Potassium 3.6 mmol/L (3.6-5.0) 08/24/17 06:40 Chloride 103 mmol/L (98-107) 08/24/17 06:40 Carbon Dioxide 28 mmol/L (21-33) 08/24/17 06:40 Anion Gap 15 (10-20) 08/24/17 06:40 BUN 10 mg/dL (7-21) 08/24/17 06:40 Creatinine 1.0 mg/dl (0.8-1.5) 08/24/17 06:40 Est GFR ( Amer) > 60 08/24/17 06:40 Est GFR (Non-Af Amer) > 60 08/24/17 06:40 Random Glucose 98 mg/dL (70-110) 08/24/17 06:40 Hemoglobin A1c 5.9 % (4.2-6.5) 08/12/17 00:45 Calcium 9.8 mg/dL (8.4-10.5) 08/24/17 06:40 Ferritin 85.6 ng/mL 08/23/17 07:35 Total Bilirubin 1.2 mg/dL (0.2-1.3) 08/24/17 06:40 Direct Bilirubin 1.0 mg/dL (0.0-0.4) H 08/22/17 06:30 AST 49 U/L (17-59) 08/24/17 06:40 ALT 186 U/L (7-56) H 08/24/17 06:40 Alkaline Phosphatase 184 U/L (38-126) H 08/24/17 06:40 Lactate Dehydrogenase 858 U/L (333-699) H 08/17/17 06:15 Total Creatine Kinase 68 U/L (35-230) 08/12/17 12:39 Troponin I < 0.01 ng/mL 08/12/17 12:39 NT-Pro-B Natriuret Pep 103 pg/mL (0-450) 08/12/17 05:30 Total Protein 7.3 g/dL (5.8-8.3) 08/24/17 06:40 Albumin 4.0 g/dL (3.0-4.8) 08/24/17 06:40 Globulin 3.2 gm/dL 08/24/17 06:40 Albumin/Globulin Ratio 1.2 (1.1-1.8) 08/24/17 06:40 Triglycerides 84 mg/dL (35-160) 08/12/17 00:45 Cholesterol 176 mg/dL (130-200) 08/12/17 00:45 LDL Cholesterol Direct 76 mg/dL (0-129) 08/12/17 00:45 HDL Cholesterol 64 mg/dL (29-60) H 08/12/17 00:45 Lipase 218 U/L (23-300) 08/17/17 10:00 Vitamin B12 649 pg/mL (239-931) 08/23/17 07:35 Folate 11.3 ng/mL 08/23/17 07:35 Procalcitonin 0.37 NG/ML (0.19-0.49) 08/12/17 00:45 Venous Blood Potassium 3.4 mmol/L (3.6-5.2) L 08/12/17 08:30 Urine Color Yellow (YELLOW) 08/12/17 08:00 Urine Appearance Clear (CLEAR) 08/12/17 08:00 Urine pH 6.0 (4.7-8.0) 08/12/17 08:00 Ur Specific Jackson 1.020 (1.005-1.035) 08/12/17 08:00 Urine Protein Negative mg/dL (<30 mg/dL) 08/12/17 08:00 Urine Glucose (UA) Negative mg/dL (NEGATIVE) 08/12/17 08:00 Urine Ketones Negative mg/dL (NEGATIVE) 08/12/17 08:00 Urine Blood Trace-lysed (NEGATIVE) H 08/12/17 08:00 Urine Nitrate Negative (NEGATIVE) 08/12/17 08:00 Urine Bilirubin Negative (NEGATIVE) 08/12/17 08:00 Urine Urobilinogen 0.2 E.U./dL (<1 E.U./dL) 08/12/17 08:00 Ur Leukocyte Esterase Negative Derick/uL (NEGATIVE) 08/12/17 08:00 Urine RBC 1 - 3 /hpf (0-2) 08/12/17 08:00 Urine WBC 0 - 2 /hpf (0-6) 08/12/17 08:00 Ur Epithelial Cells None /hpf (0-5) 08/12/17 08:00 Amorphous Sediment Trace 08/12/17 08:00 Urine Bacteria Many (NEG) 08/12/17 08:00 Urine Opiates Screen Negative (NEGATIVE) 08/12/17 08:00 Urine Methadone Screen Negative (NEGATIVE) 08/12/17 08:00 Ur Barbiturates Screen Negative (NEGATIVE) 08/12/17 08:00 Ur Phencyclidine Scrn Negative (NEGATIVE) 08/12/17 08:00 Ur Amphetamines Screen Negative (NEGATIVE) 08/12/17 08:00 U Benzodiazepines Scrn Negative (NEGATIVE) 08/12/17 08:00 U Oth Cocaine Metabols Negative (NEGATIVE) 08/12/17 08:00 U Cannabinoids Screen Negative (NEGATIVE) 08/12/17 08:00 Alcohol, Quantitative < 10 mg/dL (0-10) 08/12/17 00:45 Hepatitis A IgM Ab Negative (NEGATIVE) 08/12/17 00:45 Hep Bs Antigen Negative (NEGATIVE) 08/12/17 00:45 Hep B Core IgM Ab Negative (NEGATIVE) 08/12/17 00:45 Hepatitis C Antibody Negative (NEGATIVE) 08/12/17 00:45 HIV 1&2 Ag/Ab, 4th Gen Nonreactive (Nonreactive) 08/12/17 00:45 Blood Type B POSITIVE 08/20/17 17:55 Antibody Screen Negative 08/20/17 17:55 BBK History Checked Patient has bt 08/20/17 17:55 Attending/Attestation - Attestation I have personally seen and examined this patient.: Yes I have fully participated in the care of the patient.: Yes I have reviewed all pertinent clinical information, including history, physical exam and plan: Yes Notes (Text): 08/24/17 17:51 Attending note; Patient seen and examined with resident. Patient is a 52 year old male with history of right lower extremity DVT provoked after Right ankle surgery and completed anticoagulation treatment is admitted with epigastric pain. Abdominal CT scan showed thickening of the gallbladder wall. MRCP showed a 7 mm stone in the distal common bile duct. The patient had ERCP with sphincterotomy. Patient had acute cholangitis. treated with IV Zosyn. will be discharged home with Augmentin. Patient is afebrile and nontoxic. There is no leukocytosis. Blood and urine culture is negative. Patient had rise in LFTs. which is improving after ERCP which revealed blood clots. LFT is improving. acute RLE DVT. Currently on heparin drip .started on Coumadin. INR is 2.5 today. Continue Coumadin 5 mg for 2 more days. patient will get INR checkup on Tuesday at [facility] clinic. Dosage will be adjusted . Dietary education given. Hematology evaluation appreciated. we need 3 months of anticoagulation. anemia; stable. B12 and folate is normal. previous hypercoagulable workup is negative. Prothrombin gene mutation is pending. Lap cholecystectomy was deferred due to this new finding. patient will get elective laparoscopic cholecystectomy in 3-4 weeks. Information given by rn medical surgical. Continue ursodiol for now. Upon discharge the patient will follow-up with [facility] clinic.
== END 2017-08-24 15:18 | disposition home or self-care (01) | DRG 557 ==
LOC: ED 00:25 → ERH 02:00 → 2RNO 03:40 → OBSVTOIN 15:26 → 2RNO 17:43 → 5RSO 08-13 13:59
PROVIDERS: ADMIT Internal Medicine; ATTEND Internal Medicine
PROC: 0FC98ZZ Extirpation of Matter from Common Bile Duct, Via Natural or Artificial Opening Endoscopic (ICD-10-PCS; 2017-08-12)
PROC: 0F798DZ Dilation of Common Bile Duct with Intraluminal Device, Via Natural or Artificial Opening Endoscopic (ICD-10-PCS; 2017-08-12)
PROC: 0DJ08ZZ Inspection of Upper Intestinal Tract, Via Natural or Artificial Opening Endoscopic (ICD-10-PCS; 2017-08-12 13:15)
PROC: BF101ZZ Fluoroscopy of Bile Ducts using Low Osmolar Contrast (ICD-10-PCS; 2017-08-15)
PROC: 0FPB8DZ Removal of Intraluminal Device from Hepatobiliary Duct, Via Natural or Artificial Opening Endoscopic (ICD-10-PCS; 2017-08-15 14:00)
PROC: 0FC98ZZ Extirpation of Matter from Common Bile Duct, Via Natural or Artificial Opening Endoscopic (ICD-10-PCS; 2017-08-15 14:00)
PROC: 0FC98ZZ Extirpation of Matter from Common Bile Duct, Via Natural or Artificial Opening Endoscopic (ICD-10-PCS; principal; 2017-08-19 14:00)
DX: K80.63 Calculus of gallbladder and bile duct with acute cholecystitis with obstruction (principal); I82.402 Acute embolism and thrombosis of unspecified deep veins of left lower extremity; I82.431 Acute embolism and thrombosis of right popliteal vein; E11.43 Type 2 diabetes mellitus with diabetic autonomic (poly)neuropathy; I82.501 Chronic embolism and thrombosis of unspecified deep veins of right lower extremity; D64.9 Anemia, unspecified; D68.9 Coagulation defect, unspecified; E66.9 Obesity, unspecified; I10 Essential (primary) hypertension; I24.9 Acute ischemic heart disease, unspecified; K31.84 Gastroparesis; K59.00 Constipation, unspecified; T18.2XXA Foreign body in stomach, initial encounter; Z68.31 Body mass index [BMI] 31.0-31.9, adult; Z79.01 Long term (current) use of anticoagulants; Z83.3 Family history of diabetes mellitus; R40.2411 Glasgow coma scale score 13-15, in the field [EMT or ambulance]